=== PATIENT | female | born 1940 | race Caucasian/White ===

== ENCOUNTER 2020-07-30 21:15 | Emergency (ER) | payer MEDICARE, MEDICAID ==
[~2020-07-30] VITALS: Ht 160 cm; Wt 59.0 kg
[2020-07-30 21:15] VITALS: BP 120/68
--- NOTE | 2020-07-30 21:15 | NUR ---
ED Nurse Note: Pt brought in by ambulance from living facility, pt had a fall at 3pm onto her L hip hitting her head as well, denies LOC. Pt is A&Ox4, VSS. Pt speaks farci, interpretor used. ERMD at bedside, pt placed on quality assurance monitor
[2020-07-30] MEDS ORDERED: ATORVASTATIN CA20 MG ORAL (21:25)
[2020-07-30] MEDS ORDERED: ACETAMINOPHEN325 M1 ORAL (21:25)
[2020-07-30] MEDS ORDERED: AMLODIPINE BESY10 MG ORAL (21:25)
[2020-07-30] MEDS ORDERED: ALENDRONAT70 MG/75 M PO (21:25)
[2020-07-30] MEDS ORDERED: FAMOTIDINE20 MG ORAL (21:37)
[2020-07-30] MEDS ORDERED: DAILY VITE1 EACH ORAL (21:37)
[2020-07-30] MEDS ORDERED: PAXIL20 MG ORAL (21:42)
[2020-07-30] MEDS ORDERED: FOLIC ACID1 MG ORAL (21:42)
[2020-07-30] MEDS ORDERED: ZOFRAN4 M3 ORAL (21:42)
[2020-07-30] MEDS ORDERED: TRADJENTA5 MG PO (21:42)
[2020-07-30] MEDS ORDERED: LISINOPRIL20 MG ORAL (21:42)
[2020-07-30] MEDS ORDERED: OMEPRAZOLE40 M1 ORAL (21:42)
[2020-07-30] MEDS ORDERED: METFORMIN HCL1000 M1 ORAL (21:42)
[2020-07-30] MEDS ORDERED: LACTULOSE20 GM/301 ORAL (21:42)
[2020-07-30] MEDS ORDERED: TRAMADOL HCL50 MG ORAL (21:42)
--- NOTE | 2020-07-30 21:44 | NUR ---
ED Nurse Note: PT to CT
--- NOTE | 2020-07-30 21:51 | Emergency Room Report ---
History of Present Illness General Chief Complaint: Lower Back Pain or Injury Source: Patient, Medical Record (Bacilio Gomez MD) Present Illness HPI Disclaimer: Please note that this report is being documented using varinodeON technology. This can lead to erroneous entry secondary to incorrect interpretation by the dictating instrument. HPI: 79-year-old female presents for evaluation after a fall. History and physical done with the use of an financial coach. Patient states approximate 3 PM today while at her senior center she slipped on the floor had a fall with head injury but no loss of consciousness. She fell onto her left side. She is complaining of pain over the left hip particularly and lower ribs. Reports mild headache but no nausea, vomiting. Denied prefall lightheadedness, syncope , palpitations, shortness of breath or other changes. Does not take blood thinners. PMH: Hypertension, hyperlipidemia, depression PSH: Reviewed Allergies: Reviewed Social Hx: Reviewed (Bacilio Gomez MD) Allergies: Coded Allergies: No Known Allergies (Unverified , 07/30/20) COVID-19 Screening Contact w/high risk pt: No Experienced COVID-19 symptoms?: No COVID-19 Testing performed ART LIBRARIAN: Yes - 07/29/20 COVID-19 Screening: Negative COVID-19 COVID-19 Testing Source: Residential Facility (Bacilio Gomez MD) Nursing Documentation-PMH Hx Hypertension: Yes Hx Diabetes: Yes History Of Psychiatric Problem: Yes - dementia (Bacilio Gomez MD) Review of Systems All Other Systems: negative except mentioned in HPI (Bacilio Gomez MD) Physical Exam Vital Signs Date Time Temp Pulse Resp B/P (MAP) Pulse Ox O2 Delivery O2 Flow Rate FiO2 07/30/20 21:10 98.1 73 20 120/68 (85) 100 Room Air General: Awake and alert, no acute distress HEENT: Normocephalic, atraumatic. There are no scalp or face hematomas, lacerations or abrasions. No tenderness or soft tissue swelling over the facial bones. EOMI. PERRLA. No septal hematoma. No oral lacerations. Dentition is intact. No malocclusion Neck: Supple, trachea midline. Arrives without cervical collar Chest Wall: Tenderness palpation over the posterior aspect of the left lower ribs. CV: RRR. S1 and S2 normal. No murmur appreciated Resp: Normal work of breathing. No cough, wheezing or crackles appreciated Abd: Soft, nontender, nondistended Skin: Intact. No abrasions, laceration or rash over the exposed skin MSK: Normal tone and bulk. No obvious deformity. Moving all extremities. Ambulating without difficulty. Neuro: Awake and alert. Mentating appropriately. Sensation is intact to light touch over the dermatomes of the upper and lower extremities Spine: There is no tenderness, step-off or deformity in the cervical, thoracic or lumbosacral spine. There is moderate tenderness over the left superior iliac crest (Bacilio Gomez MD) Medical Decision Making Diagnostic Impression: Primary Impression: Meningioma Additional Impressions: Head injury, closed, without LOC Rib contusion ER Course Is a 79-year-old female who fell earlier today from standing with head injury but no loss of consciousness. Concern for intracranial injury, rib fracture, compression fracture, lumbar spine fracture, hip fracture, pelvis fracture, dislocation. No evidence of bleed on head CT but a meningioma was identified. This can be followed up on outpatient basis. Degenerative changes noted in the spine but no acute compression fracture noted or other abnormalities. Hips and pelvis in anatomic position without evidence of fracture dislocation. Difficult to interpret chest x-ray for rib fractures. A CT of the torso ordered. Patient will be signed out to oncoming physician pending CT and ultimate disposition. Patient stable condition. (Bacilio Gomez MD) ER Course Care of this patient was taken over by me from the previous physician. Patient remained hemodynamically stable and neurovascularly intact during my care in the emergency department. CT of the chest showed no active disease. The patient had multiple old appearing healing bilateral rib fractures and old healing L1 and L2 transverse process fractures with out any angulation. Patient was given ibuprofen and Toradol in the emergency department and within minutes so that she felt much better and was ambulating throughout the ER and tolerating p.o. and use the restroom without any difficulty. These findings were explained to the patient's son and the patient was transported back to her nursing care facility in good condition. (Triston Phelan M.D.) Other X-Ray Diagnostic Results Other X-Ray Diagnostic Results #1: X-Ray ordered: Hips, pelvis # of Views/Limited Vs Complete: 2 View Indication: Pain Interpretation: no dislocation, no soft tissue swelling, no fractures Impression: No acute disease Electronically Signed by: Electronically signed by Dr. Bacilio Gomez Other X-Ray Diagnostic Results #2: X-Ray ordered: Lumbar spine # of Views/Limited Vs Complete: 2 View Indication: Pain EP Interpretation: Yes Interpretation: no dislocation, no soft tissue swelling, no fractures, other - Degenerative changes present Impression: Other - Degenerative disc disease but no acute fracture Electronically Signed by: Electronically signed by Dr. Bacilio Gomez (Bacilio Gomez MD) CT/MRI/US Diagnostic Results CT/MRI/US Diagnostic Results : Impression IMPRESSION: 1. No acute intracranial process. 2. Involutional changes with small vessel disease. 3. Left anterior parafalcine 11 mm calcified meningioma. Dictated By: Momo Rios M.D. Electronically Signed By: Momo Rios M.D. Signed Date/Time 07/30/20 2209 CC: Bacilio Gomez MD Impression: 1. No active lung disease. 2. Healing multiple bilateral rib fractures, right L1-L2 transverse process fracture. 3. Small hiatal hernia. 4. Calcified hepatic granulomas. Dictated By: Momo Rios M.D. Electronically Signed By: Momo Rios M.D. Signed Date/Time 07/30/20 [id number] CC: Bacilio Gomez MD (Bacilio Gomez MD) Last Vital Signs Date Time Temp Pulse Resp B/P (MAP) Pulse Ox O2 Delivery O2 Flow Rate FiO2 07/30/20 21:10 98.1 73 20 120/68 (85) 100 Room Air (Bacilio Gomez MD) Disposition: HOME, SELF-CARE Condition: Stable Scripts Acetaminophen* (ACETAMINOPHEN 325MG TABLET*) 325 Mg Tablet 325 MG ORAL Q6H PRN for For Pain, #20 TAB Prov: Triston Phelan M.D. 07/31/20 Bacilio Gomez MD Jul 30, 2020 21:51 Triston Phelan M.D. Jul 31, 2020 00:08
--- NOTE | 2020-07-30 22:09 | NUR ---
ED Nurse Note: Pt back from CT
--- NOTE | 2020-07-30 22:09 | Diagnostic Imaging Report ---
CT head without contrast Technique more: CTDI is 53.4 mGy and DLP is 885.2 mGy-cm. Technique more: One or more of the following dose reduction techniques were used: automated exposure control, adjustment of the mA and/or kV according to patient size, use of iterative reconstruction technique. Comparison: None FINDINGS: No intracranial hemorrhage, abnormal intra- or extra-axial collections or parenchymal lesions are seen. There are involutional changes with prominence of the sulci, basal cisterns and ventricles. Scattered white matter hypoattenuations are present, likely from small vessel disease. The wang-white differentiation is preserved. Left anterior frontal 11 mm calcified meningioma. No evidence of mass effect, midline shift, or edema. The osseous structures are unremarkable. The visualized portions of the paranasal sinuses are clear. IMPRESSION: 1. No acute intracranial process. 2. Involutional changes with small vessel disease. 3. Left anterior parafalcine 11 mm calcified meningioma.
--- NOTE | 2020-07-30 22:56 | NUR ---
ED Nurse Note: PT to CT again
--- NOTE | 2020-07-30 23:06 | NUR ---
ED Nurse Note: Pt back from CT
--- NOTE | 2020-07-30 23:08 | Diagnostic Imaging Report ---
Rib series History: Pain, injury Technique: Bilateral rib series. Findings: Callouses of multiple bilateral healing rib fractures are noted. Negative for pneumothorax. Bilateral lungs are clear. Negative for pleural effusion Mediastinum, heart are normal. Impression: 1. Callouses of multiple bilateral healing rib fractures.
--- NOTE | 2020-07-30 23:29 | Diagnostic Imaging Report ---
CT chest without contrast History: Injury Technique: Axial noncontrast CT of the chest with coronal, sagittal reformatted images. Technique more: CTDI is 3.9 mGy and DLP is 139.7 mGy-cm. Technique more: One or more of the following dose reduction techniques were used: automated exposure control, adjustment of the mA and/or kV according to patient size, use of iterative reconstruction technique. Comparison: Rib series 07/30/2020 Findings: Soft tissues: Thoracic inlet, bilateral axilla are unremarkable. Negative for any significant mediastinal hilar or subcarinal lymphadenopathy. Negative for pleural effusion or pleural plaque. Mild/moderate hiatal hernia is seen. Upper abdomen: Scattered calcified hepatic granuloma. Mild calcification of the normal caliber aorta. Vascular: Heart and pericardium are unremarkable. Minimal calcification at the aortic root and aortic arch. Normal caliber of the aorta and pulmonary artery. Negative for any significant coronary calcification. Lungs: No endotracheal endobronchial lesion. Negative for pneumothorax. Mild atelectasis of the left lingula and right middle lobe. Bones: Multiple bilateral rib fractures with callus formation suggesting old healing fractures. Healing midsternal fracture. T12-L1 degenerative disc disease with vertebral body endplate small nodes. Healing right L1, L2 transverse process fractures Impression: 1. No active lung disease. 2. Healing multiple bilateral rib fractures, right L1-L2 transverse process fracture. 3. Small hiatal hernia. 4. Calcified hepatic granulomas.
[2020-07-30] MEDS ORDERED: Ketorolac 60mg Inj IM ONE (23:45)
[2020-07-30] MEDS ORDERED: Acetaminophen 500mg (ES) tab ORAL ONE (23:45)
[2020-07-31] MEDS ORDERED: ACETAMINOPHEN325 M1 ORAL (00:03)
[2020-07-31 01:00] VITALS: BP 132/65
--- NOTE | 2020-07-31 01:00 | NUR ---
ED Nurse Note: Pt resting in bed with eyes closed, no signs of distress, will continue to monitor as waiting for transport
[2020-07-31 03:35] VITALS: BP 120/68
--- NOTE | 2020-07-31 03:35 | NUR ---
ER DISCHARGE NOTE: Patient is cleared to be discharged per ERMD, pt is aox4, on room air, with stable vital signs. pt was given dc and prescription instructions, pt was able to verbalize understanding, pt id band removed. pt is able to ambulate with steady gait. pt took all belongings. Addendum: 07/31/20 at 0337 by KDEARING pt taken home by [facility]
--- NOTE | 2020-07-31 16:24 | Diagnostic Imaging Report ---
Indication: Pain, status post fall Technique: One view of the pelvis with frog lateral views of the hips Comparison: none Findings: No acute fractures. No dislocations. The joint spaces are preserved Impression: No acute bony trauma Note, however, that in elderly osteoporotic patients, nondisplaced hip and/or pelvic fractures can easily be occult. Consider cross-sectional imaging if there is high clinical suspicion
--- NOTE | 2020-07-31 16:25 | Diagnostic Imaging Report ---
Indication: Pain, status post fall Technique: 3 views of the lumbar spine Comparison: None Findings: There is anterior offset of L4 on L5. Otherwise normal bony alignment. There is degenerative disc narrowing at T12-L1 and at L5-S1. The remaining disc spaces are preserved. No definite acute fractures. The bones are osteoporotic. The pedicles are intact. Sacroiliac joint spaces are preserved. Impression: Degenerative changes, as described Osteoporosis No definite acute bony trauma
== END 2020-07-31 03:35 | disposition home or self-care (01) ==
LOC: EDBD 21:15 → EMR 21:46
DX: D32.0 Benign neoplasm of cerebral meninges (principal); S20.219A Contusion of unspecified front wall of thorax, initial encounter; S09.90XA Unspecified injury of head, initial encounter; I10 Essential (primary) hypertension; E11.9 Type 2 diabetes mellitus without complications; F03.90 Unspecified dementia, unspecified severity, without behavioral disturbance, psychotic disturbance, mood disturbance, and anxiety; W01.0XXA Fall on same level from slipping, tripping and stumbling without subsequent striking against object, initial encounter; Y93.01 Activity, walking, marching and hiking; Y92.29 Other specified public building as the place of occurrence of the external cause
CPT/HCPCS: 70450; 71250; 72020; 73521; 96372; 99284

== ENCOUNTER 2020-08-13 13:11 | Inpatient (IN) | payer MEDICARE, MEDICAID ==
[~2020-08-13] VITALS: Ht 162.6 cm; Wt 57.2 kg
[~2020-08-13 13:11] MED LIST: ACETAMINOPHEN325 M1 ORAL; ALENDRONAT70 MG/75 M PO; AMLODIPINE BESY10 MG ORAL; ATORVASTATIN CA20 MG ORAL; DAILY VITE1 EACH ORAL; FAMOTIDINE20 MG ORAL; FOLIC ACID1 MG ORAL; LACTULOSE20 GM/301 ORAL; LISINOPRIL20 MG ORAL; METFORMIN HCL1000 M1 ORAL; OMEPRAZOLE40 M1 ORAL; PAXIL20 MG ORAL; TRADJENTA5 MG PO; TRAMADOL HCL50 MG ORAL; ZOFRAN4 M3 ORAL
[2020-08-13 13:15] VITALS: BP 136/59
--- NOTE | 2020-08-13 13:15 | NUR ---
ED Nurse Note: Pt brought in by [facility] from [facility] assisted living due to abdominal pain, nausea, vomiting for 2 days. Last vomiting episode this morning. Per report pt also unable to void x2 days. Pt is awake alert oriented x4, respirations even and unlabored, tachycardic HR 102-103, other vitals stable as documented.
[2020-08-13 13:57] LABS: APPEARANCE,URINE SLIGHTLY CLOUDY; BILIRUBIN, URINE 1+ (NEGATIVE); GLUCOSE, URINE (UA) 2+ (NEGATIVE); KETONES,URINE 1+ (NEGATIVE); LEUKOCYTE ESTERASE ,URINE 1+ (NEGATIVE); NITRITE,URINE NEGATIVE (NEGATIVE); PH,URINE 5 (4.5-8.0); PROTEIN,URINE 3+ (NEGATIVE); UROBILINOGEN,URINE NORMAL MG/DL (0.0-1.0)
[2020-08-13 13:58] LABS: HEMATOCRIT 41.6 % (37.0-47.0); HEMOGLOBIN 12.5 G/DL (12.0-16.0); MEAN CORPUSCULAR VOLUME 88 FL (80-99); PLATELET COUNT 307 K/UL (150-450); RED BLOOD COUNT 4.74 M/UL (4.20-5.40); RED CELL DISTRIBUTION WIDTH 12.6 % (11.6-14.8)
[2020-08-13 14:00] VITALS: BP 133/61
[2020-08-13 14:03] LABS: WHITE BLOOD COUNT 35.8 K/UL (4.8-10.8)
--- NOTE | 2020-08-13 14:05 | Emergency Room Report ---
History of Present Illness General Chief Complaint: Abdominal Pain Source: Patient, Medical Record, EMS ([facility]) Present Illness HPI This patient is brought in by EMS from a [place] [facility] [place] facility. This patient has a history of dementia, diabetes. She presents with nausea, vomiting and lower abdominal pain. Patient is a poor historian. History is primarily obtained by EMS. There is no report of fever chills, cough or congestion, chest pain or shortness of breath. 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 [facility] Patient History Past Medical History: see triage record, DM, HTN Social History: Denies: smoking, alcohol use, drug use Reviewed Nursing Documentation: PMH: Agreed; PSxH: Agreed ([facility] Nursing Documentation-PMH Past Medical History: No History, Except For Hx Hypertension: Yes Hx Diabetes: Yes - 2 ([facility]) Review of Systems All Other Systems: negative except mentioned in HPI ([facility]) Physical Exam Vital Signs Date Time Temp Pulse Resp B/P (MAP) Pulse Ox O2 Delivery O2 Flow Rate FiO2 08/13/20 13:12 98.1 93 20 134/63 (86) 95 Room Air Sp02 EP Interpretation: reviewed, normal General Appearance: no apparent distress, alert, GCS 15, non-toxic Head: normocephalic, atraumatic Eyes: bilateral eye normal inspection, bilateral eye PERRL ENT: hearing grossly normal, normal pharynx, no angioedema, normal voice Neck: full range of motion, supple/symm/no masses Respiratory: chest non-tender, lungs clear, normal breath sounds, no respiratory distress, no retraction, no accessory muscle use, speaking full sentences Cardiovascular #1: regular rate, rhythm, no edema Gastrointestinal: non tender, soft, non-distended, no guarding, no rebound, tenderness - TTP lower abdomen Rectal: deferred Musculoskeletal: back normal, normal range of motion, non-tender Neurologic: alert, motor strength/tone normal, oriented x3, sensory intact, responsive, speech normal Psychiatric: judgement/insight normal, memory normal, mood/affect normal, no suicidal/homicidal ideation Skin: no rash, normal color ([facility] DO) Medical Decision Making Diagnostic Impression: Primary Impression: Abdominal pain Additional Impressions: Nausea & vomiting Leukocytosis Acute renal failure Hyperkalemia ER Course This patient presents from a [place] [facility] [place] facility and has abdominal pain, nausea and vomiting. Given the patient's age, she is high risk for intra- abdominal pathology. She is pending CT of the abdomen and pelvis, labs to include CBC, CMP, urinalysis. This patient is turned over to Dr. James for final disposition. Laboratory work-up showed renal failure. I did call the patient's primary care physician and he stated that he did not know of any history of renal failure. The patient's potassium is also over 6. She was given aggressive IV fluids, broad-spectrum antibiotics, insulin, glucose, albuterol and calcium gluconate to temporarily treat her hyperkalemia. The patient did not demonstrate any arrhythmia on telemetry or in the emergency department. Likely this patient will need dialysis. The patient's white blood cell count is significantly elevated which could be infection versus an undiagnosed malignancy. Regardless, the patient was given broad-spectrum antibiotics as a precaution. See Dr. James's note. This patient is critically ill. This patient required complex medical decision- making, aggressive intervention, extensive laboratory workup and monitoring. Critical care time: 40 minutes. This patient was evaluated in the context of the global COVID-19 pandemic, which necessitated consideration that the patient might be at risk for infection with the [id number] virus that causes COVID-19. Institutional protocols and al gorithms that pertain to the evaluation of patients at risk for COVID-19 and the state of rapid change based on information released by multiple regulatory bodies including the CDC and federal and state organizations. These policies and algorithms were followed during the patient's care in the ED. Laboratory Tests Test 08/13/20 13:35 08/13/20 13:40 08/13/20 14:55 08/13/20 15:30 White Blood Count 35.8 K/UL (4.8-10.8) *H Red Blood Count 4.74 M/UL (4.20-5.40) Hemoglobin 12.5 G/DL (12.0-16.0) Hematocrit 41.6 % (37.0-47.0) Mean Corpuscular Volume 88 FL (80-99) Mean Corpuscular Hemoglobin 26.4 PG (27.0-31.0) L Mean Corpuscular Hemoglobin Concent 30.1 G/DL (32.0-36.0) L Red Cell Distribution Width 12.6 % (11.6-14.8) Platelet Count 307 K/UL (150-450) Mean Platelet Volume 6.7 FL (6.5-10.1) Neutrophils (%) (Auto) % (45.0-75.0) Lymphocytes (%) (Auto) % (20.0-45.0) Monocytes (%) (Auto) % (1.0-10.0) Eosinophils (%) (Auto) % (0.0-3.0) Basophils (%) (Auto) % (0.0-2.0) Differential Total Cells Counted 100 Neutrophils % (Manual) 36 % (45-75) L Lymphocytes % (Manual) 62 % (20-45) H Monocytes % (Manual) 2 % (1-10) Eosinophils % (Manual) 0 % (0-3) Basophils % (Manual) 0 % (0-2) Band Neutrophils 0 % (0-8) Platelet Estimate Adequate Platelet Morphology Normal Hypochromasia 1+ Prothrombin Time 11.4 SEC (9.30-11.50) Prothrombin Time INR 1.0 (0.9-1.1) Activated Partial Thromboplast Time 26 SEC (23-33) Sodium Level 141 MMOL/L (136-145) Potassium Level 6.4 MMOL/L (3.5-5.1) *H Chloride Level 97 MMOL/L (98-107) L Carbon Dioxide Level 10 MMOL/L (21-32) L Anion Gap 34 mmol/L (5-15) H Blood Urea Nitrogen 76 mg/dL (7-18) H Creatinine 6.1 MG/DL (0.55-1.30) H Estimated Glomerular Filtration Rate 6.6 mL/min (>60) Glucose Level 238 MG/DL (74-106) H Calcium Level 9.5 MG/DL (8.5-10.1) Calcium (Send out) Pending Total Bilirubin 0.4 MG/DL (0.2-1.0) Aspartate Amino Transferase (AST) 15 U/L (15-37) Alanine Aminotransferase (ALT) 29 U/L (12-78) Alkaline Phosphatase 69 U/L (46-116) Total Creatine Kinase 47 U/L (26-308) Creatine Kinase MB 2.9 NG/ML (0.0-3.6) Creatine Kinase MB Relative Index 6.1 Troponin I 0.009 ng/mL (0.000-0.056) Total Protein 8.5 G/DL (6.4-8.2) H Albumin 4.0 G/DL (3.4-5.0) Globulin 4.5 g/dL Albumin/Globulin Ratio 0.9 (1.0-2.7) L Lipase 174 U/L (73-393) Parathyroid Hormone (Intact) Pending Urine Color Yellow Urine Appearance Slightly cloudy Urine pH 5 (4.5-8.0) Urine Specific [place] 1.020 (1.005-1.035) Urine Protein 3+ (NEGATIVE) H Urine Glucose (UA) 2+ (NEGATIVE) H Urine Ketones 1+ (NEGATIVE) H Urine Blood 1+ (NEGATIVE) H Urine Nitrite Negative (NEGATIVE) Urine Bilirubin 1+ (NEGATIVE) H Urine Ictotest Negative (NEGATIVE) Urine Urobilinogen Normal MG/DL (0.0-1.0) Urine Leukocyte Esterase 1+ (NEGATIVE) H Urine RBC 0-2 /HPF (0 - 2) Urine WBC 2-4 /HPF (0 - 2) Urine Squamous Epithelial Cells Few /LPF (NONE/OCC) Urine Amorphous Sediment Few /LPF (NONE) H Urine Bacteria Few /HPF (NONE) Lactic Acid Level 8.40 mmol/L (0.4-2.0) H Venous Blood pH 6.808 Venous Blood Partial Pressure CO2 30.0 Venous Blood Partial Pressure O2 38.3 Venous Blood HCO3 4.6 Venous Blood Base Excess -28.8 Venous Blood Carboxyhemoglobin 0.6 % (0.5-1.5) Methemoglobin 0.2 Test 08/13/20 15:34 08/13/20 15:45 08/13/20 23:30 08/14/20 04:50 POC Whole Blood Glucose 380 MG/DL (74-106) H Lactic Acid Level 9.00 mmol/L (0.66-2.22) H 4.80 mmol/L (0.4-2.0) H Pending White Blood Count 36.5 K/UL (4.8-10.8) *H Red Blood Count 3.89 M/UL (4.20-5.40) L Hemoglobin 10.5 G/DL (12.0-16.0) L Hematocrit 34.6 % (37.0-47.0) L Mean Corpuscular Volume 89 FL (80-99) Mean Corpuscular Hemoglobin 27.0 PG (27.0-31.0) Mean Corpuscular Hemoglobin Concent 30.3 G/DL (32.0-36.0) L Red Cell Distribution Width 12.4 % (11.6-14.8) Platelet Count 257 K/UL (150-450) Mean Platelet Volume 6.8 FL (6.5-10.1) Neutrophils (%) (Auto) % (45.0-75.0) Lymphocytes (%) (Auto) % (20.0-45.0) Monocytes (%) (Auto) % (1.0-10.0) Eosinophils (%) (Auto) % (0.0-3.0) Basophils (%) (Auto) % (0.0-2.0) Neutrophils % (Manual) Pending Lymphocytes % (Manual) Pending Platelet Estimate Pending Platelet Morphology Pending Sodium Level 139 MMOL/L (136-145) Potassium Level 6.4 MMOL/L (3.5-5.1) *H Chloride Level 102 MMOL/L (98-107) Carbon Dioxide Level 8 MMOL/L (21-32) *L Anion Gap 30 mmol/L (5-15) H Blood Urea Nitrogen 80 mg/dL (7-18) H Creatinine 6.5 MG/DL (0.55-1.30) H Estimated Glomerular Filtration Rate 6.2 mL/min (>60) Glucose Level 493 MG/DL (74-106) #H Calcium Level 7.2 MG/DL (8.5-10.1) #L Vitamin D 25-Hydroxy Pending 25-Hydroxy Vitamin D2 Pending 25-Hydroxy Vitamin D3 Pending Test 08/14/20 05:25 POC Whole Blood Glucose 423 MG/DL (74-106) H Microbiology Date/Time Source Procedure Growth Status 08/13/20 14:25 Nasopharynx SARS-CoV-2 RdRp Gene Assay - Final Complete ([facility]) ER Course Please see above note. Dr. Nishi Santiago believes that she has a history of chronic lymphocytic leukemia which might explain the leukocytosis. Call for elevated lactic acid in the face of renal failure. Fluid bolus has been administered 30 mils per kilogram and also antibiotics. 1540 Repeat lactic acid more elevated. 1 more liter NS ordered. Antibiotics were broadened. 1700 Less tachycardic and BP occasionally slightly lower than 90, but finally improved. Admit SDU. (Johnathon James MD) EKG Diagnostic Results Rate: tachycardiac Rhythm: other - S.tachycardia ST Segments: no acute changes Other Impression 1st degree AV block ([facility]) Rhythm Strip Diag. Results EP Interpretation: yes Rate: 100's Rhythm: no PVC's, no ectopy, other - S.tachycardia ([facility]) EP Interpretation: yes Rhythm: no PVC's, no ectopy, other - ST 108 (Johnathon James MD) CT/MRI/US Diagnostic Results CT/MRI/US Diagnostic Results : Imaging Test Ordered: CT abd/pelvis Impression RETROCECAL APPENDIX NORMAL IN CALIBER BUT THERE IS MILD INFLAMMATORY CHANGES AROUND THE TIP OF THE APPENDIX. QUESTION EARLY TIP APPENDICITIS. ENLARGED UTERUS WITH PROBABLE LARGE FIBROID. HEPATIC GRANULOMAS. MILD FATTY ATROPHY OF THE PANCREAS. SLIGHT NODULAR THICKENING OF THE LEFT ADRENAL GLAND PERHAPS HYPERPLASIA. OLD RIB FRACTURES. ([facility]) Last Vital Signs Date Time Temp Pulse Resp B/P (MAP) Pulse Ox O2 Delivery O2 Flow Rate FiO2 08/13/20 13:15 98.1 102 20 136/59 100 Room Air ([facility]) Last Vital Signs Date Time Temp Pulse Resp B/P (MAP) Pulse Ox O2 Delivery O2 Flow Rate FiO2 08/14/20 00:00 Room Air 08/14/20 00:00 97.5 90 20 112/56 (74) 98 08/13/20 18:24 21 (Johnathon James MD) Disposition: ADMITTED INPATIENT Condition: Critical [facility] Aug 13, 2020 14:05 Johnathon James MD Aug 13, 2020 15:29
[2020-08-13 14:09] LABS: COLOR,URINE YELLOW
[2020-08-13 14:15] LABS: ALBUMIN/GLOBULIN RATIO 0.9 (1.0-2.7); BILIRUBIN,TOTAL 0.4 MG/DL (0.2-1.0); CALCIUM 9.5 MG/DL (8.5-10.1); CREATININE 6.1 MG/DL (0.55-1.30)
[2020-08-13] MEDS ORDERED: Cefepime HCl 2 GM in NS 110 ML IV ONE (14:15)
[2020-08-13 14:16] LABS: POTASSIUM 6.4 MMOL/L (3.5-5.1)
--- NOTE | 2020-08-13 14:24 | NUR ---
ED Nurse Note: dr. peña made aware of the pt.'s wbc of 35.8 and potassium evel of 6.4
[2020-08-13] MEDS ORDERED: Insulin Human Regular 100units/ml 3ml IV ONE (14:30)
[2020-08-13] MEDS ORDERED: Albuterol ud Inhalation HHN ONE (14:30)
[2020-08-13] MEDS ORDERED: Calcium Gluconate 1gm/50ml 50 ML IVPB ONE (14:30)
--- NOTE | 2020-08-13 14:35 | NUR ---
ED Nurse Note: pt transported to CT via gurney accompanied by data communications technician
--- NOTE | 2020-08-13 14:47 | NUR ---
ED Nurse Note: pt back from CT in stable condition, connected back to the monitor.
[2020-08-13 15:23] VITALS: BP 129/49
--- NOTE | 2020-08-13 15:24 | Diagnostic Imaging Report ---
EXAM: CT CT Abdomen Pelvis WO Contrast INDICATION: Nausea vomiting and abdominal pain. COMPARISON: None TECHNIQUE: Axial images were obtained through the abdomen pelvis without intravenous contrast. Sagittal and coronal reformats are generated. All CT scans at this facility are performed using dose modulation techniques as appropriate to a performed exam including the following: automated exposure control with adjustment of the mA and/or kV according to patient size. RADIATION DOSE: CTDIvol: 4.1 mGy DLP: 171.2 mGy-cm Dose information generated by the CT scanner is available in PACS. FINDINGS: Mild dependent atelectasis in both lung bases. There are multiple old rib fractures with healing callous noted There are several hepatic granulomas. The spleen is homogeneous. Gallbladder is without sludge or stone and there is no wall thickening. Mild diffuse fatty atrophy of the pancreas noted. There is slight nodular thickening of the left adrenal gland. Right adrenal is grossly unremarkable. The kidneys are normal in size, shape and axis. Small bowel loops are nondistended. The colon is also nondistended with average amount of stool. The appendix is normal in caliber but there is some inflammation around the tip of the retrocecal appendix. Question early tip appendicitis. There is no free fluid or free air. No pathologic adenopathy demonstrated. Bladder is empty. There is an enlarged uterus with a large central heterogeneous mass likely a large fibroid. Some peripheral calcification noted. IMPRESSION: RETROCECAL APPENDIX NORMAL IN CALIBER BUT THERE IS MILD INFLAMMATORY CHANGES AROUND THE TIP OF THE APPENDIX. QUESTION EARLY TIP APPENDICITIS. ENLARGED UTERUS WITH PROBABLE LARGE FIBROID. HEPATIC GRANULOMAS. MILD FATTY ATROPHY OF THE PANCREAS. SLIGHT NODULAR THICKENING OF THE LEFT ADRENAL GLAND PERHAPS HYPERPLASIA. OLD RIB FRACTURES.
--- NOTE | 2020-08-13 15:30 | NUR ---
ED Nurse Note: RT at bedside giving breathing treatment. Venous blood gas given to RT.
--- NOTE | 2020-08-13 16:24 | General Progress Note ---
Assessment/Plan Status: stable Assessment/Plan: 1, ARF POSSIBLY PRE RENAL VS ATN - CONT IVF AND RENAL CONSULT DONE. 2. POSSIBLE SEPSIS - WILL START CEFEPIME AND FLAGYL AND ID CONSULT DONE. 3. CLL - MAY NEED TO F/U WITH HER ONCOLOGIST AT OUTPATIENT. 4. QUESTIONABLE ACUTE APPENDECITIS - CONT IV ABX AND MONITOR FOR NOW. WILL START ON CLEAR LIQUID DIET AND ADVANCE TOLERATED. 5. DM II - WILL HOLD ALL ORAL MEDS AND START SSI IN HOSPITAL. 6. HTN - NORVASC 10 MG ONE PO DAILY HOLD FOR SBP < 110. 7. GERD - PROTONIX 40 MG ONE PO DAILY AND PEPCID 20 MG ONE PO QHS. 8. HLD - CONT ATORVASTATIN 20 MG ONE PO QHS. 9. FULL CONSULT TO FOLLOW. Subjective Date patient seen: Aug 13, 2020 Time patient seen: 03:50 Constitutional: Reports: weakness HEENT: Reports: no symptoms Cardiovascular: Reports: no symptoms Respiratory: Reports: no symptoms Gastrointestinal/Abdominal: Reports: no symptoms, diarrhea, nausea Genitourinary: Reports: no symptoms Neurologic/Psychiatric: Reports: no symptoms Allergies: Coded Allergies: No Known Allergies (Unverified , 07/30/20) Objective Last 24 Hour Vital Signs Date Time Temp Pulse Resp B/P (MAP) Pulse Ox O2 Delivery O2 Flow Rate FiO2 08/13/20 15:44 102 20 100 Room Air 21 98 20 99 08/13/20 15:23 98.5 98 20 129/49 100 Room Air 08/13/20 14:00 98.1 94 20 133/61 100 Room Air 08/13/20 13:15 98.1 102 20 136/59 100 Room Air 08/13/20 13:15 102 20 Room Air 08/13/20 13:12 98.1 93 20 134/63 (86) 95 Room Air Laboratory Tests 08/13/20 13:35: White Blood Count 35.8*H, Red Blood Count 4.74, Hemoglobin 12.5, Hematocrit 41.6 , Mean Corpuscular Volume 88, Mean Corpuscular Hemoglobin 26.4L, Mean Corpuscular Hemoglobin Concent 30.1L, Red Cell Distribution Width 12.6, Platelet Count 307, Mean Platelet Volume 6.7, Neutrophils (%) (Auto) , Lymphocytes (%) (Auto) , Monocytes (%) (Auto) , Eosinophils (%) (Auto) , Basophils (%) (Auto) , Differential Total Cells Counted 100, Neutrophils % ( Manual) 36L, Lymphocytes % (Manual) 62H, Monocytes % (Manual) 2, Eosinophils % ( Manual) 0, Basophils % (Manual) 0, Band Neutrophils 0, Platelet Estimate Adequate, Platelet Morphology Normal, Hypochromasia 1+, Prothrombin Time 11.4, Prothromb Time International Ratio 1.0, Activated Partial Thromboplast Time 26, Sodium Level 141, Potassium Level 6.4*H, Chloride Level 97L, Carbon Dioxide Level 10L, Anion Gap 34H, Blood Urea Nitrogen 76H, Creatinine 6.1H, Estimat Glomerular Filtration Rate 6.6, Glucose Level 238H, Calcium Level 9.5, Total Bilirubin 0.4, Aspartate Amino Transf (AST/SGOT) 15, Alanine Aminotransferase ( ALT/SGPT) 29, Alkaline Phosphatase 69, Total Protein 8.5H, Albumin 4.0, Globulin 4.5, Albumin/Globulin Ratio 0.9L, Lipase 174 08/13/20 13:40: Urine Color Yellow, Urine Appearance Slightly cloudy, Urine pH 5, Urine Specific [place] 1.020, Urine Protein 3+H, Urine Glucose (UA) 2+H, Urine Ketones 1+H, Urine Blood 1+H, Urine Nitrite Negative, Urine Bilirubin 1+H, Urine Ictotest Negative, Urine Urobilinogen Normal, Urine Leukocyte Esterase 1+H , Urine RBC 0-2, Urine WBC 2-4, Urine Squamous Epithelial Cells Few, Urine Amorphous Sediment FewH, Urine Bacteria Few 08/13/20 14:55: Lactic Acid Level 8.40H 08/13/20 15:30: Venous Blood pH 6.808, Venous Blood Partial Pressure CO2 30.0, Venous Blood Partial Pressure O2 38.3, Venous Blood HCO3 4.6, Venous Blood Base Excess -28.8 , Venous Blood Carboxyhemoglobin 0.6, Methemoglobin 0.2 08/13/20 15:34: POC Whole Blood Glucose 380H 08/13/20 15:45: Lactic Acid Level [Pending] Height (Feet): 5 Height (Inches): 4.00 Weight (Pounds): 120 Pura Guillen MD Aug 13, 2020 16:24
[2020-08-13 16:30] VITALS: BP 118/59
--- NOTE | 2020-08-13 16:50 | NUR ---
ED Nurse Note: MD aware lactic acid 9, trending up. SBP trending down from 130s to 90s.
--- NOTE | 2020-08-13 16:54 | Infectious Diseases Prog Note ---
Assessment/Plan Problems: (1) Acute appendicitis Assessment & Plan: evident on CT abdomen, with abdominal pain , nausea and vomiting, will start cefepime with metronidazole empirically, and monitor clinically , may need surgical eval (2) UTI (urinary tract infection) Assessment & Plan: will send culture and start cefepime empirically (3) Leukocytosis Assessment & Plan: possible sepsis due to the above , start cefepime and metronidazole , add zyvox empirically pending blood culture (4) Acute renal failure Assessment & Plan: due to the above with dehydration , continue aggressive hydration with close monitoring of renal functions , avoid nephrotoxics (5) Abdominal pain Assessment & Plan: due to the above, continue pain management as needed (6) Nausea & vomiting Assessment & Plan: suspect due to the above, rule out COVID 19 infection, will send nasal swab for PCR testing to confirm, keep patient in enhanced droplets isolation , supportive care as needed Subjective Allergies: Coded Allergies: No Known Allergies (Unverified , 07/30/20) Objective Last 24 Hour Vital Signs Date Time Temp Pulse Resp B/P (MAP) Pulse Ox O2 Delivery O2 Flow Rate FiO2 08/13/20 16:30 98.5 101 20 118/59 100 Room Air 21 08/13/20 15:44 102 20 100 Room Air 21 98 20 99 08/13/20 15:23 98.5 98 20 129/49 100 Room Air 08/13/20 14:00 98.1 94 20 133/61 100 Room Air 08/13/20 13:15 98.1 102 20 136/59 100 Room Air 08/13/20 13:15 102 20 Room Air 08/13/20 13:12 98.1 93 20 134/63 (86) 95 Room Air Height (Feet): 5 Height (Inches): 4.00 Weight (Pounds): 120 Microbiology Date/Time Source Procedure Growth Status 08/13/20 14:25 Nasopharynx SARS-CoV-2 RdRp Gene Assay - Final Complete Laboratory Tests Test 08/13/20 13:35 08/13/20 13:40 08/13/20 14:55 08/13/20 15:30 White Blood Count 35.8 K/UL (4.8-10.8) *H Red Blood Count 4.74 M/UL (4.20-5.40) Hemoglobin 12.5 G/DL (12.0-16.0) Hematocrit 41.6 % (37.0-47.0) Mean Corpuscular Volume 88 FL (80-99) Mean Corpuscular Hemoglobin 26.4 PG (27.0-31.0) L Mean Corpuscular Hemoglobin Concent 30.1 G/DL (32.0-36.0) L Red Cell Distribution Width 12.6 % (11.6-14.8) Platelet Count 307 K/UL (150-450) Mean Platelet Volume 6.7 FL (6.5-10.1) Neutrophils (%) (Auto) % (45.0-75.0) Lymphocytes (%) (Auto) % (20.0-45.0) Monocytes (%) (Auto) % (1.0-10.0) Eosinophils (%) (Auto) % (0.0-3.0) Basophils (%) (Auto) % (0.0-2.0) Differential Total Cells Counted 100 Neutrophils % (Manual) 36 % (45-75) L Lymphocytes % (Manual) 62 % (20-45) H Monocytes % (Manual) 2 % (1-10) Eosinophils % (Manual) 0 % (0-3) Basophils % (Manual) 0 % (0-2) Band Neutrophils 0 % (0-8) Platelet Estimate Adequate Platelet Morphology Normal Hypochromasia 1+ Prothrombin Time 11.4 SEC (9.30-11.50) Prothromb Time International Ratio 1.0 (0.9-1.1) Activated Partial Thromboplast Time 26 SEC (23-33) Sodium Level 141 MMOL/L (136-145) Potassium Level 6.4 MMOL/L (3.5-5.1) *H Chloride Level 97 MMOL/L (98-107) L Carbon Dioxide Level 10 MMOL/L (21-32) L Anion Gap 34 mmol/L (5-15) H Blood Urea Nitrogen 76 mg/dL (7-18) H Creatinine 6.1 MG/DL (0.55-1.30) H Estimat Glomerular Filtration Rate 6.6 mL/min (>60) Glucose Level 238 MG/DL (74-106) H Calcium Level 9.5 MG/DL (8.5-10.1) Total Bilirubin 0.4 MG/DL (0.2-1.0) Aspartate Amino Transf (AST/SGOT) 15 U/L (15-37) Alanine Aminotransferase (ALT/SGPT) 29 U/L (12-78) Alkaline Phosphatase 69 U/L (46-116) Total Protein 8.5 G/DL (6.4-8.2) H Albumin 4.0 G/DL (3.4-5.0) Globulin 4.5 g/dL Albumin/Globulin Ratio 0.9 (1.0-2.7) L Lipase 174 U/L (73-393) Urine Color Yellow Urine Appearance Slightly cloudy Urine pH 5 (4.5-8.0) Urine Specific [place] 1.020 (1.005-1.035) Urine Protein 3+ (NEGATIVE) H Urine Glucose (UA) 2+ (NEGATIVE) H Urine Ketones 1+ (NEGATIVE) H Urine Blood 1+ (NEGATIVE) H Urine Nitrite Negative (NEGATIVE) Urine Bilirubin 1+ (NEGATIVE) H Urine Ictotest Negative (NEGATIVE) Urine Urobilinogen Normal MG/DL (0.0-1.0) Urine Leukocyte Esterase 1+ (NEGATIVE) H Urine RBC 0-2 /HPF (0 - 2) Urine WBC 2-4 /HPF (0 - 2) Urine Squamous Epithelial Cells Few /LPF (NONE/OCC) Urine Amorphous Sediment Few /LPF (NONE) H Urine Bacteria Few /HPF (NONE) Lactic Acid Level 8.40 mmol/L (0.4-2.0) H Venous Blood pH 6.808 Venous Blood Partial Pressure CO2 30.0 Venous Blood Partial Pressure O2 38.3 Venous Blood HCO3 4.6 Venous Blood Base Excess -28.8 Venous Blood Carboxyhemoglobin 0.6 % (0.5-1.5) Methemoglobin 0.2 Test 08/13/20 15:34 08/13/20 15:45 POC Whole Blood Glucose 380 MG/DL (74-106) H Lactic Acid Level 9.00 mmol/L (0.66-2.22) H Johanna Torres M.D. Aug 13, 2020 16:54
--- NOTE | 2020-08-13 16:55 | Consultation ---
Consult Note Assessment/Plan renal note dictated # [id number] Darrian Cortes MD Aug 13, 2020 16:55
[2020-08-13 17:23] VITALS: BP 126/108
--- NOTE | 2020-08-13 17:30 | Consultation ---
DATE OF CONSULTATION: 08/13/2020 NEPHROLOGY CONSULTATION CONSULTING PHYSICIAN: Darrian Cortes MD REFERRING PHYSICIAN: Pura Guillen MD REASON FOR CONSULTATION: Acute renal failure. HISTORY OF PRESENT ILLNESS: This is a 79-year-old very pleasant Micronesian female who was brought in from the [facility] and care facility for some nausea, vomiting, and abdominal pain. I was asked to see the patient for acute renal failure. Her BUN was 76 and creatinine of 6.1. Potassium was also elevated at 6.4. The patient has reportedly history of dementia, however, she can provide some history. She states she has not been able to urinate for the past two days. In the emergency room, also Hitchcock catheter was put in and there was no urine output according to the RN. In addition to abnormal kidney function, she had also an elevated WBC at 35,800. PAST MEDICAL HISTORY: History of diabetes and hypertension. MEDICATIONS: Reviewed in the EMR. SOCIAL HISTORY: No history of smoking or alcohol abuse. ALLERGIES: No known drug allergies. REVIEW OF SYSTEMS: As above. PHYSICAL EXAMINATION: GENERAL: The patient is an elderly female, in no acute distress. VITAL SIGNS: Blood pressure 134/63, pulse 93, respiratory rate was 20, and temperature 98.1. HEENT: [place] conjunctivae. Anicteric sclerae. NECK: Supple. LUNGS: Clear to auscultation. HEART: S1 and S2 without murmurs or rubs. ABDOMEN: Soft, nontender. EXTREMITIES: No cyanosis or edema. LABORATORY FINDINGS: CBC shows a WBC of 35.8, hematocrit is 41.6, hemoglobin is 12.5, and platelet is 307,000. Chemistry panel shows serum sodium 141, potassium 6.4, chloride 97, BUN 76, creatinine 6.1, blood sugar is 238. Lactic acid is 9. Albumin is 4. UA shows 3+ protein and 2 to 4 wbc's per high-power field. ASSESSMENT: This is a 79-year-old female who was admitted with nausea, vomiting, abdominal pain. She has acute renal failure that appears to be anuric at this point. The differential diagnosis is prerenal azotemia versus acute tubular necrosis. There is no obstruction based on the CT scan, which showed the kidneys were normal in size, shape, and axis. Unlikely the patient has acute interstitial nephritis. The patient has also of some proteinuria so she may have some underlying chronic kidney disease as a result of hypertension and diabetes. PLAN: I would keep the patient hydrated by IV fluids. The patient will need infection workup for a high WBC and empiric antibiotics. Chemistry panel will be followed closely and further recommendations will be given. If the patient remains oliguric/anuric, she will need to have dialysis. Case was discussed with Dr. Guillen. Thank you very much, Dr. Guillen, for this consultation. Darrian Cortes M.D. DR: Fredis JOB#: [id number] CC: ANGELA
[2020-08-13 17:38] LABS: CKMB 2.9 NG/ML (0.0-3.6)
--- NOTE | 2020-08-13 18:15 | Consultation ---
DATE OF CONSULTATION: 08/13/2020 INFECTIOUS DISEASE CONSULTATION CONSULTING PHYSICIAN: Johanna Torres MD. REFERRING PHYSICIAN: Pura Guillen MD. REASON FOR CONSULTATION: Sepsis, UTI, possible appendicitis. Recommendation for antimicrobial treatment. HISTORY OF PRESENT ILLNESS: The patient is a 79-year-old Romanian female with past medical history of diabetes and hypertension, presented to the emergency room at [facility] with nausea, vomiting, and lower abdominal pain for the last couple of days. The patient had no fever or chills. No cough or congestion. No chest pain or shortness of breath. No recent travel or sick contact. In the ER, she was saturating 95% on room air with temperature of 98.1 and pulse of 93. The patient had extensive workup including labs, which showed significant leukocytosis of 35,000 concerning for sepsis. Her chemistry showed evidence of renal failure with hyperkalemia and elevated lactic acid. Urinalysis showed evidence of infection. So, she was given one dose of cefepime and had rapid COVID-19 test, which came back negative. Infectious Disease consultation was requested for antibiotics treatment and further management. As of note, the patient is Farsi speaker only, could not provide good history at this time. Most details were obtained from medical record and nursing staff. REVIEW OF SYSTEMS: Unable to obtain, the patient is a poor historian and could not provide good history. PAST MEDICAL HISTORY: Significant for dementia, diabetes, and hypertension. PAST SURGICAL HISTORY: Not on record. FAMILY HISTORY: Noncontributory. SOCIAL HISTORY: The patient lives in a senior care. She is retired. No recent drugs, tobacco, or alcohol abuse. ALLERGIES: She has no known drug allergy. MEDICATIONS: She received cefepime 2 g IV x1. For the rest of her medications, please refer to MAR. LABORATORY DATA: Labs showed white count of 35.8, hemoglobin of 12.5, hematocrit of 41.6, platelet count of 307. BUN of 76, creatinine of 6.1. AST of 15, ALT of 29. Urinalysis showed +1 leukocyte esterase and few bacteria, wbc of 2 to 4. Microbiology - COVID-19 rapid test came back negative. IMAGING: CT scan of the abdomen and pelvis showed retrocecal appendix normal in caliber, but there is mild inflammatory changes, around the tip of the appendix question, early appendicitis and large uterus with probable large fibroid, hepatic granulomas and mild fatty atrophy of the pancreas with left adrenal gland hyperplasia, and old rib fractures. PHYSICAL EXAMINATION: VITAL SIGNS: Temperature 98.5, pulse 101, respirations 20, blood pressure 118/59. Saturation 100% on room air. GENERAL: An elderly female, lying in bed. Awake, alert, unresponsive Farsi speaker, mainly not in distress. HEENT: Normocephalic and atraumatic. Pupils are reactive to light equally. Dry oral mucosa. No exudate or thrush. NECK: Supple. No lymphadenopathy. CARDIOVASCULAR: Tachycardic, S1-S2 normal. No murmur or gallop. LUNGS: Clear bilaterally. Normal breathing effort. No wheezing or rhonchi. ABDOMEN: Soft. Not distended. Tender in the lower quadrants. No rebound. No ascites. No hepatomegaly. EXTREMITIES: No edema or cyanosis. No clubbing. SKIN: No rash. No hives. No ulceration. ASSESSMENT AND RECOMMENDATION: 1. Possible acute appendicitis evident on CT scan of the abdomen with abdominal pain, nausea, and vomiting. We will start the patient on cefepime and metronidazole empiric coverage and monitor clinically. May need surgical evaluation for possible appendectomy. 2. Urinary tract infection. We will send urine culture. The patient is being on cefepime already. 3. Leukocytosis, possible sepsis due to the above. Start cefepime, metronidazole, and add Zyvox empiric coverage pending blood culture. 4. Acute renal failure due to the above with dehydration. Continue aggressive hydration with close monitoring of renal function. Avoid nephrotoxics. 5. Abdominal pain with nausea and vomiting, suspect due to the above. Need to rule out COVID-19 infection. We will send nasal swab for PCR testing to confirm since the rapid test might be false negative. Keep the patient in enhanced droplet isolation, supportive care as needed. Thank you for the consult. ID will continue to follow. Please feel free to call with any question. Johanna Torrse M.D. DR: EB JOB#: [id number] CC:
--- NOTE | 2020-08-13 18:22 | NUR ---
ED Nurse Note: [facility] ID # [id number]
--- NOTE | 2020-08-13 18:23 | NUR ---
ED Nurse Note: pt laying in bed comfortable with eyes closed, no complaints, no distress noted. Will continue to monitor
[2020-08-13 18:24] VITALS: BP 109/58
--- NOTE | 2020-08-13 19:21 | NUR ---
HAND-OFF: Report given to JAMIL Stevens. Endorsed plan of care.
--- NOTE | 2020-08-13 19:22 | NUR ---
ED Nurse Note: Report received from JOSELITO NEGRON
--- NOTE | 2020-08-13 20:00 | NUR ---
NURSE NOTES: Received report from JAMIL Stevens. ER Nurse. Pt is alert x 4 but speaks a little cameroonian, follow simple commands and able to talk back. pt has no signs of respiratory distress. Pt in room air o2 sat- 100%. With IV Right AC with gauge 20. Intact and still patent. Pt has no signs of pain. No signs ogf abdominal distention noted at this time. Continue to plan of care. Bed side commode near ther bed. Call light within reach. orient to facility. Patient has yellow socks on.
--- NOTE | 2020-08-13 20:37 | NUR ---
ED Nurse Note: Spoke to pt's next of kin ZENAIDA at [phone] and gave update
--- NOTE | 2020-08-13 20:45 | NUR ---
ED Nurse Note: Report given to PRINCESS NEGRON
--- NOTE | 2020-08-13 20:55 | NUR ---
TRANSFER TO FLOOR: Patient transferred to SDU at rm 243 via gurney with crdiac monitor, accompanied by RN. Belongings checked and given to RN. Patient transferred safely to bed and endorsed to RN.
[2020-08-13] MEDS ORDERED: Cefepime HCl 2 GM in D5W 55 ML IVPB SCH (21:00)
--- NOTE | 2020-08-13 21:29 | History and Physical Report ---
DATE OF ADMISSION: 08/13/2020 CHIEF COMPLAINT: Nausea, vomiting, and diarrhea with slight abdominal pain. HISTORY OF PRESENT ILLNESS: This is a 79-year-old French female with past medical history of hypertension, diabetes, CLL, hyperlipidemia, GERD, and chronic low back pain who was brought in from assisted living for complaint of nausea, vomiting, and lower abdominal pain for the past 2 days prior to admission. Patient had diarrhea yesterday, but that was resolved per patient. No fever or chills. No cough or shortness of breath. Patient also had a history of elevated WBC secondary to CLL. In the emergency room, patient was started on IV fluid bolus due to acute renal failure with a creatinine of 6. Patient was also started on IV antibiotics due to possible sepsis with a white count of 35,000. Her COVID-19 tests in the emergency room were negative. PAST MEDICAL HISTORY: Includes history of hypertension, hyperlipidemia, GERD, diabetes type 2, CLL, chronic low back pain, and lumbar and cervical disk disease. FAMILY HISTORY: Noncontributory. SOCIAL HISTORY: Patient lives in an assisted living. No history of alcohol or drug use. No history of smoking. ALLERGIES: No known drug allergy. MEDICATIONS: Please look at the medication list from the record from the assisted living, which includes amlodipine, atorvastatin, alendronate, famotidine, folic acid, Jardiance, lactulose, lisinopril, metformin, omeprazole, Tradjenta, and Paxil. REVIEW OF SYSTEMS: Negative except for HPI. PHYSICAL EXAMINATION: VITAL SIGNS: Temperature of 98.5, pulse 101, respirations 20, blood pressure 118/59, O2 saturation is 100% on room air. GENERAL APPEARANCE: Alert, oriented x3. No acute distress. Responds to commands. HEENT: Normocephalic, normochromic. Extraocular muscles intact. Throat is clear. NECK: Supple. No lymphadenopathy CARDIOVASCULAR: Regular rate and rhythm. No murmur. No gallop. Slightly tachycardic at 102. LUNGS: Clear to auscultation bilaterally. No wheezing. No rales or rhonchi. ABDOMEN: Soft, nondistended. Slight tenderness on the lower quadrant. No rebound. No guarding. No ascites. No hepatosplenomegaly. EXTREMITIES: No edema, cyanosis, or clubbing. SKIN: No rash. LABORATORY AND DIAGNOSTIC DATA: Include sodium 141, potassium 6.4, chloride 97, carbon dioxide 10, BUN 76, creatinine 6.1, glucose 238. Lactic acid is 824. Calcium 9.5. AST 16, ALT 29, alkaline phosphatase is 69. Troponin is 0.009. Albumin is 4. Total protein 8.5. Lipase is 174. WBC 35.8, hemoglobin is 12.5, hematocrit 41.6, platelet count 387. Neutrophils 36, lymphocytes 62. Urine shows + 3 urine protein, glucose shows +2, urine glucose +1, +1 urine ketone, +1 urine blood, urobilinogen is +1, leukocyte esterase is +1, squamous epithelial cells are few, amorphous sediment is few, urine bacteria few. Imaging showed abdominal CT showing retrocecal appendix, normal in caliber, but there are small mild inflammatory changes on the tip of the appendix, enlarged uterus, hepatic granuloma, mild fatty atrophy of the pancreas, slight nodular thickening of the left adrenal gland, perhaps hyperplasia, and old rib scars. IMPRESSION: 1. Acute renal failure, possibly prerenal versus acute tubular necrosis. We will start patient on IV fluid and have renal consult done and avoid any nephrotoxic medications and hold all nephrotoxic medications. 2. Possible sepsis. We will start patient on IV antibiotic, cefepime and Flagyl and we will have ID see the patient. 3. History of CLL. We will have the patient follow up with her oncologist as an outpatient. 4. Questionable acute appendicitis seen by CT. We will start IV antibiotic and if the pain does not improve and her nausea and vomiting does not improve, we will consult General Surgery. 5. Diabetes mellitus type 2. We will hold all oral medications and start sliding scale insulin in the hospital. 6. Hypertension. We will start Norvasc 10 mg daily. We will hold for systolic blood pressure less than 110. 7. GERD. We will start Protonix 40 mg daily and Pepcid 20 mg at bedtime. 8. Hyperlipidemia. Continue atorvastatin 20 mg 1 at bedtime. 9. Hyperkalemia. We will repeat the potassium level in the morning. 10. Urinary tract infection. Again, we will continue the same antibiotic. 11. Leukocytosis, most likely secondary to the CLL and possibly sepsis or UTI. The patient will be admitted for minimum of 2-night stay for diagnosis of acute renal failure and urinary tract infection, possible appendicitis, and possible sepsis. Pura Guillen M.D. DR: LEOPOLDO JOB#: [id number] CC: ANGELA
--- NOTE | 2020-08-13 21:30 | NUR ---
NURSE NOTES: Spoke to Dr. Guillen regarding the pt new admit orders. Ordered full code status. Made hoang about the abdl pelvis ct scan and made aware resulted early tip appendicitis he ordered clear liquid diet. Made aware lactic acid 8.4. Continue to plan of care.
[2020-08-13] MEDS: Atorvastatin 20mg tab ORAL SCH (22:12)
[2020-08-13] MEDS: Lokelma 10gm Pkt ORAL SCH (22:17)
[2020-08-14] VITALS (9 sets, daily range): BP systolic 85–122; BP diastolic 45–73
--- NOTE | 2020-08-14 02:00 | NUR ---
NURSE NOTES: Pt is seen lying in bed in supine position. No signs of respiratory distress. No signs of pain. No episodes of N/V. No signs of bladder distention. Pt is sleeping comfotsble on bed. pt self repositioned herself. Continue to monitor pt.
[2020-08-14] MEDS: Lokelma 10gm Pkt ORAL SCH (05:18)
[2020-08-14 05:48] LABS: HEMATOCRIT 34.6 % (37.0-47.0); HEMOGLOBIN 10.5 G/DL (12.0-16.0); MEAN CORPUSCULAR VOLUME 89 FL (80-99); PLATELET COUNT 257 K/UL (150-450); RED BLOOD COUNT 3.89 M/UL (4.20-5.40); RED CELL DISTRIBUTION WIDTH 12.4 % (11.6-14.8)
[2020-08-14 06:13] LABS: CALCIUM 7.2 MG/DL (8.5-10.1); CREATININE 6.5 MG/DL (0.55-1.30)
[2020-08-14 06:16] LABS: WHITE BLOOD COUNT 36.5 K/UL (4.8-10.8)
[2020-08-14 06:27] LABS: POTASSIUM 6.4 MMOL/L (3.5-5.1)
--- NOTE | 2020-08-14 06:33 | NUR ---
NURSE NOTES: Dr. Cortes called waiting for response, will relayed lab results.
[2020-08-14] MEDS: NovoLOG Insulin Flexpen SUBQ SCH ×4 (06:52→21:00)
--- NOTE | 2020-08-14 07:08 | NUR ---
NURSE HAND-OFF REPORT: Important Events on Shift: scant amount of urine output, K 6.2 Patient Status: stable Diet: Clear liquid diet. Pending Orders: Dialysis access. Pending Results/Labs: K 6.2, aware, new order received. Pending MD notification:n/a Latest Vital Signs: Temperature 97.0 , Pulse 69 , B/P 101 /73 , Respiratory Rate 20 , O2 SAT 100 , Room Air, O2 Flow Rate . Vital Sign Comment EKG Rhythm: Sinus Rhythm Rhythm change?: N MD Notified?: N - MD Response: Latest Green Fall Score: 55 Fall Risk: High Risk Safety Measures: Call light Within Reach, Bed Alarm Zone 2, Side Rails Side Rails x2, Bed position Low and Locked. Fall Precautions: Yellow Socks Patient Fall Education Report given to JAMIL Coe.
--- NOTE | 2020-08-14 07:10 | NUR ---
NURSE NOTES: Nurse report given by Frandy RN and Princess RN. Patient's awake in bed, eyes open spontaneously, breathing on RA, breathing regular and unlabored, no s/s of distress or SOB, denies pain, AAO x 3. IV is running fluid, no s/s of tenderness or infiltration. Bed low and locked, call light within reach, side rails x 3, bed alarm is armed, fall education provided with fall arm band applied. Was endorsed that patient is going to have Mateo catheter insertion and hemodialysis; consents signed. Will follow up for procedure eta. Will continue to monitor.
[2020-08-14] MEDS ORDERED: Heparin Sod 1000 units/ml 10ml IV SCH (08:45)
--- NOTE | 2020-08-14 09:23 | General Progress Note ---
Assessment/Plan Status: stable Assessment/Plan: 1, ARF POSSIBLY PRE RENAL VS ATN - CONT IVF AND FOLLOW RENAL RECOMMENDATION FOR POSSIBLE HD. 2. POSSIBLE SEPSIS - CONT CEFEPIME AND FLAGYL AND ID FOLLOWING. 3. CLL - MAY NEED TO F/U WITH HER ONCOLOGIST AT OUTPATIENT. 4. QUESTIONABLE ACUTE APPENDECITIS - CONT IV ABX AND MONITOR FOR NOW. WILL START ON CLEAR LIQUID DIET AND ADVANCE TOLERATED. 5. DM II - WILL HOLD ALL ORAL MEDS AND START SSI IN HOSPITAL. 6. HTN - NORVASC 10 MG ONE PO DAILY HOLD FOR SBP < 110. 7. GERD - PROTONIX 40 MG ONE PO DAILY AND PEPCID 20 MG ONE PO QHS. 8. HLD - CONT ATORVASTATIN 20 MG ONE PO QHS. 9. HYPERKALEMIA - CHANGE IVF TO 1/2 NS AT 75 CC/HR. POSSIBLE HD PER RENAL. 10. UTI - CONT IV ABX ABOVE. 11. LEUKOCYTOSIS - 2ND TO UTI AND POSSIBLE SEPSIS AND CLL. Subjective Date patient seen: Aug 14, 2020 Time patient seen: 08:55 Constitutional: Reports: weakness HEENT: Reports: no symptoms Cardiovascular: Reports: no symptoms Respiratory: Reports: no symptoms Gastrointestinal/Abdominal: Reports: abdominal pain Genitourinary: Reports: no symptoms Neurologic/Psychiatric: Reports: no symptoms Allergies: Coded Allergies: No Known Allergies (Unverified , 07/30/20) Subjective She denies any abd pain, nausea or vomiting. afebrile. No sob or chest pain. Objective Last 24 Hour Vital Signs Date Time Temp Pulse Resp B/P (MAP) Pulse Ox O2 Delivery O2 Flow Rate FiO2 08/14/20 08:00 98.2 89 21 111/47 (68) 97 08/14/20 04:00 97.0 97 20 101/73 (82) 100 08/14/20 04:00 Room Air 08/14/20 04:00 69 08/14/20 00:00 Room Air 08/14/20 00:00 97.5 90 20 112/56 (74) 98 08/14/20 00:00 90 08/13/20 21:23 95 08/13/20 21:11 98.0 88 18 132/78 98 Room Air 08/13/20 21:00 Room Air 08/13/20 18:24 98.5 101 20 109/58 100 Room Air 21 08/13/20 17:23 98.6 102 20 126/108 100 Room Air 21 08/13/20 16:30 98.5 101 20 118/59 100 Room Air 21 08/13/20 15:44 102 20 100 Room Air 21 98 20 99 08/13/20 15:23 98.5 98 20 129/49 100 Room Air 08/13/20 14:00 98.1 94 20 133/61 100 Room Air 08/13/20 13:15 98.1 102 20 136/59 100 Room Air 08/13/20 13:15 102 20 Room Air 08/13/20 13:12 98.1 93 20 134/63 (86) 95 Room Air Intake and Output 08/13/20 08/14/20 19:00 07:00 Intake Total 4400 ml 5245 ml Output Total 200 ml Balance 4200 ml 5245 ml Intake Oral 480 ml IV Total 4400 ml 4765 ml Output Urine Total 200 ml Laboratory Tests 08/13/20 13:35: White Blood Count 35.8*H, Red Blood Count 4.74, Hemoglobin 12.5, Hematocrit 41.6, Mean Corpuscular Volume 88, Mean Corpuscular Hemoglobin 26.4L, Mean Corpuscular Hemoglobin Concent 30.1L, Red Cell Distribution Width 12.6, Platelet Count 307, Mean Platelet Volume 6.7, Neutrophils (%) (Auto) , Lymphocytes (%) (Auto) , Monocytes (%) (Auto) , Eosinophils (%) (Auto) , Basophils (%) (Auto) , Differential Total Cells Counted 100, Neutrophils % (Manual) 36L, Lymphocytes % (Manual) 62H, Monocytes % (Manual) 2, Eosinophils % (Manual) 0, Basophils % (Manual) 0, Band Neutrophils 0, Platelet Estimate Adequate, Platelet Morphology Normal, Hypochromasia 1+, Prothrombin Time 11.4, Prothromb Time International Ratio 1.0, Activated Partial Thromboplast Time 26, Sodium Level 141, Potassium Level 6.4*H, Chloride Level 97L, Carbon Dioxide Level 10L, Anion Gap 34H, Blood Urea Nitrogen 76H, Creatinine 6.1H, Estimat Glomerular Filtration Rate 6.6, Glucose Level 238H, Calcium Level 9.5, Calcium (Send out) 9.5, Total Bilirubin 0.4, Aspartate Amino Transf (AST/SGOT) 15, Alanine Aminotransferase (ALT/SGPT) 29, Alkaline Phosphatase 69, Total Creatine Kinase 47, Creatine Kinase MB 2.9, Creatine Kinase MB Relative Index 6.1, Troponin I 0.009, Total Protein 8.5H, Albumin 4.0, Globulin 4.5, Albumin/Globulin Ratio 0.9L, Lipase 174, PTH (Intact) Whole Molecule Comment, Parathyroid Hormone (Intact) 77H 08/13/20 13:40: Urine Color Yellow, Urine Appearance Slightly cloudy, Urine pH 5, Urine Specific [place] 1.020, Urine Protein 3+H, Urine Glucose (UA) 2+H, Urine Ketones 1+H, Urine Blood 1+H, Urine Nitrite Negative, Urine Bilirubin 1+H, Urine Ictotest Negative, Urine Urobilinogen Normal, Urine Leukocyte Esterase 1+H, Urine RBC 0- 2, Urine WBC 2-4, Urine Squamous Epithelial Cells Few, Urine Amorphous Sediment FewH, Urine Bacteria Few 08/13/20 14:55: Lactic Acid Level 8.40H 08/13/20 15:30: Venous Blood pH 6.808, Venous Blood Partial Pressure CO2 30.0, Venous Blood Partial Pressure O2 38.3, Venous Blood HCO3 4.6, Venous Blood Base Excess -28.8, Venous Blood Carboxyhemoglobin 0.6, Methemoglobin 0.2 08/13/20 15:34: POC Whole Blood Glucose 380H 08/13/20 15:45: Lactic Acid Level 9.00H 08/13/20 23:30: Lactic Acid Level 4.80H 08/14/20 04:50: Lactic Acid Level 2.20H, White Blood Count 36.5*H, Red Blood Count 3.89L, Hemoglobin 10.5L, Hematocrit 34.6L, Mean Corpuscular Volume 89, Mean Corpuscular Hemoglobin 27.0, Mean Corpuscular Hemoglobin Concent 30.3L, Red Cell Distribution Width 12.4, Platelet Count 257, Mean Platelet Volume 6.8, Neutrophils (%) (Auto) , Lymphocytes (%) (Auto) , Monocytes (%) (Auto) , Eosinophils (%) (Auto) , Basophils (%) (Auto) , Neutrophils % (Manual) [Pending], Lymphocytes % (Manual) [Pending], Platelet Estimate [Pending], Platelet Morphology [Pending], Sodium Level 139, Potassium Level 6.4*H, Chloride Level 102, Carbon Dioxide Level 8*L, Anion Gap 30H, Blood Urea Nitrogen 80H, Creatinine 6.5H, Estimat Glomerular Filtration Rate 6.2, Glucose Level 493#H, Calcium Level 7.2#L, Vitamin D 25-Hydroxy [Pending], 25-Hydroxy Vitamin D2 [Pending], 25-Hydroxy Vitamin D3 [Pending] 08/14/20 05:25: POC Whole Blood Glucose 423H Height (Feet): 5 Height (Inches): 4.00 Weight (Pounds): 120 General Appearance: no apparent distress, alert EENT: normal ENT inspection Neck: non-tender, supple Cardiovascular: normal rate, regular rhythm Respiratory/Chest: lungs clear, normal breath sounds Abdomen: normal bowel sounds, soft, other - mild generalized abd pain with palpation Extremities: non-tender Edema: no edema noted Arm (L), no edema noted Arm (R), no edema noted Leg (L), no edema noted Leg (R) Neurologic: alert, responsive Skin: warm/dry uPra Guillen MD Aug 14, 2020 09:23
[2020-08-14] MEDS: Lactulose 20gm/30ml UDC ORAL SCH ×2 (09:30→17:59)
--- NOTE | 2020-08-14 09:45 | NUR ---
NURSE NOTES: Spoke to Dr. Manley and gave verbal order for sibley insertion for retention and changed IVF to 1/2 NS at 75ml/hr. Orders acknowledged andcarried out.
[2020-08-14] MEDS: Heparin 5000 units/ml inj SUBQ SCH ×2 (10:12→21:50)
[2020-08-14] MEDS ORDERED: [UNRECOGNIZED DRUG - OTHER] PO (11:57)
[2020-08-14] MEDS ORDERED: VITAMIN B-12500 MCG ORAL (12:03)
[2020-08-14] MEDS ORDERED: MILK OF MA400 MG/51 ORAL (12:17)
[2020-08-14] MEDS ORDERED: PROMETHAZINE-D118 ML ORAL (12:25)
[2020-08-14] MEDS ORDERED: Heparin1,000 units/500ml Premix(Conc:2 units/ml) IV PRN (12:35)
[2020-08-14] MEDS ORDERED: Lidocaine 1% Plain 30 ml INJ PRN (12:36)
[2020-08-14] MEDS ORDERED: CICLODAN 0.77%544 GM TP (12:46)
[2020-08-14] MEDS ORDERED: JARDIANCE PO (12:51)
--- NOTE | 2020-08-14 13:33 | Nephrology Progress Note ---
Assessment/Plan Problem List: (1) Acute renal failure (2) Nausea & vomiting (3) Abdominal pain (4) Hyperkalemia (5) Metabolic acidosis (6) Leukocytosis (7) Sepsis (8) HTN (hypertension) (9) Diabetes Plan HD today abxs check cultures follow labs SSI I discussed the care, HD, prognosis with nephew on the phone for 25 min. All q uestions were answered. Subjective Subjective feels ok Objective Objective Last 24 Hour Vital Signs Date Time Temp Pulse Resp B/P (MAP) Pulse Ox O2 Delivery O2 Flow Rate FiO2 08/14/20 09:30 89 111/47 08/14/20 08:00 88 08/14/20 08:00 Room Air 08/14/20 08:00 98.2 89 21 111/47 (68) 97 08/14/20 04:00 97.0 97 20 101/73 (82) 100 08/14/20 04:00 Room Air 08/14/20 04:00 69 08/14/20 00:00 Room Air 08/14/20 00:00 97.5 90 20 112/56 (74) 98 08/14/20 00:00 90 08/13/20 21:23 95 08/13/20 21:11 98.0 88 18 132/78 98 Room Air 08/13/20 21:00 Room Air 08/13/20 18:24 98.5 101 20 109/58 100 Room Air 21 08/13/20 17:23 98.6 102 20 126/108 100 Room Air 21 08/13/20 16:30 98.5 101 20 118/59 100 Room Air 21 08/13/20 15:44 102 20 100 Room Air 21 98 20 99 08/13/20 15:23 98.5 98 20 129/49 100 Room Air 08/13/20 14:00 98.1 94 20 133/61 100 Room Air Intake and Output 08/13/20 08/14/20 19:00 07:00 Intake Total 4400 ml 5245 ml Output Total 200 ml Balance 4200 ml 5245 ml Intake Oral 480 ml IV Total 4400 ml 4765 ml Output Urine Total 200 ml Laboratory Tests 08/13/20 13:35: White Blood Count 35.8*H, Red Blood Count 4.74, Hemoglobin 12.5, Hematocrit 41.6, Mean Corpuscular Volume 88, Mean Corpuscular Hemoglobin 26.4L, Mean Corpuscular Hemoglobin Concent 30.1L, Red Cell Distribution Width 12.6, Platelet Count 307, Mean Platelet Volume 6.7, Neutrophils (%) (Auto) , Lymphocytes (%) (Auto) , Monocytes (%) (Auto) , Eosinophils (%) (Auto) , Basophils (%) (Auto) , Differential Total Cells Counted 100, Neutrophils % (Manual) 36L, Lymphocytes % (Manual) 62H, Monocytes % (Manual) 2, Eosinophils % (Manual) 0, Basophils % (Manual) 0, Band Neutrophils 0, Platelet Estimate Adequate, Platelet Morphology Normal, Hypochromasia 1+, Prothrombin Time 11.4, Prothromb Time International Ratio 1.0, Activated Partial Thromboplast Time 26, Sodium Level 141, Potassium Level 6.4*H, Chloride Level 97L, Carbon Dioxide Level 10L, Anion Gap 34H, Blood Urea Nitrogen 76H, Creatinine 6.1H, Estimat Glomerular Filtration Rate 6.6, Glucose Level 238H, Calcium Level 9.5, Calcium (Send out) 9.5, Total Bilirubin 0.4, Aspartate Amino Transf (AST/SGOT) 15, Alanine Aminotransferase (ALT/SGPT) 29, Alkaline Phosphatase 69, Total Creatine Kinase 47, Creatine Kinase MB 2.9, Creatine Kinase MB Relative Index 6.1, Troponin I 0.009, Total Protein 8.5H, Albumin 4.0, Globulin 4.5, Albumin/Globulin Ratio 0.9L, Lipase 174, PTH (Intact) Whole Molecule Comment, Parathyroid Hormone (Intact) 77H 08/13/20 13:40: Urine Color Yellow, Urine Appearance Slightly cloudy, Urine pH 5, Urine Specific [place] 1.020, Urine Protein 3+H, Urine Glucose (UA) 2+H, Urine Ketones 1+H, Urine Blood 1+H, Urine Nitrite Negative, Urine Bilirubin 1+H, Urine Ictotest Negative, Urine Urobilinogen Normal, Urine Leukocyte Esterase 1+H, Urine RBC 0- 2, Urine WBC 2-4, Urine Squamous Epithelial Cells Few, Urine Amorphous Sediment FewH, Urine Bacteria Few 08/13/20 14:55: Lactic Acid Level 8.40H 08/13/20 15:30: Venous Blood pH 6.808, Venous Blood Partial Pressure CO2 30.0, Venous Blood Partial Pressure O2 38.3, Venous Blood HCO3 4.6, Venous Blood Base Excess -28.8, Venous Blood Carboxyhemoglobin 0.6, Methemoglobin 0.2 08/13/20 15:34: POC Whole Blood Glucose 380H 08/13/20 15:45: Lactic Acid Level 9.00H 08/13/20 23:30: Lactic Acid Level 4.80H 08/14/20 04:50: Lactic Acid Level 2.20H, White Blood Count 36.5*H, Red Blood Count 3.89L, Hemoglobin 10.5L, Hematocrit 34.6L, Mean Corpuscular Volume 89, Mean Corpuscular Hemoglobin 27.0, Mean Corpuscular Hemoglobin Concent 30.3L, Red Cell Distribution Width 12.4, Platelet Count 257, Mean Platelet Volume 6.8, Neutrophils (%) (Auto) , Lymphocytes (%) (Auto) , Monocytes (%) (Auto) , Eosinophils (%) (Auto) , Basophils (%) (Auto) , Differential Total Cells Counted 100, Neutrophils % (Manual) 56, Lymphocytes % (Manual) 40, Monocytes % (Manual) 4, Eosinophils % (Manual) 0, Basophils % (Manual) 0, Band Neutrophils 0, Platelet Estimate Adequate, Platelet Morphology Normal, Hypochromasia 1+, Anisocytosis 1+, Sodium Level 139, Potassium Level 6.4*H, Chloride Level 102, Carbon Dioxide Level 8*L, Anion Gap 30H, Blood Urea Nitrogen 80H, Creatinine 6.5H, Estimat Glomerular Filtration Rate 6.2, Glucose Level 493#H, Calcium Level 7.2#L, Vitamin D 25-Hydroxy [Pending], 25-Hydroxy Vitamin D2 [Pending], 25- Hydroxy Vitamin D3 [Pending] 08/14/20 05:25: POC Whole Blood Glucose 423H 08/14/20 11:56: POC Whole Blood Glucose 345H Height (Feet): 5 Height (Inches): 4.00 Weight (Pounds): 120 Cardiovascular: normal rate Respiratory/Chest: lungs clear Neurologic: other - no edema Darrian Cortes MD Aug 14, 2020 13:33
--- NOTE | 2020-08-14 14:55 | Infectious Diseases Prog Note ---
Assessment/Plan Problems: (1) Acute appendicitis Assessment & Plan: evident on CT abdomen, with abdominal pain , nausea and vomiting, continue cefepime with metronidazole empirically, and monitor clinically , may need surgical eval (2) UTI (urinary tract infection) Assessment & Plan: await culture and continue cefepime empirically (3) Leukocytosis Assessment & Plan: possible sepsis due to the above , continue cefepime , metronidazole and zyvox empirically pending blood culture (4) Acute renal failure Assessment & Plan: due to the above with dehydration , continue aggressive hydration with close monitoring of renal functions , avoid nephrotoxics , has HD catheter placed by renal for HD (5) Abdominal pain Assessment & Plan: due to the above, continue pain management as needed (6) Nausea & vomiting Assessment & Plan: suspect due to the above, rule out COVID 19 infection, will send nasal swab for PCR testing to confirm, keep patient in enhanced droplets isolation , supportive care as needed Subjective Constitutional: Reports: no symptoms HEENT: Reports: no symptoms Respiratory: Reports: no symptoms Breasts: Reports: no symptoms Cardiovascular: Reports: no symptoms Gastrointestinal/Abdominal: Reports: no symptoms Genitourinary: Reports: no symptoms Neurologic: Reports: weakness Psychiatric: Reports: no symptoms Skin: Reports: no symptoms Endocrine: Reports: no symptoms Hematologic: Reports: no symptoms Musculoskeletal: Reports: no symptoms Allergies: Coded Allergies: No Known Allergies (Unverified , 07/30/20) Objective Last 24 Hour Vital Signs Date Time Temp Pulse Resp B/P (MAP) Pulse Ox O2 Delivery O2 Flow Rate FiO2 08/14/20 12:00 97.9 84 20 101/55 (70) 97 08/14/20 12:00 83 08/14/20 12:00 Room Air 08/14/20 09:30 89 111/47 08/14/20 08:00 88 08/14/20 08:00 Room Air 08/14/20 08:00 98.2 89 21 111/47 (68) 97 08/14/20 04:00 97.0 97 20 101/73 (82) 100 08/14/20 04:00 Room Air 08/14/20 04:00 69 08/14/20 00:00 Room Air 08/14/20 00:00 97.5 90 20 112/56 (74) 98 08/14/20 00:00 90 08/13/20 21:23 95 08/13/20 21:11 98.0 88 18 132/78 98 Room Air 08/13/20 21:00 Room Air 08/13/20 18:24 98.5 101 20 109/58 100 Room Air 21 08/13/20 17:23 98.6 102 20 126/108 100 Room Air 21 08/13/20 16:30 98.5 101 20 118/59 100 Room Air 21 08/13/20 15:44 102 20 100 Room Air 21 98 20 99 08/13/20 15:23 98.5 98 20 129/49 100 Room Air Height (Feet): 5 Height (Inches): 4.00 Weight (Pounds): 120 General Appearance: WD/WN, no acute distress HEENT: normocephalic, atraumatic, anicteric, mucous membranes moist, PERRL Respiratory/Chest: chest wall non-tender, lungs clear, normal breath sounds, no respiratory distress, no accessory muscle use Cardiovascular: normal peripheral pulses, normal rate, regular rhythm, no gallop/murmur, no JVD Abdomen: normal bowel sounds, soft, non tender, no organomegaly, non distended, no mass, no scars Genitourinary: normal external genitalia Extremities: no cyanosis, no clubbing, no edema Skin: no rash, no lesions, no ulcers Neurologic/Psychiatric: manager star II-XII grossly normal, no motor/sensory deficits, alert, oriented x 3 Lymphatic: no neck adenopathy, no groin adenopathy Musculoskeletal: normal muscle bulk, no effusion Microbiology Date/Time Source Procedure Growth Status 08/13/20 19:20 Rectum Received 08/13/20 14:25 Nasopharynx SARS-CoV-2 RdRp Gene Assay - Final Complete 08/13/20 13:40 Indwelling Cath Urine Culture - Preliminary NO GROWTH Resulted Laboratory Tests Test 08/13/20 14:55 08/13/20 15:30 08/13/20 15:34 08/13/20 15:45 Lactic Acid Level 8.40 mmol/L (0.4-2.0) H 9.00 mmol/L (0.66-2.22) H Venous Blood pH 6.808 Venous Blood Partial Pressure CO2 30.0 Venous Blood Partial Pressure O2 38.3 Venous Blood HCO3 4.6 Venous Blood Base Excess -28.8 Venous Blood Carboxyhemoglobin 0.6 % (0.5-1.5) Methemoglobin 0.2 POC Whole Blood Glucose 380 MG/DL (74-106) H Test 08/13/20 23:30 08/14/20 04:50 08/14/20 05:25 08/14/20 11:56 Lactic Acid Level 4.80 mmol/L (0.4-2.0) H 2.20 mmol/L (0.4-2.0) H White Blood Count 36.5 K/UL (4.8-10.8) *H Red Blood Count 3.89 M/UL (4.20-5.40) L Hemoglobin 10.5 G/DL (12.0-16.0) L Hematocrit 34.6 % (37.0-47.0) L Mean Corpuscular Volume 89 FL (80-99) Mean Corpuscular Hemoglobin 27.0 PG (27.0-31.0) Mean Corpuscular Hemoglobin Concent 30.3 G/DL (32.0-36.0) L Red Cell Distribution Width 12.4 % (11.6-14.8) Platelet Count 257 K/UL (150-450) Mean Platelet Volume 6.8 FL (6.5-10.1) Neutrophils (%) (Auto) % (45.0-75.0) Lymphocytes (%) (Auto) % (20.0-45.0) Monocytes (%) (Auto) % (1.0-10.0) Eosinophils (%) (Auto) % (0.0-3.0) Basophils (%) (Auto) % (0.0-2.0) Differential Total Cells Counted 100 Neutrophils % (Manual) 56 % (45-75) Lymphocytes % (Manual) 40 % (20-45) Monocytes % (Manual) 4 % (1-10) Eosinophils % (Manual) 0 % (0-3) Basophils % (Manual) 0 % (0-2) Band Neutrophils 0 % (0-8) Platelet Estimate Adequate Platelet Morphology Normal Hypochromasia 1+ Anisocytosis 1+ Sodium Level 139 MMOL/L (136-145) Potassium Level 6.4 MMOL/L (3.5-5.1) *H Chloride Level 102 MMOL/L (98-107) Carbon Dioxide Level 8 MMOL/L (21-32) *L Anion Gap 30 mmol/L (5-15) H Blood Urea Nitrogen 80 mg/dL (7-18) H Creatinine 6.5 MG/DL (0.55-1.30) H Estimat Glomerular Filtration Rate 6.2 mL/min (>60) Glucose Level 493 MG/DL (74-106) #H Calcium Level 7.2 MG/DL (8.5-10.1) #L Vitamin D 25-Hydroxy Pending 25-Hydroxy Vitamin D2 Pending 25-Hydroxy Vitamin D3 Pending POC Whole Blood Glucose 423 MG/DL (74-106) H 345 MG/DL (74-106) H Current Medications Medications (Trade) Dose Ordered Sig/Russ Route PRN Reason Start Time Stop Time Status Last Admin Dose Admin Acetaminophen (Tylenol) 650 mg Q6H PRN ORAL For Headache 08/13/20 21:30 09/12/20 21:29 Albumin Human 100 ml @ 200 mls/hr PRN PRN IV sbp<90 during hd 08/14/20 08:45 08/14/20 23:59 Amlodipine Besylate (Norvasc) 10 mg DAILY ORAL 08/14/20 09:00 09/13/20 08:59 08/14/20 09:30 Atorvastatin Calcium (Lipitor) 20 mg QHS ORAL 08/13/20 22:00 11/11/20 21:59 08/13/20 22:12 Cefepime HCl 500 mg/Sodium Chloride 55 ml @ 110 mls/hr Q24H IV 08/14/20 15:00 08/21/20 14:59 Dextrose (Dextrose 50%) 25 ml Q30M PRN IV Hypoglycemia 08/13/20 22:15 11/11/20 22:14 Dextrose (Dextrose 50%) 50 ml Q30M PRN IV Hypoglycemia 08/13/20 22:15 11/11/20 22:14 Famotidine (Pepcid) 20 mg QHS ORAL 08/13/20 21:00 11/11/20 20:59 08/13/20 22:12 Folic Acid (Folate) 1 mg DAILY ORAL 08/14/20 09:00 09/13/20 08:59 08/14/20 09:30 Heparin Sodium (Porcine) (Heparin 5000 units/ml) 5,000 units EVERY 12 HOURS SUBQ 08/14/20 09:00 09/28/20 08:59 08/14/20 10:12 Heparin Sodium (Porcine) (Heparin Sod 1000 units/ml 10ml) 500 unit ONCE IV 08/14/20 08:45 08/14/20 23:59 Heparin Sodium/ Sodium Chloride (Heparin 1000 units/500ml Premix) 1,000 unit ONCE PRN IV PROCEDURE 08/14/20 12:35 08/15/20 23:59 Insulin Aspart (NovoLOG) BEFORE MEALS AND HS SUBQ 08/14/20 06:30 11/12/20 06:29 08/14/20 12:50 Lactulose (Cephulac) 30 gm BID ORAL 08/14/20 09:00 09/13/20 08:59 08/14/20 09:30 Lidocaine HCl (Xylocaine 1% 30ml) 30 ml ONCE PRN INJ PROCEDURE 08/14/20 12:36 08/15/20 23:59 Linezolid 300 ml @ 300 mls/hr Q12HR IVPB 08/13/20 17:14 08/20/20 17:13 08/14/20 10:11 Metronidazole 100 ml @ 100 mls/hr Q8HR IVPB 08/13/20 17:14 08/20/20 17:13 08/13/20 22:13 Ondansetron HCl (Zofran ODT) 4 mg Q4H PRN ORAL Nausea or vomiting 08/13/20 19:15 09/12/20 19:14 Pantoprazole (Protonix) 40 mg DAILY ORAL 08/14/20 09:00 09/13/20 08:59 08/14/20 09:29 Sodium Chloride 1,000 ml @ 75 mls/hr [id number] IV 08/14/20 10:00 09/13/20 09:59 08/14/20 10:11 Johanna Torres M.D. Aug 14, 2020 14:55
[2020-08-14] MEDS ORDERED: Cefepime HCl 500 MG in NS 55 ML IV SCH (15:00)
--- NOTE | 2020-08-14 15:45 | NUR ---
CASE MANAGEMENT:REVIEW BIBA FROM [facility] SI: SEPSIS. ACUTE RENAL FAILURE 98.0 93 20 134/63 95% ON RA WBC+35.8 K+6.4 BUN+76 CR+6.1 IS: 1L NS BOLUS IV CEFEPIME IV CA GLUCONATE IV INSULIN BLOOD CX CT ABD/PELVIS : TO STEP DOWN UNIT
--- NOTE | 2020-08-14 16:08 | NUR ---
NURSE NOTES: Changed and repositioned patient. Patient's BP was low, the lowest was 77/43 and highest is 87/55. Patient's asymptomatic, AAO x 3, no complains of pain or dizziness. Called Dr. Shahnaz Cortes and Dr. Guillen. Dr. Guillen ordered 250cc 1/2 NS; however Dr. Shahnaz Cortes called after and verbal ordered to cancelled 1/2 NS and proceed with NS at 200cc/hr and also Midodrine 10mg TID PO. Rechecked BP again after 15 minutes. BP is 94/50. Bilateral feet elevated, patient showed no s/s of distress or SOB. Will continue to monitor.
--- NOTE | 2020-08-14 16:10 | Pre-Procedure Note/Attestation ---
Pre-Procedure Note/Attestation Complete Prior to Procedure Planned Procedure: not applicable Procedure Narrative: temporary dialysis catheter placement Indications for Procedure Pre-Operative Diagnosis: renal insufficiency Attestation informed consent obtained from family member by the primary team. this was confirmed prior to the procedure. Patrice Camacho M.D. Aug 14, 2020 16:10
--- NOTE | 2020-08-14 16:17 | Diagnostic Imaging Report ---
Indication: Renal insufficiency. Patient requires hemodialysis. Findings: The neck was prepped with alcohol. All elements of maximal sterile barrier technique were followed including usage of a cap, mask, sterile gown, sterile gloves, hand hygiene and a large sterile sheet. 1% lidocaine was used to anesthetize the skin. Sonographic evaluation was performed demonstrating a patent and compressible jugular vein. Access was obtained under real-time ultrasound guidance using an 18 gauge needle and a digital image was saved in archive. An 0.035 wire was then advanced into the vein. Needle exchanged for a dilator. A temporary hemodialysis catheter was then advanced over the wire. Wire was removed. Catheter was secured to the skin using 2-0 Prolene suture. Both ports aspirate and flush easily. Follow-up chest radiograph demonstrates catheter tip at the region of the cavoatrial junction. There are patchy bibasilar infiltrates. No pneumothorax. IMPRESSION: Successful bedside placement of right jugular hemodialysis catheter. Catheter cleared for use.
--- NOTE | 2020-08-14 16:26 | NUR ---
NURSE NOTES: MD Guillen called back and stated that he spoke with Dr. Shahnaz Cortes. MDs ordered 1time dose only of NS at 200cc/hr. After that, order NS at 75cc/hr for continuous rate. Order acknowledge and carried out.
--- NOTE | 2020-08-14 16:30 | Cardiology Report ---
APPROVED REPORT EKG Measurement Heart [id number] <Conclusion> Sinus rhythm with sinus arrhythmia with 1st degree AV block Otherwise normal ECG
[2020-08-14] MEDS: Cefepime HCl 1 GM in NS 55 ML IVPB SCH (17:58)
[2020-08-14] MEDS: Midodrine 10mg tab ORAL SCH (17:59)
--- NOTE | 2020-08-14 19:07 | NUR ---
NURSE HAND-OFF REPORT: Important Events on Shift: Hypotensive 77/45, asymptomatic Patient Status: Fair Diet: Clear liquid Pending Orders: dialyis is performing Pending Results/Labs: AM lab Pending MD notification: n/a Latest Vital Signs: Temperature 97.7 , Pulse 101 , B/P 115 /64 , Respiratory Rate 21 , O2 SAT 97 , Room Air, O2 Flow Rate . Vital Sign Comment: If BP drops again during dialyssi, Dr. Shahnaz Cortes endorsed to transfer patient to ICU. EKG Rhythm: Sinus Rhythm Rhythm change?: N MD Notified?: N - MD Response: Latest Green Fall Score: 55 Fall Risk: High Risk Safety Measures: Call light Within Reach, Bed Alarm Zone 2, Side Rails Side Rails x3, Bed position Low and Locked. Fall Precautions: Yellow Socks Yellow Gown Door Sign Patient Fall Education Report given to JAMIL Wise
--- NOTE | 2020-08-14 19:56 | NUR ---
NURSE NOTES: Report received from JAMIL Coe. Observed pt lying in the bed. HD on going at this time at the bedside. SR on sleep tech. BP of 104/55 noted. On room air with no distress at this time. Mateo cath noted on right jugular. IV on R AC 20G, intact. Bed in the lowest position. Side rails up x3. Will continue to monitor.
[2020-08-14] MEDS: Atorvastatin 20mg tab ORAL SCH (21:50)
[2020-08-15] VITALS: BP 119/58
--- NOTE | 2020-08-15 02:30 | NUR ---
NURSE NOTES: Bed bath given. Reposition done. Pt calm and sleeping in the bed. No acute distress noted at this time. On room air with no sob noted. Will continue to monitor.
[2020-08-15 04:00] VITALS: BP 106/56
[2020-08-15 04:33] LABS: HEMATOCRIT 29.1 % (37.0-47.0); HEMOGLOBIN 9.7 G/DL (12.0-16.0); MEAN CORPUSCULAR VOLUME 82 FL (80-99); PLATELET COUNT 167 K/UL (150-450); RED BLOOD COUNT 3.54 M/UL (4.20-5.40); RED CELL DISTRIBUTION WIDTH 11.6 % (11.6-14.8)
[2020-08-15 04:53] LABS: WHITE BLOOD COUNT 22.3 K/UL (4.8-10.8)
[2020-08-15 04:57] LABS: CALCIUM 6.9 MG/DL (8.5-10.1); CREATININE 3.3 MG/DL (0.55-1.30)
[2020-08-15] MEDS: NovoLOG Insulin Flexpen SUBQ SCH ×4 (06:01→20:44)
--- NOTE | 2020-08-15 07:20 | NUR ---
NURSE NOTES: Received report from Kalpana/RN, Observed patient awake, lying semi-leggett's, resting comfortably. On room air, no acute distress/SOB noted. Iv site patent and intact, NS running at 75cc/hr. Hitchcock cath draining well to gravity. Bed in low position and locked, Call light within reach. Encouraged to use call light when needed. Bed alarm is on, side rails up x3. Will continue plan of care.
--- NOTE | 2020-08-15 07:30 | NUR ---
NURSE HAND-OFF REPORT: Important Events on Shift: Pt tolerating HD, VS WNL Patient Status: VS WNL Diet: clear liquid Pending Orders: n Pending Results/Labs:n Pending MD notification:n Latest Vital Signs: Temperature 97.0 , Pulse 93 , B/P 106 /56 , Respiratory Rate 24 , O2 SAT 94 , Room Air, O2 Flow Rate . Vital Sign Comment: [] EKG Rhythm: Sinus Rhythm Rhythm change?: N MD Notified?: N - MD Response: Latest Green Fall Score: 55 Fall Risk: High Risk Safety Measures: Call light Within Reach, Bed Alarm Zone 2, Side Rails Side Rails x3, Bed position Low and Locked. Fall Precautions: Yellow Socks Yellow Gown Door Sign Patient Fall Education Report given to JAMIL Gibson.
[2020-08-15 08:00] VITALS: BP 122/57
[2020-08-15] MEDS: Lactulose 20gm/30ml UDC ORAL SCH ×4 (08:39→17:25)
[2020-08-15] MEDS: Midodrine 10mg tab ORAL SCH ×3 (08:39→17:25)
[2020-08-15] MEDS: Heparin 5000 units/ml inj SUBQ SCH ×2 (08:41→20:45)
--- NOTE | 2020-08-15 09:26 | General Progress Note ---
Subjective Date patient seen: Aug 15, 2020 Time patient seen: 09:15 Constitutional: Reports: weakness HEENT: Reports: no symptoms Cardiovascular: Reports: no symptoms Respiratory: Reports: no symptoms Gastrointestinal/Abdominal: Reports: abdominal pain, nausea Genitourinary: Reports: no symptoms Neurologic/Psychiatric: Reports: no symptoms Allergies: Coded Allergies: No Known Allergies (Unverified , 07/30/20) Subjective She c/o nausea today. no fever or chills. she had HD yesterday. No sob or chest pain. Objective Last 24 Hour Vital Signs Date Time Temp Pulse Resp B/P (MAP) Pulse Ox O2 Delivery O2 Flow Rate FiO2 08/15/20 08:39 91 122/57 08/15/20 08:00 96.1 91 22 122/57 (78) 96 08/15/20 04:00 80 08/15/20 04:00 97.0 93 24 106/56 (73) 94 08/15/20 04:00 Room Air 08/15/20 00:00 98.2 80 24 119/58 (78) 96 08/15/20 00:00 Room Air 08/15/20 00:00 77 08/14/20 22:00 122/57 (78) 08/14/20 20:00 82 08/14/20 20:00 97.7 101 21 104/50 (68) 97 08/14/20 20:00 Room Air 08/14/20 16:45 115/64 (81) 08/14/20 16:10 94/50 (65) 08/14/20 16:00 Room Air 08/14/20 16:00 80 08/14/20 16:00 97.7 101 21 85/45 (58) 97 08/14/20 12:00 97.9 84 20 101/55 (70) 97 08/14/20 12:00 83 08/14/20 12:00 Room Air 08/14/20 09:30 89 111/47 Intake and Output 08/14/20 08/15/20 19:00 07:00 Intake Total 1775 ml 713.75 ml Output Total 100 ml Balance 1775 ml 613.75 ml Intake Oral 700 ml 100 ml IV Total 1075 ml 613.75 ml Output Urine Total 100 ml Laboratory Tests 08/14/20 11:56: POC Whole Blood Glucose 345H 08/14/20 16:46: POC Whole Blood Glucose 245H 08/14/20 21:41: POC Whole Blood Glucose [Pending] 08/15/20 03:15: White Blood Count 22.3*H, Red Blood Count 3.54L, Hemoglobin 9.7L, Hematocrit 29.1L, Mean Corpuscular Volume 82, Mean Corpuscular Hemoglobin 27.4, Mean Corpuscular Hemoglobin Concent 33.3, Red Cell Distribution Width 11.6, Platelet Count 167, Mean Platelet Volume 6.4L, Neutrophils (%) (Auto) , Lymphocytes (%) (Auto) , Monocytes (%) (Auto) , Eosinophils (%) (Auto) , Basophils (%) (Auto) , Neutrophils % (Manual) [Pending], Lymphocytes % (Manual) [Pending], Platelet Estimate [Pending], Platelet Morphology [Pending], Sodium Level 136, Potassium Level 3.0#L, Chloride Level 96L, Carbon Dioxide Level 23, Anion Gap 17H, Blood Urea Nitrogen 27H, Creatinine 3.3H, Estimat Glomerular Filtration Rate 13.5, Glucose Level 158#H, Calcium Level 6.9L, Hepatitis B Surface Antigen [Pending] 08/15/20 05:24: POC Whole Blood Glucose 177H Height (Feet): 5 Height (Inches): 4.00 Weight (Pounds): 120 General Appearance: no apparent distress, alert Neck: non-tender, supple Cardiovascular: normal rate, regular rhythm Respiratory/Chest: lungs clear, normal breath sounds Abdomen: non tender, soft Extremities: non-tender Edema: no edema noted Arm (L), no edema noted Arm (R) Skin: warm/dry Assessment/Plan Status: stable Assessment/Plan: 1, ARF POSSIBLY PRE RENAL VS ATN - CONT IVF AND SHE HAD HD YESTERDAY. 2. POSSIBLE SEPSIS - CONT CEFEPIME AND FLAGYL AND ID FOLLOWING. 3. CLL - MAY NEED TO F/U WITH HER ONCOLOGIST AT OUTPATIENT. 4. QUESTIONABLE ACUTE APPENDECITIS - CONT IV ABX AND MONITOR FOR NOW. WILL START ON CLEAR LIQUID DIET AND ADVANCE TOLERATED. 5. DM II - WILL HOLD ALL ORAL MEDS AND START SSI IN HOSPITAL. 6. HTN - NORVASC 10 MG ONE PO DAILY HOLD FOR SBP < 110. 7. GERD - PROTONIX 40 MG ONE PO DAILY AND PEPCID 20 MG ONE PO QHS. 8. HLD - CONT ATORVASTATIN 20 MG ONE PO QHS. 9. HYPERKALEMIA - CHANGE IVF TO 1/2 NS AT 75 CC/HR. HD DONE YESTERDAY. 10. UTI - CONT IV ABX ABOVE. 11. LEUKOCYTOSIS - 2ND TO UTI AND POSSIBLE SEPSIS AND CLL - IMPROVING 12. ABD PAIN - WILL HAVE SURGERY SEE HER FOR APPENDICITIS EVAL. Pura Guillen MD Aug 15, 2020 09:26
--- NOTE | 2020-08-15 09:30 | NUR ---
NURSE NOTES: Patient refused PO medications.
--- NOTE | 2020-08-15 10:19 | NUR ---
RD ASSESSMENT & RECOMMENDATIONS SEE CARE ACTIVITY FOR COMPLETE ASSESSMENT DAILY ESTIMATED NEEDS: Needs based on ARF, HD 54.5kg 25-35 kcals/kg 9553-1283 total kcals 1.5-2 g protein/kg 82-109 g total protein Fluid per MD, On HD mL/kg total fluid mLs NUTRITION DIAGNOSIS: Altered nutrition related lab values r/t ARF, DM2, sepsis, as evidenced by Creat on adm 6.1, BUN 76, elev BG (158-493), elev WBC on adm (35.8-> 22.3), HD initiated. CURRENT DIET: CLD PO DIET RECOMMENDATIONS: Advance as able to CCHO LOW/ RENAL DIET (texture per NEON TECHNICIAN) ADDITIONAL RECOMMENDATIONS: 1) Maintain calibrated bed scale wts 2) Monitor BG, need for additional hypoglycemic agents 3) Monitor tolerance to diet -> Add Ensure Clear to CLD -> NEPRO to advanced diet
--- NOTE | 2020-08-15 10:51 | Consultation ---
History of Present Illness General Date patient seen: Aug 15, 2020 Reason for Hospitalization: Abdominal Pain Present Illness HPI This is a 79-year-old female [employer] medical [employer] who is a shelter resident at [facility] for evaluation of guille pain nausea vomiting and noted to have significant leukocytosis renal insufficiency HD catheter placed currently on hemodialysis CT scan on admission 08/13/2020 demonstrated potential acute appendicitis. I was called on 08/15/2020 to evaluate. When seen at the bedside patient is awake alert and responsive. States that her abdominal pain is improved and her nausea and emesis have resolved. Her leukocytosis been trending down she is on antibiotics per infectious disease. Pain described as cramping pain generalized abdomen but mainly in the upper epigastric portion. Pain cramping 10 out of 10 intermittent Allergies: Coded Allergies: No Known Allergies (Unverified , 07/30/20) COVID-19 Screening Contact w/high risk pt: No Experienced COVID-19 symptoms?: No Coronavirus symptoms experienc: Nausea/Vomiting Medication History Scheduled Alendronate Sodium (Alendronate Sodium), 70 MG PO ONCE A WEEK, (Reported) Amlodipine Besylate* (Amlodipine Besylate*), 10 MG ORAL DAILY, (Reported) Atorvastatin Calcium* (Atorvastatin Calcium*), 20 MG ORAL BEDTIME, (Reported) Ciclopirox/Skin Cleanser No.28 (Ciclodan 0.77% Cream Kit), GM TP BID, (Reported) Cyanocobalamin (Vitamin B-12)* (Vitamin B-12*), 1,000 MCG ORAL DAILY, (Reported) Famotidine* (Pepcid 20mg tablet*), 40 MG ORAL DAILY, (Reported) Folic Acid* (Folic Acid*), 1 MG ORAL DAILY, (Reported) Lactulose (Lactulose*), 30 ML ORAL BID, (Reported) Linagliptin (Tradjenta), 5 MG PO DAILY, (Reported) Lisinopril (Lisinopril*), 40 MG ORAL DAILY, (Reported) Magnesium Hydroxide* (Milk Of Magnesia*), 30 ML ORAL DAILY, (Reported) Metformin Hcl* (Metformin Hcl*), 1,000 MG ORAL BID, (Reported) Multivitamin (Daily Lui), 1 TAB ORAL DAILY, (Reported) Omeprazole (Omeprazole), 40 MG ORAL DAILY, (Reported) Paroxetine Hcl* (Paxil*), 20 MG ORAL DAILY, (Reported) Psyllium Husk/Ca Carbonate (Metamucil Plus Calcium Capsule), 1 EACH PO DAILY, (Reported) [Jardiance], 10 MG PO DAILY, (Reported) Scheduled PRN Acetaminophen* (Acetaminophen 325MG Tablet*), 325 MG ORAL Q6H PRN for For Pain D-Methorphan Hb/Prometh Hcl* (Promethazine-Dm Syrup*), 5 ML ORAL Q8HR PRN for For Cough, (Reported) Ondansetron* (Zofran*), 4 MG ORAL Q6H PRN for Nausea & Vomiting, (Reported) Tramadol Hcl* (Ultram*), 50 MG ORAL BID PRN for For Pain, (Reported) Discontinued Medications Acetaminophen* (Acetaminophen 325MG Tablet*), 325 MG ORAL Q4H PRN for For Pain, (Reported) Discontinued Reason: Pt stopped taking med Cyanocobalamin (Vitamin B-12)* (Vitamin B-12*), 500 MCG ORAL DAILY, (Reported) Discontinued Reason: Pt stopped taking med Patient History Limited by: medical condition History Provided By: Medical Record, PMD Healthcare decision maker Resuscitation status Advanced Directive on File Past Medical/Surgical History Past Medical/Surgical History: (1) Meningioma (2) Head injury, closed, without LOC (3) Rib contusion (4) Acute appendicitis (5) UTI (urinary tract infection) (6) Hyperkalemia (7) Acute renal failure (8) Abdominal pain (9) Nausea & vomiting (10) Hyperkalemia (11) Leukocytosis (12) Metabolic acidosis (13) Diabetes (14) Sepsis (15) HTN (hypertension) (16) Leukocytosis Review of Systems Review of Symptoms General ROS: no weight loss or fever Psychological ROS: no depression or mood changes, no memory loss Ophthalmic ROS: no visual changes or eye irritation ENT ROS: no nasal congestion, hearing loss, dizziness Allergy and Immunology ROS: no allergic symptoms or urticaria Hematological and Lymphatic ROS: no swollen glands, unusual bleeding or bruising Endocrine ROS: no polyuria, polydipsia, weight changes, temperature intolerance Respiratory ROS: no cough, shortness of breath, or wheezing Cardiovascular ROS: no chest pain or dyspnea on exertion Gastrointestinal ROS: ++ abdominal pain, no bright red blood in stool. Musculoskeletal ROS: no myalgias or arthralgias Neurological ROS: no TIA or stroke symptoms Dermatological ROS: no new or changing skin lesions, rashes or pruritis Physical Exam Physical Exam General appearance: alert, cooperative, no distress, appears stated age Head: Normocephalic, without obvious abnormality, atraumatic Eyes: conjunctivae/corneas clear. PERRL, EOM's intact. Fundi benign Throat: Lips, mucosa, and tongue normal. Teeth and gums normal Neck: supple, symmetrical, trachea midline, no adenopathy, thyroid: not enlarged, symmetric, no tenderness/mass/nodules, no carotid bruit and no JVD Lungs: clear to auscultation bilaterally Heart: regular rate and rhythm, S1, S2 normal, no murmur, click, rub or gallop Abdomen: soft, abdominal discomfort, no peritonitis,+tender but more reactive in all quadrants. Right side less uncomfortable then left. Bowel sounds normal. No masses, no organomegaly Extremities: extremities normal, atraumatic, no cyanosis or edema Pulses: 2+ and symmetric Skin: Skin color, texture, turgor normal. No rashes or lesions Neurologic: Grossly normal Last 24 Hour Vital Signs Date Time Temp Pulse Resp B/P (MAP) Pulse Ox O2 Delivery O2 Flow Rate FiO2 08/15/20 09:00 91 122/57 08/15/20 08:00 72 08/15/20 08:00 Room Air 08/15/20 08:00 96.1 91 22 122/57 (78) 96 08/15/20 04:00 80 08/15/20 04:00 97.0 93 24 106/56 (73) 94 08/15/20 04:00 Room Air 08/15/20 00:00 98.2 80 24 119/58 (78) 96 08/15/20 00:00 Room Air 08/15/20 00:00 77 08/14/20 22:00 122/57 (78) 08/14/20 20:00 82 08/14/20 20:00 97.7 101 21 104/50 (68) 97 08/14/20 20:00 Room Air 08/14/20 16:45 115/64 (81) 08/14/20 16:10 94/50 (65) 08/14/20 16:00 Room Air 08/14/20 16:00 80 08/14/20 16:00 97.7 101 21 85/45 (58) 97 08/14/20 12:00 97.9 84 20 101/55 (70) 97 08/14/20 12:00 83 08/14/20 12:00 Room Air Intake and Output 08/14/20 08/15/20 19:00 07:00 Intake Total 1775 ml 713.75 ml Output Total 100 ml Balance 1775 ml 613.75 ml Intake Oral 700 ml 100 ml IV Total 1075 ml 613.75 ml Output Urine Total 100 ml Laboratory Tests Test 08/14/20 11:56 08/14/20 16:46 08/14/20 21:41 08/15/20 03:15 POC Whole Blood Glucose 345 MG/DL (74-106) H 245 MG/DL (74-106) H Pending White Blood Count 22.3 K/UL (4.8-10.8) *H Red Blood Count 3.54 M/UL (4.20-5.40) L Hemoglobin 9.7 G/DL (12.0-16.0) L Hematocrit 29.1 % (37.0-47.0) L Mean Corpuscular Volume 82 FL (80-99) Mean Corpuscular Hemoglobin 27.4 PG (27.0-31.0) Mean Corpuscular Hemoglobin Concent 33.3 G/DL (32.0-36.0) Red Cell Distribution Width 11.6 % (11.6-14.8) Platelet Count 167 K/UL (150-450) Mean Platelet Volume 6.4 FL (6.5-10.1) L Neutrophils (%) (Auto) % (45.0-75.0) Lymphocytes (%) (Auto) % (20.0-45.0) Monocytes (%) (Auto) % (1.0-10.0) Eosinophils (%) (Auto) % (0.0-3.0) Basophils (%) (Auto) % (0.0-2.0) Neutrophils % (Manual) Pending Lymphocytes % (Manual) Pending Platelet Estimate Pending Platelet Morphology Pending Sodium Level 136 MMOL/L (136-145) Potassium Level 3.0 MMOL/L (3.5-5.1) #L Chloride Level 96 MMOL/L (98-107) L Carbon Dioxide Level 23 MMOL/L (21-32) Anion Gap 17 mmol/L (5-15) H Blood Urea Nitrogen 27 mg/dL (7-18) H Creatinine 3.3 MG/DL (0.55-1.30) H Estimat Glomerular Filtration Rate 13.5 mL/min (>60) Glucose Level 158 MG/DL (74-106) #H Calcium Level 6.9 MG/DL (8.5-10.1) L Hepatitis B Surface Antigen Pending Test 08/15/20 05:24 POC Whole Blood Glucose 177 MG/DL (74-106) H Height (Feet): 5 Height (Inches): 4.00 Weight (Pounds): 120 Medications Current Medications Medications (Trade) Dose Ordered Sig/Russ Route PRN Reason Start Time Stop Time Status Last Admin Dose Admin Acetaminophen (Tylenol) 650 mg Q6H PRN ORAL For Headache 08/13/20 21:30 09/12/20 21:29 Amlodipine Besylate (Norvasc) 10 mg DAILY ORAL 08/14/20 09:00 09/13/20 08:59 08/14/20 09:30 Atorvastatin Calcium (Lipitor) 20 mg QHS ORAL 08/13/20 22:00 11/11/20 21:59 08/14/20 21:50 Cefepime HCl 1 gm/ Sodium Chloride 55 ml @ 110 mls/hr Q24H IVPB 08/14/20 18:00 08/21/20 17:59 08/14/20 17:58 Dextrose (Dextrose 50%) 25 ml Q30M PRN IV Hypoglycemia 08/13/20 22:15 11/11/20 22:14 Dextrose (Dextrose 50%) 50 ml Q30M PRN IV Hypoglycemia 08/13/20 22:15 11/11/20 22:14 Famotidine (Pepcid) 20 mg QHS ORAL 08/13/20 21:00 11/11/20 20:59 08/14/20 21:50 Folic Acid (Folate) 1 mg DAILY ORAL 08/14/20 09:00 09/13/20 08:59 08/14/20 09:30 Heparin Sodium (Porcine) (Heparin 5000 units/ml) 5,000 units EVERY 12 HOURS SUBQ 08/14/20 09:00 09/28/20 08:59 08/15/20 08:41 Heparin Sodium/ Sodium Chloride (Heparin 1000 units/500ml Premix) 1,000 unit ONCE PRN IV PROCEDURE 08/14/20 12:35 08/15/20 23:59 Insulin Aspart (NovoLOG) BEFORE MEALS AND HS SUBQ 08/14/20 06:30 11/12/20 06:29 08/15/20 06:01 Lactulose (Cephulac) 30 gm BID ORAL 08/14/20 09:00 09/13/20 08:59 08/14/20 17:59 Lidocaine HCl (Xylocaine 1% 30ml) 30 ml ONCE PRN INJ PROCEDURE 08/14/20 12:36 08/15/20 23:59 Metronidazole 100 ml @ 100 mls/hr Q8HR IVPB 08/13/20 17:14 08/20/20 17:13 08/15/20 05:58 Midodrine (Pro-Amatine) 10 mg THREE TIMES A DAY ORAL 08/14/20 18:00 11/12/20 17:59 08/15/20 08:39 Ondansetron HCl (Zofran ODT) 4 mg Q4H PRN ORAL Nausea or vomiting 08/13/20 19:15 09/12/20 19:14 Pantoprazole (Protonix) 40 mg DAILY ORAL 08/14/20 09:00 09/13/20 08:59 08/14/20 09:29 Sodium Chloride 1,000 ml @ 75 mls/hr [id number] IV 08/14/20 18:00 09/13/20 17:59 08/15/20 08:38 Assessment/Plan Problem List: (1) Acute appendicitis ICD Codes: K35.80 - Unspecified acute appendicitis SNOMED: 72039117 (2) UTI (urinary tract infection) ICD Codes: N39.0 - Urinary tract infection, site not specified SNOMED: 61680401 (3) Acute renal failure ICD Codes: N17.9 - Acute kidney failure, unspecified SNOMED: 91087801 (4) Abdominal pain Assessment & Plan: 79-year-old female with abdominal pain nausea emesis leukocytosis renal insufficiency. CT was reviewed and described as potential consideration for appendicitis though a normal appendix is noted there is just some stranding in the right lower quadrant. Patient with generalized abdominal pain states mainly in the epigastric upper region in the abdomen on examination she does not have significant tenderness in the right lower quadrant as compared to the remainder the abdomen.. Though appendicitis is a possibility clinically does not seem as if patient has appendicitis. Given her age committees and current medical status and the potential of early acute appendicitis will attempt treatment with antibiotic therapy and nonoperative in the event that it may be appendicitis. Will follow with her abdominal examinations Continue IV antibiotics per infectious disease Okay for clear liquid diet she has been on and tolerating Trend labs Hemodialysis per nephrology Thank you for allow me to participate in patient's care will follow with recommendations Mild dependent atelectasis in both lung bases. There are multiple old rib fractures with healing callous noted There are several hepatic granulomas. The spleen is homogeneous. Gallbladder is without sludge or stone and there is no wall thickening. Mild diffuse fatty atrophy of the pancreas noted. There is slight nodular thickening of the left adrenal gland. Right adrenal is grossly unremarkable. The kidneys are normal in size, shape and axis. Small bowel loops are nondistended. The colon is also nondistended with average amount of stool. The appendix is normal in caliber but there is some inflammation around the tip of the retrocecal appendix. Question early tip appendicitis. There is no free fluid or free air. No pathologic adenopathy demonstrated. Bladder is empty. There is an enlarged uterus with a large central heterogeneous mass likely a large fibroid. Some peripheral calcification noted. IMPRESSION: RETROCECAL APPENDIX NORMAL IN CALIBER BUT THERE IS MILD INFLAMMATORY CHANGES AROUND THE TIP OF THE APPENDIX. QUESTION EARLY TIP APPENDICITIS. ENLARGED UTERUS WITH PROBABLE LARGE FIBROID. HEPATIC GRANULOMAS. MILD FATTY ATROPHY OF THE PANCREAS. SLIGHT NODULAR THICKENING OF THE LEFT ADRENAL GLAND PERHAPS HYPERPLASIA. OLD RIB FRACTURES. ICD Codes: R10.9 - Unspecified abdominal pain SNOMED: 88475031 (5) Nausea & vomiting ICD Codes: R11.2 - Nausea with vomiting, unspecified SNOMED: 74237015 (6) Hyperkalemia ICD Codes: E87.5 - Hyperkalemia SNOMED: 23040173 (7) Leukocytosis ICD Codes: D72.829 - Elevated white blood cell count, unspecified SNOMED: 370830769, 489787315 (8) Metabolic acidosis ICD Codes: E87.2 - Acidosis SNOMED: 66563031 (9) Diabetes ICD Codes: E11.9 - Type 2 diabetes mellitus without complications SNOMED: 36476899 (10) Sepsis ICD Codes: A41.9 - Sepsis, unspecified organism SNOMED: 94766245 (11) HTN (hypertension) ICD Codes: I10 - Essential (primary) hypertension SNOMED: 90491939 (12) Leukocytosis ICD Codes: D72.829 - Elevated white blood cell count, unspecified SNOMED: 805992688, 922971542 (13) Hyperkalemia ICD Codes: E87.5 - Hyperkalemia SNOMED: 03925884, 169279716 (14) Meningioma ICD Codes: D32.9 - Benign neoplasm of meninges, unspecified SNOMED: 193723129 (15) Rib contusion ICD Codes: S20.219A - Contusion of unspecified front wall of thorax, initial encounter SNOMED: 275477757 (16) Head injury, closed, without LOC ICD Codes: S09.90XA - Unspecified injury of head, initial encounter SNOMED: 298441943443, 805828326 [place] Aug 15, 2020 10:51
[2020-08-15 12:00] VITALS: BP 106/63
--- NOTE | 2020-08-15 12:08 | NUR ---
NURSE NOTES: Patient had an episode of mey 45, MD aware, no new order at this time.
[2020-08-15] MEDS ORDERED: Varibar Honey 250ml MC PRN (12:45)
[2020-08-15] MEDS ORDERED: Varibar Nectar 240ml MC PRN (12:45)
[2020-08-15] MEDS ORDERED: Varibar Thin Liquid powder 148gm MC PRN (12:45)
[2020-08-15] MEDS ORDERED: Varibar Pudding 230ml MC PRN (12:45)
--- NOTE | 2020-08-15 13:42 | Nephrology Progress Note ---
Assessment/Plan Problem List: (1) Acute renal failure (2) Nausea & vomiting (3) Abdominal pain (4) Hyperkalemia Assessment: resolved (5) Metabolic acidosis (6) Leukocytosis Assessment: better (7) Sepsis (8) HTN (hypertension) (9) Diabetes (10) Hypokalemia Plan Replete K will assess for dialysis tomorrow abxs follow labs SSI Discussed with RN and HD RN Subjective Subjective poor po intake Objective Objective Last 24 Hour Vital Signs Date Time Temp Pulse Resp B/P (MAP) Pulse Ox O2 Delivery O2 Flow Rate FiO2 08/15/20 12:00 97.9 93 21 106/63 (77) 98 08/15/20 12:00 Room Air 08/15/20 09:00 91 122/57 08/15/20 08:00 72 08/15/20 08:00 Room Air 08/15/20 08:00 96.1 91 22 122/57 (78) 96 08/15/20 04:00 80 08/15/20 04:00 97.0 93 24 106/56 (73) 94 08/15/20 04:00 Room Air 08/15/20 00:00 98.2 80 24 119/58 (78) 96 08/15/20 00:00 Room Air 08/15/20 00:00 77 08/14/20 22:00 122/57 (78) 08/14/20 20:00 82 08/14/20 20:00 97.7 101 21 104/50 (68) 97 08/14/20 20:00 Room Air 08/14/20 16:45 115/64 (81) 08/14/20 16:10 94/50 (65) 08/14/20 16:00 Room Air 08/14/20 16:00 80 08/14/20 16:00 97.7 101 21 85/45 (58) 97 Intake and Output 08/14/20 08/15/20 19:00 07:00 Intake Total 1775 ml 713.75 ml Output Total 100 ml Balance 1775 ml 613.75 ml Intake Oral 700 ml 100 ml IV Total 1075 ml 613.75 ml Output Urine Total 100 ml Laboratory Tests 08/14/20 16:46: POC Whole Blood Glucose 245H 08/14/20 21:41: POC Whole Blood Glucose [Pending] 08/15/20 03:15: White Blood Count 22.3*H, Red Blood Count 3.54L, Hemoglobin 9.7L, Hematocrit 29.1L, Mean Corpuscular Volume 82, Mean Corpuscular Hemoglobin 27.4, Mean Corpuscular Hemoglobin Concent 33.3, Red Cell Distribution Width 11.6, Platelet Count 167, Mean Platelet Volume 6.4L, Neutrophils (%) (Auto) , Lymphocytes (%) (Auto) , Monocytes (%) (Auto) , Eosinophils (%) (Auto) , Basophils (%) (Auto) , Differential Total Cells Counted 100, Neutrophils % (Manual) 53, Lymphocytes % (Manual) 43, Monocytes % (Manual) 2, Eosinophils % (Manual) 1, Basophils % (Manual) 1, Band Neutrophils 0, Platelet Estimate Adequate, Platelet Morphology Normal, Hypochromasia 2+, Anisocytosis 1+, Sodium Level 136, Potassium Level 3.0#L, Chloride Level 96L, Carbon Dioxide Level 23, Anion Gap 17H, Blood Urea Nitrogen 27H, Creatinine 3.3H, Estimat Glomerular Filtration Rate 13.5, Glucose Level 158#H, Calcium Level 6.9L, Hepatitis B Surface Antigen [Pending] 08/15/20 05:24: POC Whole Blood Glucose 177H 08/15/20 12:19: POC Whole Blood Glucose [Pending] Height (Feet): 5 Height (Inches): 4.00 Weight (Pounds): 120 Cardiovascular: normal rate Respiratory/Chest: lungs clear Extremities: no edema Darrian Cortes MD Aug 15, 2020 13:42
[2020-08-15] MEDS ORDERED: Tubing IV Secondary IV ONE (13:54)
[2020-08-15] MEDS ORDERED: NS 275ml ONE (13:54)
[2020-08-15] MEDS ORDERED: 1/2 NS 1000ml IV ONE (13:54)
[2020-08-15 16:00] VITALS: BP 127/60
[2020-08-15] MEDS: Cefepime HCl 1 GM in NS 55 ML IVPB SCH (17:25)
--- NOTE | 2020-08-15 17:27 | NUR ---
NURSE NOTES: Patient only want to take IV meds, refused PO medications.
--- NOTE | 2020-08-15 17:32 | Infectious Diseases Prog Note ---
Assessment/Plan Problems: (1) Acute appendicitis Assessment & Plan: evident on CT abdomen, with abdominal pain , nausea and vomiting, continue cefepime with metronidazole empirically, and monitor clinically , surgical eval is in progress (2) UTI (urinary tract infection) Assessment & Plan: with negative culture, already on cefepime empirically (3) Leukocytosis Assessment & Plan: suspect reactive and due to CLL too , with no evidence of sepsis , on cefepime , and metronidazole. will stop zyvox empirically since blood culture is negative x 2 (4) Acute renal failure Assessment & Plan: due to the above with dehydration , continue aggressive hydration with close monitoring of renal functions , avoid nephrotoxics , has HD catheter placed by renal for HD (5) Abdominal pain Assessment & Plan: due to the above, continue pain management as needed (6) Nausea & vomiting Assessment & Plan: suspect due to the above, rule out COVID 19 infection, will send nasal swab for PCR testing to confirm, keep patient in enhanced droplets isolation , supportive care as needed (7) CLL (chronic lymphocytic leukemia) Assessment & Plan: recommend oncology eval Subjective Constitutional: Reports: fatigue HEENT: Reports: no symptoms Respiratory: Reports: no symptoms Breasts: Reports: no symptoms Cardiovascular: Reports: no symptoms Gastrointestinal/Abdominal: Reports: nausea, other - pain Genitourinary: Reports: dysuria Neurologic: Reports: no symptoms Psychiatric: Reports: no symptoms Skin: Reports: no symptoms Endocrine: Reports: no symptoms Hematologic: Reports: no symptoms Musculoskeletal: Reports: no symptoms Allergies: Coded Allergies: No Known Allergies (Unverified , 07/30/20) Objective Last 24 Hour Vital Signs Date Time Temp Pulse Resp B/P (MAP) Pulse Ox O2 Delivery O2 Flow Rate FiO2 08/15/20 16:00 84 08/15/20 16:00 97.7 91 22 127/60 (82) 97 08/15/20 16:00 Room Air 08/15/20 12:00 97.9 93 21 106/63 (77) 98 08/15/20 12:00 Room Air 08/15/20 12:00 81 08/15/20 09:29 45 08/15/20 09:00 91 122/57 08/15/20 08:00 72 08/15/20 08:00 Room Air 08/15/20 08:00 96.1 91 22 122/57 (78) 96 08/15/20 04:00 80 08/15/20 04:00 97.0 93 24 106/56 (73) 94 08/15/20 04:00 Room Air 08/15/20 00:00 98.2 80 24 119/58 (78) 96 08/15/20 00:00 Room Air 08/15/20 00:00 77 08/14/20 22:00 122/57 (78) 08/14/20 20:00 82 08/14/20 20:00 97.7 101 21 104/50 (68) 97 08/14/20 20:00 Room Air Height (Feet): 5 Height (Inches): 4.00 Weight (Pounds): 120 General Appearance: WD/WN, no acute distress HEENT: normocephalic, atraumatic, anicteric, mucous membranes moist, PERRL Respiratory/Chest: chest wall non-tender, lungs clear, normal breath sounds, no respiratory distress, no accessory muscle use Cardiovascular: normal peripheral pulses, normal rate, regular rhythm, no gallop/murmur, no JVD Abdomen: normal bowel sounds, no organomegaly, no mass, no scars, hypoactive bowel sounds, distended, tender Genitourinary: normal external genitalia Extremities: no cyanosis, no clubbing Skin: no rash, no lesions, no ulcers Neurologic/Psychiatric: county director welfare II-XII grossly normal, no motor/sensory deficits, abnormal gait, responsive Lymphatic: no neck adenopathy, no groin adenopathy Musculoskeletal: normal muscle bulk, no effusion Microbiology Date/Time Source Procedure Growth Status 08/14/20 10:00 Nasopharynx Coronavirus COVID-19 PCR (ANY) - Final Complete 08/13/20 19:20 Rectum Received 08/13/20 14:25 Nasopharynx SARS-CoV-2 RdRp Gene Assay - Final Complete 08/13/20 14:25 Blood Blood Culture - Preliminary NO GROWTH AFTER 24 HOURS Resulted 08/13/20 14:05 Blood Blood Culture - Preliminary NO GROWTH AFTER 24 HOURS Resulted 08/13/20 13:40 Indwelling Cath Urine Culture - Preliminary NO GROWTH AFTER 24 HOURS Resulted Laboratory Tests Test 08/14/20 21:41 08/15/20 03:15 08/15/20 05:24 08/15/20 12:19 POC Whole Blood Glucose Pending 177 MG/DL (74-106) H Pending White Blood Count 22.3 K/UL (4.8-10.8) *H Red Blood Count 3.54 M/UL (4.20-5.40) L Hemoglobin 9.7 G/DL (12.0-16.0) L Hematocrit 29.1 % (37.0-47.0) L Mean Corpuscular Volume 82 FL (80-99) Mean Corpuscular Hemoglobin 27.4 PG (27.0-31.0) Mean Corpuscular Hemoglobin Concent 33.3 G/DL (32.0-36.0) Red Cell Distribution Width 11.6 % (11.6-14.8) Platelet Count 167 K/UL (150-450) Mean Platelet Volume 6.4 FL (6.5-10.1) L Neutrophils (%) (Auto) % (45.0-75.0) Lymphocytes (%) (Auto) % (20.0-45.0) Monocytes (%) (Auto) % (1.0-10.0) Eosinophils (%) (Auto) % (0.0-3.0) Basophils (%) (Auto) % (0.0-2.0) Differential Total Cells Counted 100 Neutrophils % (Manual) 53 % (45-75) Lymphocytes % (Manual) 43 % (20-45) Monocytes % (Manual) 2 % (1-10) Eosinophils % (Manual) 1 % (0-3) Basophils % (Manual) 1 % (0-2) Band Neutrophils 0 % (0-8) Platelet Estimate Adequate Platelet Morphology Normal Hypochromasia 2+ Anisocytosis 1+ Sodium Level 136 MMOL/L (136-145) Potassium Level 3.0 MMOL/L (3.5-5.1) #L Chloride Level 96 MMOL/L (98-107) L Carbon Dioxide Level 23 MMOL/L (21-32) Anion Gap 17 mmol/L (5-15) H Blood Urea Nitrogen 27 mg/dL (7-18) H Creatinine 3.3 MG/DL (0.55-1.30) H Estimat Glomerular Filtration Rate 13.5 mL/min (>60) Glucose Level 158 MG/DL (74-106) #H Calcium Level 6.9 MG/DL (8.5-10.1) L Hepatitis B Surface Antigen Negative (NEGATIVE) Current Medications Medications (Trade) Dose Ordered Sig/Russ Route PRN Reason Start Time Stop Time Status Last Admin Dose Admin Acetaminophen (Tylenol) 650 mg Q6H PRN ORAL For Headache 08/13/20 21:30 09/12/20 21:29 Amlodipine Besylate (Norvasc) 10 mg DAILY ORAL 08/14/20 09:00 09/13/20 08:59 08/14/20 09:30 Atorvastatin Calcium (Lipitor) 20 mg QHS ORAL 08/13/20 22:00 11/11/20 21:59 08/14/20 21:50 Barium Sulfate (Varibar Honey) 250 ml NOW PRN MC RAD 08/15/20 12:45 08/18/20 12:44 Barium Sulfate (Varibar [place]) 240 ml NOW PRN MC RAD 08/15/20 12:45 08/18/20 12:44 Barium Sulfate (Varibar Pudding) 230 ml NOW PRN MC RAD 08/15/20 12:45 08/18/20 12:44 Barium Sulfate (Varibar Thin Liquid powder) 148 gm NOW PRN MC RAD 08/15/20 12:45 08/18/20 12:44 Cefepime HCl 1 gm/ Sodium Chloride 55 ml @ 110 mls/hr Q24H IVPB 08/14/20 18:00 08/21/20 17:59 08/14/20 17:58 Dextrose (Dextrose 50%) 25 ml Q30M PRN IV Hypoglycemia 08/13/20 22:15 11/11/20 22:14 Dextrose (Dextrose 50%) 50 ml Q30M PRN IV Hypoglycemia 08/13/20 22:15 11/11/20 22:14 Famotidine (Pepcid) 20 mg QHS ORAL 08/13/20 21:00 11/11/20 20:59 08/14/20 21:50 Folic Acid (Folate) 1 mg DAILY ORAL 08/14/20 09:00 09/13/20 08:59 08/14/20 09:30 Heparin Sodium (Porcine) (Heparin 5000 units/ml) 5,000 units EVERY 12 HOURS SUBQ 08/14/20 09:00 09/28/20 08:59 08/15/20 08:41 Heparin Sodium/ Sodium Chloride (Heparin 1000 units/500ml Premix) 1,000 unit ONCE PRN IV PROCEDURE 08/14/20 12:35 08/15/20 23:59 Insulin Aspart (NovoLOG) BEFORE MEALS AND HS SUBQ 08/14/20 06:30 11/12/20 06:29 08/15/20 12:39 Lactulose (Cephulac) 30 gm BID ORAL 08/14/20 09:00 09/13/20 08:59 08/14/20 17:59 Lidocaine HCl (Xylocaine 1% 30ml) 30 ml ONCE PRN INJ PROCEDURE 08/14/20 12:36 08/15/20 23:59 Metronidazole 100 ml @ 100 mls/hr Q8HR IVPB 08/13/20 17:14 08/20/20 17:13 08/15/20 13:47 Midodrine (Pro-Amatine) 10 mg THREE TIMES A DAY ORAL 08/14/20 18:00 11/12/20 17:59 08/15/20 12:38 Ondansetron HCl (Zofran) 4 mg Q4H PRN IVP Nausea & Vomiting 08/15/20 12:15 09/14/20 12:14 08/15/20 12:37 Pantoprazole (Protonix) 40 mg DAILY ORAL 08/14/20 09:00 09/13/20 08:59 08/14/20 09:29 Sodium Chloride 1,000 ml @ 75 mls/hr [id number] IV 08/14/20 18:00 09/13/20 17:59 08/15/20 08:38 Johanna Torres M.D. Aug 15, 2020 17:32
--- NOTE | 2020-08-15 19:10 | NUR ---
NURSE NOTES: Pt report received from Paige RN. pt remains stable. pt is alert and oriented times 3, no acute neuro abnormalities noted. pt is on conventions reservationist showing NSR, no acute abnormalities cardiac donaldson. pt is sating 99% O2 on room air, no acute signs of resp distress noted. pt bed is low, locked, armed, call light within reach, bed rails up times 3. will follow plan of care.
--- NOTE | 2020-08-15 19:30 | NUR ---
NURSE HAND-OFF REPORT: Important Events on Shift: NA Patient Status: Stable Diet: Clear liquid Pending Orders: Morning Labs Pending Results/Labs:labs Pending MD notification:NA Latest Vital Signs: Temperature 97.7 , Pulse 91 , B/P 127 /60 , Respiratory Rate 22 , O2 SAT 97 , Room Air, O2 Flow Rate . Vital Sign Comment: Stable EKG Rhythm: Sinus Rhythm Rhythm change?: N MD Notified?: Bud Guillen MD Response: Latest Green Fall Score: 55 Fall Risk: High Risk Safety Measures: Call light Within Reach, Bed Alarm Zone 2, Side Rails Side Rails x3, Bed position Low and Locked. Fall Precautions: Yellow Socks Yellow Gown Door Sign Patient Fall Education Report given to Neto/RN.
[2020-08-15 20:00] VITALS: BP 124/65
[2020-08-15] MEDS: Atorvastatin 20mg tab ORAL SCH (20:43)
--- NOTE | 2020-08-15 23:53 | NUR ---
NURSE NOTES: pt turned, repositioned and cleaned. opti- foams in place at pts pressure points.
[2020-08-16] VITALS (7 sets, daily range): BP systolic 109–150; BP diastolic 53–74
--- NOTE | 2020-08-16 03:00 | NUR ---
NURSE NOTES: pts IV lines assessed. bed linen changed.
[2020-08-16] MEDS: NovoLOG Insulin Flexpen SUBQ SCH ×4 (05:44→21:07)
--- NOTE | 2020-08-16 06:00 | NUR ---
NURSE NOTES: pt turned and repositioned. TKO bag replaced. sibley emptied with 2000ML out. bright yellow urine noted.
--- NOTE | 2020-08-16 07:21 | NUR ---
NURSE HAND-OFF REPORT: Important Events on Shift:[NA] Patient Status: [STABLE] Diet: [PER Doctors ORDER] Pending Orders: [NA] Pending Results/Labs:[NA] Pending MD notification:[NA] Latest Vital Signs: Temperature 97.3 , Pulse 73 , B/P 148 /74 , Respiratory Rate 22 , O2 SAT 97 , Room Air, O2 Flow Rate . Vital Sign Comment: [Stable] EKG Rhythm: Sinus Rhythm Rhythm change?: N MD Notified?: Bud Guillen MD Response: Latest Green Fall Score: 55 Fall Risk: High Risk Safety Measures: Call light Within Reach, Bed Alarm Zone 2, Side Rails Side Rails x3, Bed position Low and Locked. Fall Precautions: Yellow Socks Yellow Gown Door Sign Patient Fall Education Report given to [Samuel Crystal RN].
--- NOTE | 2020-08-16 07:25 | NUR ---
NURSE NOTES: Patient received from JAMIL Duque under the care of Dr. Guillen for sepsis, acute renal failure, abdominal pain, and inability to void. Patient noted to be awake and verbally responsive. Patient on room air, and tolerating well with no signs of distress noted. Noted SR on monitor technician. Noted with sibley catheter draining well with clear yellow urine. Will continue with current plan of care.
[2020-08-16] MEDS: Heparin 5000 units/ml inj SUBQ SCH ×2 (08:44→21:06)
[2020-08-16] MEDS: Lactulose 20gm/30ml UDC ORAL SCH ×2 (08:47→18:00)
[2020-08-16] MEDS: Midodrine 10mg tab ORAL SCH ×3 (08:48→18:00)
--- NOTE | 2020-08-16 09:20 | NUR ---
NURSE NOTES: Seen and examined by Dr. Guillen with new orders to HOLD norvasc and Pro-amatine until he sees her again tomorrow. Protonix order changed from PO to IVP daily. All orders noted and carried out.
--- NOTE | 2020-08-16 09:28 | General Progress Note ---
Subjective Date patient seen: Aug 16, 2020 Time patient seen: 09:10 Constitutional: Reports: weakness HEENT: Reports: no symptoms Cardiovascular: Reports: no symptoms Respiratory: Reports: no symptoms Gastrointestinal/Abdominal: Reports: nausea Genitourinary: Reports: no symptoms Neurologic/Psychiatric: Reports: no symptoms Allergies: Coded Allergies: No Known Allergies (Unverified , 07/30/20) Subjective She c/o nausea today. No vomiting. no fever or chills. No sob or chest pain. She is making urine now. labs pending. apparently, she was not taking per oral protonix per nursing. Objective Last 24 Hour Vital Signs Date Time Temp Pulse Resp B/P (MAP) Pulse Ox O2 Delivery O2 Flow Rate FiO2 08/16/20 08:48 81 150/71 08/16/20 08:14 98.2 81 21 150/71 (97) 96 08/16/20 08:00 Room Air 08/16/20 08:00 98.2 81 21 150/71 (97) 96 08/16/20 04:00 97.3 70 22 148/74 (98) 97 08/16/20 04:00 73 08/16/20 04:00 Room Air 08/16/20 00:00 Room Air 08/16/20 00:00 97.6 75 22 117/59 (78) 98 08/16/20 00:00 77 08/15/20 20:00 Room Air 08/15/20 20:00 90 08/15/20 20:00 97.7 82 22 124/65 (84) 96 08/15/20 16:00 84 08/15/20 16:00 97.7 91 22 127/60 (82) 97 08/15/20 16:00 Room Air 08/15/20 12:00 97.9 93 21 106/63 (77) 98 08/15/20 12:00 Room Air 08/15/20 12:00 81 08/15/20 09:29 45 Intake and Output 08/15/20 08/16/20 19:00 07:00 Intake Total 1180 ml 925 ml Output Total 1500 ml 2000 ml Balance -320 ml -1075 ml Intake Oral 180 ml IV Total 1000 ml 925 ml Output Urine Total 1500 ml 2000 ml # Bowel Movements 2 Laboratory Tests 08/15/20 12:19: POC Whole Blood Glucose [Pending] 08/15/20 17:20: POC Whole Blood Glucose [Pending] 08/15/20 20:26: POC Whole Blood Glucose [Pending] 08/16/20 05:42: POC Whole Blood Glucose [Pending] Height (Feet): 5 Height (Inches): 4.00 Weight (Pounds): 120 General Appearance: no apparent distress, alert EENT: normal ENT inspection Neck: non-tender, supple Cardiovascular: normal rate, regular rhythm Respiratory/Chest: lungs clear, no respiratory distress Abdomen: normal bowel sounds, non tender, soft Extremities: non-tender Edema: no edema noted Arm (R), no edema noted Leg (L), no edema noted Leg (R) Neurologic: alert, responsive Skin: warm/dry Assessment/Plan Status: stable Assessment/Plan: 1, ARF POSSIBLY PRE RENAL VS ATN - CONT IVF AND SHE HAD HD YESTERDAY. 2. POSSIBLE SEPSIS - CONT CEFEPIME AND FLAGYL AND ID FOLLOWING. 3. CLL - MAY NEED TO F/U WITH HER ONCOLOGIST AT OUTPATIENT. 4. QUESTIONABLE ACUTE APPENDECITIS - CONT IV ABX AND MONITOR FOR NOW. WILL START ON CLEAR LIQUID DIET AND ADVANCE TOLERATED. 5. DM II - WILL HOLD ALL ORAL MEDS AND START SSI IN HOSPITAL. 6. HTN - NORVASC 10 MG ONE PO DAILY HOLD FOR SBP < 110. 7. GERD - CHANGE PROTONIX 40 MG IV DAILY AND PEPCID 20 MG ONE PO QHS. 8. HLD - CONT ATORVASTATIN 20 MG ONE PO QHS. 9. HYPERKALEMIA - IMPROVED WITH HD. CONT IVF. 10. UTI - IMPROVED WITH ABX. 11. LEUKOCYTOSIS - 2ND TO UTI AND POSSIBLE SEPSIS AND CLL - IMPROVING. 12. ABD PAIN - MOST LIKELY DUE TO GASTRITIS. WILL CHANGE PROTONIX TO 40 MG IV DAILY. APPENDICITIS RULED OUT PER SURGERY. Pura Guillen MD Aug 16, 2020 09:28
[2020-08-16 10:27] LABS: HEMATOCRIT 34.7 % (37.0-47.0); HEMOGLOBIN 11.3 G/DL (12.0-16.0); MEAN CORPUSCULAR VOLUME 82 FL (80-99); PLATELET COUNT 165 K/UL (150-450); RED BLOOD COUNT 4.22 M/UL (4.20-5.40); RED CELL DISTRIBUTION WIDTH 12.1 % (11.6-14.8); WHITE BLOOD COUNT 18.3 K/UL (4.8-10.8)
[2020-08-16 11:00] LABS: CALCIUM 7.8 MG/DL (8.5-10.1); CREATININE 3.3 MG/DL (0.55-1.30)
[2020-08-16 11:07] LABS: POTASSIUM 2.7 MMOL/L (3.5-5.1)
--- NOTE | 2020-08-16 11:20 | NUR ---
NURSE NOTES: Lab reported to Dr. Guillen with orders noted and carried out.
--- NOTE | 2020-08-16 11:44 | Surgery Progress Note ---
Surgery Progress Note Subjective Additional Comments wbc trending down spitting up clear liquid states abd pain improved zofran given Objective Last 24 Hour Vital Signs Date Time Temp Pulse Resp B/P (MAP) Pulse Ox O2 Delivery O2 Flow Rate FiO2 08/16/20 08:48 81 150/71 08/16/20 08:14 98.2 81 21 150/71 (97) 96 08/16/20 08:00 91 08/16/20 08:00 Room Air 08/16/20 08:00 98.2 81 21 150/71 (97) 96 08/16/20 04:00 97.3 70 22 148/74 (98) 97 08/16/20 04:00 73 08/16/20 04:00 Room Air 08/16/20 00:00 Room Air 08/16/20 00:00 97.6 75 22 117/59 (78) 98 08/16/20 00:00 77 08/15/20 20:00 Room Air 08/15/20 20:00 90 08/15/20 20:00 97.7 82 22 124/65 (84) 96 08/15/20 16:00 84 08/15/20 16:00 97.7 91 22 127/60 (82) 97 08/15/20 16:00 Room Air 08/15/20 12:00 97.9 93 21 106/63 (77) 98 08/15/20 12:00 Room Air 08/15/20 12:00 81 I&O Intake and Output 08/15/20 08/16/20 19:00 07:00 Intake Total 1180 ml 925 ml Output Total 1500 ml 2000 ml Balance -320 ml -1075 ml Intake Oral 180 ml IV Total 1000 ml 925 ml Output Urine Total 1500 ml 2000 ml # Bowel Movements 2 Cardiovascular: RSR Respiratory: clear Abdomen: soft, distended, non-tender, present bowel sounds Extremities: no edema, no tenderness, no cyanosis Laboratory Tests Test 08/15/20 12:19 08/15/20 17:20 08/15/20 20:26 08/16/20 05:42 POC Whole Blood Glucose Pending Pending Pending Pending Test 08/16/20 10:00 White Blood Count 18.3 K/UL (4.8-10.8) H Red Blood Count 4.22 M/UL (4.20-5.40) Hemoglobin 11.3 G/DL (12.0-16.0) L Hematocrit 34.7 % (37.0-47.0) L Mean Corpuscular Volume 82 FL (80-99) Mean Corpuscular Hemoglobin 26.9 PG (27.0-31.0) L Mean Corpuscular Hemoglobin Concent 32.7 G/DL (32.0-36.0) Red Cell Distribution Width 12.1 % (11.6-14.8) Platelet Count 165 K/UL (150-450) Mean Platelet Volume 6.2 FL (6.5-10.1) L Neutrophils (%) (Auto) % (45.0-75.0) Lymphocytes (%) (Auto) % (20.0-45.0) Monocytes (%) (Auto) % (1.0-10.0) Eosinophils (%) (Auto) % (0.0-3.0) Basophils (%) (Auto) % (0.0-2.0) Differential Total Cells Counted 100 Neutrophils % (Manual) 54 % (45-75) Lymphocytes % (Manual) 41 % (20-45) Monocytes % (Manual) 4 % (1-10) Eosinophils % (Manual) 1 % (0-3) Basophils % (Manual) 0 % (0-2) Band Neutrophils 0 % (0-8) Platelet Estimate Adequate Platelet Morphology Normal Red Blood Cell Morphology Normal Sodium Level 141 MMOL/L (136-145) Potassium Level 2.7 MMOL/L (3.5-5.1) *L Chloride Level 99 MMOL/L (98-107) Carbon Dioxide Level 23 MMOL/L (21-32) Anion Gap 20 mmol/L (5-15) H Blood Urea Nitrogen 29 mg/dL (7-18) H Creatinine 3.3 MG/DL (0.55-1.30) H Estimat Glomerular Filtration Rate 13.5 mL/min (>60) Glucose Level 210 MG/DL (74-106) H Calcium Level 7.8 MG/DL (8.5-10.1) L Plan Problems: (1) Acute appendicitis (2) UTI (urinary tract infection) (3) Acute renal failure (4) Abdominal pain Assessment & Plan: 79-year-old female with abdominal pain nausea emesis leukocytosis renal insufficiency. CT was reviewed and described as potential consideration for appendicitis though a normal appendix is noted there is just some stranding in the right lower quadrant. Patient with generalized abdominal pain states mainly in the epigastric upper region in the abdomen on examination she does not have significant tenderness in the right lower quadrant as compared to the remainder the abdomen.. Though appendicitis is a possibility clinically does not seem as if patient has appendicitis. Given her age committees and current medical status and the potential of early acute appendicitis will attempt treatment with antibiotic therapy and nonoperative in the event that it may be appendicitis. Will follow with her abdominal examinations Continue IV antibiotics per infectious disease Okay for clear liquid diet she has been on and tolerating Trend labs Hemodialysis per nephrology Thank you for allow me to participate in patient's care will follow with recomm endations Mild dependent atelectasis in both lung bases. There are multiple old rib fractures with healing callous noted There are several hepatic granulomas. The spleen is homogeneous. Gallbladder is without sludge or stone and there is no wall thickening. Mild diffuse fatty atrophy of the pancreas noted. There is slight nodular thickening of the left adrenal gland. Right adrenal is grossly unremarkable. The kidneys are normal in size, shape and axis. Small bowel loops are nondistended. The colon is also nondistended with average amount of stool. The appendix is normal in caliber but there is some inflammation around the tip of the retrocecal appendix. Question early tip appendicitis. There is no free fluid or free air. No pathologic adenopathy demonstrated. Bladder is empty. There is an enlarged uterus with a large central heterogeneous mass likely a large fibroid. Some peripheral calcification noted. IMPRESSION: RETROCECAL APPENDIX NORMAL IN CALIBER BUT THERE IS MILD INFLAMMATORY CHANGES AROUND THE TIP OF THE APPENDIX. QUESTION EARLY TIP APPENDICITIS. ENLARGED UTERUS WITH PROBABLE LARGE FIBROID. HEPATIC GRANULOMAS. MILD FATTY ATROPHY OF THE PANCREAS. SLIGHT NODULAR THICKENING OF THE LEFT ADRENAL GLAND PERHAPS HYPERPLASIA. OLD RIB FRACTURES. (5) Nausea & vomiting (6) Hyperkalemia (7) Leukocytosis (8) Metabolic acidosis (9) Diabetes (10) Sepsis (11) HTN (hypertension) (12) Leukocytosis (13) Hyperkalemia (14) Meningioma (15) Rib contusion (16) Head injury, closed, without LOC [place] Aug 16, 2020 11:44
--- NOTE | 2020-08-16 13:00 | NUR ---
NURSE NOTES: Received packed blood for patient transfusion. Consent received from patients daughter. Blood crosstype and matching done by laboratory, checked by 2 nurses (Sandee Charge nurse and JAMIL Baker before infusing with patient as per protocol. Addendum: 08/16/20 at 2025 by Samuel Coe RN RN Documented on wrong patient
--- NOTE | 2020-08-16 13:05 | NUR ---
NURSE NOTES: Started patient on blood transfusion. Addendum: 08/16/20 at 2025 by Samuel Coe RN RN Documented on wrong patient
--- NOTE | 2020-08-16 13:20 | NUR ---
NURSE NOTES: 1st 15mins of blood transfusion for patient going well. no signs and symptoms of adverse reaction noted. will continue to monitor. Addendum: 08/16/20 at 2025 by Samuel Coe RN RN documented on wrong patient
--- NOTE | 2020-08-16 14:01 | Nephrology Progress Note ---
Assessment/Plan Problem List: (1) Acute renal failure (2) Nausea & vomiting (3) Abdominal pain (4) Metabolic acidosis (5) Leukocytosis Assessment: better (6) Sepsis (7) HTN (hypertension) (8) Diabetes (9) Hypokalemia Plan Replete K Hold HD for now abxs follow labs SSI Discussed with RN Subjective Subjective poor po intake Objective Objective Last 24 Hour Vital Signs Date Time Temp Pulse Resp B/P (MAP) Pulse Ox O2 Delivery O2 Flow Rate FiO2 08/16/20 12:00 Room Air 08/16/20 11:45 98.6 86 18 109/53 (71) 100 08/16/20 11:40 77 08/16/20 08:48 81 150/71 08/16/20 08:14 98.2 81 21 150/71 (97) 96 08/16/20 08:00 91 08/16/20 08:00 Room Air 08/16/20 08:00 98.2 81 21 150/71 (97) 96 08/16/20 04:00 97.3 70 22 148/74 (98) 97 08/16/20 04:00 73 08/16/20 04:00 Room Air 08/16/20 00:00 Room Air 08/16/20 00:00 97.6 75 22 117/59 (78) 98 08/16/20 00:00 77 08/15/20 20:00 Room Air 08/15/20 20:00 90 08/15/20 20:00 97.7 82 22 124/65 (84) 96 08/15/20 16:00 84 08/15/20 16:00 97.7 91 22 127/60 (82) 97 08/15/20 16:00 Room Air Intake and Output 08/15/20 08/16/20 19:00 07:00 Intake Total 1180 ml 925 ml Output Total 1500 ml 2000 ml Balance -320 ml -1075 ml Intake Oral 180 ml IV Total 1000 ml 925 ml Output Urine Total 1500 ml 2000 ml # Bowel Movements 2 Laboratory Tests 08/15/20 17:20: POC Whole Blood Glucose [Pending] 08/15/20 20:26: POC Whole Blood Glucose [Pending] 08/16/20 05:42: POC Whole Blood Glucose [Pending] 08/16/20 10:00: White Blood Count 18.3H, Red Blood Count 4.22, Hemoglobin 11.3L, Hematocrit 34.7L, Mean Corpuscular Volume 82, Mean Corpuscular Hemoglobin 26.9L, Mean Corpuscular Hemoglobin Concent 32.7, Red Cell Distribution Width 12.1, Platelet Count 165, Mean Platelet Volume 6.2L, Neutrophils (%) (Auto) , Lymphocytes (%) (Auto) , Monocytes (%) (Auto) , Eosinophils (%) (Auto) , Basophils (%) (Auto) , Differential Total Cells Counted 100, Neutrophils % (Manual) 54, Lymphocytes % (Manual) 41, Monocytes % (Manual) 4, Eosinophils % (Manual) 1, Basophils % (Manual) 0, Band Neutrophils 0, Platelet Estimate Adequate, Platelet Morphology Normal, Red Blood Cell Morphology Normal, Sodium Level 141, Potassium Level 2.7*L, Chloride Level 99, Carbon Dioxide Level 23, Anion Gap 20H, Blood Urea Nitrogen 29H, Creatinine 3.3H, Estimat Glomerular Filtration Rate 13.5, Glucose Level 210H, Calcium Level 7.8L 08/16/20 12:00: Hepatitis B Surface Antigen [Pending], Hepatitis B Surface Antibody, Quant [Pending], Hepatitis C Antibody [Pending] Height (Feet): 5 Height (Inches): 4.00 Weight (Pounds): 120 Cardiovascular: normal rate Respiratory/Chest: lungs clear Extremities: no edema Darrian Cortes MD Aug 16, 2020 14:01
--- NOTE | 2020-08-16 14:52 | NUR ---
CASE MANAGEMENT:REVIEW 08/16/20 SI: ACUTE RENAL FAILURE. SEPSIS 98.6 86 18 109/53 100% ON RA WBC+18.3 K-2.7 BUN+29 CR+33 IS: IV KCL Q1HRS X4 BAGS K-DUR PO X1 IV CEFEPIME Q24 IV FLAGYL Q8HRS IVF@75/HR : STEP DOWN UNIT DCP: FROM [facility] CARE PLAN: HEP PANEL IN PROGRESS
--- NOTE | 2020-08-16 15:17 | Infectious Diseases Prog Note ---
Assessment/Plan Problems: (1) Acute appendicitis Assessment & Plan: evident on CT abdomen, with abdominal pain , nausea and vomiting, continue cefepime with metronidazole empirically, and monitor clinically , surgical eval is in progress (2) UTI (urinary tract infection) Assessment & Plan: with negative culture, already on cefepime empirically (3) Leukocytosis Assessment & Plan: suspect reactive and due to CLL too , with no evidence of sepsis , on cefepime , and metronidazole. will stop zyvox empirically since blood culture is negative x 2 (4) Acute renal failure Assessment & Plan: due to the above with dehydration , continue aggressive hydration with close monitoring of renal functions , avoid nephrotoxics , has HD catheter placed by renal for HD (5) Abdominal pain Assessment & Plan: due to the above, continue pain management as needed (6) Nausea & vomiting Assessment & Plan: suspect due to the above, rule out COVID 19 infection, will send nasal swab for PCR testing to confirm, keep patient in enhanced droplets isolation , supportive care as needed (7) CLL (chronic lymphocytic leukemia) Assessment & Plan: recommend oncology eval Subjective Constitutional: Reports: no symptoms HEENT: Reports: no symptoms Respiratory: Reports: no symptoms Breasts: Reports: no symptoms Cardiovascular: Reports: no symptoms Gastrointestinal/Abdominal: Reports: nausea, bloating, other Genitourinary: Reports: no symptoms Neurologic: Reports: no symptoms Psychiatric: Reports: no symptoms Skin: Reports: no symptoms Endocrine: Reports: no symptoms Hematologic: Reports: no symptoms Musculoskeletal: Reports: no symptoms Allergies: Coded Allergies: No Known Allergies (Unverified , 07/30/20) Objective Last 24 Hour Vital Signs Date Time Temp Pulse Resp B/P (MAP) Pulse Ox O2 Delivery O2 Flow Rate FiO2 08/16/20 12:00 Room Air 08/16/20 11:45 98.6 86 18 109/53 (71) 100 08/16/20 11:40 77 08/16/20 08:48 81 150/71 08/16/20 08:14 98.2 81 21 150/71 (97) 96 08/16/20 08:00 91 08/16/20 08:00 Room Air 08/16/20 08:00 98.2 81 21 150/71 (97) 96 08/16/20 04:00 97.3 70 22 148/74 (98) 97 08/16/20 04:00 73 08/16/20 04:00 Room Air 08/16/20 00:00 Room Air 08/16/20 00:00 97.6 75 22 117/59 (78) 98 08/16/20 00:00 77 08/15/20 20:00 Room Air 08/15/20 20:00 90 08/15/20 20:00 97.7 82 22 124/65 (84) 96 08/15/20 16:00 84 08/15/20 16:00 97.7 91 22 127/60 (82) 97 08/15/20 16:00 Room Air Height (Feet): 5 Height (Inches): 4.00 Weight (Pounds): 120 General Appearance: WD/WN, no acute distress HEENT: normocephalic, atraumatic, anicteric, mucous membranes moist, PERRL Respiratory/Chest: chest wall non-tender, lungs clear, normal breath sounds, no respiratory distress, no accessory muscle use Cardiovascular: normal peripheral pulses, normal rate, regular rhythm, no gallop/murmur, no JVD Abdomen: normal bowel sounds, no organomegaly, no mass, no scars, hypoactive bowel sounds, distended, tender Genitourinary: normal external genitalia Extremities: no cyanosis, no clubbing Skin: no rash, no lesions, no ulcers Neurologic/Psychiatric: hot roll laminator II-XII grossly normal, no motor/sensory deficits, alert, oriented x 3 Lymphatic: no neck adenopathy, no groin adenopathy Musculoskeletal: normal muscle bulk, no effusion Microbiology Date/Time Source Procedure Growth Status 08/14/20 10:00 Nasopharynx Coronavirus COVID-19 PCR (ANY) - Final Complete 08/13/20 19:20 Rectum - Final NO CARBAPENEM-RESISTANT ENTEROBACTERI... Complete 08/13/20 19:20 Rectum VRE Culture - Final NO VANCOMYCIN RESISTANT ENTEROCOCCUS ... Complete Laboratory Tests Test 08/15/20 17:20 08/15/20 20:26 08/16/20 05:42 08/16/20 10:00 POC Whole Blood Glucose Pending Pending Pending White Blood Count 18.3 K/UL (4.8-10.8) H Red Blood Count 4.22 M/UL (4.20-5.40) Hemoglobin 11.3 G/DL (12.0-16.0) L Hematocrit 34.7 % (37.0-47.0) L Mean Corpuscular Volume 82 FL (80-99) Mean Corpuscular Hemoglobin 26.9 PG (27.0-31.0) L Mean Corpuscular Hemoglobin Concent 32.7 G/DL (32.0-36.0) Red Cell Distribution Width 12.1 % (11.6-14.8) Platelet Count 165 K/UL (150-450) Mean Platelet Volume 6.2 FL (6.5-10.1) L Neutrophils (%) (Auto) % (45.0-75.0) Lymphocytes (%) (Auto) % (20.0-45.0) Monocytes (%) (Auto) % (1.0-10.0) Eosinophils (%) (Auto) % (0.0-3.0) Basophils (%) (Auto) % (0.0-2.0) Differential Total Cells Counted 100 Neutrophils % (Manual) 54 % (45-75) Lymphocytes % (Manual) 41 % (20-45) Monocytes % (Manual) 4 % (1-10) Eosinophils % (Manual) 1 % (0-3) Basophils % (Manual) 0 % (0-2) Band Neutrophils 0 % (0-8) Platelet Estimate Adequate Platelet Morphology Normal Red Blood Cell Morphology Normal Sodium Level 141 MMOL/L (136-145) Potassium Level 2.7 MMOL/L (3.5-5.1) *L Chloride Level 99 MMOL/L (98-107) Carbon Dioxide Level 23 MMOL/L (21-32) Anion Gap 20 mmol/L (5-15) H Blood Urea Nitrogen 29 mg/dL (7-18) H Creatinine 3.3 MG/DL (0.55-1.30) H Estimat Glomerular Filtration Rate 13.5 mL/min (>60) Glucose Level 210 MG/DL (74-106) H Calcium Level 7.8 MG/DL (8.5-10.1) L Test 08/16/20 12:00 Hepatitis B Surface Antigen Pending Hepatitis B Surface Antibody, Quant Pending Hepatitis C Antibody Pending Current Medications Medications (Trade) Dose Ordered Sig/Russ Route PRN Reason Start Time Stop Time Status Last Admin Dose Admin Acetaminophen (Tylenol) 650 mg Q6H PRN ORAL For Headache 08/13/20 21:30 09/12/20 21:29 Amlodipine Besylate (Norvasc) 10 mg DAILY ORAL 08/14/20 09:00 09/13/20 08:59 08/14/20 09:30 Atorvastatin Calcium (Lipitor) 20 mg QHS ORAL 08/13/20 22:00 11/11/20 21:59 08/15/20 20:43 Barium Sulfate (Varibar Honey) 250 ml NOW PRN RAD 08/15/20 12:45 08/18/20 12:44 Barium Sulfate (Varibar Hawley) 240 ml NOW PRN RAD 08/15/20 12:45 08/18/20 12:44 Barium Sulfate (Varibar Pudding) 230 ml NOW PRN RAD 08/15/20 12:45 08/18/20 12:44 Barium Sulfate (Varibar Thin Liquid powder) 148 gm NOW PRN RAD 08/15/20 12:45 08/18/20 12:44 Cefepime HCl 1 gm/ Dextrose 55 ml @ 110 mls/hr Q24H IVPB 08/16/20 17:30 08/23/20 17:29 Dextrose (Dextrose 50%) 25 ml Q30M PRN IV Hypoglycemia 08/13/20 22:15 11/11/20 22:14 Dextrose (Dextrose 50%) 50 ml Q30M PRN IV Hypoglycemia 08/13/20 22:15 11/11/20 22:14 Famotidine (Pepcid) 20 mg QHS ORAL 08/13/20 21:00 11/11/20 20:59 08/15/20 20:43 Folic Acid (Folate) 1 mg DAILY ORAL 08/14/20 09:00 09/13/20 08:59 08/14/20 09:30 Heparin Sodium (Porcine) (Heparin 5000 units/ml) 5,000 units EVERY 12 HOURS SUBQ 08/14/20 09:00 09/28/20 08:59 08/16/20 08:44 Insulin Aspart (NovoLOG) BEFORE MEALS AND HS SUBQ 08/14/20 06:30 11/12/20 06:29 08/16/20 12:08 Lactulose (Cephulac) 30 gm BID ORAL 08/14/20 09:00 09/13/20 08:59 08/14/20 17:59 Metronidazole 100 ml @ 100 mls/hr Q8HR IVPB 08/15/20 22:00 08/22/20 21:59 08/16/20 14:37 Midodrine (Pro-Amatine) 10 mg THREE TIMES A DAY ORAL 08/14/20 18:00 11/12/20 17:59 08/15/20 12:38 Ondansetron HCl (Zofran) 4 mg Q4H PRN IVP Nausea & Vomiting 08/15/20 12:15 09/14/20 12:14 08/16/20 09:37 Pantoprazole (Protonix) 40 mg DAILY IVP 08/17/20 09:00 09/16/20 08:59 Potassium Chloride 100 ml @ 100 mls/hr Q1H IVPB 08/16/20 11:30 08/16/20 15:29 08/16/20 13:51 Sodium Chloride 1,000 ml @ 75 mls/hr [id number] IV 08/14/20 18:00 09/13/20 17:59 08/16/20 10:31 Johanna oTrres M.D. Aug 16, 2020 15:17
--- NOTE | 2020-08-16 16:45 | NUR ---
NURSE NOTES: Blood transfusion 1 pack complete, no adverse reactions noted. Vitals WNL. Will continue with current plan of care. Addendum: 08/16/20 at 2024 by Samuel Coe RN RN Documented on wrong patient
--- NOTE | 2020-08-16 16:45 | NUR ---
Recommend puree diet with thin liquids at this time. Pt requires intermittent supervision. Pt must sit upright during p.o. intake and 60 minutes after. Pt would benefit from reflux precautions.Crush crushable medications in puree or liquids, as tolerated. Bedside Swallow Evaluation completed. Pt seen sitting in bed for tx. Pt agreeable to trials with Farsi translation from [employer] #[id number] and Farsi-speaking employee. Pt reports xerostomia with meals and reports frequent feelings of nausea. Pt trialed thin liquids via cup sip and tsp and straw without s/sx of aspiration. Pt trialed a tsp of puree without s/sx of aspiration. Adequate laryngeal activity noted upon palpation. Pt trialed regular trial with adequate mastication given pt's missing teeth (pt has only a few teeth on bottom jaw (2-4). Pt unable to trigger a swallow, stating that it was too dry and she has no appetite. Stated puree went down well. Pt demonstrated total oral clearance. Continue ST for diet monitoring.
--- NOTE | 2020-08-16 17:00 | NUR ---
NURSE NOTES: Seen by ST [facility] and recommended strict NPO for patient and video swallow on sunday 08/19 Addendum: 08/16/20 at 2024 by Samuel Coe RN RN Documented on wrong patient
[2020-08-16] MEDS: Cefepime HCl 1 GM in D5W 55 ML IVPB SCH (17:38)
--- NOTE | 2020-08-16 19:15 | NUR ---
NURSE HAND-OFF REPORT: Important Events on Shift: Potassium given IV and PO. Protonix order changed to IVP. Diet advanced to puree. Patient Status: Stable Diet: Pureed nectar thick liquids Pending Orders: Pending Results/Labs: Pending MD notification: Latest Vital Signs: Temperature 100.0 , Pulse 72 , B/P 127 /67 , Respiratory Rate 21 , O2 SAT 99 , Room Air, O2 Flow Rate . Vital Sign Comment: Elevated temperature. EKG Rhythm: SR with PJC Rhythm change?: N Notified?: Bud Guillen MD Response: Latest Green Fall Score: 55 Fall Risk: High Risk Safety Measures: Call light Within Reach, Bed Alarm Zone 2, Side Rails Side Rails x3, Bed position Low and Locked. Fall Precautions: Yellow Socks Yellow Gown Door Sign Patient Fall Education Report given to JAMIL Templeton.
[2020-08-16] MEDS: Atorvastatin 20mg tab ORAL SCH (21:08)
--- NOTE | 2020-08-16 22:30 | NUR ---
NURSE NOTES: Received pt and report from JAMIL Baker. Observed pt resting in bed with both eyes open and watching television. Pt is A/Ox3. Able to make needs known. monitoring coordinator is in placed; pt is NSR. IV site intact, asymptomatic, and patent; running NS @75cc/hr. Pt has a Hitchcock present for retention; clear straw urine flowing by gravity. Pt has a Mateo cath on RT jugular vein for HD; dry, intact, and no bleeding noted. Bed is in the lowest position and locked. Call light and bedside table is within reach. No signs/symptoms of acute distress noted at this time. Will continue plan of care. Addendum: 08/16/20 at 4110 by Ngoc Hilton Mai, RN Received pt 08/16/20 @ 1930.
[2020-08-17] VITALS: BP 137/72
[2020-08-17 04:00] VITALS: BP 148/79
[2020-08-17] MEDS: NovoLOG Insulin Flexpen SUBQ SCH ×4 (06:10→21:00)
--- NOTE | 2020-08-17 07:15 | NUR ---
NURSE NOTES: Received patient from JAMIL Templeton. Patient resting in bed asleep, with no sign of discomfort at this time. physician chief of pathology is in place, noted SR on monitor. IV site intact, benign, and patent. IV NS @75cc/hr running. Pt has a Hitchcock present for retention, clear straw color urine noted. Patient has a Mateo cath on RT jugular vein for HD; dry, intact, and no bleeding noted. Bed is in the lowest position and locked. Call light and bedside table is within reach. Will continue with current plan of care.
[2020-08-17 07:30] LABS: BASOPHILS % (AUTO) 0.6 % (0.0-2.0); EOSINOPHILS % (AUTO) 0.4 % (0.0-3.0); HEMATOCRIT 35.2 % (37.0-47.0); HEMOGLOBIN 11.7 G/DL (12.0-16.0); LYMPHOCYTES % (AUTO) 45.3 % (20.0-45.0); MEAN CORPUSCULAR VOLUME 82 FL (80-99); MONOCYTES % (AUTO) 4.9 % (1.0-10.0); NEUTROPHILS % (AUTO) 48.8 % (45.0-75.0); PLATELET COUNT 136 K/UL (150-450); RED BLOOD COUNT 4.28 M/UL (4.20-5.40); RED CELL DISTRIBUTION WIDTH 11.9 % (11.6-14.8); WHITE BLOOD COUNT 14.3 K/UL (4.8-10.8)
--- NOTE | 2020-08-17 07:48 | NUR ---
NURSE HAND-OFF REPORT: Important Events on Shift: No significant changes during nightshift. Patient Status: Stable Diet: Full Liquid Pending Orders: N Pending Results/Labs: AM labs Pending MD notification: N Latest Vital Signs: Temperature 98.0 , Pulse 89 , B/P 148 /79 , Respiratory Rate 19 , O2 SAT 98 , Room Air, O2 Flow Rate . EKG Rhythm: Sinus Rhythm Rhythm change?: N Latest Green Fall Score: 55 Fall Risk: High Risk Safety Measures: Call light Within Reach, Bed Alarm Zone 2, Side Rails Side Rails x3, Bed position Low and Locked. Fall Precautions: Yellow Socks Yellow Gown Door Sign Patient Fall Education Report given to JAMIL Baker.
[2020-08-17 07:59] LABS: ALBUMIN 3.2 G/DL (3.4-5.0); BILIRUBIN,TOTAL 0.8 MG/DL (0.2-1.0); CALCIUM 6.9 MG/DL (8.5-10.1); CREATININE 2.2 MG/DL (0.55-1.30)
[2020-08-17 08:00] VITALS: BP 145/80
[2020-08-17 08:01] LABS: POTASSIUM 2.5 MMOL/L (3.5-5.1)
--- NOTE | 2020-08-17 08:30 | NUR ---
NURSE NOTES: Critical lab reported to Dr. Guillen with new orders noted and carried out. Shahnaz Faye also made aware with new orders noted and carried out.
[2020-08-17] MEDS: Pantoprazole Inj IVP SCH (09:16)
[2020-08-17] MEDS: Heparin 5000 units/ml inj SUBQ SCH ×2 (09:18→21:00)
[2020-08-17] MEDS: Lactulose 20gm/30ml UDC ORAL SCH ×2 (09:19→18:20)
--- NOTE | 2020-08-17 09:19 | NUR ---
RADIOLOGY DEPT., ABDOMEN X-RAY PERFORMED.-P.DYE
--- NOTE | 2020-08-17 09:52 | Diagnostic Imaging Report ---
EXAM: XR Abdomen, 1 View CLINICAL HISTORY: F/U abdomen pain TECHNIQUE: Frontal supine view of the abdomen/pelvis. COMPARISON: CT abdomen and pelvis 08/13/20 FINDINGS: Gastrointestinal tract: Gassy distended small bowel in the left abdomen may be an ileus versus low-grade small bowel obstruction. Gas is seen to the rectum. Bones/joints: Mild degenerative changes lower lumbar spine. IMPRESSION: Gassy distended small bowel in the left abdomen may be an ileus versus low-grade small bowel obstruction.
--- NOTE | 2020-08-17 11:31 | General Progress Note ---
Subjective Date patient seen: Aug 17, 2020 Time patient seen: 10:45 Constitutional: Reports: weakness HEENT: Reports: no symptoms Cardiovascular: Reports: no symptoms Respiratory: Reports: no symptoms Gastrointestinal/Abdominal: Reports: abdominal pain Genitourinary: Reports: no symptoms Neurologic/Psychiatric: Reports: no symptoms Allergies: Coded Allergies: No Known Allergies (Unverified , 07/30/20) Subjective She c/o nausea today but it is better than yesterday and today she has appetite to eat. No vomiting. no fever or chills. No sob or chest pain. Her WBC and Creatinine trending down and improving. Objective Last 24 Hour Vital Signs Date Time Temp Pulse Resp B/P (MAP) Pulse Ox O2 Delivery O2 Flow Rate FiO2 08/17/20 08:00 97.7 74 19 145/80 (101) 98 08/17/20 08:00 Room Air 08/17/20 04:00 Room Air 08/17/20 04:00 98.0 98 19 148/79 (102) 98 08/17/20 04:00 89 08/17/20 00:00 80 08/17/20 00:00 Room Air 08/17/20 00:00 98.2 79 19 137/72 (93) 96 08/16/20 20:00 98.2 80 20 142/73 (96) 96 08/16/20 20:00 Room Air 08/16/20 20:00 101 08/16/20 16:00 Room Air 08/16/20 16:00 100.0 95 21 127/67 (87) 99 08/16/20 16:00 72 08/16/20 12:00 Room Air 08/16/20 11:45 98.6 86 18 109/53 (71) 100 08/16/20 11:40 77 Intake and Output0 08/16/20 08/17/20 19:00 07:00 Intake Total 990 ml 1130 ml Output Total 2200 ml Balance 990 ml -1070 ml Intake Oral 240 ml 230 ml IV Total 750 ml 900 ml Output Urine Total 2200 ml Laboratory Tests 08/16/20 12:00: Hepatitis B Surface Antigen [Pending], Hepatitis B Surface Antibody, Quant [Pending], Hepatitis C Antibody [Pending] 08/16/20 17:30: POC Whole Blood Glucose [Pending] 08/16/20 20:38: POC Whole Blood Glucose 282H 08/17/20 05:28: POC Whole Blood Glucose 195H 08/17/20 06:25: White Blood Count 14.3H, Red Blood Count 4.28, Hemoglobin 11.7L, Hematocrit 35.2L, Mean Corpuscular Volume 82, Mean Corpuscular Hemoglobin 27.3, Mean Corpuscular Hemoglobin Concent 33.2, Red Cell Distribution Width 11.9, Platelet Count 136L, Mean Platelet Volume 7.0, Neutrophils (%) (Auto) 48.8, Lymphocytes (%) (Auto) 45.3H, Monocytes (%) (Auto) 4.9, Eosinophils (%) (Auto) 0.4, Basophils (%) (Auto) 0.6, Erythrocyte Sedimentation Rate 70H, Sodium Level 143, Potassium Level 2.5*L, Chloride Level 102, Carbon Dioxide Level 29, Anion Gap 13, Blood Urea Nitrogen 20H, Creatinine 2.2H, Estimat Glomerular Filtration Rate 21.5, Glucose Level 197H, Calcium Level 6.9L, Magnesium Level 1.3L, Total Bilirubin 0.8, Aspartate Amino Transf (AST/SGOT) 23, Alanine Aminotransferase (ALT/SGPT) 18, Alkaline Phosphatase 68, C-Reactive Protein, Quantitative 3.1H, Total Protein 6.4, Albumin 3.2L, Globulin 3.2, Albumin/Globulin Ratio 1.0 Height (Feet): 5 Height (Inches): 4.00 Weight (Pounds): 120 General Appearance: no apparent distress, alert EENT: normal ENT inspection Neck: non-tender, supple Cardiovascular: normal rate, regular rhythm Respiratory/Chest: lungs clear, normal breath sounds, no respiratory distress Abdomen: non tender, soft, no organomegaly Extremities: normal range of motion, non-tender Edema: no edema noted Arm (L), no edema noted Arm (R), no edema noted Leg (L), no edema noted Leg (R) Neurologic: alert, responsive Skin: warm/dry Assessment/Plan Status: stable Assessment/Plan: 1, ARF POSSIBLY PRE RENAL VS ATN - RENAL FUNCTION IMPROVED. CR TRENDING DOWN TO 2.2 FROM 6.1. CONT IVF. 2. POSSIBLE SEPSIS - CONT CEFEPIME AND FLAGYL AND ID FOLLOWING. 3. CLL - MAY NEED TO F/U WITH HER ONCOLOGIST AT OUTPATIENT. 4. QUESTIONABLE ACUTE APPENDECITIS - CONT IV ABX AND MONITOR FOR NOW. WILL START ON CLEAR LIQUID DIET AND ADVANCE TOLERATED. 5. DM II - WILL HOLD ALL ORAL MEDS AND START SSI IN HOSPITAL. 6. HTN - CHANGE NORVASC 5 MG ONE PO DAILY HOLD FOR SBP < 110. 7. GERD - CONT PROTONIX 40 MG IV DAILY AND PEPCID 20 MG ONE PO QHS. 8. HLD - CONT ATORVASTATIN 20 MG ONE PO QHS. 9. HYPOKALEMIA AND HYPOMAGNESIMIA - KCL AND MAGNESIUM REPLACED. 10. UTI - IMPROVED WITH ABX. 11. LEUKOCYTOSIS - 2ND TO UTI AND POSSIBLE SEPSIS AND CLL - IMPROVING. 12. ABD PAIN - IMPROVING. MOST LIKELY DUE TO GASTRITIS. CONT PROTONIX TO 40 MG IV DAILY. Pura Guillen MD Aug 17, 2020 11:30
[2020-08-17 12:00] VITALS: BP 148/76
--- NOTE | 2020-08-17 12:00 | NUR ---
NURSE NOTES: Patient seen and examined by Dr. Guillen with new orders noted and carried out.
--- NOTE | 2020-08-17 13:54 | Nephrology Progress Note ---
Assessment/Plan Problem List: (1) Acute renal failure Assessment: makes lots of urine (2) Nausea & vomiting (3) Abdominal pain (4) Metabolic acidosis (5) Leukocytosis Assessment: better (6) Sepsis (7) HTN (hypertension) (8) Diabetes (9) Hypokalemia Plan Replete K Hold HD for now abxs follow labs SSI Discussed with RN rbadley Cameron Subjective Subjective feels ok Objective Objective Last 24 Hour Vital Signs Date Time Temp Pulse Resp B/P (MAP) Pulse Ox O2 Delivery O2 Flow Rate FiO2 08/17/20 08:00 75 08/17/20 08:00 97.7 74 19 145/80 (101) 98 08/17/20 08:00 Room Air 08/17/20 04:00 Room Air 08/17/20 04:00 98.0 98 19 148/79 (102) 98 08/17/20 04:00 89 08/17/20 00:00 80 08/17/20 00:00 Room Air 08/17/20 00:00 98.2 79 19 137/72 (93) 96 08/16/20 20:00 98.2 80 20 142/73 (96) 96 08/16/20 20:00 Room Air 08/16/20 20:00 101 08/16/20 16:00 Room Air 08/16/20 16:00 100.0 95 21 127/67 (87) 99 08/16/20 16:00 72 Intake and Output 08/16/20 08/17/20 19:00 07:00 Intake Total 990 ml 1130 ml Output Total 2200 ml Balance 990 ml -1070 ml Intake Oral 240 ml 230 ml IV Total 750 ml 900 ml Output Urine Total 2200 ml Laboratory Tests 08/16/20 17:30: POC Whole Blood Glucose [Pending] 08/16/20 20:38: POC Whole Blood Glucose 282H 08/17/20 05:28: POC Whole Blood Glucose 195H 08/17/20 06:25: White Blood Count 14.3H, Red Blood Count 4.28, Hemoglobin 11.7L, Hematocrit 35.2L, Mean Corpuscular Volume 82, Mean Corpuscular Hemoglobin 27.3, Mean Corpuscular Hemoglobin Concent 33.2, Red Cell Distribution Width 11.9, Platelet Count 136L, Mean Platelet Volume 7.0, Neutrophils (%) (Auto) 48.8, Lymphocytes (%) (Auto) 45.3H, Monocytes (%) (Auto) 4.9, Eosinophils (%) (Auto) 0.4, Ba sophils (%) (Auto) 0.6, Erythrocyte Sedimentation Rate 70H, Sodium Level 143, Potassium Level 2.5*L, Chloride Level 102, Carbon Dioxide Level 29, Anion Gap 13, Blood Urea Nitrogen 20H, Creatinine 2.2H, Estimat Glomerular Filtration Rate 21.5, Glucose Level 197H, Calcium Level 6.9L, Magnesium Level 1.3L, Total Bilirubin 0.8, Aspartate Amino Transf (AST/SGOT) 23, Alanine Aminotransferase (ALT/SGPT) 18, Alkaline Phosphatase 68, C-Reactive Protein, Quantitative 3.1H, Total Protein 6.4, Albumin 3.2L, Globulin 3.2, Albumin/Globulin Ratio 1.0 08/17/20 13:33: POC Whole Blood Glucose 313H Height (Feet): 5 Height (Inches): 4.00 Weight (Pounds): 120 Cardiovascular: normal rate Respiratory/Chest: lungs clear Extremities: other - no edema Darrian Cortes MD Aug 17, 2020 13:54
--- NOTE | 2020-08-17 14:30 | NUR ---
NURSE NOTES: Patient seen and examined by Shahnaz Griffiths with new orders noted and carried out.
--- NOTE | 2020-08-17 15:05 | Surgery Progress Note ---
Surgery Progress Note Subjective Additional Comments [id number] resting comfortable wbc improved exam stable kub noted Objective Last 24 Hour Vital Signs Date Time Temp Pulse Resp B/P (MAP) Pulse Ox O2 Delivery O2 Flow Rate FiO2 08/17/20 12:00 Room Air 08/17/20 12:00 98.0 74 20 148/76 (100) 100 08/17/20 12:00 73 08/17/20 08:00 75 08/17/20 08:00 97.7 74 19 145/80 (101) 98 08/17/20 08:00 Room Air 08/17/20 04:00 Room Air 08/17/20 04:00 98.0 98 19 148/79 (102) 98 08/17/20 04:00 89 08/17/20 00:00 80 08/17/20 00:00 Room Air 08/17/20 00:00 98.2 79 19 137/72 (93) 96 08/16/20 20:00 98.2 80 20 142/73 (96) 96 08/16/20 20:00 Room Air 08/16/20 20:00 101 08/16/20 16:00 Room Air 08/16/20 16:00 100.0 95 21 127/67 (87) 99 08/16/20 16:00 72 I&O Intake and Output 08/16/20 08/17/20 19:00 07:00 Intake Total 990 ml 1130 ml Output Total 2200 ml Balance 990 ml -1070 ml Intake Oral 240 ml 230 ml IV Total 750 ml 900 ml Output Urine Total 2200 ml Cardiovascular: RSR Respiratory: clear Abdomen: soft, tenderness, present bowel sounds, non-distended Extremities: no edema, no tenderness, no cyanosis Laboratory Tests Test 08/16/20 17:30 08/16/20 20:38 08/17/20 05:28 08/17/20 06:25 POC Whole Blood Glucose Pending 282 MG/DL (74-106) H 195 MG/DL (74-106) H White Blood Count 14.3 K/UL (4.8-10.8) H Red Blood Count 4.28 M/UL (4.20-5.40) Hemoglobin 11.7 G/DL (12.0-16.0) L Hematocrit 35.2 % (37.0-47.0) L Mean Corpuscular Volume 82 FL (80-99) Mean Corpuscular Hemoglobin 27.3 PG (27.0-31.0) Mean Corpuscular Hemoglobin Concent 33.2 G/DL (32.0-36.0) Red Cell Distribution Width 11.9 % (11.6-14.8) Platelet Count 136 K/UL (150-450) L Mean Platelet Volume 7.0 FL (6.5-10.1) Neutrophils (%) (Auto) 48.8 % (45.0-75.0) Lymphocytes (%) (Auto) 45.3 % (20.0-45.0) H Monocytes (%) (Auto) 4.9 % (1.0-10.0) Eosinophils (%) (Auto) 0.4 % (0.0-3.0) Basophils (%) (Auto) 0.6 % (0.0-2.0) Erythrocyte Sedimentation Rate 70 MM/HR (0-30) H Sodium Level 143 MMOL/L (136-145) Potassium Level 2.5 MMOL/L (3.5-5.1) *L Chloride Level 102 MMOL/L (98-107) Carbon Dioxide Level 29 MMOL/L (21-32) Anion Gap 13 mmol/L (5-15) Blood Urea Nitrogen 20 mg/dL (7-18) H Creatinine 2.2 MG/DL (0.55-1.30) H Estimat Glomerular Filtration Rate 21.5 mL/min (>60) Glucose Level 197 MG/DL (74-106) H Calcium Level 6.9 MG/DL (8.5-10.1) L Magnesium Level 1.3 MG/DL (1.8-2.4) L Total Bilirubin 0.8 MG/DL (0.2-1.0) Aspartate Amino Transf (AST/SGOT) 23 U/L (15-37) Alanine Aminotransferase (ALT/SGPT) 18 U/L (12-78) Alkaline Phosphatase 68 U/L (46-116) C-Reactive Protein, Quantitative 3.1 mg/dL (0.00-0.90) H Total Protein 6.4 G/DL (6.4-8.2) Albumin 3.2 G/DL (3.4-5.0) L Globulin 3.2 g/dL Albumin/Globulin Ratio 1.0 (1.0-2.7) Test 08/17/20 13:33 POC Whole Blood Glucose 313 MG/DL (74-106) H Plan Problems: (1) Acute appendicitis (2) UTI (urinary tract infection) (3) Acute renal failure (4) Abdominal pain Assessment & Plan: 79-year-old female with abdominal pain nausea emesis leukocytosis renal insufficiency. CT was reviewed and described as potential consideration for appendicitis though a normal appendix is noted there is just some stranding in the right lower quadrant. Patient with generalized abdominal pain states mainly in the epigastric upper region in the abdomen on examination she does not have significant tenderness in the right lower quadrant as compared to the remainder the abdomen.. Though appendicitis is a possibility clinically does not seem as if patient has appendicitis. Given her age committees and current medical status and the potential of early acute appendicitis will attempt treatment with antibiotic therapy and nonoperative in the event that it may be appendicitis. Will follow with her abdominal examinations Continue IV antibiotics per infectious disease Okay for clear liquid diet she has been on and tolerating Trend labs Hemodialysis per nephrology Thank you for allow me to participate in patient's care will follow with recommendations Mild dependent atelectasis in both lung bases. There are multiple old rib fractures with healing callous noted There are several hepatic granulomas. The spleen is homogeneous. Gallbladder is without sludge or stone and there is no wall thickening. Mild diffuse fatty atrophy of the pancreas noted. There is slight nodular thickening of the left adrenal gland. Right adrenal is grossly unremarkable. The kidneys are normal in size, shape and axis. Small bowel loops are nondistended. The colon is also nondistended with average amount of stool. The appendix is normal in caliber but there is some inflammation around the tip of the retrocecal appendix. Question early tip appendicitis. There is no free fluid or free air. No pathologic adenopathy demonstrated. Bladder is empty. There is an enlarged uterus with a large central heterogeneous mass likely a large fibroid. Some peripheral calcification noted. IMPRESSION: RETROCECAL APPENDIX NORMAL IN CALIBER BUT THERE IS MILD INFLAMMATORY CHANGES AROUND THE TIP OF THE APPENDIX. QUESTION EARLY TIP APPENDICITIS. ENLARGED UTERUS WITH PROBABLE LARGE FIBROID. HEPATIC GRANULOMAS. MILD FATTY ATROPHY OF THE PANCREAS. SLIGHT NODULAR THICKENING OF THE LEFT ADRENAL GLAND PERHAPS HYPERPLASIA. OLD RIB FRACTURES. (5) Nausea & vomiting (6) Hyperkalemia (7) Leukocytosis (8) Metabolic acidosis (9) Diabetes (10) Sepsis (11) HTN (hypertension) (12) Leukocytosis (13) Hyperkalemia (14) Meningioma (15) Rib contusion (16) Head injury, closed, without LOC [place] Aug 17, 2020 15:05
[2020-08-17 16:00] VITALS: BP 138/74
--- NOTE | 2020-08-17 16:03 | Infectious Diseases Prog Note ---
Assessment/Plan Problems: (1) Acute appendicitis Assessment & Plan: evident on CT abdomen, with abdominal pain , nausea and vomiting, continue cefepime with metronidazole empirically, and monitor clinically , surgical eval is in progress (2) UTI (urinary tract infection) Assessment & Plan: with negative culture, already on cefepime empirically (3) Leukocytosis Assessment & Plan: suspect reactive and due to CLL too , with no evidence of sepsis , on cefepime , and metronidazole. will stop zyvox empirically since blood culture is negative x 2 (4) Acute renal failure Assessment & Plan: due to the above with dehydration , continue aggressive hydration with close monitoring of renal functions , avoid nephrotoxics , has HD catheter placed by renal for HD (5) Abdominal pain Assessment & Plan: due to the above, continue pain management as needed (6) Nausea & vomiting Assessment & Plan: suspect due to the above, rule out COVID 19 infection, will send nasal swab for PCR testing to confirm, keep patient in enhanced droplets isolation , supportive care as needed (7) CLL (chronic lymphocytic leukemia) Assessment & Plan: recommend oncology eval Subjective Constitutional: Reports: no symptoms HEENT: Reports: no symptoms Respiratory: Reports: no symptoms Breasts: Reports: no symptoms Cardiovascular: Reports: no symptoms Gastrointestinal/Abdominal: Reports: nausea, constipation, bloating Genitourinary: Reports: no symptoms Neurologic: Reports: no symptoms Psychiatric: Reports: no symptoms Skin: Reports: no symptoms Endocrine: Reports: no symptoms Hematologic: Reports: no symptoms Musculoskeletal: Reports: no symptoms Allergies: Coded Allergies: No Known Allergies (Unverified , 07/30/20) Objective Last 24 Hour Vital Signs Date Time Temp Pulse Resp B/P (MAP) Pulse Ox O2 Delivery O2 Flow Rate FiO2 08/17/20 12:00 Room Air 08/17/20 12:00 98.0 74 20 148/76 (100) 100 08/17/20 12:00 73 08/17/20 08:00 75 08/17/20 08:00 97.7 74 19 145/80 (101) 98 08/17/20 08:00 Room Air 08/17/20 04:00 Room Air 08/17/20 04:00 98.0 98 19 148/79 (102) 98 08/17/20 04:00 89 08/17/20 00:00 80 08/17/20 00:00 Room Air 08/17/20 00:00 98.2 79 19 137/72 (93) 96 08/16/20 20:00 98.2 80 20 142/73 (96) 96 08/16/20 20:00 Room Air 08/16/20 20:00 101 Height (Feet): 5 Height (Inches): 4.00 Weight (Pounds): 120 General Appearance: WD/WN, no acute distress HEENT: normocephalic, atraumatic, anicteric, mucous membranes moist, PERRL Respiratory/Chest: chest wall non-tender, lungs clear, normal breath sounds, no respiratory distress, no accessory muscle use Cardiovascular: normal peripheral pulses, normal rate, regular rhythm, no gallop/murmur, no JVD Abdomen: normal bowel sounds, no organomegaly, no mass, no scars, hypoactive bowel sounds, distended, tender Genitourinary: normal external genitalia Extremities: no cyanosis, no clubbing Skin: no rash, no lesions, no ulcers Neurologic/Psychiatric: 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 normal, no motor/sensory deficits, oriented x 3, responsive Lymphatic: no neck adenopathy, no groin adenopathy Musculoskeletal: normal muscle bulk, no effusion Laboratory Tests Test 08/16/20 17:30 08/16/20 20:38 08/17/20 05:28 08/17/20 06:25 POC Whole Blood Glucose Pending 282 MG/DL (74-106) H 195 MG/DL (74-106) H White Blood Count 14.3 K/UL (4.8-10.8) H Red Blood Count 4.28 M/UL (4.20-5.40) Hemoglobin 11.7 G/DL (12.0-16.0) L Hematocrit 35.2 % (37.0-47.0) L Mean Corpuscular Volume 82 FL (80-99) Mean Corpuscular Hemoglobin 27.3 PG (27.0-31.0) Mean Corpuscular Hemoglobin Concent 33.2 G/DL (32.0-36.0) Red Cell Distribution Width 11.9 % (11.6-14.8) Platelet Count 136 K/UL (150-450) L Mean Platelet Volume 7.0 FL (6.5-10.1) Neutrophils (%) (Auto) 48.8 % (45.0-75.0) Lymphocytes (%) (Auto) 45.3 % (20.0-45.0) H Monocytes (%) (Auto) 4.9 % (1.0-10.0) Eosinophils (%) (Auto) 0.4 % (0.0-3.0) Basophils (%) (Auto) 0.6 % (0.0-2.0) Erythrocyte Sedimentation Rate 70 MM/HR (0-30) H Sodium Level 143 MMOL/L (136-145) Potassium Level 2.5 MMOL/L (3.5-5.1) *L Chloride Level 102 MMOL/L (98-107) Carbon Dioxide Level 29 MMOL/L (21-32) Anion Gap 13 mmol/L (5-15) Blood Urea Nitrogen 20 mg/dL (7-18) H Creatinine 2.2 MG/DL (0.55-1.30) H Estimat Glomerular Filtration Rate 21.5 mL/min (>60) Glucose Level 197 MG/DL (74-106) H Calcium Level 6.9 MG/DL (8.5-10.1) L Magnesium Level 1.3 MG/DL (1.8-2.4) L Total Bilirubin 0.8 MG/DL (0.2-1.0) Aspartate Amino Transf (AST/SGOT) 23 U/L (15-37) Alanine Aminotransferase (ALT/SGPT) 18 U/L (12-78) Alkaline Phosphatase 68 U/L (46-116) C-Reactive Protein, Quantitative 3.1 mg/dL (0.00-0.90) H Total Protein 6.4 G/DL (6.4-8.2) Albumin 3.2 G/DL (3.4-5.0) L Globulin 3.2 g/dL Albumin/Globulin Ratio 1.0 (1.0-2.7) Test 08/17/20 13:33 POC Whole Blood Glucose 313 MG/DL (74-106) H Current Medications Medications (Trade) Dose Ordered Sig/Russ Route PRN Reason Start Time Stop Time Status Last Admin Dose Admin Acetaminophen (Tylenol) 650 mg Q6H PRN ORAL For Headache 08/13/20 21:30 09/12/20 21:29 08/16/20 21:24 Amlodipine Besylate (Norvasc) 5 mg DAILY ORAL 08/18/20 09:00 09/13/20 08:59 Atorvastatin Calcium (Lipitor) 20 mg QHS ORAL 08/13/20 22:00 11/11/20 21:59 08/16/20 21:08 Barium Sulfate (Varibar Honey) 250 ml NOW PRN RAD 08/15/20 12:45 08/18/20 12:44 Barium Sulfate (Varibar Hickox) 240 ml NOW PRN RAD 08/15/20 12:45 08/18/20 12:44 Barium Sulfate (Varibar Pudding) 230 ml NOW PRN RAD 08/15/20 12:45 08/18/20 12:44 Barium Sulfate (Varibar Thin Liquid powder) 148 gm NOW PRN RAD 08/15/20 12:45 08/18/20 12:44 Cefepime HCl 1 gm/ Dextrose 55 ml @ 110 mls/hr Q24H IVPB 08/16/20 17:30 08/23/20 17:29 08/16/20 17:38 Dextrose (Dextrose 50%) 25 ml Q30M PRN IV Hypoglycemia 08/13/20 22:15 11/11/20 22:14 Dextrose (Dextrose 50%) 50 ml Q30M PRN IV Hypoglycemia 08/13/20 22:15 11/11/20 22:14 Famotidine (Pepcid) 20 mg QHS ORAL 08/13/20 21:00 11/11/20 20:59 08/16/20 21:07 Folic Acid (Folate) 1 mg DAILY ORAL 08/14/20 09:00 09/13/20 08:59 08/17/20 09:19 Heparin Sodium (Porcine) (Heparin 5000 units/ml) 5,000 units EVERY 12 HOURS SUBQ 08/14/20 09:00 09/28/20 08:59 08/17/20 09:18 Insulin Aspart (NovoLOG) BEFORE MEALS AND HS SUBQ 08/14/20 06:30 11/12/20 06:29 08/17/20 13:37 Lactulose (Cephulac) 30 gm BID ORAL 08/14/20 09:00 09/13/20 08:59 08/17/20 09:19 Metronidazole 100 ml @ 100 mls/hr Q8HR IVPB 08/15/20 22:00 08/22/20 21:59 08/17/20 13:57 Ondansetron HCl (Zofran) 4 mg Q4H PRN IVP Nausea & Vomiting 08/15/20 12:15 09/14/20 12:14 08/16/20 09:37 Pantoprazole (Protonix) 40 mg DAILY IVP 08/17/20 09:00 09/16/20 08:59 08/17/20 09:16 Sodium Chloride 1,000 ml @ 75 mls/hr [id number] IV 08/14/20 18:00 09/13/20 17:59 08/17/20 12:40 Johanna Torres M.D. Aug 17, 2020 16:03
[2020-08-17] MEDS: Cefepime HCl 1 GM in D5W 55 ML IVPB SCH (18:20)
--- NOTE | 2020-08-17 18:20 | NUR ---
NURSE HAND-OFF REPORT: Important Events on Shift: KCl and MgSO4 given for abnormal labs. Transfer to TELE unit. Patient Status: Stable Diet: Full liquid advance as denia. Pending Orders: Pending Results/Labs: Pending MD notification: Latest Vital Signs: Temperature 97.9 , Pulse 77 , B/P 138 /74 , Respiratory Rate 19 , O2 SAT 100 , Room Air, O2 Flow Rate . Vital Sign Comment: WNL EKG Rhythm: Sinus Rhythm Rhythm change?: N Notified?: N -Dr. Wilmer VANG Response: Latest Green Fall Score: 55 Fall Risk: High Risk Safety Measures: Call light Within Reach, Bed Alarm Zone 2, Side Rails Side Rails x3, Bed position Low and Locked. Fall Precautions: Yellow Socks Yellow Gown Door Sign Patient Fall Education Report given to JAMIL Wilkins of Telemetry unit.
--- NOTE | 2020-08-17 18:37 | NUR ---
NURSE NOTES: Received report from JAMIL Baker. Pt A/O x3. No s/s of acute distress. On room air. IVF infusing on right wrist. F/C draining by gravity. Currently sinus rhythm. Oriented to room. Bed in low position, side rails up x3 and call light within reach. Will continue to monitor.
--- NOTE | 2020-08-17 19:22 | NUR ---
NURSE HAND-OFF REPORT: Important Events on Shift:[] Patient Status: [] Diet: [] Pending Orders: [] Pending Results/Labs:[] Pending MD notification:[] Latest Vital Signs: Temperature 97.9 , Pulse 77 , B/P 138 /74 , Respiratory Rate 19 , O2 SAT 100 , Room Air, O2 Flow Rate . Vital Sign Comment: [] EKG Rhythm: Sinus Rhythm Rhythm change?: N MD Notified?: N -Dr. Wilmer VANG Response: Latest Green Fall Score: 55 Fall Risk: High Risk Safety Measures: Call light Within Reach, Bed Alarm Zone 2, Side Rails Side Rails x3, Bed position Low and Locked. Fall Precautions: Yellow Socks Yellow Gown Door Sign Patient Fall Education Report given to [JAMIL Baeza].
--- NOTE | 2020-08-17 19:45 | NUR ---
NURSE NOTES: Received patient from JAMIL Wilkins. Patient sitting up in bed, with no sign/sx of discomfort at this time. threat monitoring analyst is in place, noted SR on monitor. IV site intact, patent on R hand, dc'd other IV on left as it was occluded and painful. IV NS @75ml/hr running. Pt has a Hitchcock present for urinary retention, clear yellow color urine noted. Patient has a Mateo cath on RT jugular vein for HD; dry, intact, and no bleeding noted. Bed is in the lowest position and locked. Call light and bedside table is within reach. Bed alarm on. Will continue with current plan of care.
[2020-08-17 20:00] VITALS: BP 153/82
--- NOTE | 2020-08-17 21:00 | NUR ---
NURSE NOTES: Slight temp - tylenol given, will monitor, cooling measures in place
[2020-08-17] MEDS: Atorvastatin 20mg tab ORAL SCH (22:05)
[2020-08-18] VITALS: BP 119/66
--- NOTE | 2020-08-18 00:45 | NUR ---
NURSE NOTES: Again talishap noted, will give tylenol when able to Addendum: 08/18/20 at 0045 by Izabel Dean RN too soon to previous administration
[2020-08-18 04:00] VITALS: BP 140/67
[2020-08-18] MEDS: NovoLOG Insulin Flexpen SUBQ SCH ×4 (06:00→20:23)
--- NOTE | 2020-08-18 06:47 | NUR ---
NURSE HAND-OFF REPORT: Important Events on Shift: Febrile overnight, highest was 101.5, current temp 99.0 received 1st dose of flagyl, metroindazole. Pt had 1 loose stool brown mucus like Patient Status: [stable at this time] Diet: [full liquid diet, tolerating ok but not pleased with food, wants 'soup'] Farsi speaking Pending Orders: [cbc, bmp] Pending Results/Labs:[cbc, bmp] monitor lytes, serjio K (was 2.5 got 80 mEq, Mg also replaced) Pending MD notification:[] Latest Vital Signs: fever overnight EKG Rhythm: Sinus rhythm to sinus Tachycardia- highest at 103 bpm Rhythm change?: N Notified?: N - MD Response:
--- NOTE | 2020-08-18 07:10 | NUR ---
HAND-OFF: Report given to JAMIL Peralta
--- NOTE | 2020-08-18 07:20 | NUR ---
NURSE NOTES: Received report from Izabel Dean RN. Patient sitting up in bed, awake and alert, eating breakfast, side rails up x 2, bed in lowest position, call light within reach, in no apparent distress, IV fluids running into right wrist 24 gauge.
[2020-08-18 08:00] VITALS: BP 137/77
[2020-08-18 08:08] LABS: BASOPHILS % (AUTO) 0.4 % (0.0-2.0); EOSINOPHILS % (AUTO) 0.1 % (0.0-3.0); HEMATOCRIT 35.6 % (37.0-47.0); HEMOGLOBIN 11.6 G/DL (12.0-16.0); LYMPHOCYTES % (AUTO) 44.6 % (20.0-45.0); MEAN CORPUSCULAR VOLUME 82 FL (80-99); MONOCYTES % (AUTO) 5.9 % (1.0-10.0); PLATELET COUNT 118 K/UL (150-450); RED BLOOD COUNT 4.33 M/UL (4.20-5.40); RED CELL DISTRIBUTION WIDTH 11.5 % (11.6-14.8); WHITE BLOOD COUNT 14.1 K/UL (4.8-10.8)
[2020-08-18 08:20] LABS: CALCIUM 7.7 MG/DL (8.5-10.1); CREATININE 1.2 MG/DL (0.55-1.30)
[2020-08-18 08:22] LABS: POTASSIUM 2.5 MMOL/L (3.5-5.1)
[2020-08-18] MEDS: Heparin 5000 units/ml inj SUBQ SCH ×2 (09:00→20:22)
--- NOTE | 2020-08-18 09:17 | NUR ---
NURSE NOTES: Reported potassium=25, magnesium=1.6. Received replacement orders and also received order to discontinue normal saline at 75 cc/hour.
[2020-08-18] MEDS: Pantoprazole Inj IVP SCH (09:22)
[2020-08-18] MEDS: Lactulose 20gm/30ml UDC ORAL SCH (09:22)
--- NOTE | 2020-08-18 11:01 | General Progress Note ---
Subjective Date patient seen: Aug 18, 2020 Time patient seen: 10:30 Constitutional: Reports: weakness HEENT: Reports: no symptoms Cardiovascular: Reports: no symptoms Respiratory: Reports: no symptoms Gastrointestinal/Abdominal: Reports: no symptoms Genitourinary: Reports: no symptoms Neurologic/Psychiatric: Reports: no symptoms Allergies: Coded Allergies: No Known Allergies (Unverified , 07/30/20) Subjective She states her Nausea and abd pain has resolved. No vomiting. She had temp 100.9 but her nurse states her room was very hot. Her labs improving. Her renal function back to normal. No sob or chest pain. Objective Last 24 Hour Vital Signs Date Time Temp Pulse Resp B/P (MAP) Pulse Ox O2 Delivery O2 Flow Rate FiO2 08/18/20 09:22 57 137/77 08/18/20 08:00 86 08/18/20 08:00 96.7 57 19 137/77 (97) 98 08/18/20 04:49 Room Air 08/18/20 04:00 99.5 102 22 140/67 (91) 94 08/18/20 04:00 76 08/18/20 00:00 101.5 74 20 119/66 (83) 96 08/18/20 00:00 77 08/17/20 22:35 101.0 08/17/20 20:00 103 08/17/20 20:00 Room Air 08/17/20 20:00 100.9 78 20 153/82 (105) 94 08/17/20 16:00 86 08/17/20 16:00 Room Air 08/17/20 16:00 97.9 77 19 138/74 (95) 100 08/17/20 12:00 Room Air 08/17/20 12:00 98.0 74 20 148/76 (100) 100 08/17/20 12:00 73 Intake and Output 08/17/20 08/18/20 19:00 07:00 Intake Total 120 ml Output Total 2000 ml Balance 120 ml -2000 ml Intake Oral 120 ml Output Urine Total 2000 ml Laboratory Tests 08/17/20 13:33: POC Whole Blood Glucose 313H 08/17/20 16:38: POC Whole Blood Glucose 296H 08/17/20 22:09: POC Whole Blood Glucose 221H 08/18/20 05:47: POC Whole Blood Glucose 194H 08/18/20 06:40: White Blood Count 14.1H, Red Blood Count 4.33, Hemoglobin 11.6L, Hematocrit 35.6L, Mean Corpuscular Volume 82, Mean Corpuscular Hemoglobin 26.9L, Mean Corpuscular Hemoglobin Concent 32.7, Red Cell Distribution Width 11.5L, Platelet Count 118L, Mean Platelet Volume 6.7, Neutrophils (%) (Auto) 49.0, Lymphocytes (%) (Auto) 44.6, Monocytes (%) (Auto) 5.9, Eosinophils (%) (Auto) 0.1, Basophils (%) (Auto) 0.4, Sodium Level 139, Potassium Level 2.5*L, Chloride Level 99, Carbon Dioxide Level 28, Anion Gap 12, Blood Urea Nitrogen 12, Creatinine 1.2, Estimat Glomerular Filtration Rate 43.3, Glucose Level 206H, Calcium Level 7.7L, Magnesium Level 1.6L Height (Feet): 5 Height (Inches): 4.00 Weight (Pounds): 120 General Appearance: no apparent distress, alert EENT: normal ENT inspection Neck: non-tender, supple Cardiovascular: normal rate, regular rhythm Respiratory/Chest: lungs clear, normal breath sounds Abdomen: normal bowel sounds, non tender, soft Extremities: non-tender Edema: no edema noted Arm (L), no edema noted Arm (R), no edema noted Leg (L), no edema noted Leg (R) Neurologic: alert, responsive Skin: warm/dry Assessment/Plan Status: stable Assessment/Plan: 1, ARF POSSIBLY PRE RENAL VS ATN - RENAL FUNCTION BACK TO NORMAL. CR TRENDING DOWN TO 1.2 FROM 6.1. D/C IVF. 2. POSSIBLE SEPSIS - CONT CEFEPIME AND FLAGYL AND ID FOLLOWING. MAY NEED TO RECULTURE DUE TO FEVER. 3. CLL - MAY NEED TO F/U WITH HER ONCOLOGIST AT OUTPATIENT. 4. QUESTIONABLE ACUTE APPENDICITIS - CONT IV ABX. IMPROVED. ADVANCED DIET TO MECHANICAL SOFT. 5. DM II - WILL HOLD ALL ORAL MEDS AND START SSI IN HOSPITAL. 6. HTN - CONT NORVASC 5 MG ONE PO DAILY HOLD FOR SBP < 110. 7. GERD - CONT PROTONIX 40 MG IV DAILY AND PEPCID 20 MG ONE PO QHS. 8. HLD - CONT ATORVASTATIN 20 MG ONE PO QHS. 9. HYPOKALEMIA AND HYPOMAGNESEMIA - KCL AND MAGNESIUM REPLACED. 10. UTI - IMPROVED WITH ABX. 11. LEUKOCYTOSIS - 2ND TO UTI AND POSSIBLE SEPSIS AND CLL - IMPROVING. 12. ABD PAIN - IMPROVED. MOST LIKELY DUE TO GASTRITIS. CONT PROTONIX TO 40 MG IV DAILY. 13. FEVER - MAY CONSIDER RECULTURE. WILL DISCUSS WITH ID. Pura Guillen MD Aug 18, 2020 11:01
[2020-08-18 12:00] VITALS: BP 130/67
[2020-08-18] MEDS ORDERED: Vancomycin 750 MG in NS 275 ML IVPB ONE (12:30)
[2020-08-18 12:45] LABS: APPEARANCE,URINE CLEAR; BILIRUBIN, URINE NEGATIVE (NEGATIVE); COLOR,URINE PALE YELLOW; GLUCOSE, URINE (UA) 4+ (NEGATIVE); KETONES,URINE 2+ (NEGATIVE); LEUKOCYTE ESTERASE ,URINE NEGATIVE (NEGATIVE); NITRITE,URINE NEGATIVE (NEGATIVE); PH,URINE 7 (4.5-8.0); PROTEIN,URINE 2+ (NEGATIVE); UROBILINOGEN,URINE NORMAL MG/DL (0.0-1.0)
--- NOTE | 2020-08-18 13:24 | Surgery Progress Note ---
Surgery Progress Note Subjective Symptoms: improved, pain absent, tolerating diet, passing flatus, BM Objective Last 24 Hour Vital Signs Date Time Temp Pulse Resp B/P (MAP) Pulse Ox O2 Delivery O2 Flow Rate FiO2 08/18/20 12:00 98.1 67 18 130/67 (88) 97 08/18/20 09:22 57 137/77 08/18/20 08:00 86 08/18/20 08:00 96.7 57 19 137/77 (97) 98 08/18/20 04:49 Room Air 08/18/20 04:00 99.5 102 22 140/67 (91) 94 08/18/20 04:00 76 08/18/20 00:00 101.5 74 20 119/66 (83) 96 08/18/20 00:00 77 08/17/20 22:35 101.0 08/17/20 20:00 103 08/17/20 20:00 Room Air 08/17/20 20:00 100.9 78 20 153/82 (105) 94 08/17/20 16:00 86 08/17/20 16:00 Room Air 08/17/20 16:00 97.9 77 19 138/74 (95) 100 I&O Intake and Output 08/17/20 08/18/20 19:00 07:00 Intake Total 120 ml Output Total 2000 ml Balance 120 ml -2000 ml Intake Oral 120 ml Output Urine Total 2000 ml Cardiovascular: RSR Respiratory: clear Abdomen: soft, non-tender, present bowel sounds Extremities: no edema, no tenderness, no cyanosis Laboratory Tests Test 08/17/20 13:33 08/17/20 16:38 08/17/20 22:09 08/18/20 05:47 POC Whole Blood Glucose 313 MG/DL (74-106) H 296 MG/DL (74-106) H 221 MG/DL (74-106) H 194 MG/DL (74-106) H Test 08/18/20 06:40 08/18/20 12:07 White Blood Count 14.1 K/UL (4.8-10.8) H Red Blood Count 4.33 M/UL (4.20-5.40) Hemoglobin 11.6 G/DL (12.0-16.0) L Hematocrit 35.6 % (37.0-47.0) L Mean Corpuscular Volume 82 FL (80-99) Mean Corpuscular Hemoglobin 26.9 PG (27.0-31.0) L Mean Corpuscular Hemoglobin Concent 32.7 G/DL (32.0-36.0) Red Cell Distribution Width 11.5 % (11.6-14.8) L Platelet Count 118 K/UL (150-450) L Mean Platelet Volume 6.7 FL (6.5-10.1) Neutrophils (%) (Auto) 49.0 % (45.0-75.0) Lymphocytes (%) (Auto) 44.6 % (20.0-45.0) Monocytes (%) (Auto) 5.9 % (1.0-10.0) Eosinophils (%) (Auto) 0.1 % (0.0-3.0) Basophils (%) (Auto) 0.4 % (0.0-2.0) Sodium Level 139 MMOL/L (136-145) Potassium Level 2.5 MMOL/L (3.5-5.1) *L Chloride Level 99 MMOL/L (98-107) Carbon Dioxide Level 28 MMOL/L (21-32) Anion Gap 12 mmol/L (5-15) Blood Urea Nitrogen 12 mg/dL (7-18) Creatinine 1.2 MG/DL (0.55-1.30) Estimat Glomerular Filtration Rate 43.3 mL/min (>60) Glucose Level 206 MG/DL (74-106) H Calcium Level 7.7 MG/DL (8.5-10.1) L Magnesium Level 1.6 MG/DL (1.8-2.4) L Urine Color Pale yellow Urine Appearance Clear Urine pH 7 (4.5-8.0) Urine Specific [place] 1.005 (1.005-1.035) Urine Protein 2+ (NEGATIVE) H Urine Glucose (UA) 4+ (NEGATIVE) H Urine Ketones 2+ (NEGATIVE) H Urine Blood 2+ (NEGATIVE) H Urine Nitrite Negative (NEGATIVE) Urine Bilirubin Negative (NEGATIVE) Urine Urobilinogen Normal MG/DL (0.0-1.0) Urine Leukocyte Esterase Negative (NEGATIVE) Urine RBC 2-4 /HPF (0 - 2) H Urine WBC 0-2 /HPF (0 - 2) Urine Squamous Epithelial Cells Few /LPF (NONE/OCC) Urine Bacteria Occasional /HPF (NONE) Plan Problems: (1) Acute appendicitis (2) UTI (urinary tract infection) (3) Acute renal failure (4) Abdominal pain Assessment & Plan: 79-year-old female with abdominal pain nausea emesis leukocytosis renal insufficiency. CT was reviewed and described as potential consideration for appendicitis though a normal appendix is noted there is just some stranding in the right lower qu adrant. Patient with generalized abdominal pain states mainly in the epigastric upper region in the abdomen on examination she does not have significant tenderness in the right lower quadrant as compared to the remainder the abdomen.. Though appendicitis is a possibility clinically does not seem as if patient has appendicitis. Given her age committees and current medical status and the potential of early acute appendicitis will attempt treatment with antibiotic therapy and nonoperative in the event that it may be appendicitis. Will follow with her abdominal examinations Continue IV antibiotics per infectious disease Okay for clear liquid diet she has been on and tolerating Trend labs Hemodialysis per nephrology Thank you for allow me to participate in patient's care will follow with recommendations Mild dependent atelectasis in both lung bases. There are multiple old rib fractu res with healing callous noted There are several hepatic granulomas. The spleen is homogeneous. Gallbladder is without sludge or stone and there is no wall thickening. Mild diffuse fatty atrophy of the pancreas noted. There is slight nodular thickening of the left adrenal gland. Right adrenal is grossly unremarkable. The kidneys are normal in size, shape and axis. Small bowel loops are nondistended. The colon is also nondistended with average amount of stool. The appendix is normal in caliber but there is some inflammation around the tip of the retrocecal appendix. Question early tip appendicitis. There is no free fluid or free air. No pathologic adenopathy demonstrated. Bladder is empty. There is an enlarged uterus with a large central heterogeneous mass likely a large fibroid. Some peripheral calcification noted. IMPRESSION: RETROCECAL APPENDIX NORMAL IN CALIBER BUT THERE IS MILD INFLAMMATORY CHANGES AROUND THE TIP OF THE APPENDIX. QUESTION EARLY TIP APPENDICITIS. ENLARGED UTERUS WITH PROBABLE LARGE FIBROID. HEPATIC GRANULOMAS. MILD FATTY ATROPHY OF THE PANCREAS. SLIGHT NODULAR THICKENING OF THE LEFT ADRENAL GLAND PERHAPS HYPERPLASIA. OLD RIB FRACTURES. (5) Nausea & vomiting (6) Hyperkalemia (7) Leukocytosis (8) Metabolic acidosis (9) Diabetes (10) Sepsis (11) HTN (hypertension) (12) Leukocytosis (13) Hyperkalemia (14) Meningioma (15) Rib contusion (16) Head injury, closed, without LOC [place] Aug 18, 2020 13:24
--- NOTE | 2020-08-18 14:58 | Nephrology Progress Note ---
Assessment/Plan Problem List: (1) Acute renal failure Assessment: makes lots of urine (2) Nausea & vomiting (3) Abdominal pain (4) Metabolic acidosis (5) Leukocytosis Assessment: better (6) Sepsis (7) HTN (hypertension) (8) Diabetes (9) Hypokalemia Plan Replete K (total of 120 meq KCL today) Dc HD catheter abxs follow labs SSI Discussed with RN Dc Lactulose Discussed with Dr Guillen Subjective Subjective pt had a lot of stools with Lactulose Objective Objective Last 24 Hour Vital Signs Date Time Temp Pulse Resp B/P (MAP) Pulse Ox O2 Delivery O2 Flow Rate FiO2 08/18/20 12:00 98.1 67 18 130/67 (88) 97 08/18/20 12:00 94 08/18/20 09:22 57 137/77 08/18/20 08:00 86 08/18/20 08:00 96.7 57 19 137/77 (97) 98 08/18/20 04:49 Room Air 08/18/20 04:00 99.5 102 22 140/67 (91) 94 08/18/20 04:00 76 08/18/20 00:00 101.5 74 20 119/66 (83) 96 08/18/20 00:00 77 08/17/20 22:35 101.0 08/17/20 20:00 103 08/17/20 20:00 Room Air 08/17/20 20:00 100.9 78 20 153/82 (105) 94 08/17/20 16:00 86 08/17/20 16:00 Room Air 08/17/20 16:00 97.9 77 19 138/74 (95) 100 Intake and Output 08/17/20 08/18/20 19:00 07:00 Intake Total 120 ml Output Total 2000 ml Balance 120 ml -2000 ml Intake Oral 120 ml Output Urine Total 2000 ml Laboratory Tests 08/17/20 16:38: POC Whole Blood Glucose 296H 08/17/20 22:09: POC Whole Blood Glucose 221H 08/18/20 05:47: POC Whole Blood Glucose 194H 08/18/20 06:40: White Blood Count 14.1H, Red Blood Count 4.33, Hemoglobin 11.6L, Hematocrit 35.6L, Mean Corpuscular Volume 82, Mean Corpuscular Hemoglobin 26.9L, Mean Corpuscular Hemoglobin Concent 32.7, Red Cell Distribution Width 11.5L, Platelet Count 118L, Mean Platelet Volume 6.7, Neutrophils (%) (Auto) 49.0, Lymphocytes (%) (Auto) 44.6, Monocytes (%) (Auto) 5.9, Eosinophils (%) (Auto) 0.1, Basophils (%) (Auto) 0.4, Sodium Level 139, Potassium Level 2.5*L, Chloride Level 99, Carbon Dioxide Level 28, Anion Gap 12, Blood Urea Nitrogen 12, Creatinine 1.2, Estimat Glomerular Filtration Rate 43.3, Glucose Level 206H, Calcium Level 7.7L, Magnesium Level 1.6L 08/18/20 12:07: Urine Color Pale yellow, Urine Appearance Clear, Urine pH 7, Urine Specific [place] 1.005, Urine Protein 2+H, Urine Glucose (UA) 4+H, Urine Ketones 2+H, Urine Blood 2+H, Urine Nitrite Negative, Urine Bilirubin Negative, Urine Urobilinogen Normal, Urine Leukocyte Esterase Negative, Urine RBC 2-4H, Urine WBC 0-2, Urine Squamous Epithelial Cells Few, Urine Bacteria Occasional Height (Feet): 5 Height (Inches): 4.00 Weight (Pounds): 120 Cardiovascular: normal rate Respiratory/Chest: lungs clear Abdomen: soft Extremities: no edema Darrian Cortes MD Aug 18, 2020 14:58
--- NOTE | 2020-08-18 15:08 | Infectious Diseases Prog Note ---
Assessment/Plan Problems: (1) Fever Assessment & Plan: rule out sepsis we will send blood cultures 2 and repeat urine analysis with culture and obtain chest x-ray to rule out any new infiltrations, will add vancomycin empiric coverage and continue cefepime with metronidazole (2) Acute appendicitis Assessment & Plan: evident on CT abdomen, with abdominal pain , nausea and vomiting, continue cefepime with metronidazole empirically, and monitor clinically , surgical eval is in progress (3) UTI (urinary tract infection) Assessment & Plan: with negative culture, already on cefepime empirically (4) Leukocytosis Assessment & Plan: suspect reactive and due to CLL too , with no evidence of se psis , on cefepime , and metronidazole. will stop zyvox empirically since blood culture is negative x 2 (5) Acute renal failure Assessment & Plan: due to the above with dehydration , continue aggressive hydr ation with close monitoring of renal functions , avoid nephrotoxics , has HD catheter placed by renal for HD (6) Abdominal pain Assessment & Plan: due to the above, continue pain management as needed (7) Nausea & vomiting Assessment & Plan: suspect due to the above, rule out COVID 19 infection, will send nasal swab for PCR testing to confirm, keep patient in enhanced droplets isolation , supportive care as needed (8) CLL (chronic lymphocytic leukemia) Assessment & Plan: recommend oncology eval Subjective Constitutional: Reports: fever HEENT: Reports: no symptoms Respiratory: Reports: no symptoms Breasts: Reports: no symptoms Cardiovascular: Reports: no symptoms Gastrointestinal/Abdominal: Reports: no symptoms Genitourinary: Reports: no symptoms Neurologic: Reports: no symptoms Psychiatric: Reports: no symptoms Skin: Reports: no symptoms Endocrine: Reports: no symptoms Hematologic: Reports: no symptoms Musculoskeletal: Reports: no symptoms Allergies: Coded Allergies: No Known Allergies (Unverified , 07/30/20) she is feeling better today but spiked fever of 101 earlier has mild lower abdominal discomfort but no nausea or vomiting and no diarrhea off hemodialysis so far since he is making good urine Objective Last 24 Hour Vital Signs Date Time Temp Pulse Resp B/P (MAP) Pulse Ox O2 Delivery O2 Flow Rate FiO2 08/18/20 12:00 98.1 67 18 130/67 (88) 97 08/18/20 12:00 94 08/18/20 09:22 57 137/77 08/18/20 08:00 86 08/18/20 08:00 96.7 57 19 137/77 (97) 98 08/18/20 04:49 Room Air 08/18/20 04:00 99.5 102 22 140/67 (91) 94 08/18/20 04:00 76 08/18/20 00:00 101.5 74 20 119/66 (83) 96 08/18/20 00:00 77 08/17/20 22:35 101.0 08/17/20 20:00 103 08/17/20 20:00 Room Air 08/17/20 20:00 100.9 78 20 153/82 (105) 94 08/17/20 16:00 86 08/17/20 16:00 Room Air 08/17/20 16:00 97.9 77 19 138/74 (95) 100 Height (Feet): 5 Height (Inches): 4.00 Weight (Pounds): 120 General Appearance: WD/WN, no acute distress HEENT: normocephalic, atraumatic, anicteric, mucous membranes moist, PERRL Respiratory/Chest: chest wall non-tender, lungs clear, normal breath sounds, no respiratory distress, no accessory muscle use Cardiovascular: normal peripheral pulses, normal rate, regular rhythm, no gallop/murmur, no JVD Abdomen: normal bowel sounds, soft, non tender, no organomegaly, non distended, no mass, no scars Genitourinary: normal external genitalia Extremities: no cyanosis, no clubbing Skin: no rash, no lesions, no ulcers Neurologic/Psychiatric: 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 II-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 grossly normal, no motor/sensory deficits, alert, responsive, normal mood/affect Lymphatic: no neck adenopathy, no groin adenopathy Musculoskeletal: normal muscle bulk, no effusion Laboratory Tests Test 08/17/20 16:38 08/17/20 22:09 08/18/20 05:47 08/18/20 06:40 POC Whole Blood Glucose 296 MG/DL (74-106) H 221 MG/DL (74-106) H 194 MG/DL (74-106) H White Blood Count 14.1 K/UL (4.8-10.8) H Red Blood Count 4.33 M/UL (4.20-5.40) Hemoglobin 11.6 G/DL (12.0-16.0) L Hematocrit 35.6 % (37.0-47.0) L Mean Corpuscular Volume 82 FL (80-99) Mean Corpuscular Hemoglobin 26.9 PG (27.0-31.0) L Mean Corpuscular Hemoglobin Concent 32.7 G/DL (32.0-36.0) Red Cell Distribution Width 11.5 % (11.6-14.8) L Platelet Count 118 K/UL (150-450) L Mean Platelet Volume 6.7 FL (6.5-10.1) Neutrophils (%) (Auto) 49.0 % (45.0-75.0) Lymphocytes (%) (Auto) 44.6 % (20.0-45.0) Monocytes (%) (Auto) 5.9 % (1.0-10.0) Eosinophils (%) (Auto) 0.1 % (0.0-3.0) Basophils (%) (Auto) 0.4 % (0.0-2.0) Sodium Level 139 MMOL/L (136-145) Potassium Level 2.5 MMOL/L (3.5-5.1) *L Chloride Level 99 MMOL/L (98-107) Carbon Dioxide Level 28 MMOL/L (21-32) Anion Gap 12 mmol/L (5-15) Blood Urea Nitrogen 12 mg/dL (7-18) Creatinine 1.2 MG/DL (0.55-1.30) Estimat Glomerular Filtration Rate 43.3 mL/min (>60) Glucose Level 206 MG/DL (74-106) H Calcium Level 7.7 MG/DL (8.5-10.1) L Magnesium Level 1.6 MG/DL (1.8-2.4) L Test 08/18/20 12:07 Urine Color Pale yellow Urine Appearance Clear Urine pH 7 (4.5-8.0) Urine Specific [place] 1.005 (1.005-1.035) Urine Protein 2+ (NEGATIVE) H Urine Glucose (UA) 4+ (NEGATIVE) H Urine Ketones 2+ (NEGATIVE) H Urine Blood 2+ (NEGATIVE) H Urine Nitrite Negative (NEGATIVE) Urine Bilirubin Negative (NEGATIVE) Urine Urobilinogen Normal MG/DL (0.0-1.0) Urine Leukocyte Esterase Negative (NEGATIVE) Urine RBC 2-4 /HPF (0 - 2) H Urine WBC 0-2 /HPF (0 - 2) Urine Squamous Epithelial Cells Few /LPF (NONE/OCC) Urine Bacteria Occasional /HPF (NONE) Current Medications Medications (Trade) Dose Ordered Sig/Russ Route PRN Reason Start Time Stop Time Status Last Admin Dose Admin Acetaminophen (Tylenol) 650 mg Q6H PRN ORAL For Headache 08/13/20 21:30 09/12/20 21:29 08/17/20 22:05 Amlodipine Besylate (Norvasc) 5 mg DAILY ORAL 08/18/20 09:00 09/13/20 08:59 08/18/20 09:22 Atorvastatin Calcium (Lipitor) 20 mg QHS ORAL 08/13/20 22:00 11/11/20 21:59 08/17/20 22:05 Cefepime HCl 1 gm/ Dextrose 55 ml @ 110 mls/hr Q24H IVPB 08/16/20 17:30 08/23/20 17:29 08/17/20 18:20 Dextrose (Dextrose 50%) 25 ml Q30M PRN IV Hypoglycemia 08/13/20 22:15 11/11/20 22:14 Dextrose (Dextrose 50%) 50 ml Q30M PRN IV Hypoglycemia 08/13/20 22:15 11/11/20 22:14 Famotidine (Pepcid) 20 mg QHS ORAL 08/13/20 21:00 11/11/20 20:59 08/17/20 22:05 Folic Acid (Folate) 1 mg DAILY ORAL 08/14/20 09:00 09/13/20 08:59 08/18/20 09:22 Heparin Sodium (Porcine) (Heparin 5000 units/ml) 5,000 units EVERY 12 HOURS SUBQ 08/14/20 09:00 09/28/20 08:59 08/17/20 09:18 Insulin Aspart (NovoLOG) BEFORE MEALS AND HS SUBQ 08/14/20 06:30 11/12/20 06:29 08/18/20 12:17 Metronidazole 100 ml @ 100 mls/hr Q8HR IVPB 08/15/20 22:00 08/22/20 21:59 08/18/20 13:06 Ondansetron HCl (Zofran) 4 mg Q4H PRN IVP Nausea & Vomiting 08/15/20 12:15 09/14/20 12:14 08/18/20 13:38 Pantoprazole (Protonix) 40 mg DAILY IVP 08/17/20 09:00 09/16/20 08:59 08/18/20 09:22 Potassium Chloride (K-Dur) 40 meq ONCE ORAL 08/18/20 15:00 08/18/20 16:00 Potassium Chloride (K-Dur) 40 meq ONCE ORAL 08/18/20 19:00 08/18/20 21:00 Vancomycin HCl (Vanco pharmacy to dose) 1 ea DAILY PRN MISC Per rx protocol 08/18/20 11:30 09/17/20 11:29 Vancomycin HCl 500 mg/Sodium Chloride 110 ml @ 110 mls/hr Q24H IVPB 08/19/20 12:00 08/24/20 11:59 Johanna Torres M.D. Aug 18, 2020 15:08
[2020-08-18 16:00] VITALS: BP 140/75
--- NOTE | 2020-08-18 16:15 | NUR ---
NURSE NOTES: Right IJ catheter removed, covered with sterile dressing and tape.
[2020-08-18] MEDS: Cefepime HCl 1 GM in D5W 55 ML IVPB SCH (16:38)
--- NOTE | 2020-08-18 17:01 | Diagnostic Imaging Report ---
EXAM: XR Chest, 1 View CLINICAL HISTORY: COUGH TECHNIQUE: Frontal view of the chest. COMPARISON: Chest radiograph on 07/30/2020 FINDINGS: Hardware: None. Lungs/pleura: New lower lung opacities. Heart/mediastinum: Stable mild enlargement of the cardiac silhouette. Atherosclerotic calcifications of the aorta. Soft tissues: Unremarkable. Bones: Multiple right-sided rib fracture deformities. Upper abdomen: Normal. IMPRESSION: New lower lung opacities, concerning for bilateral pleural effusions with atelectasis versus pneumonia.
--- NOTE | 2020-08-18 19:09 | NUR ---
NURSE HAND-OFF REPORT: Important Events on Shift:Fever is down to 98.1 axillary at 1800, discontinued NS, potassium replacement, both IV and oral, patient tolerating diet, advanced to mechani portillo soft chopped, and then to CCHO medium in a.m. Blood culture and urine culture sent to laboratory, Vanco added. Right IJ removed/discontinued. Patient Status: Stable Diet: CCHO medium Pending Orders: N/A Pending Results/Labs:Blood culture and urine culture Pending MD notification:N/A Latest Vital Signs: Temperature 99.5 , Pulse 89 , B/P 140 /75 , Respiratory Rate 18 , O2 SAT 97 , Room Air, O2 Flow Rate . Vital Sign Comment: Stable EKG Rhythm: Sinus Rhythm Rhythm change?: N Notified?: N -Dr. Wilmer VANG Response: Latest Green Fall Score: 55 Fall Risk: High Risk Safety Measures: Call light Within Reach, Bed Alarm Zone 2, Side Rails Side Rails x3, Bed position Low and Locked. Fall Precautions: Yellow Socks Yellow Gown Door Sign Patient Fall Education Report given to Izabel Dean RN.
--- NOTE | 2020-08-18 19:25 | NUR ---
NURSE NOTES: Received report from Fabian Galvan RN. Patient sitting up in bed, awake and alert and oriented, Farsi speaking. Relaxed and pleasant demeanor. Bed is locked in lowest position, side rails up x 2, bed alarm on, call light within reach, in no apparent distress, IV right wrist 24 gauge, patent asymptomatic
[2020-08-18 20:00] VITALS: BP 128/72
[2020-08-18] MEDS: Atorvastatin 20mg tab ORAL SCH ×2 (20:22→20:29)
[2020-08-19] VITALS: BP 140/79
[2020-08-19 04:00] VITALS: BP 150/83
[2020-08-19] MEDS: NovoLOG Insulin Flexpen SUBQ SCH ×4 (06:53→21:32)
[2020-08-19 07:56] VITALS: BP 131/68
[2020-08-19 07:56] LABS: BASOPHILS % (AUTO) 0.6 % (0.0-2.0); EOSINOPHILS % (AUTO) 0.7 % (0.0-3.0); HEMOGLOBIN 11.5 G/DL (12.0-16.0); MEAN CORPUSCULAR VOLUME 83 FL (80-99); MONOCYTES % (AUTO) 6.4 % (1.0-10.0); NEUTROPHILS % (AUTO) 46.3 % (45.0-75.0); PLATELET COUNT 137 K/UL (150-450); RED BLOOD COUNT 4.22 M/UL (4.20-5.40); RED CELL DISTRIBUTION WIDTH 12.1 % (11.6-14.8); WHITE BLOOD COUNT 15.3 K/UL (4.8-10.8)
--- NOTE | 2020-08-19 07:58 | NUR ---
NURSE HAND-OFF REPORT: Important Events on Shift: slightly febrile overnight, temp normalized, occurrence of slight redness and discoloration on sacrum and perineal moisture associated skin breakdown Patient Status: Stable Diet: CCHO medium Pending Orders: N/A Pending Results/Labs:Blood culture and urine culture Pending MD notification:N/A Latest Vital Signs: Temperature 99.5 , Pulse 89 , B/P 140 /75 , Respiratory Rate 18 , O2 SAT 97 , Room Air, O2 Flow Rate . Vital Sign Comment: Stable EKG Rhythm: Sinus Rhythm to ST up to 103 bpm Rhythm change?: N Notified?: N Response: Latest Green Fall Score: 55 Fall Risk: High Risk Safety Measures: Call light Within Reach, Bed Alarm Zone 2, Side Rails Side Rails x3, Bed position Low and Locked. Fall Precautions: Yellow Socks Yellow Gown Door Sign Patient Fall Education Report given to David
[2020-08-19] MEDS: Pantoprazole Inj IVP SCH (08:26)
--- NOTE | 2020-08-19 08:32 | Surgery Progress Note ---
Surgery Progress Note Subjective Additional Comments febrile 101.5 no n/v comfortable states tolerating diet no abd pain groin incontinence associated dermatitis Objective Last 24 Hour Vital Signs Date Time Temp Pulse Resp B/P (MAP) Pulse Ox O2 Delivery O2 Flow Rate FiO2 08/19/20 08:27 76 131/68 08/19/20 07:56 100.2 76 19 131/68 (89) 97 08/19/20 04:00 96.3 80 18 150/83 (105) 98 08/19/20 03:42 105 08/19/20 00:00 100 08/19/20 00:00 97.5 98 18 140/79 (99) 98 08/18/20 22:00 Room Air 08/18/20 21:00 Room Air 08/18/20 20:52 99.1 08/18/20 20:00 82 08/18/20 20:00 99.1 84 18 128/72 (90) 98 08/18/20 16:00 99.5 94 18 140/75 (96) 97 08/18/20 16:00 89 08/18/20 12:00 98.1 67 18 130/67 (88) 97 08/18/20 12:00 94 08/18/20 09:22 57 137/77 I&O Intake and Output 08/18/20 08/19/20 19:00 07:00 Intake Total 1145.0 ml Output Total 2500 ml 800 ml Balance -1355.0 ml -800 ml IV Total 1145.0 ml Output Urine Total 2500 ml 800 ml # Bowel Movements 1 2 Dressing: dry Cardiovascular: RSR Respiratory: clear Abdomen: soft, non-tender, present bowel sounds Extremities: no edema, no tenderness, no cyanosis Laboratory Tests Test 08/18/20 12:05 08/18/20 12:07 08/18/20 16:26 08/18/20 20:15 POC Whole Blood Glucose Pending 250 MG/DL (74-106) H 344 MG/DL (74-106) H Urine Color Pale yellow Urine Appearance Clear Urine pH 7 (4.5-8.0) Urine Specific [place] 1.005 (1.005-1.035) Urine Protein 2+ (NEGATIVE) H Urine Glucose (UA) 4+ (NEGATIVE) H Urine Ketones 2+ (NEGATIVE) H Urine Blood 2+ (NEGATIVE) H Urine Nitrite Negative (NEGATIVE) Urine Bilirubin Negative (NEGATIVE) Urine Urobilinogen Normal MG/DL (0.0-1.0) Urine Leukocyte Esterase Negative (NEGATIVE) Urine RBC 2-4 /HPF (0 - 2) H Urine WBC 0-2 /HPF (0 - 2) Urine Squamous Epithelial Cells Few /LPF (NONE/OCC) Urine Bacteria Occasional /HPF (NONE) Test 08/19/20 06:10 08/19/20 06:50 POC Whole Blood Glucose 176 MG/DL (74-106) H White Blood Count 15.3 K/UL (4.8-10.8) H Red Blood Count 4.22 M/UL (4.20-5.40) Hemoglobin 11.5 G/DL (12.0-16.0) L Hematocrit 35.0 % (37.0-47.0) L Mean Corpuscular Volume 83 FL (80-99) Mean Corpuscular Hemoglobin 27.2 PG (27.0-31.0) Mean Corpuscular Hemoglobin Concent 32.9 G/DL (32.0-36.0) Red Cell Distribution Width 12.1 % (11.6-14.8) Platelet Count 137 K/UL (150-450) L Mean Platelet Volume 6.7 FL (6.5-10.1) Neutrophils (%) (Auto) 46.3 % (45.0-75.0) Lymphocytes (%) (Auto) 46.0 % (20.0-45.0) H Monocytes (%) (Auto) 6.4 % (1.0-10.0) Eosinophils (%) (Auto) 0.7 % (0.0-3.0) Basophils (%) (Auto) 0.6 % (0.0-2.0) Sodium Level Pending Potassium Level Pending Chloride Level Pending Carbon Dioxide Level Pending Blood Urea Nitrogen Pending Creatinine Pending Estimat Glomerular Filtration Rate Pending Glucose Level Pending Calcium Level Pending Magnesium Level Pending Plan Problems: (1) Acute appendicitis (2) UTI (urinary tract infection) (3) Acute renal failure (4) Abdominal pain Assessment & Plan: 79-year-old female with abdominal pain nausea emesis leukocytosis renal insufficiency. CT was reviewed and described as potential consideration for appendicitis though a normal appendix is noted there is just some stranding in the right lower quadrant. Patient with generalized abdominal pain states mainly in the epigastric upper region in the abdomen on examination she does not have significant tenderness in the right lower quadrant as compared to the remainder the abdomen.. Though appendicitis is a possibility clinically does not seem as if patient has appendicitis. Given her age committees and current medical status and the potential of early acute appendicitis will attempt treatment with antibiotic therapy and nonoperative in the event that it may be appendicitis. Will follow with her abdominal examinations Continue IV antibiotics per infectious disease Okay for clear liquid diet she has been on and tolerating Trend labs Hemodialysis per nephrology Thank you for allow me to participate in patient's care will follow with recommendations Mild dependent atelectasis in both lung bases. There are multiple old rib fractures with healing callous noted There are several hepatic granulomas. The spleen is homogeneous. Gallbladder is without sludge or stone and there is no wall thickening. Mild diffuse fatty atrophy of the pancreas noted. There is slight nodular thickening of the left adrenal gland. Right adrenal is grossly unremarkable. The kidneys are normal in size, shape and axis. Small bowel loops are nondistended. The colon is also nondistended with average amount of stool. The appendix is normal in caliber but there is some inflammation around the tip of the retrocecal appendix. Question early tip appendicitis. There is no free fluid or free air. No pathologic adenopathy demonstrated. Bladder is empty. There is an enlarged uterus with a large central heterogeneous mass likely a large fibroid. Some peripheral calcification noted. IMPRESSION: RETROCECAL APPENDIX NORMAL IN CALIBER BUT THERE IS MILD INFLAMMATORY CHANGES AROUND THE TIP OF THE APPENDIX. QUESTION EARLY TIP APPENDICITIS. ENLARGED UTERUS WITH PROBABLE LARGE FIBROID. HEPATIC GRANULOMAS. MILD FATTY ATROPHY OF THE PANCREAS. SLIGHT NODULAR THICKENING OF THE LEFT ADRENAL GLAND PERHAPS HYPERPLASIA. OLD RIB FRACTURES. (5) Nausea & vomiting (6) Hyperkalemia (7) Leukocytosis Assessment & Plan: groin incontinence associated dermatitis local care initiated wash daily ensure change with incontinence patient instructed to tell staff when bm (8) Metabolic acidosis (9) Diabetes (10) Sepsis (11) HTN (hypertension) (12) Leukocytosis (13) Hyperkalemia (14) Meningioma (15) Rib contusion (16) Head injury, closed, without LOC [place] Aug 19, 2020 08:32
[2020-08-19] MEDS: Heparin 5000 units/ml inj SUBQ SCH (08:33)
[2020-08-19 08:40] LABS: CALCIUM 8.5 MG/DL (8.5-10.1); POTASSIUM 4.2 MMOL/L (3.5-5.1)
--- NOTE | 2020-08-19 08:57 | General Progress Note ---
Subjective Date patient seen: Aug 19, 2020 Time patient seen: 08:45 Constitutional: Reports: weakness HEENT: Reports: no symptoms Cardiovascular: Reports: no symptoms Respiratory: Reports: no symptoms Gastrointestinal/Abdominal: Reports: no symptoms Genitourinary: Reports: no symptoms Neurologic/Psychiatric: Reports: no symptoms Allergies: Coded Allergies: No Known Allergies (Unverified , 07/30/20) Subjective She had tmax of 101.5 last night. No sob or chest pain. No Nausea or vomiting. No abd Pain. Objective Last 24 Hour Vital Signs Date Time Temp Pulse Resp B/P (MAP) Pulse Ox O2 Delivery O2 Flow Rate FiO2 08/19/20 08:27 76 131/68 08/19/20 07:56 100.2 76 19 131/68 (89) 97 08/19/20 04:00 96.3 80 18 150/83 (105) 98 08/19/20 03:42 105 08/19/20 00:00 100 08/19/20 00:00 97.5 98 18 140/79 (99) 98 08/18/20 22:00 Room Air 08/18/20 21:00 Room Air 08/18/20 20:52 99.1 08/18/20 20:00 82 08/18/20 20:00 99.1 84 18 128/72 (90) 98 08/18/20 16:00 99.5 94 18 140/75 (96) 97 08/18/20 16:00 89 08/18/20 12:00 98.1 67 18 130/67 (88) 97 08/18/20 12:00 94 08/18/20 09:22 57 137/77 Intake and Output 08/18/20 08/19/20 19:00 07:00 Intake Total 1145.0 ml Output Total 2500 ml 800 ml Balance -1355.0 ml -800 ml IV Total 1145.0 ml Output Urine Total 2500 ml 800 ml # Bowel Movements 1 2 Laboratory Tests 08/18/20 12:05: POC Whole Blood Glucose [Pending] 08/18/20 12:07: Urine Color Pale yellow, Urine Appearance Clear, Urine pH 7, Urine Specific [place] 1.005, Urine Protein 2+H, Urine Glucose (UA) 4+H, Urine Ketones 2+H, Urine Blood 2+H, Urine Nitrite Negative, Urine Bilirubin Negative, Urine Urobilinogen Normal, Urine Leukocyte Esterase Negative, Urine RBC 2-4H, Urine WBC 0-2, Urine Squamous Epithelial Cells Few, Urine Bacteria Occasional 08/18/20 16:26: POC Whole Blood Glucose 250H 08/18/20 20:15: POC Whole Blood Glucose 344H 08/19/20 06:10: POC Whole Blood Glucose 176H 08/19/20 06:50: White Blood Count 15.3H, Red Blood Count 4.22, Hemoglobin 11.5L, Hematocrit 35.0L, Mean Corpuscular Volume 83, Mean Corpuscular Hemoglobin 27.2, Mean Corpuscular Hemoglobin Concent 32.9, Red Cell Distribution Width 12.1, Platelet Count 137L, Mean Platelet Volume 6.7, Neutrophils (%) (Auto) 46.3, Lymphocytes (%) (Auto) 46.0H, Monocytes (%) (Auto) 6.4, Eosinophils (%) (Auto) 0.7, Basophils (%) (Auto) 0.6, Sodium Level 141, Potassium Level 4.2#, Chloride Level 105, Carbon Dioxide Level 25, Anion Gap 11, Blood Urea Nitrogen 11, Creatinine 1.0, Estimat Glomerular Filtration Rate 53.5, Glucose Level 190H, Calcium Level 8.5, Magnesium Level 1.4L Height (Feet): 5 Height (Inches): 4.00 Weight (Pounds): 120 General Appearance: no apparent distress, alert EENT: normal ENT inspection Neck: non-tender, supple Cardiovascular: normal rate, regular rhythm Respiratory/Chest: lungs clear, normal breath sounds Abdomen: non tender, soft Extremities: non-tender Edema: no edema noted Arm (L), no edema noted Arm (R), no edema noted Leg (L), no edema noted Leg (R) Edema: mild edema Neurologic: alert, responsive Skin: warm/dry Assessment/Plan Status: stable Assessment/Plan: 1, ARF POSSIBLY PRE RENAL VS ATN - RENAL FUNCTION BACK TO NORMAL. CR TRENDING DOWN TO 1.2 FROM 6.1. 2. POSSIBLE SEPSIS - CONT CEFEPIME AND FLAGYL AND and Vanco. ID FOLLOWING. culture pending. 3. CLL - MAY NEED TO F/U WITH HER ONCOLOGIST AT OUTPATIENT. 4. QUESTIONABLE ACUTE APPENDICITIS - CONT IV ABX. IMPROVED. ADVANCED DIET TO MECHANICAL SOFT. 5. DM II - WILL HOLD ALL ORAL MEDS AND START SSI IN HOSPITAL. 6. HTN - CONT NORVASC 5 MG ONE PO DAILY HOLD FOR SBP < 110. 7. GERD - CONT PROTONIX 40 MG IV DAILY AND PEPCID 20 MG ONE PO QHS. 8. HLD - CONT ATORVASTATIN 20 MG ONE PO QHS. 9. HYPOKALEMIA AND HYPOMAGNESEMIA - KCL AND MAGNESIUM REPLACED. 10. UTI - IMPROVED WITH ABX. 11. LEUKOCYTOSIS - 2ND TO UTI AND POSSIBLE SEPSIS AND CLL - IMPROVING. 12. ABD PAIN - RESOLVED. MOST LIKELY DUE TO GASTRITIS. CONT PROTONIX 40 MG IV D AILY. 13. FEVER - CULTURES DONE. 14, POSSIBLE PNEUMONIA - CONT IV ABX. Pura Guillen MD Aug 19, 2020 08:57
--- NOTE | 2020-08-19 09:30 | NUR ---
NURSE NOTES: Dr Guillen visited pt and is aware about fever and WBC 15.3 and other lab results and V/S, no new order to RN. Will continue to monitor.
[2020-08-19] MEDS ORDERED: Tubing IV Secondary IV ONE (11:01)
[2020-08-19 12:00] VITALS: BP 121/76
--- NOTE | 2020-08-19 12:22 | NUR ---
RD ASSESSMENT & RECOMMENDATIONS SEE CARE ACTIVITY FOR COMPLETE ASSESSMENT DAILY ESTIMATED NEEDS: Needs based on DM, wound/ 54.5kg 25-30 kcals/kg 0115-5323 total kcals 1.25-1.5 g protein/kg 68-82 g total protein 25-30 mL/kg 3108-6736 total fluid mLs NUTRITION DIAGNOSIS: Altered nutrition related lab values r/t ARF, DM2, sepsis, as evidenced by Creat on adm 6.1-> now wnl, BUN 76-> now wnl, elev BG (199-344), elev WBC on adm (35.8-> 15.3), HD now dc'ed. CURRENT DIET:CCHO MED PO DIET RECOMMENDATIONS: CCHO LOW/ texture per CHIEF OF VITAL STATISTICS ADDITIONAL RECOMMENDATIONS: 1) Maintain calibrated bed scale wts 2) Consider long acting insulin for improved BG control 3) Record % intake of meals in EMR: no updated since 4) CHIEF OF VITAL STATISTICS eval for re-eval of appropriate texture: pureed recommended on 08/16, pt currently on regular texture diet 5) Add Glucerna TID w/ meals 6) Skin integrity: add MVI x 1, Vit C 250mg QD
[2020-08-19] MEDS ORDERED: Magnesium Oxide 400mg tab ORAL SCH (12:45)
--- NOTE | 2020-08-19 12:45 | NUR ---
NURSE NOTES: Dr Guillen is aware about MG 1.4 and PLT 137, ordered to D/C heparin and he stated nothing for DVT and ordered mg po QD, noted and carried out. will continue to monitor.
--- NOTE | 2020-08-19 12:54 | Nephrology Progress Note ---
Assessment/Plan Problem List: (1) Acute renal failure Assessment: makes lots of urine (2) Nausea & vomiting (3) Abdominal pain (4) Metabolic acidosis (5) Leukocytosis Assessment: better (6) Sepsis (7) HTN (hypertension) (8) Diabetes (9) Hypokalemia Plan Replete Mag abxs follow labs SSI Subjective Subjective feels ok eating Objective Objective Last 24 Hour Vital Signs Date Time Temp Pulse Resp B/P (MAP) Pulse Ox O2 Delivery O2 Flow Rate FiO2 08/19/20 12:00 98.1 74 20 121/76 (91) 97 08/19/20 11:41 74 08/19/20 09:00 Room Air 08/19/20 08:57 98.1 08/19/20 08:40 77 08/19/20 08:27 76 131/68 08/19/20 07:56 100.2 76 19 131/68 (89) 97 08/19/20 04:00 96.3 80 18 150/83 (105) 98 08/19/20 03:42 105 08/19/20 00:00 100 08/19/20 00:00 97.5 98 18 140/79 (99) 98 08/18/20 22:00 Room Air 08/18/20 21:00 Room Air 08/18/20 20:52 99.1 08/18/20 20:00 82 08/18/20 20:00 99.1 84 18 128/72 (90) 98 08/18/20 16:00 99.5 94 18 140/75 (96) 97 08/18/20 16:00 89 Intake and Output 08/18/20 08/19/20 19:00 07:00 Intake Total 1145.0 ml Output Total 2500 ml 800 ml Balance -1355.0 ml -800 ml IV Total 1145.0 ml Output Urine Total 2500 ml 800 ml # Bowel Movements 1 2 Laboratory Tests 08/18/20 16:26: POC Whole Blood Glucose 250H 08/18/20 20:15: POC Whole Blood Glucose 344H 08/19/20 06:10: POC Whole Blood Glucose 176H 08/19/20 06:50: White Blood Count 15.3H, Red Blood Count 4.22, Hemoglobin 11.5L, Hematocrit 35.0L, Mean Corpuscular Volume 83, Mean Corpuscular Hemoglobin 27.2, Mean Corpuscular Hemoglobin Concent 32.9, Red Cell Distribution Width 12.1, Platelet Count 137L, Mean Platelet Volume 6.7, Neutrophils (%) (Auto) 46.3, Lymphocytes (%) (Auto) 46.0H, Monocytes (%) (Auto) 6.4, Eosinophils (%) (Auto) 0.7, Basophils (%) (Auto) 0.6, Sodium Level 141, Potassium Level 4.2#, Chloride Level 105, Carbon Dioxide Level 25, Anion Gap 11, Blood Urea Nitrogen 11, Creatinine 1.0, Estimat Glomerular Filtration Rate 53.5, Glucose Level 190H, Calcium Level 8.5, Magnesium Level 1.4L 08/19/20 11:24: POC Whole Blood Glucose 199H Height (Feet): 5 Height (Inches): 4.00 Weight (Pounds): 120 Cardiovascular: normal rate Respiratory/Chest: lungs clear Extremities: no edema Darrian Cortes MD Aug 19, 2020 12:54
[2020-08-19] MEDS: Vancomycin 500 MG in NS 110 ML IVPB SCH (12:55)
--- NOTE | 2020-08-19 13:34 | NUR ---
CASE MANAGEMENT:REVIEW 08/19/20 SI: SEPSIS. ACUTE RENAL FAILURE 100.2 74 20 121/76 97% ON RA WBC+15.3 GLUCOSE+199 MAG-1.4 IS: IV MAG SULFATE Q1HRS X4 BAGS IV VANCOMYCIN Q24 IV CEFEPIME Q24 IV FLAGYL Q8HRS : TELEMETRY STATUS DCP: FROM [facility] CARE PLAN: DIALYZED ONCE ON 08/14/20 DIALYSIS CATHETER HAS BEEN DC'D
[2020-08-19 16:00] VITALS: BP 138/68
--- NOTE | 2020-08-19 16:37 | Infectious Diseases Prog Note ---
Assessment/Plan Problems: (1) Fever Assessment & Plan: SUSPECT NEW LUNGS INFILTRATES RELATED , and possible pneumonia , rule out sepsis, pending blood cultures 2 and repeated urine culture, continue vancomycin empiric coverage with cefepime, stop metronidazole (2) Acute appendicitis Assessment & Plan: evident on CT abdomen, with abdominal pain , nausea and vomiting, already on cefepime with metronidazole empirically, monitor clinically , surgical eval is in progress (3) UTI (urinary tract infection) Assessment & Plan: with negative culture, already on cefepime empirically for pneumonia coverage and possible appendicitis (4) Leukocytosis Assessment & Plan: suspect reactive and due to CLL too , with no evidence of sepsis , on cefepime , and metronidazole. will stop zyvox empirically since blood culture is negative x 2 (5) Acute renal failure Assessment & Plan: due to the above with dehydration , continue aggressive hydration with close monitoring of renal functions , avoid nephrotoxics , has HD catheter placed by renal for HD (6) Abdominal pain Assessment & Plan: due to the above, continue pain management as needed (7) Nausea & vomiting Assessment & Plan: suspect due to the above, rule out COVID 19 infection, will send nasal swab for PCR testing to confirm, keep patient in enhanced droplets isolation , supportive care as needed (8) CLL (chronic lymphocytic leukemia) Assessment & Plan: recommend oncology eval Subjective Constitutional: Reports: fatigue HEENT: Reports: no symptoms Respiratory: Reports: dry cough Breasts: Reports: no symptoms Cardiovascular: Reports: no symptoms Gastrointestinal/Abdominal: Reports: bloating Genitourinary: Reports: no symptoms Neurologic: Reports: no symptoms Psychiatric: Reports: no symptoms Skin: Reports: no symptoms Endocrine: Reports: no symptoms Hematologic: Reports: no symptoms Musculoskeletal: Reports: no symptoms Allergies: Coded Allergies: No Known Allergies (Unverified , 07/30/20) she is feeling better today and didn't have high fever , no cough or SOB , NO abdominal discomfort , no nausea or vomiting and no diarrhea , off hemodialysis so far since She is making good urine Objective Last 24 Hour Vital Signs Date Time Temp Pulse Resp B/P (MAP) Pulse Ox O2 Delivery O2 Flow Rate FiO2 08/19/20 12:00 98.1 74 20 121/76 (91) 97 08/19/20 11:41 74 08/19/20 09:00 Room Air 08/19/20 08:57 98.1 08/19/20 08:40 77 08/19/20 08:27 76 131/68 08/19/20 07:56 100.2 76 19 131/68 (89) 97 08/19/20 04:00 96.3 80 18 150/83 (105) 98 08/19/20 03:42 105 08/19/20 00:00 100 08/19/20 00:00 97.5 98 18 140/79 (99) 98 08/18/20 22:00 Room Air 08/18/20 21:00 Room Air 08/18/20 20:52 99.1 08/18/20 20:00 82 08/18/20 20:00 99.1 84 18 128/72 (90) 98 Height (Feet): 5 Height (Inches): 4.00 Weight (Pounds): 120 General Appearance: WD/WN, no acute distress HEENT: normocephalic, atraumatic, anicteric, mucous membranes moist, PERRL Respiratory/Chest: chest wall non-tender, no respiratory distress, no accessory muscle use, decreased breath sounds, crackles/rales Cardiovascular: normal peripheral pulses, normal rate, regular rhythm, no gallop/murmur, no JVD Abdomen: normal bowel sounds, soft, non tender, no organomegaly, non distended, no mass, no scars Genitourinary: normal external genitalia Extremities: no cyanosis, no clubbing Skin: no rash, no lesions, no ulcers 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, no motor/sensory deficits, alert, responsive, normal mood/affect Lymphatic: no neck adenopathy, no groin adenopathy Musculoskeletal: normal muscle bulk, no effusion Laboratory Tests Test 08/18/20 20:15 08/19/20 06:10 08/19/20 06:50 08/19/20 11:24 POC Whole Blood Glucose 344 MG/DL (74-106) H 176 MG/DL (74-106) H 199 MG/DL (74-106) H White Blood Count 15.3 K/UL (4.8-10.8) H Red Blood Count 4.22 M/UL (4.20-5.40) Hemoglobin 11.5 G/DL (12.0-16.0) L Hematocrit 35.0 % (37.0-47.0) L Mean Corpuscular Volume 83 FL (80-99) Mean Corpuscular Hemoglobin 27.2 PG (27.0-31.0) Mean Corpuscular Hemoglobin Concent 32.9 G/DL (32.0-36.0) Red Cell Distribution Width 12.1 % (11.6-14.8) Platelet Count 137 K/UL (150-450) L Mean Platelet Volume 6.7 FL (6.5-10.1) Neutrophils (%) (Auto) 46.3 % (45.0-75.0) Lymphocytes (%) (Auto) 46.0 % (20.0-45.0) H Monocytes (%) (Auto) 6.4 % (1.0-10.0) Eosinophils (%) (Auto) 0.7 % (0.0-3.0) Basophils (%) (Auto) 0.6 % (0.0-2.0) Sodium Level 141 MMOL/L (136-145) Potassium Level 4.2 MMOL/L (3.5-5.1) # Chloride Level 105 MMOL/L (98-107) Carbon Dioxide Level 25 MMOL/L (21-32) Anion Gap 11 mmol/L (5-15) Blood Urea Nitrogen 11 mg/dL (7-18) Creatinine 1.0 MG/DL (0.55-1.30) Estimat Glomerular Filtration Rate 53.5 mL/min (>60) Glucose Level 190 MG/DL (74-106) H Calcium Level 8.5 MG/DL (8.5-10.1) Magnesium Level 1.4 MG/DL (1.8-2.4) L Test 08/19/20 16:23 POC Whole Blood Glucose Pending Current Medications Medications (Trade) Dose Ordered Sig/Russ Route PRN Reason Start Time Stop Time Status Last Admin Dose Admin Acetaminophen (Tylenol) 650 mg Q6H PRN ORAL For Headache and fever 08/13/20 21:30 09/12/20 21:29 08/19/20 08:27 Amlodipine Besylate (Norvasc) 5 mg DAILY ORAL 08/18/20 09:00 09/13/20 08:59 08/19/20 08:27 Atorvastatin Calcium (Lipitor) 20 mg QHS ORAL 08/13/20 22:00 11/11/20 21:59 08/17/20 22:05 Cefepime HCl 1 gm/ Dextrose 55 ml @ 110 mls/hr Q24H IVPB 08/16/20 17:30 08/23/20 17:29 08/18/20 16:38 Dextrose (Dextrose 50%) 25 ml Q30M PRN IV Hypoglycemia 08/13/20 22:15 11/11/20 22:14 Dextrose (Dextrose 50%) 50 ml Q30M PRN IV Hypoglycemia 08/13/20 22:15 11/11/20 22:14 Famotidine (Pepcid) 20 mg QHS ORAL 08/13/20 21:00 11/11/20 20:59 08/17/20 22:05 Folic Acid (Folate) 1 mg DAILY ORAL 08/14/20 09:00 09/13/20 08:59 08/19/20 08:26 Insulin Aspart (NovoLOG) BEFORE MEALS AND HS SUBQ 08/14/20 06:30 11/12/20 06:29 08/19/20 12:08 Magnesium Sulfate 100 ml @ 100 mls/hr Q1H IVPB 08/19/20 14:00 08/19/20 17:59 08/19/20 16:05 Metronidazole 100 ml @ 100 mls/hr Q8HR IVPB 08/15/20 22:00 08/22/20 21:59 08/19/20 13:50 Ondansetron HCl (Zofran) 4 mg Q4H PRN IVP Nausea & Vomiting 08/15/20 12:15 09/14/20 12:14 08/18/20 13:38 Pantoprazole (Protonix) 40 mg DAILY IVP 08/17/20 09:00 09/16/20 08:59 08/19/20 08:26 Vancomycin HCl (Vanco pharmacy to dose) 1 ea DAILY PRN MISC Per rx protocol 08/18/20 11:30 09/17/20 11:29 Vancomycin HCl 500 mg/Sodium Chloride 110 ml @ 110 mls/hr Q24H IVPB 08/19/20 12:00 08/24/20 11:59 08/19/20 12:55 Johanna Torres M.D. Aug 19, 2020 16:37
--- NOTE | 2020-08-19 16:39 | NUR ---
NURSE NOTES: wound treatment done,washed with water and soap and applied triad around perineal and buttock and sacral and pt tolerated well. will continue to monitor.
[2020-08-19] MEDS: Cefepime HCl 1 GM in D5W 55 ML IVPB SCH (17:00)
--- NOTE | 2020-08-19 19:33 | NUR ---
NURSE HAND-OFF REPORT: Important Events on Shift: Patient Status: Diet: Pending Orders: Pending Results/Labs: Pending MD notification: Latest Vital Signs: Temperature 99.3 , Pulse 73 , B/P 138 /68 , Respiratory Rate 20 , O2 SAT 97 , Room Air, O2 Flow Rate . Vital Sign Comment: EKG Rhythm: Sinus Rhythm Rhythm change?: N MD Notified?: N -Dr. Wilmer VANG Response: Latest Green Fall Score: 55 Fall Risk: High Risk Safety Measures: Call light Within Reach, Bed Alarm Zone 2, Side Rails Side Rails x3, Bed position Low and Locked. Fall Precautions: Yellow Socks Yellow Gown Door Sign Patient Fall Education Report given to . Pt is awake and stable, no stress noted. Endorsed plan of care. Endorsed to monitor fever.
--- NOTE | 2020-08-19 19:38 | NUR ---
NURSE NOTES: Received report from JAMIL Hernandez. Patient sitting up in bed, awake and alert and oriented, Farsi and Colombian speaking. Patient is able to make needs known. Relaxed and pleasant demeanor. Bed is locked in lowest position, side rails up x 2, bed alarm on, call light within reach, in no apparent distress, IV right wrist 24 gauge, patent and flushed. No erythema and bleeding noted. Patient educated to us call light for assistance. Will continue to monitor.
[2020-08-19 20:00] VITALS: BP 117/67
[2020-08-19] MEDS: Atorvastatin 20mg tab ORAL SCH (21:30)
--- NOTE | 2020-08-19 22:58 | NUR ---
NURSE NOTES: Patient is requesting to have all for side rails up while she sleeps. Will continue to check in on the patient and assess when the patient would like to put 2 of the side rails down.
[2020-08-20] VITALS: BP 106/57
--- NOTE | 2020-08-20 | NUR ---
NURSE NOTES: Patient is still insisting on keeping all 4 side rails up. Will continue to check in on the patient and assess when the patient would like to put 2 of the side rails down.
--- NOTE | 2020-08-20 02:00 | NUR ---
NURSE NOTES: Patient is continuing insisting on keeping all 4 side rails up. Will continue to check in on the patient and assess when the patient would like to put 2 of the side rails down.
[2020-08-20 04:00] VITALS: BP 160/82
--- NOTE | 2020-08-20 04:00 | NUR ---
NURSE NOTES: Patient is still insisting on keeping all 4 side rails up. Offered to leave 3 up, but patient would like all 4 up. Will continue to check in on the patient and assess when the patient would like to put 2 of the side rails down.
--- NOTE | 2020-08-20 06:00 | NUR ---
NURSE NOTES: Patient is still insisting on keeping all 4 side rails up. Patient demonstrated that the side rails make it possible for her to use the side rales to reposition herself. Will continue to check in on the patient and assess when the patient would like to put 2 of the side rails down.
[2020-08-20] MEDS: NovoLOG Insulin Flexpen SUBQ SCH ×4 (06:06→21:09)
[2020-08-20 07:06] LABS: BASOPHILS % (AUTO) 0.6 % (0.0-2.0); EOSINOPHILS % (AUTO) 0.9 % (0.0-3.0); HEMOGLOBIN 11.3 G/DL (12.0-16.0); MEAN CORPUSCULAR VOLUME 84 FL (80-99); MONOCYTES % (AUTO) 5.6 % (1.0-10.0); NEUTROPHILS % (AUTO) 45.8 % (45.0-75.0); PLATELET COUNT 163 K/UL (150-450); RED BLOOD COUNT 4.18 M/UL (4.20-5.40); RED CELL DISTRIBUTION WIDTH 11.9 % (11.6-14.8)
--- NOTE | 2020-08-20 07:30 | NUR ---
NURSE NOTES: Received pt from JAMIL Huerta. pt is awake and alert, pt is in RA, no SOB or acute respiratory distress noted. pt has intact iv access R wrist 24G is SL. pt is on continues heart monitoring. Pt is eating breakfast by observation. pt has Hitchcock cath in place is working well. no complain of pain at this moment.all needs attended, bed is locked and is in the lowest position, call light within easy reach. will continue to monitor.
--- NOTE | 2020-08-20 07:33 | NUR ---
NURSE HAND-OFF REPORT: Important Events on Shift:[] Patient Status: Stable Diet: CCHO Pending Orders: [] Pending Results/Labs:[] Pending MD notification:[] Latest Vital Signs: Temperature 97.9 , Pulse 75 , B/P 160 /82 , Respiratory Rate 20 , O2 SAT 95 , Room Air, O2 Flow Rate . Vital Sign Comment: [] EKG Rhythm: Sinus Rhythm Rhythm change?: N MD Notified?: N -Dr. Wilmer VANG Response: Latest Green Fall Score: 55 Fall Risk: High Risk Safety Measures: Call light Within Reach, Bed Alarm Zone 2, Side Rails Side Rails x3, Bed position Low and Locked. Fall Precautions: Yellow Socks Yellow Gown Door Sign Patient Fall Education Report given to David NEGRON.
[2020-08-20 08:00] VITALS: BP 104/59
[2020-08-20 08:05] LABS: ALANINE AMINOTRANSFERASE 20 U/L (12-78); ALBUMIN 2.8 G/DL (3.4-5.0); ALBUMIN/GLOBULIN RATIO 0.8 (1.0-2.7); ALKALINE PHOSPHATASE 63 U/L (46-116); ANION GAP 11 mmol/L (5-15); ASPARTATE AMINO TRANSFERASE 30 U/L (15-37); BILIRUBIN,TOTAL 0.4 MG/DL (0.2-1.0); BLOOD UREA NITROGEN 12 mg/dL (7-18); CALCIUM 8.3 MG/DL (8.5-10.1); CARBON DIOXIDE 27 MMOL/L (21-32); CHLORIDE 102 MMOL/L (98-107); CREATININE 0.9 MG/DL (0.55-1.30); POTASSIUM 3.8 MMOL/L (3.5-5.1); SODIUM 140 MMOL/L (136-145)
--- NOTE | 2020-08-20 09:08 | NUR ---
NURSE NOTES: Dr Guillen visited pt and is aware about MG 1.7, no new order to RN. Will continue to monitor.
[2020-08-20] MEDS: Pantoprazole Inj IVP SCH (09:11)
--- NOTE | 2020-08-20 09:15 | General Progress Note ---
Subjective Date patient seen: Aug 20, 2020 Time patient seen: 09:00 Constitutional: Reports: weakness HEENT: Reports: no symptoms Cardiovascular: Reports: no symptoms Respiratory: Reports: no symptoms Gastrointestinal/Abdominal: Reports: no symptoms Genitourinary: Reports: no symptoms Neurologic/Psychiatric: Reports: no symptoms Allergies: Coded Allergies: No Known Allergies (Unverified , 07/30/20) Subjective she is doing better. able to eat well. No diarrhea. No fever or chills. no sob or chest pain. No nausea or vomiting. No abd Pain. Objective Last 24 Hour Vital Signs Date Time Temp Pulse Resp B/P (MAP) Pulse Ox O2 Delivery O2 Flow Rate FiO2 08/20/20 08:00 97.6 105 20 104/59 (74) 96 08/20/20 04:00 74 08/20/20 04:00 97.9 75 20 160/82 (108) 95 08/20/20 00:00 97.5 88 19 106/57 (73) 97 08/20/20 00:00 72 08/19/20 21:00 Room Air 08/19/20 20:00 99.3 100 19 117/67 (84) 96 08/19/20 20:00 85 08/19/20 16:00 99.3 73 20 138/68 (91) 97 08/19/20 15:14 79 08/19/20 12:00 98.1 74 20 121/76 (91) 97 08/19/20 11:41 74 Intake and Output 08/19/20 08/20/20 19:00 07:00 Intake Total 565 ml Output Total 200 ml 1500 ml Balance 365 ml -1500 ml IV Total 565 ml Output Urine Total 200 ml 1500 ml Laboratory Tests 08/19/20 11:24: POC Whole Blood Glucose 199H 08/19/20 16:23: POC Whole Blood Glucose [Pending] 08/19/20 20:31: POC Whole Blood Glucose 314H 08/20/20 05:45: White Blood Count 15.0H, Red Blood Count 4.18L, Hemoglobin 11.3L, Hematocrit 35.0L, Mean Corpuscular Volume 84, Mean Corpuscular Hemoglobin 27.0, Mean Corpuscular Hemoglobin Concent 32.2, Red Cell Distribution Width 11.9, Platelet Count 163, Mean Platelet Volume 7.0, Neutrophils (%) (Auto) 45.8, Lymphocytes (%) (Auto) 47.0H, Monocytes (%) (Auto) 5.6, Eosinophils (%) (Auto) 0.9, Basophils (%) (Auto) 0.6, Erythrocyte Sedimentation Rate 55H, Sodium Level 140, Potassium Level 3.8, Chloride Level 102, Carbon Dioxide Level 27, Anion Gap 11, Blood Urea Nitrogen 12, Creatinine 0.9, Estimat Glomerular Filtration Rate > 60, Glucose Level 174H, Calcium Level 8.3L, Magnesium Level 1.7L, Total Bilirubin 0.4, Aspartate Amino Transf (AST/SGOT) 30, Alanine Aminotransferase (ALT/SGPT) 20, Alkaline Phosphatase 63, C-Reactive Protein, Quantitative 4.0H, Total Protein 6.5, Albumin 2.8L, Globulin 3.7, Albumin/Globulin Ratio 0.8L 08/20/20 06:00: POC Whole Blood Glucose 185H Height (Feet): 5 Height (Inches): 4.00 Weight (Pounds): 120 General Appearance: no apparent distress, alert EENT: normal ENT inspection Neck: non-tender, supple Cardiovascular: normal rate, regular rhythm Abdomen: non tender, soft Extremities: normal range of motion, non-tender Edema: no edema noted Arm (L), no edema noted Arm (R), no edema noted Leg (L), no edema noted Leg (R) Neurologic: alert, responsive Skin: warm/dry Assessment/Plan Status: stable Assessment/Plan: 1, ARF POSSIBLY PRE RENAL VS ATN - RENAL FUNCTION BACK TO NORMAL. 2. POSSIBLE SEPSIS - CONT CEFEPIME AND FLAGYL AND and Vanco. ID FOLLOWING. culture pending. 3. CLL - MAY NEED TO F/U WITH HER ONCOLOGIST AT OUTPATIENT. 4. QUESTIONABLE ACUTE APPENDICITIS - CONT IV ABX. IMPROVED. ADVANCED DIET TO MECHANICAL SOFT. 5. DM II - WILL HOLD ALL ORAL MEDS AND START SSI IN HOSPITAL. 6. HTN - CONT NORVASC 5 MG ONE PO DAILY HOLD FOR SBP < 110. 7. GERD - CONT PROTONIX 40 MG IV DAILY AND PEPCID 20 MG ONE PO QHS. 8. HLD - CONT ATORVASTATIN 20 MG ONE PO QHS. 9. HYPOMAGNESEMIA - MAGNESIUM REPLACED. 10. UTI - IMPROVED WITH ABX. 11. LEUKOCYTOSIS - 2ND TO UTI AND POSSIBLE SEPSIS AND CLL - IMPROVING. 12. ABD PAIN - RESOLVED. MOST LIKELY DUE TO GASTRITIS. CONT PROTONIX 40 MG IV DAILY. 13. FEVER - IMPROVED. CULTURES DONE. 14, POSSIBLE PNEUMONIA - CONT IV ABX. Pura Guillen MD Aug 20, 2020 09:15
[2020-08-20 12:00] VITALS: BP 119/69
[2020-08-20] MEDS: Vancomycin 500 MG in NS 110 ML IVPB SCH (12:07)
--- NOTE | 2020-08-20 13:27 | Surgery Progress Note ---
Surgery Progress Note Subjective Additional Comments afebrile HD stable wbc 15k no pain no n/v tolerating diet Objective Last 24 Hour Vital Signs Date Time Temp Pulse Resp B/P (MAP) Pulse Ox O2 Delivery O2 Flow Rate FiO2 08/20/20 12:00 97.6 86 20 119/69 (86) 100 08/20/20 11:44 101 08/20/20 11:44 101 08/20/20 09:11 105 104/59 08/20/20 09:00 Room Air 08/20/20 08:00 97.6 105 20 104/59 (74) 96 08/20/20 07:45 90 08/20/20 04:00 74 08/20/20 04:00 97.9 75 20 160/82 (108) 95 08/20/20 00:00 97.5 88 19 106/57 (73) 97 08/20/20 00:00 72 08/19/20 21:00 Room Air 08/19/20 20:00 99.3 100 19 117/67 (84) 96 08/19/20 20:00 85 08/19/20 16:00 99.3 73 20 138/68 (91) 97 08/19/20 15:14 79 I&O Intake and Output 08/19/20 08/20/20 19:00 07:00 Intake Total 565 ml Output Total 200 ml 1500 ml Balance 365 ml -1500 ml IV Total 565 ml Output Urine Total 200 ml 1500 ml Cardiovascular: RSR Respiratory: clear Abdomen: soft, flat, non-tender, present bowel sounds Extremities: no edema, no tenderness, no cyanosis Laboratory Tests Test 08/19/20 16:23 08/19/20 20:31 08/20/20 05:45 08/20/20 06:00 POC Whole Blood Glucose Pending 314 MG/DL (74-106) H 185 MG/DL (74-106) H White Blood Count 15.0 K/UL (4.8-10.8) H Red Blood Count 4.18 M/UL (4.20-5.40) L Hemoglobin 11.3 G/DL (12.0-16.0) L Hematocrit 35.0 % (37.0-47.0) L Mean Corpuscular Volume 84 FL (80-99) Mean Corpuscular Hemoglobin 27.0 PG (27.0-31.0) Mean Corpuscular Hemoglobin Concent 32.2 G/DL (32.0-36.0) Red Cell Distribution Width 11.9 % (11.6-14.8) Platelet Count 163 K/UL (150-450) Mean Platelet Volume 7.0 FL (6.5-10.1) Neutrophils (%) (Auto) 45.8 % (45.0-75.0) Lymphocytes (%) (Auto) 47.0 % (20.0-45.0) H Monocytes (%) (Auto) 5.6 % (1.0-10.0) Eosinophils (%) (Auto) 0.9 % (0.0-3.0) Basophils (%) (Auto) 0.6 % (0.0-2.0) Erythrocyte Sedimentation Rate 55 MM/HR (0-30) H Sodium Level 140 MMOL/L (136-145) Potassium Level 3.8 MMOL/L (3.5-5.1) Chloride Level 102 MMOL/L (98-107) Carbon Dioxide Level 27 MMOL/L (21-32) Anion Gap 11 mmol/L (5-15) Blood Urea Nitrogen 12 mg/dL (7-18) Creatinine 0.9 MG/DL (0.55-1.30) Estimat Glomerular Filtration Rate > 60 mL/min (>60) Glucose Level 174 MG/DL (74-106) H Calcium Level 8.3 MG/DL (8.5-10.1) L Magnesium Level 1.7 MG/DL (1.8-2.4) L Total Bilirubin 0.4 MG/DL (0.2-1.0) Aspartate Amino Transf (AST/SGOT) 30 U/L (15-37) Alanine Aminotransferase (ALT/SGPT) 20 U/L (12-78) Alkaline Phosphatase 63 U/L (46-116) C-Reactive Protein, Quantitative 4.0 mg/dL (0.00-0.90) H Total Protein 6.5 G/DL (6.4-8.2) Albumin 2.8 G/DL (3.4-5.0) L Globulin 3.7 g/dL Albumin/Globulin Ratio 0.8 (1.0-2.7) L Test 08/20/20 11:53 POC Whole Blood Glucose 287 MG/DL (74-106) H Plan Problems: (1) Acute appendicitis (2) UTI (urinary tract infection) (3) Acute renal failure (4) Abdominal pain Assessment & Plan: 79-year-old female with abdominal pain nausea emesis leukocytosis renal insufficiency. CT was reviewed and described as potential consideration for appendicitis though a normal appendix is noted there is just some stranding in the right lower quadrant. Patient with generalized abdominal pain states mainly in the epigastric upper region in the abdomen on examination she does not have significant tenderness in the right lower quadrant as compared to the remainder the abdomen.. Though appendicitis is a possibility clinically does not seem as if patient has appendicitis. Given her age committees and current medical status and the potential of early acute appendicitis will attempt treatment with antibiotic therapy and nonoperative in the event that it may be appendicitis. Will follow with her abdominal examinations Continue IV antibiotics per infectious disease Okay for clear liquid diet she has been on and tolerating Trend labs Hemodialysis per nephrology Thank you for allow me to participate in patient's care will follow with recommendations Mild dependent atelectasis in both lung bases. There are multiple old rib fractures with healing callous noted There are several hepatic granulomas. The spleen is homogeneous. Gallbladder is without sludge or stone and there is no wall thickening. Mild diffuse fatty atrophy of the pancreas noted. There is slight nodular thickening of the left adrenal gland. Right adrenal is grossly unremarkable. The kidneys are normal in size, shape and axis. Small bowel loops are nondistended. The colon is also nondistended with average amount of stool. The appendix is normal in caliber but there is some inflammation around the tip of the retrocecal appendix. Question early tip appendicitis. There is no free fluid or free air. No pathologic adenopathy demonstrated. Bladder is empty. There is an enlarged uterus with a large central heterogeneous mass likely a large fibroid. Some peripheral calcification noted. IMPRESSION: RETROCECAL APPENDIX NORMAL IN CALIBER BUT THERE IS MILD INFLAMMATORY CHANGES NICOLAS UND THE TIP OF THE APPENDIX. QUESTION EARLY TIP APPENDICITIS. ENLARGED UTERUS WITH PROBABLE LARGE FIBROID. HEPATIC GRANULOMAS. MILD FATTY ATROPHY OF THE PANCREAS. SLIGHT NODULAR THICKENING OF THE LEFT ADRENAL GLAND PERHAPS HYPERPLASIA. OLD RIB FRACTURES. (5) Nausea & vomiting (6) Hyperkalemia (7) Leukocytosis Assessment & Plan: groin incontinence associated dermatitis local care initiated wash daily ensure change with incontinence patient instructed to tell staff when bm (8) Metabolic acidosis (9) Diabetes (10) Sepsis (11) HTN (hypertension) (12) Leukocytosis (13) Hyperkalemia (14) Meningioma (15) Rib contusion (16) Head injury, closed, without LOC [place] Aug 20, 2020 13:27
--- NOTE | 2020-08-20 13:31 | NUR ---
NURSE NOTES: Dr Guillen called back regarding change HR is strips, no new order to RN. Will continue to monitor.
--- NOTE | 2020-08-20 13:32 | NUR ---
P.T Note: P.T evaluation completed and tx initiated. Please refer to P.T evaluation for current functional status.
--- NOTE | 2020-08-20 15:08 | Nephrology Progress Note ---
Assessment/Plan Problem List: (1) Acute renal failure Assessment: resolved (2) Nausea & vomiting (3) Abdominal pain (4) Metabolic acidosis (5) Leukocytosis Assessment: better (6) Sepsis (7) HTN (hypertension) (8) Diabetes (9) Hypokalemia Assessment: ok Plan Replete Mag abxs follow labs Discussed with RN Subjective Subjective feels ok Objective Objective Last 24 Hour Vital Signs Date Time Temp Pulse Resp B/P (MAP) Pulse Ox O2 Delivery O2 Flow Rate FiO2 08/20/20 12:00 97.6 86 20 119/69 (86) 100 08/20/20 11:44 101 08/20/20 11:44 101 08/20/20 09:11 105 104/59 08/20/20 09:00 Room Air 08/20/20 08:00 97.6 105 20 104/59 (74) 96 08/20/20 07:45 90 08/20/20 04:00 74 08/20/20 04:00 97.9 75 20 160/82 (108) 95 08/20/20 00:00 97.5 88 19 106/57 (73) 97 08/20/20 00:00 72 08/19/20 21:00 Room Air 08/19/20 20:00 99.3 100 19 117/67 (84) 96 08/19/20 20:00 85 08/19/20 16:00 99.3 73 20 138/68 (91) 97 08/19/20 15:14 79 Intake and Output 08/19/20 08/20/20 19:00 07:00 Intake Total 565 ml Output Total 200 ml 1500 ml Balance 365 ml -1500 ml IV Total 565 ml Output Urine Total 200 ml 1500 ml Laboratory Tests 08/19/20 16:23: POC Whole Blood Glucose [Pending] 08/19/20 20:31: POC Whole Blood Glucose 314H 08/20/20 05:45: White Blood Count 15.0H, Red Blood Count 4.18L, Hemoglobin 11.3L, Hematocrit 35.0L, Mean Corpuscular Volume 84, Mean Corpuscular Hemoglobin 27.0, Mean Corpuscular Hemoglobin Concent 32.2, Red Cell Distribution Width 11.9, Platelet Count 163, Mean Platelet Volume 7.0, Neutrophils (%) (Auto) 45.8, Lymphocytes (%) (Auto) 47.0H, Monocytes (%) (Auto) 5.6, Eosinophils (%) (Auto) 0.9, Basophils (%) (Auto) 0.6, Erythrocyte Sedimentation Rate 55H, Sodium Level 140, Potassium Level 3.8, Chloride Level 102, Carbon Dioxide Level 27, Anion Gap 11, Blood Urea Nitrogen 12, Creatinine 0.9, Estimat Glomerular Filtration Rate > 60, Glucose Level 174H, Calcium Level 8.3L, Magnesium Level 1.7L, Total Bilirubin 0.4, Aspartate Amino Transf (AST/SGOT) 30, Alanine Aminotransferase (ALT/SGPT) 20, Alkaline Phosphatase 63, C-Reactive Protein, Quantitative 4.0H, Total Protein 6.5, Albumin 2.8L, Globulin 3.7, Albumin/Globulin Ratio 0.8L 08/20/20 06:00: POC Whole Blood Glucose 185H 08/20/20 11:53: POC Whole Blood Glucose 287H Height (Feet): 5 Height (Inches): 4.00 Weight (Pounds): 120 Cardiovascular: normal rate Respiratory/Chest: lungs clear Extremities: other - no edema Darrian Cortes MD Aug 20, 2020 15:08
[2020-08-20 16:00] VITALS: BP 103/58
--- NOTE | 2020-08-20 16:08 | NUR ---
SPEECH PATHOLOGY NOTE: RECOMMENDATIONS: 1. DOWNGRADE DIET TEXTURE TO SOFT, EASY CHEW DUE TO LACK OF FULL DENTITION 2. MODIFIED BARIUM SWALLOW STUDY TO RULE OUT RETROGRADE ASPIRATION 3. ST TO CONTINUE PATIENT WHILE INHOUSE
[2020-08-20] MEDS: Cefepime HCl 1 GM in D5W 55 ML IVPB SCH (16:58)
--- NOTE | 2020-08-20 17:15 | Infectious Diseases Prog Note ---
Assessment/Plan Problems: (1) Fever Assessment & Plan: SUSPECT NEW LUNGS INFILTRATES RELATED , and possible pneumonia , with no evidence of sepsis, and negative repeated blood cultures 2 and repeated urine culture, continue vancomycin empiric coverage with cefepime for 8 days total . (2) Acute appendicitis Assessment & Plan: evident on CT abdomen, with abdominal pain , nausea and vomiting, already on cefepime with metronidazole empirically, monitor clinically , surgical eval is in progress (3) UTI (urinary tract infection) Assessment & Plan: with negative culture, already on cefepime empirically for pneumonia coverage and possible appendicitis (4) Leukocytosis Assessment & Plan: suspect reactive and due to CLL too , with no evidence of sepsis , on cefepime , and metronidazole. will stop zyvox empirically since blood culture is negative x 2 (5) Acute renal failure Assessment & Plan: due to the above with dehydration , continue aggressive hydration with close monitoring of renal functions , avoid nephrotoxics , has HD catheter placed by renal for HD (6) Abdominal pain Assessment & Plan: due to the above, continue pain management as needed (7) Nausea & vomiting Assessment & Plan: suspect due to the above, rule out COVID 19 infection, will send nasal swab for PCR testing to confirm, keep patient in enhanced droplets isolation , supportive care as needed (8) CLL (chronic lymphocytic leukemia) Assessment & Plan: recommend oncology eval Subjective Constitutional: Reports: fatigue HEENT: Reports: no symptoms Respiratory: Reports: dry cough Breasts: Reports: no symptoms Cardiovascular: Reports: no symptoms Gastrointestinal/Abdominal: Reports: bloating Genitourinary: Reports: no symptoms Neurologic: Reports: weakness Psychiatric: Reports: no symptoms Skin: Reports: no symptoms Endocrine: Reports: no symptoms Hematologic: Reports: no symptoms Musculoskeletal: Reports: no symptoms Allergies: Coded Allergies: No Known Allergies (Unverified , 07/30/20) she is feeling better today and didn't have high fever , no SOB , NO abdominal discomfort , no nausea or vomiting and no diarrhea , off hemodialysis so far since She is making good urine Objective Last 24 Hour Vital Signs Date Time Temp Pulse Resp B/P (MAP) Pulse Ox O2 Delivery O2 Flow Rate FiO2 08/20/20 16:00 97.6 100 20 103/58 (73) 96 08/20/20 12:00 97.6 86 20 119/69 (86) 100 08/20/20 11:44 101 08/20/20 11:44 101 08/20/20 09:11 105 104/59 08/20/20 09:00 Room Air 08/20/20 08:00 97.6 105 20 104/59 (74) 96 08/20/20 07:45 90 08/20/20 04:00 74 08/20/20 04:00 97.9 75 20 160/82 (108) 95 08/20/20 00:00 97.5 88 19 106/57 (73) 97 08/20/20 00:00 72 08/19/20 21:00 Room Air 08/19/20 20:00 99.3 100 19 117/67 (84) 96 08/19/20 20:00 85 Height (Feet): 5 Height (Inches): 4.00 Weight (Pounds): 120 General Appearance: WD/WN, no acute distress HEENT: normocephalic, atraumatic, anicteric, mucous membranes moist, PERRL Respiratory/Chest: chest wall non-tender, lungs clear, no respiratory distress, no accessory muscle use, decreased breath sounds Cardiovascular: normal peripheral pulses, normal rate, regular rhythm, no gallop/murmur, no JVD Abdomen: normal bowel sounds, soft, non tender, no organomegaly, non distended, no mass, no scars Genitourinary: normal external genitalia Extremities: no cyanosis, no clubbing Skin: no rash, no lesions, no ulcers Neurologic/Psychiatric: 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, no motor/sensory deficits, alert, oriented x 3, responsive Lymphatic: no neck adenopathy, no groin adenopathy Musculoskeletal: normal muscle bulk, no effusion Microbiology Date/Time Source Procedure Growth Status 08/18/20 11:45 Blood Blood Culture - Preliminary NO GROWTH AFTER 24 HOURS Resulted 08/18/20 11:45 Blood Blood Culture - Preliminary NO GROWTH AFTER 24 HOURS Resulted Laboratory Tests Test 08/19/20 20:31 08/20/20 05:45 08/20/20 06:00 08/20/20 11:53 POC Whole Blood Glucose 314 MG/DL (74-106) H 185 MG/DL (74-106) H 287 MG/DL (74-106) H White Blood Count 15.0 K/UL (4.8-10.8) H Red Blood Count 4.18 M/UL (4.20-5.40) L Hemoglobin 11.3 G/DL (12.0-16.0) L Hematocrit 35.0 % (37.0-47.0) L Mean Corpuscular Volume 84 FL (80-99) Mean Corpuscular Hemoglobin 27.0 PG (27.0-31.0) Mean Corpuscular Hemoglobin Concent 32.2 G/DL (32.0-36.0) Red Cell Distribution Width 11.9 % (11.6-14.8) Platelet Count 163 K/UL (150-450) Mean Platelet Volume 7.0 FL (6.5-10.1) Neutrophils (%) (Auto) 45.8 % (45.0-75.0) Lymphocytes (%) (Auto) 47.0 % (20.0-45.0) H Monocytes (%) (Auto) 5.6 % (1.0-10.0) Eosinophils (%) (Auto) 0.9 % (0.0-3.0) Basophils (%) (Auto) 0.6 % (0.0-2.0) Erythrocyte Sedimentation Rate 55 MM/HR (0-30) H Sodium Level 140 MMOL/L (136-145) Potassium Level 3.8 MMOL/L (3.5-5.1) Chloride Level 102 MMOL/L (98-107) Carbon Dioxide Level 27 MMOL/L (21-32) Anion Gap 11 mmol/L (5-15) Blood Urea Nitrogen 12 mg/dL (7-18) Creatinine 0.9 MG/DL (0.55-1.30) Estimat Glomerular Filtration Rate > 60 mL/min (>60) Glucose Level 174 MG/DL (74-106) H Calcium Level 8.3 MG/DL (8.5-10.1) L Magnesium Level 1.7 MG/DL (1.8-2.4) L Total Bilirubin 0.4 MG/DL (0.2-1.0) Aspartate Amino Transf (AST/SGOT) 30 U/L (15-37) Alanine Aminotransferase (ALT/SGPT) 20 U/L (12-78) Alkaline Phosphatase 63 U/L (46-116) C-Reactive Protein, Quantitative 4.0 mg/dL (0.00-0.90) H Total Protein 6.5 G/DL (6.4-8.2) Albumin 2.8 G/DL (3.4-5.0) L Globulin 3.7 g/dL Albumin/Globulin Ratio 0.8 (1.0-2.7) L Test 08/20/20 16:38 POC Whole Blood Glucose 390 MG/DL (74-106) H Current Medications Medications (Trade) Dose Ordered Sig/Russ Route PRN Reason Start Time Stop Time Status Last Admin Dose Admin Acetaminophen (Tylenol) 650 mg Q6H PRN ORAL For Headache and fever 08/13/20 21:30 09/12/20 21:29 08/19/20 08:27 Amlodipine Besylate (Norvasc) 5 mg DAILY ORAL 08/18/20 09:00 09/13/20 08:59 08/20/20 09:11 Atorvastatin Calcium (Lipitor) 20 mg QHS ORAL 08/13/20 22:00 11/11/20 21:59 08/19/20 21:30 Cefepime HCl 1 gm/ Dextrose 55 ml @ 110 mls/hr Q24H IVPB 08/16/20 17:30 08/23/20 17:29 08/20/20 16:58 Dextrose (Dextrose 50%) 25 ml Q30M PRN IV Hypoglycemia 08/13/20 22:15 11/11/20 22:14 Dextrose (Dextrose 50%) 50 ml Q30M PRN IV Hypoglycemia 08/13/20 22:15 11/11/20 22:14 Famotidine (Pepcid) 20 mg QHS ORAL 08/13/20 21:00 11/11/20 20:59 08/19/20 21:30 Folic Acid (Folate) 1 mg DAILY ORAL 08/14/20 09:00 09/13/20 08:59 08/20/20 09:11 Insulin Aspart (NovoLOG) BEFORE MEALS AND HS SUBQ 08/14/20 06:30 11/12/20 06:29 08/20/20 16:58 Metronidazole 100 ml @ 100 mls/hr Q8HR IVPB 08/15/20 22:00 08/22/20 21:59 08/20/20 13:25 Ondansetron HCl (Zofran) 4 mg Q4H PRN IVP Nausea & Vomiting 08/15/20 12:15 09/14/20 12:14 08/18/20 13:38 Pantoprazole (Protonix) 40 mg DAILY IVP 08/17/20 09:00 09/16/20 08:59 08/20/20 09:11 Vancomycin HCl (Vanco pharmacy to dose) 1 ea DAILY PRN MISC Per rx protocol 08/18/20 11:30 09/17/20 11:29 Vancomycin HCl 500 mg/Sodium Chloride 110 ml @ 110 mls/hr Q24H IVPB 08/19/20 12:00 08/24/20 11:59 08/20/20 12:07 Johanna Torres M.D. Aug 20, 2020 17:15
--- NOTE | 2020-08-20 19:15 | NUR ---
NURSE HAND-OFF REPORT: Important Events on Shift: Patient Status: Diet: Pending Orders: Pending Results/Labs: Pending MD notification: Latest Vital Signs: Temperature 97.6 , Pulse 76 , B/P 103 /58 , Respiratory Rate 20 , O2 SAT 96 , Room Air, O2 Flow Rate . Vital Sign Comment: EKG Rhythm: Sinus Rhythm Rhythm change?: N MD Notified?: Y -Dr Wilmer VANG Response: Message left await call Latest Green Fall Score: 70 Fall Risk: High Risk Safety Measures: Call light Within Reach, Bed Alarm Zone 2, Side Rails Side Rails x3, Bed position Low and Locked. Fall Precautions: Yellow Socks Yellow Gown Door Sign Patient Fall Education Report given to . Pt is awake and stable, no stress noted. Endorsed plan of care, endorsed to monitor heart strips.
--- NOTE | 2020-08-20 19:20 | NUR ---
NURSE NOTES: Patient received from JAMIL Hernandez. Patient is awake, alert and oriented x 4. Patient only speaks Farsi but initiates conversation to nurses. Patient has a patent and draining 16 anguillan sibley. Patient neck area has redness but skin is intact. Left forearm 22 gauge is patent and has 500 ml NS running at 5 ml/hr. Bed is in the lowest position, call light within reach. Will continue to monitor.
[2020-08-20 20:00] VITALS: BP 120/56
[2020-08-20] MEDS: Atorvastatin 20mg tab ORAL SCH (21:08)
[2020-08-21] VITALS: BP 117/64
[2020-08-21 04:00] VITALS: BP 133/57
[2020-08-21] MEDS: NovoLOG Insulin Flexpen SUBQ SCH ×4 (06:16→20:37)
[2020-08-21 07:16] LABS: BASOPHILS % (AUTO) 0.6 % (0.0-2.0); EOSINOPHILS % (AUTO) 0.8 % (0.0-3.0); HEMATOCRIT 34.3 % (37.0-47.0); HEMOGLOBIN 11.2 G/DL (12.0-16.0); LYMPHOCYTES % (AUTO) 42.5 % (20.0-45.0); MEAN CORPUSCULAR VOLUME 83 FL (80-99); MONOCYTES % (AUTO) 6.5 % (1.0-10.0); NEUTROPHILS % (AUTO) 49.6 % (45.0-75.0); PLATELET COUNT 181 K/UL (150-450); RED BLOOD COUNT 4.12 M/UL (4.20-5.40); WHITE BLOOD COUNT 15.5 K/UL (4.8-10.8)
[2020-08-21 07:30] LABS: ANION GAP 8 mmol/L (5-15); BLOOD UREA NITROGEN 16 mg/dL (7-18); CALCIUM 8.2 MG/DL (8.5-10.1); CARBON DIOXIDE 27 MMOL/L (21-32); CHLORIDE 104 MMOL/L (98-107); CREATININE 0.9 MG/DL (0.55-1.30); POTASSIUM 3.6 MMOL/L (3.5-5.1); SODIUM 139 MMOL/L (136-145)
--- NOTE | 2020-08-21 07:45 | NUR ---
NURSE NOTES: RECEIVED PATIENT AND REPORT FROM MATT RN IN BED RESTING, DENIES ANY PAIN, NO S/S OF RESPIRATORY DISTRESS NOTED. IV IS INTACT AND PATENT, SL. BED IS IN LOWEST POSITION WITH BEDSIDE RAILS UP X3, BRAKES ENGAGED FOR SAFETY. CALL LIGHT IS WITHIN EASY REACH. WILL CONTINUE WITH THE PLAN OF CARE.
--- NOTE | 2020-08-21 07:52 | NUR ---
NURSE HAND-OFF REPORT: Important Events on Shift:[] Patient Status: [Stable] Diet: [] Pending Orders: [] Pending Results/Labs:[] Pending MD notification:[] Latest Vital Signs: Temperature 98.8 , Pulse 79 , B/P 133 /57 , Respiratory Rate 22 , O2 SAT 96 , Room Air, O2 Flow Rate . Vital Sign Comment: [] EKG Rhythm: Sinus Rhythm Rhythm change?: N MD Notified?: N -Dr Wilmer VANG Response: Message left await call Latest Green Fall Score: 85 Fall Risk: High Risk Safety Measures: Call light Within Reach, Bed Alarm Zone 2, Side Rails Side Rails x3, Bed position Low and Locked. Fall Precautions: Yellow Socks Yellow Gown Door Sign Patient Fall Education Report given to [JAMIL Jaimes].
[2020-08-21 08:00] VITALS: BP 123/62
[2020-08-21] MEDS: Pantoprazole Inj IVP SCH (08:32)
--- NOTE | 2020-08-21 09:17 | General Progress Note ---
Subjective Date patient seen: Aug 21, 2020 Time patient seen: 09:00 Constitutional: Reports: no symptoms HEENT: Reports: no symptoms Cardiovascular: Reports: no symptoms Respiratory: Reports: no symptoms Gastrointestinal/Abdominal: Reports: no symptoms Genitourinary: Reports: no symptoms Neurologic/Psychiatric: Reports: no symptoms Allergies: Coded Allergies: No Known Allergies (Unverified , 07/30/20) Subjective she is doing better. able to eat well. No diarrhea. No fever or chills. no sob or chest pain. No nausea or vomiting. No abd Pain. Objective Last 24 Hour Vital Signs Date Time Temp Pulse Resp B/P (MAP) Pulse Ox O2 Delivery O2 Flow Rate FiO2 08/21/20 08:33 83 123/62 08/21/20 04:00 91 08/21/20 04:00 98.8 79 22 133/57 (82) 96 08/21/20 00:00 83 08/21/20 00:00 98.1 100 24 117/64 (81) 95 08/20/20 21:00 Room Air 08/20/20 20:00 98.2 76 24 120/56 (77) 95 08/20/20 20:00 96 08/20/20 16:02 76 08/20/20 16:00 97.6 100 20 103/58 (73) 96 08/20/20 12:00 97.6 86 20 119/69 (86) 100 08/20/20 11:44 101 08/20/20 11:44 101 Intake and Output 08/20/20 08/21/20 19:00 07:00 Intake Total 819 ml 240 ml Output Total 1100 ml 1200 ml Balance -281 ml -960 ml Intake Oral 354 ml 240 ml IV Total 465 ml Output Urine Total 1100 ml 1200 ml # Voids 2 1 Laboratory Tests 08/20/20 11:53: POC Whole Blood Glucose 287H 08/20/20 16:38: POC Whole Blood Glucose 390H 08/20/20 20:59: POC Whole Blood Glucose 257H 08/21/20 06:13: POC Whole Blood Glucose [Pending] 08/21/20 06:27: White Blood Count 15.5H, Red Blood Count 4.12L, Hemoglobin 11.2L, Hematocrit 34.3L, Mean Corpuscular Volume 83, Mean Corpuscular Hemoglobin 27.0, Mean Corpus cular Hemoglobin Concent 32.5, Red Cell Distribution Width 12.0, Platelet Count 181, Mean Platelet Volume 6.5, Neutrophils (%) (Auto) 49.6, Lymphocytes (%) (Auto) 42.5, Monocytes (%) (Auto) 6.5, Eosinophils (%) (Auto) 0.8, Basophils (%) (Auto) 0.6, Sodium Level 139, Potassium Level 3.6, Chloride Level 104, Carbon Dioxide Level 27, Anion Gap 8, Blood Urea Nitrogen 16, Creatinine 0.9, Estimat Glomerular Filtration Rate > 60, Glucose Level 203H, Calcium Level 8.2L, Magnesium Level 1.4L Height (Feet): 5 Height (Inches): 4.00 Weight (Pounds): 120 General Appearance: no apparent distress, alert EENT: normal ENT inspection Neck: non-tender, supple Cardiovascular: normal rate, regular rhythm Respiratory/Chest: lungs clear, normal breath sounds Abdomen: non tender, soft Extremities: non-tender Edema: no edema noted Arm (L), no edema noted Arm (R), no edema noted Leg (L), no edema noted Leg (R) Neurologic: alert, responsive Skin: warm/dry Assessment/Plan Status: stable Assessment/Plan: 1, ARF POSSIBLY PRE RENAL VS ATN - RENAL FUNCTION BACK TO NORMAL. 2. POSSIBLE SEPSIS - CONT CEFEPIME AND VANCO FOR 7 MORE DAYS. ID FOLLOWING. 3. CLL - MAY NEED TO F/U WITH HER ONCOLOGIST AT OUTPATIENT. 4. QUESTIONABLE ACUTE APPENDICITIS - CONT IV ABX. IMPROVED. ADVANCED DIET TO MECHANICAL SOFT. 5. DM II - WILL HOLD ALL ORAL MEDS AND START SSI IN HOSPITAL. 6. HTN - CONT NORVASC 5 MG ONE PO DAILY HOLD FOR SBP < 110. 7. GERD - CONT PROTONIX 40 MG IV DAILY AND PEPCID 20 MG ONE PO QHS. 8. HLD - CONT ATORVASTATIN 20 MG ONE PO QHS. 9. HYPOMAGNESEMIA - MAGNESIUM REPLACED. 10. UTI - IMPROVED WITH ABX. 11. LEUKOCYTOSIS - 2ND TO UTI AND POSSIBLE SEPSIS AND CLL - IMPROVING. 12. ABD PAIN - RESOLVED. MOST LIKELY DUE TO GASTRITIS. CONT PEPCID. D/C PROTONIX DUE TO LOW MAG. 13. FEVER - IMPROVED. CULTURES DONE. 14, POSSIBLE PNEUMONIA - CONT IV ABX. Pura Guillen MD Aug 21, 2020 09:17
[2020-08-21 12:00] VITALS: BP 118/66
[2020-08-21] MEDS: Vancomycin 1gm/D5W 275ml IVPB SCH ×2 (13:21)
[2020-08-21] MEDS ORDERED: Tubing IV Secondary IV ONE (13:24)
[2020-08-21] MEDS ORDERED: NS 275ml ONE (13:24)
--- NOTE | 2020-08-21 14:48 | NUR ---
ASE MANAGEMENT:REVIEW 08/21/20 SI: SEPSIS. ACUTE RENAL FAILURE 98.6 85 18 123/62 97% ON RA WBC+15.5 MAG-1.4 IS: IV MAG SULFATE Q1HRS X4 BAGS IV VANCOMYCIN Q24 IV CEFEPIME Q24 : TELEMETRY STATUS DCP: FROM [facility] PLAN: DIALYZED ONCE ON 08/14/20 DIALYSIS CATHETER HAS BEEN DC'D
--- NOTE | 2020-08-21 15:15 | Nephrology Progress Note ---
Assessment/Plan Problem List: (1) Acute renal failure Assessment: resolved (2) Nausea & vomiting (3) Abdominal pain (4) Metabolic acidosis (5) Leukocytosis Assessment: better (6) Sepsis (7) HTN (hypertension) (8) Diabetes (9) Hypokalemia Assessment: ok (10) Hypomagnesemia Plan Replete Mag abxs follow labs Discussed with dr Guillen Subjective Subjective feels ok Objective Objective Last 24 Hour Vital Signs Date Time Temp Pulse Resp B/P (MAP) Pulse Ox O2 Delivery O2 Flow Rate FiO2 08/21/20 09:00 Room Air 08/21/20 08:33 83 123/62 08/21/20 08:00 85 08/21/20 08:00 98.6 85 18 123/62 (82) 97 08/21/20 04:00 91 08/21/20 04:00 98.8 79 22 133/57 (82) 96 08/21/20 00:00 83 08/21/20 00:00 98.1 100 24 117/64 (81) 95 08/20/20 21:00 Room Air 08/20/20 20:00 98.2 76 24 120/56 (77) 95 08/20/20 20:00 96 08/20/20 16:02 76 08/20/20 16:00 97.6 100 20 103/58 (73) 96 Intake and Output 08/20/20 08/21/20 19:00 07:00 Intake Total 819 ml 240 ml Output Total 1100 ml 1200 ml Balance -281 ml -960 ml Intake Oral 354 ml 240 ml IV Total 465 ml Output Urine Total 1100 ml 1200 ml # Voids 2 1 Laboratory Tests 08/20/20 16:38: POC Whole Blood Glucose 390H 08/20/20 20:59: POC Whole Blood Glucose 257H 08/21/20 06:13: POC Whole Blood Glucose [Pending] 08/21/20 06:27: White Blood Count 15.5H, Red Blood Count 4.12L, Hemoglobin 11.2L, Hematocrit 34.3L, Mean Corpuscular Volume 83, Mean Corpuscular Hemoglobin 27.0, Mean Corpuscular Hemoglobin Concent 32.5, Red Cell Distribution Width 12.0, Platelet Count 181, Mean Platelet Volume 6.5, Neutrophils (%) (Auto) 49.6, Lymphocytes (%) (Auto) 42.5, Monocytes (%) (Auto) 6.5, Eosinophils (%) (Auto) 0.8, Basophils (%) (Auto) 0.6, Sodium Level 139, Potassium Level 3.6, Chloride Level 104, Carbon Dioxide Level 27, Anion Gap 8, Blood Urea Nitrogen 16, Creatinine 0.9, Estimat Glomerular Filtration Rate > 60, Glucose Level 203H, Calcium Level 8.2L, Magnesium Level 1.4L 08/21/20 11:05: Vancomycin Level Trough 5.0 08/21/20 11:30: POC Whole Blood Glucose [Pending] Height (Feet): 5 Height (Inches): 4.00 Weight (Pounds): 120 Cardiovascular: normal rate Respiratory/Chest: lungs clear Extremities: no edema, other Darrian Cortes MD Aug 21, 2020 15:15
--- NOTE | 2020-08-21 15:35 | Surgery Progress Note ---
Surgery Progress Note Subjective Symptoms: improved, tolerating diet, passing flatus, BM Objective Last 24 Hour Vital Signs Date Time Temp Pulse Resp B/P (MAP) Pulse Ox O2 Delivery O2 Flow Rate FiO2 08/21/20 09:00 Room Air 08/21/20 08:33 83 123/62 08/21/20 08:00 85 08/21/20 08:00 98.6 85 18 123/62 (82) 97 08/21/20 04:00 91 08/21/20 04:00 98.8 79 22 133/57 (82) 96 08/21/20 00:00 83 08/21/20 00:00 98.1 100 24 117/64 (81) 95 08/20/20 21:00 Room Air 08/20/20 20:00 98.2 76 24 120/56 (77) 95 08/20/20 20:00 96 08/20/20 16:02 76 08/20/20 16:00 97.6 100 20 103/58 (73) 96 I&O Intake and Output 08/20/20 08/21/20 19:00 07:00 Intake Total 819 ml 240 ml Output Total 1100 ml 1200 ml Balance -281 ml -960 ml Intake Oral 354 ml 240 ml IV Total 465 ml Output Urine Total 1100 ml 1200 ml # Voids 2 1 Cardiovascular: RSR Respiratory: clear Abdomen: soft, non-tender, present bowel sounds Extremities: no tenderness, no cyanosis Laboratory Tests Test 08/20/20 16:38 08/20/20 20:59 08/21/20 06:13 08/21/20 06:27 POC Whole Blood Glucose 390 MG/DL (74-106) H 257 MG/DL (74-106) H Pending White Blood Count 15.5 K/UL (4.8-10.8) H Red Blood Count 4.12 M/UL (4.20-5.40) L Hemoglobin 11.2 G/DL (12.0-16.0) L Hematocrit 34.3 % (37.0-47.0) L Mean Corpuscular Volume 83 FL (80-99) Mean Corpuscular Hemoglobin 27.0 PG (27.0-31.0) Mean Corpuscular Hemoglobin Concent 32.5 G/DL (32.0-36.0) Red Cell Distribution Width 12.0 % (11.6-14.8) Platelet Count 181 K/UL (150-450) Mean Platelet Volume 6.5 FL (6.5-10.1) Neutrophils (%) (Auto) 49.6 % (45.0-75.0) Lymphocytes (%) (Auto) 42.5 % (20.0-45.0) Monocytes (%) (Auto) 6.5 % (1.0-10.0) Eosinophils (%) (Auto) 0.8 % (0.0-3.0) Basophils (%) (Auto) 0.6 % (0.0-2.0) Sodium Level 139 MMOL/L (136-145) Potassium Level 3.6 MMOL/L (3.5-5.1) Chloride Level 104 MMOL/L (98-107) Carbon Dioxide Level 27 MMOL/L (21-32) Anion Gap 8 mmol/L (5-15) Blood Urea Nitrogen 16 mg/dL (7-18) Creatinine 0.9 MG/DL (0.55-1.30) Estimat Glomerular Filtration Rate > 60 mL/min (>60) Glucose Level 203 MG/DL (74-106) H Calcium Level 8.2 MG/DL (8.5-10.1) L Magnesium Level 1.4 MG/DL (1.8-2.4) L Test 08/21/20 11:05 08/21/20 11:30 Vancomycin Level Trough 5.0 ug/mL (5.0-12.0) POC Whole Blood Glucose Pending Plan Problems: (1) Acute appendicitis (2) UTI (urinary tract infection) (3) Acute renal failure (4) Abdominal pain Assessment & Plan: 79-year-old female with abdominal pain nausea emesis leukocytosis renal insufficiency. CT was reviewed and described as potential consideration for appendicitis though a normal appendix is noted there is just some stranding in the right lower quadrant. Patient with generalized abdominal pain states mainly in the epigastric upper region in the abdomen on examination she does not have significant tenderness in the right lower quadrant as compared to the remainder the abdomen.. Though appendicitis is a possibility clinically does not seem as if patient has appendicitis. Given her age committees and current medical status and the potential of early acute appendicitis will attempt treatment with antibiotic therapy and nonoperative in the event that it may be appendicitis. Will follow with her abdominal examinations Continue IV antibiotics per infectious disease Okay for clear liquid diet she has been on and tolerating Trend labs Hemodialysis per nephrology Thank you for allow me to participate in patient's care will follow with recommendations pain resolved tolerated diet Mild dependent atelectasis in both lung bases. There are multiple old rib fractures with healing callous noted There are several hepatic granulomas. The spleen is homogeneous. Gallbladder is without sludge or stone and there is no wall thickening. Mild diffuse fatty atrophy of the pancreas noted. There is slight nodular thickening of the left adrenal gland. Right adrenal is grossly unremarkable. The kidneys are normal in size, shape and axis. Small bowel loops are nondistended. The colon is also nondistended with average amount of stool. The appendix is normal in caliber but there is some inflammation around the tip of the retrocecal appendix. Question early tip appendicitis. There is no free fluid or free air. No pathologic adenopathy demonstrated. Bladder is empty. There is an enlarged uterus with a large central heterogeneous mass likely a large fibroid. Some peripheral calcification noted. IMPRESSION: RETROCECAL APPENDIX NORMAL IN CALIBER BUT THERE IS MILD INFLAMMATORY CHANGES AROUND THE TIP OF THE APPENDIX. QUESTION EARLY TIP APPENDICITIS. ENLARGED UTERUS WITH PROBABLE LARGE FIBROID. HEPATIC GRANULOMAS. MILD FATTY ATROPHY OF THE PANCREAS. SLIGHT NODULAR THICKENING OF THE LEFT ADRENAL GLAND PERHAPS HYPERPLASIA. OLD RIB FRACTURES. (5) Nausea & vomiting (6) Hyperkalemia (7) Leukocytosis Assessment & Plan: groin incontinence associated dermatitis local care initiated wash daily ensure change with incontinence patient instructed to tell staff when bm patient was good at telling staff recently to change after bm. attempts to go to restroom but sometimes still incontinent (8) Metabolic acidosis (9) Diabetes (10) Sepsis (11) HTN (hypertension) (12) Leukocytosis (13) Hyperkalemia (14) Meningioma (15) Rib contusion (16) Head injury, closed, without LOC [place] Aug 21, 2020 15:35
[2020-08-21 16:00] VITALS: BP 139/72
--- NOTE | 2020-08-21 16:55 | NUR ---
NURSE NOTES: SPOKE TO DR. FREDERICK REGARDING PATIENT'S DISCHARGE TO [facility] TOMORROW MORNING. RECEIVED ORDER FOR MAGNESIUM LEVEL, ORDER WILL BE CARRIED OUT AND WILL NOTIFY MD OF RESULT ONCE AVAILABLE. SPOKE TO MAYRA IN CASE MANAGEMENT AND INFORMED HER OF MD'S PLAN FOR PATIENT AND SHE STATED UNDERSTANDING. WILL CONTINUE TO MONITOR PATIENT.
--- NOTE | 2020-08-21 17:30 | NUR ---
NURSE NOTES: DR FREDERICK AWARE OF MAGNESIUM LEVEL. 4 BAGS OF MAGNESIUM SULFATE ADMINISTERED. PLACED ORDER FOR MG LEVELS. AWAITING RESULT
[2020-08-21] MEDS: Cefepime HCl 1 GM in D5W 55 ML IVPB SCH (17:37)
--- NOTE | 2020-08-21 17:48 | Infectious Diseases Prog Note ---
Assessment/Plan Problems: (1) Fever Assessment & Plan: SUSPECT NEW LUNGS INFILTRATES RELATED , and possible pneumonia , with no evidence of sepsis, and negative repeated blood cultures 2 and repeated urine culture, continue vancomycin empiric coverage with cefepime for 8 days total . (2) Acute appendicitis Assessment & Plan: evident on CT abdomen, with abdominal pain , nausea and vomiting, already on cefepime with metronidazole empirically, monitor clinically , surgical eval is in progress (3) UTI (urinary tract infection) Assessment & Plan: with negative culture, already on cefepime empirically for pneumonia coverage and possible appendicitis (4) Leukocytosis Assessment & Plan: suspect reactive and due to CLL too , with no evidence of sepsis , on cefepime , and metronidazole. will stop zyvox empirically since blood culture is negative x 2 (5) Acute renal failure Assessment & Plan: due to the above with dehydration , continue aggressive hydration with close monitoring of renal functions , avoid nephrotoxics , has HD catheter placed by renal for HD (6) Abdominal pain Assessment & Plan: due to the above, continue pain management as needed (7) Nausea & vomiting Assessment & Plan: suspect due to the above, rule out COVID 19 infection, will send nasal swab for PCR testing to confirm, keep patient in enhanced droplets isolation , supportive care as needed (8) CLL (chronic lymphocytic leukemia) Assessment & Plan: recommend oncology eval Subjective Constitutional: Reports: no symptoms HEENT: Reports: no symptoms Respiratory: Reports: no symptoms Breasts: Reports: no symptoms Cardiovascular: Reports: no symptoms Gastrointestinal/Abdominal: Reports: no symptoms Genitourinary: Reports: no symptoms Neurologic: Reports: no symptoms Psychiatric: Reports: no symptoms Skin: Reports: no symptoms Endocrine: Reports: no symptoms Hematologic: Reports: no symptoms Musculoskeletal: Reports: no symptoms Allergies: Coded Allergies: No Known Allergies (Unverified , 07/30/20) she is feeling better today and didn't have high fever , no SOB , NO abdominal discomfort , no nausea or vomiting and no diarrhea , off hemodialysis so far since She is making good urine Objective Last 24 Hour Vital Signs Date Time Temp Pulse Resp B/P (MAP) Pulse Ox O2 Delivery O2 Flow Rate FiO2 08/21/20 16:00 97.5 76 18 139/72 (94) 97 08/21/20 16:00 76 08/21/20 12:00 97.9 84 20 118/66 (83) 96 08/21/20 12:00 84 08/21/20 09:00 Room Air 08/21/20 08:33 83 123/62 08/21/20 08:00 85 08/21/20 08:00 98.6 85 18 123/62 (82) 97 08/21/20 04:00 91 08/21/20 04:00 98.8 79 22 133/57 (82) 96 08/21/20 00:00 83 08/21/20 00:00 98.1 100 24 117/64 (81) 95 08/20/20 21:00 Room Air 08/20/20 20:00 98.2 76 24 120/56 (77) 95 08/20/20 20:00 96 Height (Feet): 5 Height (Inches): 4.00 Weight (Pounds): 120 General Appearance: WD/WN, no acute distress HEENT: normocephalic, atraumatic, anicteric, mucous membranes moist, PERRL Respiratory/Chest: chest wall non-tender, lungs clear, normal breath sounds, no respiratory distress, no accessory muscle use Cardiovascular: normal peripheral pulses, normal rate, regular rhythm, no gallop/murmur, no JVD Abdomen: normal bowel sounds, soft, non tender, no organomegaly, non distended, no mass, no scars Genitourinary: normal external genitalia Extremities: no cyanosis, no clubbing Skin: no rash, no lesions, no ulcers Neurologic/Psychiatric: grievance and appeals specialist II-XII grossly normal, no motor/sensory deficits, alert, oriented x 3, responsive Lymphatic: no neck adenopathy, no groin adenopathy Musculoskeletal: normal muscle bulk, no effusion Laboratory Tests Test 08/20/20 20:59 08/21/20 06:13 08/21/20 06:25 08/21/20 06:27 POC Whole Blood Glucose 257 MG/DL (74-106) H Pending Magnesium Level Pending 1.4 MG/DL (1.8-2.4) L White Blood Count 15.5 K/UL (4.8-10.8) H Red Blood Count 4.12 M/UL (4.20-5.40) L Hemoglobin 11.2 G/DL (12.0-16.0) L Hematocrit 34.3 % (37.0-47.0) L Mean Corpuscular Volume 83 FL (80-99) Mean Corpuscular Hemoglobin 27.0 PG (27.0-31.0) Mean Corpuscular Hemoglobin Concent 32.5 G/DL (32.0-36.0) Red Cell Distribution Width 12.0 % (11.6-14.8) Platelet Count 181 K/UL (150-450) Mean Platelet Volume 6.5 FL (6.5-10.1) Neutrophils (%) (Auto) 49.6 % (45.0-75.0) Lymphocytes (%) (Auto) 42.5 % (20.0-45.0) Monocytes (%) (Auto) 6.5 % (1.0-10.0) Eosinophils (%) (Auto) 0.8 % (0.0-3.0) Basophils (%) (Auto) 0.6 % (0.0-2.0) Sodium Level 139 MMOL/L (136-145) Potassium Level 3.6 MMOL/L (3.5-5.1) Chloride Level 104 MMOL/L (98-107) Carbon Dioxide Level 27 MMOL/L (21-32) Anion Gap 8 mmol/L (5-15) Blood Urea Nitrogen 16 mg/dL (7-18) Creatinine 0.9 MG/DL (0.55-1.30) Estimat Glomerular Filtration Rate > 60 mL/min (>60) Glucose Level 203 MG/DL (74-106) H Calcium Level 8.2 MG/DL (8.5-10.1) L Test 08/21/20 11:05 08/21/20 11:30 08/21/20 16:02 Vancomycin Level Trough 5.0 ug/mL (5.0-12.0) POC Whole Blood Glucose Pending 495 MG/DL (74-106) H Current Medications Medications (Trade) Dose Ordered Sig/Russ Route PRN Reason Start Time Stop Time Status Last Admin Dose Admin Acetaminophen (Tylenol) 650 mg Q6H PRN ORAL For Headache and fever 08/13/20 21:30 09/12/20 21:29 08/19/20 08:27 Amlodipine Besylate (Norvasc) 5 mg DAILY ORAL 08/18/20 09:00 09/13/20 08:59 08/21/20 08:33 Atorvastatin Calcium (Lipitor) 20 mg QHS ORAL 08/13/20 22:00 11/11/20 21:59 08/20/20 21:08 Cefepime HCl 1 gm/ Dextrose 55 ml @ 110 mls/hr Q24H IVPB 08/16/20 17:30 08/23/20 17:29 08/21/20 17:37 Dextrose (Dextrose 50%) 25 ml Q30M PRN IV Hypoglycemia 08/13/20 22:15 11/11/20 22:14 Dextrose (Dextrose 50%) 50 ml Q30M PRN IV Hypoglycemia 08/13/20 22:15 11/11/20 22:14 Famotidine (Pepcid) 20 mg QHS ORAL 08/13/20 21:00 11/11/20 20:59 08/20/20 21:08 Folic Acid (Folate) 1 mg DAILY ORAL 08/14/20 09:00 09/13/20 08:59 08/21/20 08:32 Insulin Aspart (NovoLOG) BEFORE MEALS AND HS SUBQ 08/14/20 06:30 11/12/20 06:29 08/21/20 17:30 Ondansetron HCl (Zofran) 4 mg Q4H PRN IVP Nausea & Vomiting 08/15/20 12:15 09/14/20 12:14 08/18/20 13:38 Vancomycin HCl (Vanco pharmacy to dose) 1 ea DAILY PRN MISC Per rx protocol 08/18/20 11:30 09/17/20 11:29 Vancomycin HCl 1 gm/Dextrose 275 ml @ 183.708 mls/hr Q24H IVPB 08/21/20 13:00 08/26/20 12:59 08/21/20 13:21 Johanna Torres M.D. Aug 21, 2020 17:48
--- NOTE | 2020-08-21 19:07 | NUR ---
NURSE HAND-OFF REPORT: Important Events on Shift:[LOW MAGNESIUM] Patient Status: [Y] Diet: [CCHO SOFT DIET] Pending Orders: [Y] Pending Results/Labs:[Y] Pending MD notification:[N] Latest Vital Signs: Temperature 97.5 , Pulse 76 , B/P 139 /72 , Respiratory Rate 18 , O2 SAT 97 , Room Air, O2 Flow Rate . Vital Sign Comment: [STABLE] EKG Rhythm: Sinus Rhythm Rhythm change?: N MD Notified?: N -Dr Wilmer VANG Response: Message left await call Latest Green Fall Score: 85 Fall Risk: High Risk Safety Measures: Call light Within Reach, Bed Alarm Zone 2, Side Rails Side Rails x3, Bed position Low and Locked. Fall Precautions: Yellow Socks Yellow Gown Door Sign Patient Fall Education Report given to [LEONEL].
--- NOTE | 2020-08-21 19:10 | NUR ---
NURSE NOTES: Patient received from JAMIL Jaimes. Patient is awake and tried to make a conversation in [facility]. No signs of acute distress at the moment. Patient's sibley is patent and draining well. Bed is in the lowest position, call light and table are within reach. Will continue to monitor.
[2020-08-21 20:00] VITALS: BP 118/59
[2020-08-21] MEDS: Atorvastatin 20mg tab ORAL SCH (20:34)
[2020-08-21] MEDS ORDERED: Levemir Flexpen SUBQ SCH (21:00)
--- NOTE | 2020-08-21 23:29 | NUR ---
NURSE NOTES: Left message to Dr. Guillen informing him that patient's Magnesium level is currently 2.4. Awaiting callback for any further orders.
[2020-08-22] VITALS: BP 118/61
[2020-08-22 04:00] VITALS: BP 141/70
[2020-08-22] MEDS: NovoLOG Insulin Flexpen SUBQ SCH ×3 (05:33→16:40)
[2020-08-22 07:33] LABS: BASOPHILS % (AUTO) 0.8 % (0.0-2.0); EOSINOPHILS % (AUTO) 0.8 % (0.0-3.0); HEMATOCRIT 36.7 % (37.0-47.0); HEMOGLOBIN 11.8 G/DL (12.0-16.0); LYMPHOCYTES % (AUTO) 50.7 % (20.0-45.0); MEAN CORPUSCULAR VOLUME 84 FL (80-99); MONOCYTES % (AUTO) 6.3 % (1.0-10.0); NEUTROPHILS % (AUTO) 41.4 % (45.0-75.0); PLATELET COUNT 232 K/UL (150-450); RED BLOOD COUNT 4.38 M/UL (4.20-5.40); RED CELL DISTRIBUTION WIDTH 12.2 % (11.6-14.8); WHITE BLOOD COUNT 14.3 K/UL (4.8-10.8)
[2020-08-22 07:50] LABS: CALCIUM 8.6 MG/DL (8.5-10.1); POTASSIUM 3.7 MMOL/L (3.5-5.1)
--- NOTE | 2020-08-22 07:57 | NUR ---
NURSE HAND-OFF REPORT: Important Events on Shift:[] Patient Status: [Stable] Diet: [CCHO medium] Pending Orders: [] Pending Results/Labs:[] Pending MD notification:[] Latest Vital Signs: Temperature 97.9 , Pulse 101 , B/P 141 /70 , Respiratory Rate 20 , O2 SAT 97 , Room Air, O2 Flow Rate . Vital Sign Comment: [] EKG Rhythm: Sinus Rhythm Rhythm change?: N MD Notified?: N -Dr Wilmer VANG Response: Message left await call Latest Green Fall Score: 60 Fall Risk: High Risk Safety Measures: Call light Within Reach, Bed Alarm Zone 2, Side Rails Side Rails x3, Bed position Low and Locked. Fall Precautions: Yellow Socks Yellow Gown Door Sign Patient Fall Education Report given to [JAMIL Moss].
[2020-08-22 08:00] VITALS: BP 143/80
--- NOTE | 2020-08-22 08:02 | NUR ---
NURSE NOTES: Received report from JAMIL Mishra and JAMIL Eubanks. Observed pt sleeping, no s/sx of acute distress, breathing even and unlabored in RA. IV site patent and asymptomatic. Bed on lowest position, call light within reach. Will continue plan of care.
--- NOTE | 2020-08-22 09:19 | General Progress Note ---
Subjective Date patient seen: Aug 22, 2020 Constitutional: Reports: no symptoms HEENT: Reports: no symptoms Cardiovascular: Reports: no symptoms Respiratory: Reports: no symptoms Gastrointestinal/Abdominal: Reports: no symptoms Genitourinary: Reports: no symptoms Neurologic/Psychiatric: Reports: no symptoms Endocrine: Reports: no symptoms Hematologic/Lymphatic: Reports: no symptoms Allergies: Coded Allergies: No Known Allergies (Unverified , 07/30/20) Subjective she is doing better. able to eat well. No diarrhea. No fever or chills. no sob or chest pain. No nausea or vomiting. No abd Pain. Objective Last 24 Hour Vital Signs Date Time Temp Pulse Resp B/P (MAP) Pulse Ox O2 Delivery O2 Flow Rate FiO2 08/22/20 08:00 97.8 102 21 143/80 (101) 96 08/22/20 04:00 84 08/22/20 04:00 97.9 101 20 141/70 (93) 97 08/22/20 00:00 87 08/22/20 00:00 97.7 101 20 118/61 (80) 95 08/21/20 21:00 Room Air 08/21/20 20:00 98.1 81 21 118/59 (78) 95 08/21/20 20:00 79 08/21/20 16:00 97.5 76 18 139/72 (94) 97 08/21/20 16:00 76 08/21/20 12:00 97.9 84 20 118/66 (83) 96 08/21/20 12:00 84 Intake and Output 08/21/20 08/22/20 19:00 07:00 Intake Total 360 ml Output Total 600 ml 1200 ml Balance -240 ml -1200 ml Intake Oral 360 ml Output Urine Total 600 ml 1200 ml Laboratory Tests 08/21/20 11:05: Vancomycin Level Trough 5.0 08/21/20 11:30: POC Whole Blood Glucose [Pending] 08/21/20 16:02: POC Whole Blood Glucose 495H 08/21/20 20:32: POC Whole Blood Glucose [Pending] 08/21/20 21:05: Magnesium Level 2.4 08/22/20 05:30: POC Whole Blood Glucose 188H 08/22/20 06:06: White Blood Count 14.3H, Red Blood Count 4.38, Hemoglobin 11.8L, Hematocrit 36.7L, Mean Corpuscular Volume 84, Mean Corpuscular Hemoglobin 27.0, Mean Corpuscular Hemoglobin Concent 32.3, Red Cell Distribution Width 12.2, Platelet Count 232, Mean Platelet Volume 5.9L, Neutrophils (%) (Auto) 41.4L, Lymphocytes (%) (Auto) 50.7H, Monocytes (%) (Auto) 6.3, Eosinophils (%) (Auto) 0.8, Basophils (%) (Auto) 0.8, Sodium Level 140, Potassium Level 3.7, Chloride Level 103, Carbon Dioxide Level 29, Anion Gap 8, Blood Urea Nitrogen 21H, Creatinine 1.0, Estimat Glomerular Filtration Rate 53.3, Glucose Level 196H, Calcium Level 8.6 Height (Feet): 5 Height (Inches): 4.00 Weight (Pounds): 120 General Appearance: alert EENT: normal ENT inspection Neck: non-tender, supple Cardiovascular: normal rate, regular rhythm Respiratory/Chest: lungs clear, normal breath sounds Abdomen: non tender, soft Extremities: non-tender Edema: no edema noted Arm (L), no edema noted Arm (R), no edema noted Leg (L), no edema noted Leg (R) Neurologic: alert, responsive Skin: warm/dry Assessment/Plan Status: stable Assessment/Plan: 1, ARF POSSIBLY PRE RENAL VS ATN - RENAL FUNCTION BACK TO NORMAL. 2. POSSIBLE SEPSIS - CONT CEFEPIME AND VANCO FOR 6 MORE DAYS AT [facility]. D/C TO [facility] TODAY. 3. CLL - MAY NEED TO F/U WITH HER ONCOLOGIST AT OUTPATIENT. 4. QUESTIONABLE ACUTE APPENDICITIS - CONT IV ABX. IMPROVED. ADVANCED DIET TO MECHANICAL SOFT. 5. DM II - WILL HOLD ALL ORAL MEDS AND START SSI IN HOSPITAL. 6. HTN - CONT NORVASC 5 MG ONE PO DAILY HOLD FOR SBP < 110. 7. GERD - PEPCID 20 MG ONE PO QHS. 8. HLD - CONT ATORVASTATIN 20 MG ONE PO QHS. 9. HYPOMAGNESEMIA - RESOLVED. MAGNESIUM REPLACED. 10. UTI - IMPROVED WITH ABX. 11. LEUKOCYTOSIS - 2ND TO UTI AND POSSIBLE SEPSIS AND CLL - IMPROVING. 12. ABD PAIN - RESOLVED. MOST LIKELY DUE TO GASTRITIS. CONT PEPCID. 13. FEVER - RESOLVED. CULTURES DONE. 14, POSSIBLE PNEUMONIA - CONT IV ABX X 6 MORE DAYS. Pura Guillen MD Aug 22, 2020 09:19
[2020-08-22] MEDS ORDERED: NORVASC5 MG ORAL (09:22)
[2020-08-22] MEDS ORDERED: LISINOPRIL10 MG ORAL (09:24)
[2020-08-22] MEDS ORDERED: VANCOMYCIN1.5 GM/300 IV (10:33)
[2020-08-22] MEDS ORDERED: MAXIPIME2 GM IM (10:34)
--- NOTE | 2020-08-22 11:55 | NUR ---
DISCHARGE PLANNING: NOTE DC ORDER NOTED. CM S/W [facility]IT[facility] AT [facility]. DMITRIY IS WILLING TO ACCEPT THIS PT BACK ONCE COVID RE-SWAB RESULTS ARE IN. CM S/W NURSING REGARDING COLLECTING SWAB STAT. NURSING TO COLLECT CLINICALS FAXED TO [phone] AWAITING COVID RESULTS
[2020-08-22 12:00] VITALS: BP 145/75
[2020-08-22] MEDS: Vancomycin 1gm/D5W 275ml IVPB SCH ×2 (12:11)
--- NOTE | 2020-08-22 12:14 | Nephrology Progress Note ---
Assessment/Plan Problem List: (1) Acute renal failure Assessment: resolved (2) Nausea & vomiting (3) Abdominal pain (4) Metabolic acidosis (5) Leukocytosis Assessment: better (6) Sepsis (7) HTN (hypertension) (8) Diabetes (9) Hypokalemia Assessment: ok (10) Hypomagnesemia Assessment: ok Plan follow labs DC planning Subjective Subjective feels ok Objective Objective Last 24 Hour Vital Signs Date Time Temp Pulse Resp B/P (MAP) Pulse Ox O2 Delivery O2 Flow Rate FiO2 08/22/20 09:20 102 143/80 08/22/20 08:00 97.8 102 21 143/80 (101) 96 08/22/20 04:00 84 08/22/20 04:00 97.9 101 20 141/70 (93) 97 08/22/20 00:00 87 08/22/20 00:00 97.7 101 20 118/61 (80) 95 08/21/20 21:00 Room Air 08/21/20 20:00 98.1 81 21 118/59 (78) 95 08/21/20 20:00 79 08/21/20 16:00 97.5 76 18 139/72 (94) 97 08/21/20 16:00 76 Intake and Output 08/21/20 08/22/20 19:00 07:00 Intake Total 360 ml Output Total 600 ml 1200 ml Balance -240 ml -1200 ml Intake Oral 360 ml Output Urine Total 600 ml 1200 ml Laboratory Tests 08/21/20 16:02: POC Whole Blood Glucose 495H 08/21/20 20:32: POC Whole Blood Glucose [Pending] 08/21/20 21:05: Magnesium Level 2.4 08/22/20 05:30: POC Whole Blood Glucose 188H 08/22/20 06:06: White Blood Count 14.3H, Red Blood Count 4.38, Hemoglobin 11.8L, Hematocrit 36. 7L, Mean Corpuscular Volume 84, Mean Corpuscular Hemoglobin 27.0, Mean Corpuscular Hemoglobin Concent 32.3, Red Cell Distribution Width 12.2, Platelet Count 232, Mean Platelet Volume 5.9L, Neutrophils (%) (Auto) 41.4L, Lymphocytes (%) (Auto) 50.7H, Monocytes (%) (Auto) 6.3, Eosinophils (%) (Auto) 0.8, Basophil s (%) (Auto) 0.8, Sodium Level 140, Potassium Level 3.7, Chloride Level 103, Carbon Dioxide Level 29, Anion Gap 8, Blood Urea Nitrogen 21H, Creatinine 1.0, Estimat Glomerular Filtration Rate 53.3, Glucose Level 196H, Calcium Level 8.6 08/22/20 12:05: POC Whole Blood Glucose [Pending] Height (Feet): 5 Height (Inches): 4.00 Weight (Pounds): 120 Cardiovascular: normal rate Respiratory/Chest: lungs clear Darrian Cortes MD Aug 22, 2020 12:14
--- NOTE | 2020-08-22 13:26 | Surgery Progress Note ---
Surgery Progress Note Subjective Symptoms: improved, pain absent, tolerating diet, passing flatus, BM Objective Last 24 Hour Vital Signs Date Time Temp Pulse Resp B/P (MAP) Pulse Ox O2 Delivery O2 Flow Rate FiO2 08/22/20 09:20 102 143/80 08/22/20 08:00 97.8 102 21 143/80 (101) 96 08/22/20 04:00 84 08/22/20 04:00 97.9 101 20 141/70 (93) 97 08/22/20 00:00 87 08/22/20 00:00 97.7 101 20 118/61 (80) 95 08/21/20 21:00 Room Air 08/21/20 20:00 98.1 81 21 118/59 (78) 95 08/21/20 20:00 79 08/21/20 16:00 97.5 76 18 139/72 (94) 97 08/21/20 16:00 76 I&O Intake and Output 0 08/21/20 08/22/20 19:00 07:00 Intake Total 360 ml Output Total 600 ml 1200 ml Balance -240 ml -1200 ml Intake Oral 360 ml Output Urine Total 600 ml 1200 ml Cardiovascular: RSR Respiratory: clear Abdomen: soft, flat, non-tender, present bowel sounds Extremities: no edema, no tenderness, no cyanosis Laboratory Tests Test 08/21/20 16:02 08/21/20 20:32 08/21/20 21:05 08/22/20 05:30 POC Whole Blood Glucose 495 MG/DL (74-106) H Pending 188 MG/DL (74-106) H Magnesium Level 2.4 MG/DL (1.8-2.4) Test 08/22/20 06:06 08/22/20 12:05 White Blood Count 14.3 K/UL (4.8-10.8) H Red Blood Count 4.38 M/UL (4.20-5.40) Hemoglobin 11.8 G/DL (12.0-16.0) L Hematocrit 36.7 % (37.0-47.0) L Mean Corpuscular Volume 84 FL (80-99) Mean Corpuscular Hemoglobin 27.0 PG (27.0-31.0) Mean Corpuscular Hemoglobin Concent 32.3 G/DL (32.0-36.0) Red Cell Distribution Width 12.2 % (11.6-14.8) Platelet Count 232 K/UL (150-450) Mean Platelet Volume 5.9 FL (6.5-10.1) L Neutrophils (%) (Auto) 41.4 % (45.0-75.0) L Lymphocytes (%) (Auto) 50.7 % (20.0-45.0) H Monocytes (%) (Auto) 6.3 % (1.0-10.0) Eosinophils (%) (Auto) 0.8 % (0.0-3.0) Basophils (%) (Auto) 0.8 % (0.0-2.0) Sodium Level 140 MMOL/L (136-145) Potassium Level 3.7 MMOL/L (3.5-5.1) Chloride Level 103 MMOL/L (98-107) Carbon Dioxide Level 29 MMOL/L (21-32) Anion Gap 8 mmol/L (5-15) Blood Urea Nitrogen 21 mg/dL (7-18) H Creatinine 1.0 MG/DL (0.55-1.30) Estimat Glomerular Filtration Rate 53.3 mL/min (>60) Glucose Level 196 MG/DL (74-106) H Calcium Level 8.6 MG/DL (8.5-10.1) POC Whole Blood Glucose Pending Plan Problems: (1) Acute appendicitis (2) UTI (urinary tract infection) (3) Acute renal failure (4) Abdominal pain Assessment & Plan: 79-year-old female with abdominal pain nausea emesis leukocytosis renal insufficiency. CT was reviewed and described as potential consideration for appendicitis though a normal appendix is noted there is just some stranding in the right lower quadrant. Patient with generalized abdominal pain states mainly in the epigastric upper region in the abdomen on examination she does not have significant tenderness in the right lower quadrant as compared to the remainder the abdomen.. Though appendicitis is a possibility clinically does not seem as if patient has appendicitis. Given her age committees and current medical status and the potential of early acute appendicitis will attempt treatment with antibiotic therapy and nonoperative in the event that it may be appendicitis. Will follow with her abdominal examinations Continue IV antibiotics per infectious disease Okay for clear liquid diet she has been on and tolerating Trend labs Hemodialysis per nephrology Thank you for allow me to participate in patient's care will follow with recommendations pain resolved tolerated diet d/c planning Mild dependent atelectasis in both lung bases. There are multiple old rib fractures with healing callous noted There are several hepatic granulomas. The spleen is homogeneous. Gallbladder is without sludge or stone and there is no wall thickening. Mild diffuse fatty atrophy of the pancreas noted. There is slight nodular thickening of the left adrenal gland. Right adrenal is grossly unremarkable. The kidneys are normal in size, shape and axis. Small bowel loops are nondistended. The colon is also nondistended with average amount of stool. The appendix is normal in caliber but there is some inflammation around the tip of the retrocecal appendix. Question early tip appendicitis. There is no free fluid or free air. No pathologic adenopathy demonstrated. Bladder is empty. There is an enlarged uterus with a large central heterogeneous mass likely a large fibroid. Some peripheral calcification noted. IMPRESSION: RETROCECAL APPENDIX NORMAL IN CALIBER BUT THERE IS MILD INFLAMMATORY CHANGES AROUND THE TIP OF THE APPENDIX. QUESTION EARLY TIP APPENDICITIS. ENLARGED UTERUS WITH PROBABLE LARGE FIBROID. HEPATIC GRANULOMAS. MILD FATTY ATROPHY OF THE PANCREAS. SLIGHT NODULAR THICKENING OF THE LEFT ADRENAL GLAND PERHAPS HYPERPLASIA. OLD RIB FRACTURES. (5) Nausea & vomiting (6) Hyperkalemia (7) Leukocytosis Assessment & Plan: groin incontinence associated dermatitis local care initiated wash daily ensure change with incontinence patient instructed to tell staff when bm patient was good at telling staff recently to change after bm. attempts to go t o restroom but sometimes still incontinent (8) Metabolic acidosis (9) Diabetes (10) Sepsis (11) HTN (hypertension) (12) Leukocytosis (13) Hyperkalemia (14) Meningioma (15) Rib contusion (16) Head injury, closed, without LOC [place] Aug 22, 2020 13:26
--- NOTE | 2020-08-22 13:52 | NUR ---
DISCHARGE DISPOSITION: PLEASE READ PATIENT TO BE DISCHARGED TO [facility] [address] T: [phone]>> CALL FOR REPORT [facility] ETA [id number] TRANSFER REPORT TO BE PROVIDED CM S/W JENNY MEJIA T: [phone] IS AGREEABLE TO DC PLAN SKILLED
[2020-08-22] MEDS ORDERED: Cefepime HCl 1 GM in D5W 55 ML IVPB SCH (14:00)
[2020-08-22 16:00] VITALS: BP 138/73
--- NOTE | 2020-08-22 16:00 | NUR ---
NURSE NOTES: Report given to JAMIL Farr of [facility]
--- NOTE | 2020-08-22 17:20 | NUR ---
NURSE NOTES: STARR Jarrell made aware that ambulance pickup is not here yet. Per STARR, ambulance will arrive in 30mins.
--- NOTE | 2020-08-22 18:36 | NUR ---
NURSE NOTES: Called [facility] to f/u with the pickup time. Per Roz, ambulance will be here in 15-20mins.
--- NOTE | 2020-08-22 19:00 | NUR ---
NURSE HAND-OFF REPORT: Important Events on Shift: Pt awaiting for ambulance pickup. WCP uploaded, report given to receiving nurse at [facility]. DC pt with IV, per MD. Patient Status: stable Diet: CCHO Pending Orders: Pending Results/Labs: Pending MD notification: Latest Vital Signs: Temperature 97.6 , Pulse 87 , B/P 138 /73 , Respiratory Rate 20 , O2 SAT 98 , Room Air, O2 Flow Rate . Vital Sign Comment: EKG Rhythm: Sinus Rhythm Rhythm change?: N Notified?: N -Dr Wilmer VANG Response: Message left await call Latest Green Fall Score: 60 Fall Risk: High Risk Safety Measures: Call light Within Reach, Bed Alarm Zone 2, Side Rails Side Rails x3, Bed position Low and Locked. Fall Precautions: Yellow Socks Yellow Gown Door Sign Patient Fall Education Report given to JAMIL Mott
--- NOTE | 2020-08-22 19:49 | NUR ---
NURSE NOTES: Patient is being discharged from medical care. Awake, alert and oriented x3. After care instructions and pocket were given to [facility]. Patient also verbalized understanding of After care instructions. Patient signed patient consent in the medical record for patient destination upon discharge. Patient voided before she transferred to ambulance [facility]. ID band were removed, and kept her IV line in place per doctor's order because patient needs to continue her antibiotic in [facility] for 6 days more and JAMIL Farr was aware. Patient has her all personal belongings and in stable condition, without complaints made at this time.
--- NOTE | 2020-08-23 04:30 | Discharge Summary ---
DATE OF ADMISSION: 08/13/2020 DATE OF DISCHARGE: 08/22/2020 CHIEF COMPLAINT: Nausea, vomiting, and abdominal pain. HOSPITAL COURSE: This is an 80-year-old [place] female with a past medical history of hypertension, diabetes, CLL, hyperlipidemia, GERD, and chronic low back pain, who was brought in from assisted living for complaint of nausea, vomiting, and lower abdominal pain for 2 days prior to admission. The patient was found to have acute renal failure. The patient had a creatinine of 6.1 on admission and she was aggressively hydrated with IV fluids and IV antibiotic for sepsis. [place] [id number] [place] admission that slowly improved with IV antibiotic. The patient's COVID-19 test was negative toward the hospital stay. She also had 1-time hemodialysis done during the hospital admission with Dr. Darrian Cortes. The patient responded to IV hydration and 1-time hemodialysis and her acute renal failure resolved. The patient was started on Flagyl and cefepime for questionable tip appendicitis seen by CT scan. The patient was seen by General Surgery who did not see any reason for any surgical intervention and IV antibiotic was continued. The patient responded to the therapy with IV antibiotics and her abdominal pain resolved. She also had urinary tract infection and the IV antibiotic was continued for that as well. While in the last few days of hospital admission, the patient developed fever and chest x-ray showed new formation of infiltrate and pneumonia. The patient was continued on cefepime and switched from Flagyl to vancomycin for a total of 10 days for the treatment of pneumonia. The patient will be going to [facility] for 6 more days of IV antibiotic and physical therapy, and she will be transferred back to the assisted living where she resides after the therapy and IV antibiotic. FINAL DIAGNOSES: 1. Acute renal failure secondary to acute tubular necrosis, resolved. 2. Sepsis, resolved. 3. CLL. 4. Acute appendicitis, resolved. 5. Diabetes mellitus type 2. 6. Hypertension. 7. Gastroesophageal reflux disease. 8. Hyperlipidemia. 9. Hypomagnesemia. 10. Hypokalemia, both resolved. 11. Urinary tract infection. 12. Leukocytosis. 13. Pneumonia. DISCHARGE MEDICATIONS: Amlodipine 5 mg 1 daily, lisinopril 10 mg daily, alendronate 70 mg weekly, acetaminophen 325 mg q.6h. p.r.n., atorvastatin 20 mg 1 at bedtime, cefepime 1 g IV daily x6 days, famotidine 40 mg 1 daily, folic acid 1 mg daily, Jardiance 10 mg daily, Tradjenta 5 mg daily, metformin 1000 mg b.i.d., multivitamin one tablet daily, and Paxil 20 mg daily, Metamucil 1 capsule daily, and vancomycin 1 g IV q.24h. daily for 6 days. DISPOSITION: The patient will be discharged to [facility] for IV antibiotic and physical therapy and will be returning to her assisted living following 1 week of therapy and IV antibiotic. Pura Guillen M.D. DR: Mars JOB#: [id number] CC:
[2020-08-23] MEDS ORDERED: Vancomycin 1 GM in NS 275 ML IVPB SCH (13:00)
== END 2020-08-22 19:56 | disposition short-term general hospital (02) | DRG 871 ==
LOC: EDBD 13:11 → EMR 13:46 → 2W 14:34 → EDBEDREQSVC 16:04 → EDBEDREQ 16:04 → 2E 08-17 17:54
PROC: 02HV33Z Insertion of Infusion Device into Superior Vena Cava, Percutaneous Approach (ICD-10-PCS; principal; 2020-08-14)
PROC: 5A1D70Z Performance of Urinary Filtration, Intermittent, Less than 6 Hours Per Day (ICD-10-PCS; principal; 2020-08-14)
DX: A41.9 Sepsis, unspecified organism (principal); N17.0 Acute kidney failure with tubular necrosis; J18.9 Pneumonia, unspecified organism; N39.0 Urinary tract infection, site not specified; K35.80 Unspecified acute appendicitis; C91.10 Chronic lymphocytic leukemia of B-cell type not having achieved remission; E11.9 Type 2 diabetes mellitus without complications; I10 Essential (primary) hypertension; E78.5 Hyperlipidemia, unspecified; B35.6 Tinea cruris; K21.9 Gastro-esophageal reflux disease without esophagitis; E83.42 Hypomagnesemia; Z79.84 Long term (current) use of oral hypoglycemic drugs; E87.6 Hypokalemia; R10.9 Unspecified abdominal pain
CPT/HCPCS: 36415; 36569; 71045; 74018; 74176; 76937; 80048; 80053; 80202; 81003; 82306; 82550; 82553; 82803; 82962; 83605; 83690; 83735; 83970; 84484; 85007; 85025; 85610; 85651; 85730; 86140; 86706; 86707; 86803; 87040; 87081; 87086; 93005; 94640; 96361; 96365; 96368; 96375; 99291; J1815; J2405; J7030; J8499; S5561; U0002

== ENCOUNTER 2021-01-03 14:52 | Inpatient (IN) | payer MEDICARE, OTHER ==
[~2021-01-03] VITALS: Ht 157.5 cm; Wt 63.5 kg
[~2021-01-03 14:52] MED LIST changes: +CICLODAN 0.77%544 GM TP; +JARDIANCE PO; +LISINOPRIL10 MG ORAL; +MAXIPIME2 GM IM; +MILK OF MA400 MG/51 ORAL; +NORVASC5 MG ORAL; +PROMETHAZINE-D118 ML ORAL; +VANCOMYCIN1.5 GM/300 IV; +VITAMIN B-12500 MCG ORAL; +[UNRECOGNIZED DRUG - OTHER] PO
[2021-01-03] MEDS ORDERED: Sodium Chloride 1,900 ML IVLG ONE (15:00)
--- NOTE | 2021-01-03 15:18 | Emergency Room Report ---
History of Present Illness General Chief Complaint: Abnormal Labs Source: Medical Record Present Illness HPI Disclaimer: Please note that this report is being documented using DRAGON technology. This can lead to erroneous entry secondary to incorrect interpretation by the dictating instrument. HPI: 88-year-old female [facility] secondary to reported leukocytosis and low hemoglobin. Patient does not describe any complaints in the ER. No report of nausea vomiting cough or fever. Patient has a history of diabetes, CLL, hyperlipidemia, GERD, and chronic low back pain. Patient also has a history of UTI per PMD. Allergies: Coded Allergies: No Known Allergies (Unverified , 07/30/20) COVID-19 Screening Contact w/high risk pt: No Experienced COVID-19 symptoms?: No COVID-19 Testing performed FIN[employer]ER: No Patient History Reviewed Nursing Documentation: PMH: Agreed; PSxH: Agreed Nursing Documentation-PMH Past Medical History: No History, Except For Hx Hypertension: Yes - high cholesterol Hx Diabetes: Yes Hx Dementia: Yes Hx Head Trauma: Yes - head injury Review of Systems All Other Systems: negative except mentioned in HPI Physical Exam Vital Signs Date Time Temp Pulse Resp B/P (MAP) Pulse Ox O2 Delivery O2 Flow Rate FiO2 01/03/21 14:48 92 14 90/56 (67) 93 Room Air Sp02 EP Interpretation: reviewed, normal General Appearance: well appearing, no apparent distress Head: normocephalic, atraumatic Eyes: bilateral eye PERRL, bilateral eye EOMI ENT: hearing grossly normal, moist mucus membranes Neck: full range of motion, supple Respiratory: lungs clear, normal breath sounds, no rhonchi, no respiratory distress, no retraction, no wheezing Cardiovascular #1: normal peripheral pulses, regular rate, rhythm, no murmur Gastrointestinal: non tender, soft, non-distended, no guarding Neurologic: alert, oriented x3, no focal defects Skin: normal color, warm/dry Procedures Critical Care Time Critical Care Time Critical care is managed patient due to presentation with severe leukocytosis and UTI requiring my intervention. Critical care time is 35 minutes and excludes procedures. Medical Decision Making Diagnostic Impression: Primary Impression: UTI (urinary tract infection) Additional Impression: Sepsis ER Course MDM: Differential included but not limited to sepsis, UTI, pneumonia, dehydration to name a few Clinical course-IV inserted, septic work-up initiated, white blood cell count was 28,000. Urinalysis consistent with UTI. Patient given broad-spectrum IV antibiotics. Case discussed with patient's primary care doctor who will admit the patient. Case also discussed with ID. Patient will be admitted to the medical floor. Labs - Laboratory Tests Test 01/03/21 15:22 01/03/21 16:27 White Blood Count 28.1 K/UL (4.8-10.8) *H Red Blood Count 3.69 M/UL (4.20-5.40) L Hemoglobin 9.6 G/DL (12.0-16.0) L Hematocrit 30.7 % (37.0-47.0) L Mean Corpuscular Volume 83 FL (80-99) Mean Corpuscular Hemoglobin 25.9 PG (27.0-31.0) L Mean Corpuscular Hemoglobin Concent 31.1 G/DL (32.0-36.0) L Red Cell Distribution Width 14.6 % (11.6-14.8) Platelet Count 396 K/UL (150-450) Mean Platelet Volume 6.6 FL (6.5-10.1) Neutrophils (%) (Auto) % (45.0-75.0) Lymphocytes (%) (Auto) % (20.0-45.0) Monocytes (%) (Auto) % (1.0-10.0) Eosinophils (%) (Auto) % (0.0-3.0) Basophils (%) (Auto) % (0.0-2.0) Neutrophils % (Manual) Pending Lymphocytes % (Manual) Pending Platelet Estimate Pending Platelet Morphology Pending Sodium Level 134 MMOL/L (136-145) L Potassium Level 4.5 MMOL/L (3.5-5.1) Chloride Level 97 MMOL/L (98-107) L Carbon Dioxide Level 25 MMOL/L (21-32) Anion Gap 13 mmol/L (5-15) Blood Urea Nitrogen 29 mg/dL (7-18) H Creatinine 1.0 MG/DL (0.55-1.30) Estimated Glomerular Filtration Rate 53.3 mL/min (>60) Glucose Level 251 MG/DL (74-106) H Lactic Acid Level 2.30 mmol/L (0.4-2.0) H Calcium Level 9.4 MG/DL (8.5-10.1) Total Bilirubin 0.4 MG/DL (0.2-1.0) Aspartate Amino Transferase (AST) 28 U/L (15-37) Alanine Aminotransferase (ALT) 16 U/L (12-78) Alkaline Phosphatase 70 U/L (46-116) Total Creatine Kinase 26 U/L (26-308) Troponin I 0.000 ng/mL (0.000-0.056) Pro-B-Type Natriuretic Peptide 3109 pg/mL (0-125) H Total Protein 7.4 G/DL (6.4-8.2) Albumin 2.6 G/DL (3.4-5.0) L Globulin 4.8 g/dL Albumin/Globulin Ratio 0.5 (1.0-2.7) L Lipase 176 U/L (73-393) Urine Color Yellow Urine Appearance Slightly cloudy Urine pH 5 (4.5-8.0) Urine Specific [place] 1.010 (1.005-1.035) Urine Protein 1+ (NEGATIVE) H Urine Glucose (UA) 4+ (NEGATIVE) H Urine Ketones 1+ (NEGATIVE) H Urine Blood Negative (NEGATIVE) Urine Nitrite Negative (NEGATIVE) Urine Bilirubin Negative (NEGATIVE) Urine Urobilinogen Normal MG/DL (0.0-1.0) Urine Leukocyte Esterase Negative (NEGATIVE) Urine RBC Pending Urine WBC Pending Urine Squamous Epithelial Cells Pending Urine Bacteria Pending On reevaluation: Sepsis assessment: after appropriate fluid bolus patient did not require vasopressors. Plan-admission to the medical floor EKG Diagnostic Results Rate: normal Rhythm: other - Atrial fibrillation Other Impression No obvious ST elevation Last Vital Signs Date Time Temp Pulse Resp B/P (MAP) Pulse Ox O2 Delivery O2 Flow Rate FiO2 01/03/21 14:48 92 14 90/56 (67) 93 Room Air Disposition: ADMITTED INPATIENT Condition: Serious Simon Hunter M.D. Jan 03, 2021 15:18
[2021-01-03 16:04] LABS: HEMATOCRIT 30.7 % (37.0-47.0); HEMOGLOBIN 9.6 G/DL (12.0-16.0); MEAN CORPUSCULAR VOLUME 83 FL (80-99); PLATELET COUNT 396 K/UL (150-450); RED BLOOD COUNT 3.69 M/UL (4.20-5.40); RED CELL DISTRIBUTION WIDTH 14.6 % (11.6-14.8)
[2021-01-03 16:05] LABS: ANION GAP 13 mmol/L (5-15); BLOOD UREA NITROGEN 29 mg/dL (7-18); CALCIUM 9.4 MG/DL (8.5-10.1); CARBON DIOXIDE 25 MMOL/L (21-32); CHLORIDE 97 MMOL/L (98-107); POTASSIUM 4.5 MMOL/L (3.5-5.1); SODIUM 134 MMOL/L (136-145)
[2021-01-03 16:07] LABS: WHITE BLOOD COUNT 28.1 K/UL (4.8-10.8)
[2021-01-03] MEDS ORDERED: Piperacillin/Tazobactam 3.375 GM in NS 110 ML IVPB ONE ×2 (16:15→16:45)
[2021-01-03 16:16] LABS: ALANINE AMINOTRANSFERASE 16 U/L (12-78); ALBUMIN 2.6 G/DL (3.4-5.0); ALBUMIN/GLOBULIN RATIO 0.5 (1.0-2.7); ALKALINE PHOSPHATASE 70 U/L (46-116); ASPARTATE AMINO TRANSFERASE 28 U/L (15-37); BILIRUBIN,TOTAL 0.4 MG/DL (0.2-1.0); CREATINE KINASE 26 U/L (26-308)
--- NOTE | 2021-01-03 16:17 | Diagnostic Imaging Report ---
Indication: Shortness of breath Technique: One view of the chest Comparison: 08/18/2020 Findings: Previously demonstrated temporary dialysis catheter is no longer evident. No definite acute infiltrates or effusions. The bilateral hemidiaphragms are not well-demonstrated, unlike previously. Bilateral healed rib fracture deformities are again noted.. Impression: No definite acute process
--- NOTE | 2021-01-03 16:54 | NUR ---
Nurse Note: Pt from [facility]. Came by EMS, with the complain of weekness, low B/P and abnormal lab work. Pt alert, oriented in person, denies any pain at this time. Pt present ailyn in her [employer] report she fall in the past.
[2021-01-03 16:58] VITALS: BP 89/50
[2021-01-03 17:04] LABS: BILIRUBIN, URINE NEGATIVE (NEGATIVE); KETONES,URINE 1+ (NEGATIVE); NITRITE,URINE NEGATIVE (NEGATIVE); UROBILINOGEN,URINE NORMAL MG/DL (0.0-1.0)
[2021-01-03 17:14] LABS: APPEARANCE,URINE SLIGHTLY CLOUDY; COLOR,URINE YELLOW
[2021-01-03 17:32] LABS: PH,URINE 5 (4.5-8.0); PROTEIN,URINE 1+ (NEGATIVE)
[2021-01-03 17:33] LABS: GLUCOSE, URINE (UA) 4+ (NEGATIVE); LEUKOCYTE ESTERASE ,URINE NEGATIVE (NEGATIVE)
--- NOTE | 2021-01-03 17:57 | NUR ---
Report: Call and give report to Brody NEGRON
--- NOTE | 2021-01-03 18:10 | NUR ---
NURSE NOTES: Patient arrived safely to via gurney. Handoff received from Joan NEGRON. Patient is awake and alert, can speak a small amount of cy[employer]ot. no signs of acute distress noted, no reports of pain or discomfort. Breathing is even and unlabored on room air. IV on left Ac is intact and saline locked. ADRIANA Diego left message for MD for admission orders. Bed is low and locked, side rails up x2, call light is within reach. Addendum: 01/03/21 at 1850 by Brandon Valle RN RN Small bruises noted on forehead, HANNAH arms, and HANNAH knees.
[2021-01-03] MEDS ORDERED: Milk of Magnesia 30ml Ud ORAL PRN (18:45)
[2021-01-03] MEDS ORDERED: Lactulose 20gm/30ml UDC ORAL PRN (18:45)
[2021-01-03] MEDS ORDERED: Metamucil Pkt ORAL PRN (18:56)
--- NOTE | 2021-01-03 19:07 | NUR ---
NURSE HAND-OFF: Important Events on Shift:[admission] Patient Status: [stable] Diet: kosher soft Pending Orders: Pending Results/Labs: Pending MD notification: Latest Vital Signs: Temperature 98.0 , Pulse 96 , B/P 102 /56 , Respiratory Rate 17 , O2 SAT 97 , Room Air, O2 Flow Rate . Vital Sign Comment: [stable] Latest Green Fall Score: 70 Fall Risk: High Risk Safety Measures: Call light , Bed Alarm , Side Rails , Bed position . Fall Precautions: Report given to Skinny NEGRON.
--- NOTE | 2021-01-03 19:45 | NUR ---
NURSE NOTES: Received report from Brandon NEGRON. Patient is asleep at the moment. On room air, breathing is even and unlabored. No complains of pain or distress noted. IV right FA intact and patent with no bleeding noted. Bed low and locked. Call light within reach.
[2021-01-03 20:00] VITALS: BP 132/74
--- NOTE | 2021-01-03 20:47 | Consultation ---
History of Present Illness General Date patient seen: Jan 03, 2021 Time patient seen: 16:40 Chief Complaint: Abnormal Labs with leukocytosis Referring physician: Pura Virk Reason for Consultation: Leukocytosis possible sepsis with right lower lobe Present Illness HPI This is an 88-year-old [place] female a jail resident with past medical history of diabetes mellitus, CLL, hyperlipidemia, GERD, chronic low back pain and UTI was sent from care home facility to [facility] for abnormal labs with significant leukocytosis and anemia with low hemoglobin level. Patient was lethargic and weak and had poor oral intake in her facility so she had lab work done showed the above findings so she was sent to the emergency room at [facility] for further evaluation and management. Patient was satting 93% on room air with blood pressure of 90/66 and pulse of 92. She had extensive work-up revealed significant leukocytosis with WBC of 38 .1 and hemoglobin of 9.6, BUN of 29 with creatinine of 1 and lactic acid of 2.3, normal AST and ALT, urine analysis was negative for infection, chest x-ray was suspicious for right lower lobe infiltrations concerning for pneumonia and sepsis since she was hypotensive so she was admitted to the medical floor for an IV antibiotics treatment and infectious disease consultation was requested for antibiotic guidance and further care. As of note patient is poor historian and could not provide good history at this time Allergies: Coded Allergies: No Known Allergies (Unverified , 07/30/20) Medication History Scheduled Alendronate Sodium (Alendronate Sodium), 70 MG PO ONCE A WEEK, (Reported) Amlodipine Besylate (Norvasc), 5 MG ORAL DAILY Amlodipine Besylate* (Amlodipine Besylate*), 10 MG ORAL DAILY, (Reported) Atorvastatin Calcium* (Atorvastatin Calcium*), 20 MG ORAL BEDTIME, (Reported) Cefepime Hcl (Maxipime), 1 GM IM Q24hr, (Reported) Ciclopirox/Skin Cleanser No.28 (Ciclodan 0.77% Cream Kit), GM TP BID, (Reported) Cyanocobalamin (Vitamin B-12)* (Vitamin B-12*), 1,000 MCG ORAL DAILY, (Reported) Famotidine* (Pepcid 20mg tablet*), 40 MG ORAL DAILY, (Reported) Folic Acid* (Folic Acid*), 1 MG ORAL DAILY, (Reported) Lactulose (Lactulose*), 30 ML ORAL BID, (Reported) Linagliptin (Tradjenta), 5 MG PO DAILY, (Reported) Lisinopril (Lisinopril*), 40 MG ORAL DAILY, (Reported) Lisinopril* (Lisinopril*), 10 MG ORAL DAILY Magnesium Hydroxide* (Milk Of Magnesia*), 30 ML ORAL DAILY, (Reported) Metformin Hcl* (Metformin Hcl*), 1,000 MG ORAL BID, (Reported) Multivitamin (Daily Lui), 1 TAB ORAL DAILY, (Reported) Omeprazole (Omeprazole), 40 MG ORAL DAILY, (Reported) Paroxetine Hcl* (Paxil*), 20 MG ORAL DAILY, (Reported) Psyllium Husk/Ca Carbonate (Metamucil Plus Calcium Capsule), 1 EACH PO DAILY, (Reported) Vancomycin/Water For Inj (Vancomycin 1.5 Gram/300 ml Bag), 1 GM IV Q24hr, (Rep orted) [Jardiance], 10 MG PO DAILY, (Reported) Scheduled PRN Acetaminophen* (Acetaminophen 325MG Tablet*), 325 MG ORAL Q6H PRN for For Pain D-Methorphan Hb/Prometh Hcl* (Promethazine-Dm Syrup*), 5 ML ORAL Q8HR PRN for For Cough, (Reported) Ondansetron* (Zofran*), 4 MG ORAL Q6H PRN for Nausea & Vomiting, (Reported) Tramadol Hcl* (Ultram*), 50 MG ORAL BID PRN for For Pain, (Reported) Patient History Limited by: language barrier, medical condition Healthcare decision maker N Resuscitation status Advanced Directive on File Past Medical/Surgical History Past Medical/Surgical History: (1) Diabetes (2) HTN (hypertension) (3) CLL (chronic lymphocytic leukemia) (4) Meningioma Family History Family History: (1) Unknown family medical history Social History Social History: (1) skilled nursing resident (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 (3) No history of alcohol use Review of Systems Constitutional: Reports: weakness Eye: Reports: no symptoms ENT: Reports: no symptoms Respiratory: Reports: cough, shortness of breath Cardiovascular: Reports: palpitations Gastrointestinal: Reports: no symptoms Genitourinary: Reports: no symptoms Musculoskeletal: Reports: muscle pain Skin: Reports: no symptoms Psychiatric: Reports: no symptoms Neurological: Reports: no symptoms Endocrine: Reports: no symptoms Hematologic/Lymphatic: Reports: no symptoms Physical Exam General Appearance: WD/WN, no apparent distress, alert, lethargic, other - Pale Lines, tubes and drains: peripheral HEENT: normocephalic, atraumatic, anicteric, mucous membranes moist Neck: non-tender, normal alignment, supple, normal inspection Respiratory/Chest: chest wall non-tender, no respiratory distress, no accessory muscle use, crackles/rales Cardiovascular/Chest: normal peripheral pulses, normal rate, regular rhythm, no gallop/murmur, no JVD Abdomen: normal bowel sounds, non tender, soft, no organomegaly, no mass Genitourinary/Rectal: normal genital exam Extremities: normal range of motion, non-tender, normal inspection, no calf tenderness, normal capillary refill Skin Exam: normal pigmentation, warm/dry 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, alert, oriented x 3, responsive Musculoskeletal: normal muscle bulk, no effusion Last 24 Hour Vital Signs Date Time Temp Pulse Resp B/P (MAP) Pulse Ox O2 Delivery O2 Flow Rate FiO2 01/03/21 18:35 Room Air 01/03/21 18:18 98.0 96 17 102/56 97 Room Air 01/03/21 16:58 98.0 96 14 89/50 99 Room Air 01/03/21 14:48 92 14 90/56 (67) 93 Room Air Laboratory Tests Test 01/03/21 15:22 01/03/21 16:27 White Blood Count 28.1 K/UL (4.8-10.8) *H Red Blood Count 3.69 M/UL (4.20-5.40) L Hemoglobin 9.6 G/DL (12.0-16.0) L Hematocrit 30.7 % (37.0-47.0) L Mean Corpuscular Volume 83 FL (80-99) Mean Corpuscular Hemoglobin 25.9 PG (27.0-31.0) L Mean Corpuscular Hemoglobin Concent 31.1 G/DL (32.0-36.0) L Red Cell Distribution Width 14.6 % (11.6-14.8) Platelet Count 396 K/UL (150-450) Mean Platelet Volume 6.6 FL (6.5-10.1) Neutrophils (%) (Auto) % (45.0-75.0) Lymphocytes (%) (Auto) % (20.0-45.0) Monocytes (%) (Auto) % (1.0-10.0) Eosinophils (%) (Auto) % (0.0-3.0) Basophils (%) (Auto) % (0.0-2.0) Differential Total Cells Counted 100 Neutrophils % (Manual) 73 % (45-75) Lymphocytes % (Manual) 20 % (20-45) Monocytes % (Manual) 6 % (1-10) Eosinophils % (Manual) 1 % (0-3) Basophils % (Manual) 0 % (0-2) Band Neutrophils 0 % (0-8) Platelet Estimate Adequate Platelet Morphology Normal Hypochromasia 1+ Anisocytosis 1+ Sodium Level 134 MMOL/L (136-145) L Potassium Level 4.5 MMOL/L (3.5-5.1) Chloride Level 97 MMOL/L (98-107) L Carbon Dioxide Level 25 MMOL/L (21-32) Anion Gap 13 mmol/L (5-15) Blood Urea Nitrogen 29 mg/dL (7-18) H Creatinine 1.0 MG/DL (0.55-1.30) Estimat Glomerular Filtration Rate 53.3 mL/min (>60) Glucose Level 251 MG/DL (74-106) H Lactic Acid Level 2.30 mmol/L (0.4-2.0) H Calcium Level 9.4 MG/DL (8.5-10.1) Total Bilirubin 0.4 MG/DL (0.2-1.0) Aspartate Amino Transf (AST/SGOT) 28 U/L (15-37) Alanine Aminotransferase (ALT/SGPT) 16 U/L (12-78) Alkaline Phosphatase 70 U/L (46-116) Total Creatine Kinase 26 U/L (26-308) Troponin I 0.000 ng/mL (0.000-0.056) Pro-B-Type Natriuretic Peptide 3109 pg/mL (0-125) H Total Protein 7.4 G/DL (6.4-8.2) Albumin 2.6 G/DL (3.4-5.0) L Globulin 4.8 g/dL Albumin/Globulin Ratio 0.5 (1.0-2.7) L Lipase 176 U/L (73-393) Urine Color Yellow Urine Appearance Slightly cloudy Urine pH 5 (4.5-8.0) Urine Specific [place] 1.010 (1.005-1.035) Urine Protein 1+ (NEGATIVE) H Urine Glucose (UA) 4+ (NEGATIVE) H Urine Ketones 1+ (NEGATIVE) H Urine Blood Negative (NEGATIVE) Urine Nitrite Negative (NEGATIVE) Urine Bilirubin Negative (NEGATIVE) Urine Urobilinogen Normal MG/DL (0.0-1.0) Urine Leukocyte Esterase Negative (NEGATIVE) Urine RBC /HPF (0 - 2) Urine WBC /HPF (0 - 2) Urine Squamous Epithelial Cells /LPF (NONE/OCC) Urine Bacteria /HPF (NONE) Microbiology Date/Time Source Procedure Growth Status 01/03/21 17:30 Rectum Received Height (Feet): 5 Height (Inches): 2.00 Weight (Pounds): 140 Medications Current Medications Medications (Trade) Dose Ordered Sig/Russ Route PRN Reason Start Time Stop Time Status Last Admin Dose Admin Acetaminophen (Tylenol) 650 mg Q6H PRN ORAL Mild Pain (Pain Scale 1-3) 01/03/21 18:45 02/02/21 18:44 Amlodipine Besylate (Norvasc) 5 mg DAILY ORAL 01/04/21 09:00 02/03/21 08:59 Atorvastatin Calcium (Lipitor) 20 mg BEDTIME ORAL 01/03/21 21:00 04/03/21 20:59 Cyanocobalamin (Vitamin B-12) 1,000 mcg DAILY ORAL 01/04/21 09:00 02/03/21 08:59 Dextrose (Dextrose 50%) 25 ml Q30M PRN IV Hypoglycemia 01/03/21 18:45 04/03/21 18:44 Dextrose (Dextrose 50%) 50 ml Q30M PRN IV Hypoglycemia 01/03/21 18:45 04/03/21 18:44 Folic Acid (Folate) 1 mg DAILY ORAL 01/04/21 09:00 02/03/21 08:59 Heparin Sodium (Porcine) (Heparin 5000 units/ml) 5,000 units EVERY 12 HOURS SUBQ 01/03/21 21:00 02/17/21 20:59 Insulin Aspart (NovoLOG) BEFORE MEALS AND HS SUBQ 01/03/21 21:00 04/03/21 20:59 Lactulose (Cephulac) 30 gm BIDPRN PRN ORAL Constipation 01/03/21 18:45 02/02/21 18:44 Lisinopril (ZestriL) 10 mg DAILY ORAL 01/04/21 09:00 02/03/21 08:59 Magnesium Hydroxide (Mom) 30 ml DAILYPRN PRN ORAL Constipation 01/03/21 18:45 02/02/21 18:44 Multivitamins (Multivitamins) 1 tab DAILY ORAL 01/04/21 09:00 02/03/21 08:59 Ondansetron HCl (Zofran) 4 mg Q6H PRN ORAL Nausea & Vomiting 01/03/21 18:45 02/02/21 18:44 Pantoprazole (Protonix) 40 mg DAILY ORAL 01/04/21 09:00 02/03/21 08:59 Paroxetine HCl (Paxil) 20 mg DAILY ORAL 01/04/21 09:00 02/03/21 08:59 Piperacillin Sod/ Tazobactam Sod 3.375 gm/Sodium Chloride 110 ml @ 27.5 mls/hr Q8HR IVPB 01/03/21 22:00 01/10/21 21:59 Psyllium Hydrophilic Mucilloid (Metamucil) 1 pkt TIDPRN PRN ORAL CONSTIPATION 01/03/21 18:56 02/02/21 18:55 Assessment/Plan Problem List: (1) Right lower lobe pneumonia Assessment & Plan: With consolidation on chest x-ray and leukocytosis continue Zosyn empiric coverage pending cultures, aspiration precaution. Patient was tested recently for CO VID 19 couple of days ago and the result of which was negative as per discussion with primary ICD Codes: J18.9 - Pneumonia, unspecified organism SNOMED: 087181095 Qualifiers: (2) Leukocytosis Assessment & Plan: Rule out sepsis agree on Zosyn pending blood culture result ICD Codes: D72.829 - Elevated white blood cell count, unspecified SNOMED: 302454783, 349582584 (3) Metabolic acidosis Assessment & Plan: Continue hydration and blood pressure support and repeat lactic acid ICD Codes: E87.2 - Acidosis SNOMED: 32990895 (4) Sepsis Assessment & Plan: With hypotension and leukocytosis continue Zosyn empiric coverage pending blood culture result, continue blood pressure support ICD Codes: A41.9 - Sepsis, unspecified organism SNOMED: 23066653 (5) Diabetes Assessment & Plan: Recommend start glycemic control to keep blood glucose between 100-140 ICD Codes: E11.9 - Type 2 diabetes mellitus without complications SNOMED: 29215336 Qualifiers: (6) CLL (chronic lymphocytic leukemia) Assessment & Plan: Monitor blood count transfuse blood as needed follow-up with oncology ICD Codes: C91.10 - Chronic lymphocytic leukemia of B-cell type not having achieved remission SNOMED: 14126325 Status: stable Johanna Torres M.D. Jan 03, 2021 20:47
[2021-01-03] MEDS: Atorvastatin 20mg tab ORAL SCH (21:43)
[2021-01-03] MEDS: Heparin 5000 units/ml inj SUBQ SCH (21:43)
[2021-01-03] MEDS: NovoLOG Insulin Flexpen SUBQ SCH (21:44)
[2021-01-03] MEDS: Piperacillin/Tazobactam 3.375 GM in NS 110 ML IVPB SCH (22:03)
[2021-01-04] VITALS: BP 136/74
--- NOTE | 2021-01-04 03:14 | History and Physical Report ---
DATE OF ADMISSION: 01/03/2021 CHIEF COMPLAINT: Weakness and leukocytosis. HISTORY OF PRESENT ILLNESS: This is an 80-year-old [place] female who lives in assisted living, brought in for complaint of generalized weakness, fall, and leukocytosis. The patient has history of diabetes type 2, CLL, hyperlipidemia, GERD, and chronic low back pain. She had UA as an outpatient and showed positive nitrite and leukocytes with WBC of 22,000, as an outpatient. The patient was brought in for treatment of urinary tract infection, generalized weakness, and recent fall. ALLERGIES: No known drug allergies. PAST MEDICAL HISTORY: Includes history of CLL, hypertension, hyperlipidemia, GERD, chronic low back pain, and diabetes mellitus type 2. FAMILY HISTORY: Noncontributory. SOCIAL HISTORY: The patient resides in the assisted living, [facility]. No history of smoking or drug use. No alcohol use. REVIEW OF SYSTEMS: Negative except for HPI. PHYSICAL EXAMINATION: VITAL SIGNS: Include blood pressure 90/56, respiration 14, pulse 92, pulse-ox 92% on room air. GENERAL APPEARANCE: Alert and responsive. HEENT: Normocephalic and normochromic. Extraocular muscles intact. Throat is clear. NECK: Supple. No lymphadenopathy. LUNGS: Clear to auscultation except for small rhonchi on the right side. CARDIOVASCULAR: Regular rate and rhythm. No murmur. No gallop. ABDOMEN: Soft, nontender, nondistended. Positive bowel sounds. EXTREMITIES: No cyanosis or clubbing. A +2 pedal edema. NEUROLOGIC: Responds to commands. Alert and oriented. LABORATORY AND DIAGNOSTIC DATA: Include WBC 28.1, hemoglobin 9.6, hematocrit 30.7, platelet count 396; neutrophils 73. Sodium 134, potassium 4.5, chloride 97, bicarb 25, BUN 29, creatinine 1, glucose 251. AST 28, ALT 16. BNP 3109. Albumin 2.6. Total protein 7.4. Lipase 176. Lactic acid is 2.3. UA showed 0-2 wbc, +4 glucose, +1 protein, and +1 urine ketone. Chest x-ray was negative for any acute process. IMPRESSION: 1. Urinary tract infection. We will start the patient on Zosyn and follow the urine culture. 2. Leukocytosis. Again, we will continue the patient on Zosyn for urinary tract infection and possible sepsis. 3. Possible sepsis with hypotension and leukocytosis. We will continue Zosyn and monitor blood cultures. 4. Diabetes type 2. We will put the patient on insulin sliding scale and hold oral blood sugar medication at this point. 5. History of CLL. We will monitor CBC. Previously, the patient refused further Hematology workup or followup. We will talk to the patient again for possibly being seen by oncologist again. The patient will be admitted for minimum of 2-night stay for diagnosis of urinary tract infection and possible sepsis. Pura Guillen M.D. DR: Miah JOB#: [id number] CC: ANGELA
[2021-01-04 04:00] VITALS: BP 112/58
[2021-01-04] MEDS: NovoLOG Insulin Flexpen SUBQ SCH ×4 (05:35→20:47)
[2021-01-04] MEDS: Piperacillin/Tazobactam 3.375 GM in NS 110 ML IVPB SCH ×3 (05:37→22:00)
--- NOTE | 2021-01-04 07:30 | NUR ---
NURSE HAND-OFF: Important Events on Shift: IV antibiotic therapy Patient Status: Stable Diet: Kosher (soft) Pending Orders: [] Pending Results/Labs:[] Pending MD notification:[] Latest Vital Signs: Temperature 99.4 , Pulse 79 , B/P 112 /58 , Respiratory Rate 18 , O2 SAT 97 , Room Air, O2 Flow Rate . Vital Sign Comment: VS stable Latest Green Fall Score: 70 Fall Risk: High Risk Safety Measures: Call light Within Reach, Bed Alarm , Side Rails Side Rails x2, Bed position Low and Locked. Fall Precautions: Patient Fall Education Report given to Amalia NEGRON.
[2021-01-04 08:00] VITALS: BP 121/62
--- NOTE | 2021-01-04 08:52 | NUR ---
NURSE NOTES: Patient awake and alert and oriented,sitting up in bed and eating breakfast.Saline lock right arm intact.Call light within reach,bed alarm on.
[2021-01-04 08:55] LABS: HEMATOCRIT 32.3 % (37.0-47.0); HEMOGLOBIN 9.7 G/DL (12.0-16.0); MEAN CORPUSCULAR VOLUME 84 FL (80-99); PLATELET COUNT 403 K/UL (150-450); RED BLOOD COUNT 3.86 M/UL (4.20-5.40); RED CELL DISTRIBUTION WIDTH 14.2 % (11.6-14.8)
[2021-01-04 09:05] LABS: WHITE BLOOD COUNT 24.7 K/UL (4.8-10.8)
[2021-01-04 09:44] LABS: ANION GAP 14 mmol/L (5-15); BLOOD UREA NITROGEN 18 mg/dL (7-18); CALCIUM 8.7 MG/DL (8.5-10.1); CARBON DIOXIDE 23 MMOL/L (21-32); CHLORIDE 101 MMOL/L (98-107); CREATININE 0.7 MG/DL (0.55-1.30); POTASSIUM 4.1 MMOL/L (3.5-5.1); SODIUM 138 MMOL/L (136-145)
[2021-01-04] MEDS: Heparin 5000 units/ml inj SUBQ SCH ×2 (10:07→20:48)
[2021-01-04] MEDS: PARoxetine HCL 20mg tab ORAL SCH (10:10)
[2021-01-04] MEDS: Vitamin B-12 500mcg tab ORAL SCH (10:21)
[2021-01-04] MEDS: Lisinopril 10mg tab ORAL SCH (10:26)
--- NOTE | 2021-01-04 11:50 | NUR ---
NURSE NOTES: DR Guillen was here to see patient updated on patient lab ,Pro-BNP today 8621,no new order at this time.
--- NOTE | 2021-01-04 11:53 | General Progress Note ---
Subjective Date patient seen: Jan 04, 2021 Time patient seen: 11:00 Constitutional: Reports: weakness HEENT: Reports: no symptoms Cardiovascular: Reports: no symptoms Respiratory: Reports: no symptoms Gastrointestinal/Abdominal: Reports: no symptoms Genitourinary: Reports: no symptoms Neurologic/Psychiatric: Reports: weakness Endocrine: Reports: no symptoms Allergies: Coded Allergies: No Known Allergies (Unverified , 07/30/20) Subjective This morning she is doing well. No sob or chest pain. no coughing. she ate breakfast. no fever or chills. no nausea or vomiting. Objective Last 24 Hour Vital Signs Date Time Temp Pulse Resp B/P (MAP) Pulse Ox O2 Delivery O2 Flow Rate FiO2 01/04/21 10:26 118/63 01/04/21 10:26 115 118/63 01/04/21 09:00 Room Air 01/04/21 08:00 99.1 112 20 121/62 (81) 97 01/04/21 04:00 99.4 79 18 112/58 (76) 97 01/04/21 00:00 98.5 94 18 136/74 (94) 96 01/03/21 21:00 Room Air 01/03/21 20:00 98.2 97 17 132/74 (93) 96 01/03/21 18:35 Room Air 01/03/21 18:18 98.0 96 17 102/56 97 Room Air 01/03/21 16:58 98.0 96 14 89/50 99 Room Air 01/03/21 14:48 92 14 90/56 (67) 93 Room Air Intake and Output 01/03/21 01/04/21 19:00 07:00 Intake Total 110.0 ml Balance 110.0 ml Intake IV Total 110.0 ml # Voids 3 # Bowel Movements 1 Laboratory Tests 01/03/21 15:22: White Blood Count 28.1*H, Red Blood Count 3.69L, Hemoglobin 9.6L, Hematocrit 30.7L, Mean Corpuscular Volume 83, Mean Corpuscular Hemoglobin 25.9L, Mean Corpuscular Hemoglobin Concent 31.1L, Red Cell Distribution Width 14.6, Platelet Count 396, Mean Platelet Volume 6.6, Neutrophils (%) (Auto) , Lymphocytes (%) (Auto) , Monocytes (%) (Auto) , Eosinophils (%) (Auto) , Basophils (%) (Auto) , Differential Total Cells Counted 100, Neutrophils % (Manual) 73, Lymphocytes % (Manual) 20, Monocytes % (Manual) 6, Eosinophils % (Manual) 1, Basophils % (Manual) 0, Band Neutrophils 0, Platelet Estimate Adequate, Platelet Morphology Normal, Hypochromasia 1+, Anisocytosis 1+, Sodium Level 134L, Potassium Level 4.5, Chloride Level 97L, Carbon Dioxide Level 25, Anion Gap 13, Blood Urea Nitrogen 29H, Creatinine 1.0, Estimat Glomerular Filtration Rate 53.3, Glucose Level 251H, Lactic Acid Level 2.30H, Calcium Level 9.4, Total Bilirubin 0.4, Aspartate Amino Transf (AST/SGOT) 28, Alanine Aminotransferase (ALT/SGPT) 16, Alkaline Phosphatase 70, Total Creatine Kinase 26, Troponin I 0.000, Pro-B-Type Natriuretic Peptide 3109H, Total Protein 7.4, Albumin 2.6L, Globulin 4.8, Albumin/Globulin Ratio 0.5L, Lipase 176 01/03/21 16:27: Urine Color Yellow, Urine Appearance Slightly cloudy, Urine pH 5, Urine Specific [place] 1.010, Urine Protein 1+H, Urine Glucose (UA) 4+H, Urine Ketones 1+H, Urine Blood Negative, Urine Nitrite Negative, Urine Bilirubin Negative, Urine Urobilinogen Normal, Urine Leukocyte Esterase Negative, Urine RBC , Urine WBC , Urine Squamous Epithelial Cells , Urine Bacteria 01/03/21 21:13: POC Whole Blood Glucose 143H 01/04/21 05:24: POC Whole Blood Glucose 132H 01/04/21 07:30: White Blood Count 24.7*H, Red Blood Count 3.86L, Hemoglobin 9.7L, Hematocrit 32.3L, Mean Corpuscular Volume 84, Mean Corpuscular Hemoglobin 25.1L, Mean Corpuscular Hemoglobin Concent 30.0L, Red Cell Distribution Width 14.2, Platelet Count 403, Mean Platelet Volume 6.8, Neutrophils (%) (Auto) , Lymphocytes (%) (Auto) , Monocytes (%) (Auto) , Eosinophils (%) (Auto) , Basophils (%) (Auto) , Differential Total Cells Counted 100, Neutrophils % (Manual) 59, Lymphocytes % (Manual) 37, Monocytes % (Manual) 4, Eosinophils % (Manual) 0, Basophils % (Manual) 0, Band Neutrophils 0, Platelet Estimate Adequate, Platelet Morphology Normal, Hypochromasia 1+, Anisocytosis 1+, Sodium Level 138, Potassium Level 4.1, Chloride Level 101, Carbon Dioxide Level 23, Anion Gap 14, Blood Urea Nitrogen 18, Creatinine 0.7, Estimat Glomerular Filtration Rate > 60, Glucose Level 130#H, Calcium Level 8.7, Pro-B-Type Natriuretic Peptide 2619H Height (Feet): 5 Height (Inches): 2.00 Weight (Pounds): 140 General Appearance: no apparent distress, alert EENT: normal ENT inspection Neck: non-tender, supple Cardiovascular: normal rate, regular rhythm Respiratory/Chest: lungs clear, normal breath sounds Abdomen: non tender, soft Extremities: non-tender Neurologic: alert, responsive Skin: warm/dry Assessment/Plan Status: stable Assessment/Plan: 1. UTI. cont Zosyn IV and follow urine culture. 2. Leukocytosis. cont Zosyn for UTI and possible sepsis. 3. Possible sepsis - We will continue Zosyn and follow blood cultures. ID cons ult done. 4. Diabetes type 2. We will put the patient on insulin SSI and hold oral blood sugar medication at this point. 5. History of CLL. We will monitor CBC. will consult Hematology Dr Soria. Pura Guillen MD Jan 04, 2021 11:53
[2021-01-04 12:00] VITALS: BP 107/59
--- NOTE | 2021-01-04 14:18 | Infectious Diseases Prog Note ---
Assessment/Plan Problems: (1) Right lower lobe pneumonia Assessment & Plan: With consolidation on chest x-ray and leukocytosis continue Zosyn empiric coverage pending cultures, aspiration precaution. Patient was tested recently for CO VID 19 couple of days ago and the result of which was negative as per discussion with primary (2) Leukocytosis Assessment & Plan: Rule out sepsis agree on Zosyn pending blood culture result (3) Metabolic acidosis Assessment & Plan: Continue hydration and blood pressure support and repeat lactic acid (4) Sepsis Assessment & Plan: With hypotension and leukocytosis continue Zosyn empiric coverage pending blood culture result, continue blood pressure support (5) Diabetes Assessment & Plan: Recommend start glycemic control to keep blood glucose between 100-140 (6) CLL (chronic lymphocytic leukemia) Assessment & Plan: Monitor blood count transfuse blood as needed follow-up with oncology Subjective Constitutional: Reports: fatigue HEENT: Reports: no symptoms Respiratory: Reports: dry cough Breasts: Reports: no symptoms Cardiovascular: Reports: no symptoms Gastrointestinal/Abdominal: Reports: no symptoms Genitourinary: Reports: no symptoms Neurologic: Reports: no symptoms Psychiatric: Reports: no symptoms Skin: Reports: no symptoms Endocrine: Reports: no symptoms Hematologic: Reports: no symptoms Musculoskeletal: Reports: no symptoms Allergies: Coded Allergies: No Known Allergies (Unverified , 07/30/20) Objective Last 24 Hour Vital Signs Date Time Temp Pulse Resp B/P (MAP) Pulse Ox O2 Delivery O2 Flow Rate FiO2 01/04/21 12:00 98.8 99 20 107/59 (75) 99 01/04/21 10:26 118/63 01/04/21 10:26 115 118/63 01/04/21 09:00 Room Air 01/04/21 08:00 99.1 112 20 121/62 (81) 97 01/04/21 04:00 99.4 79 18 112/58 (76) 97 01/04/21 00:00 98.5 94 18 136/74 (94) 96 01/03/21 21:00 Room Air 01/03/21 20:00 98.2 97 17 132/74 (93) 96 01/03/21 18:35 Room Air 01/03/21 18:18 98.0 96 17 102/56 97 Room Air 01/03/21 16:58 98.0 96 14 89/50 99 Room Air 01/03/21 14:48 92 14 90/56 (67) 93 Room Air Height (Feet): 5 Height (Inches): 2.00 Weight (Pounds): 140 General Appearance: WD/WN, no acute distress HEENT: normocephalic, atraumatic, anicteric, mucous membranes moist, PERRL Respiratory/Chest: chest wall non-tender, no respiratory distress, no accessory muscle use Cardiovascular: normal peripheral pulses, normal rate, regular rhythm, no gallop/murmur, no JVD Abdomen: normal bowel sounds, soft, non tender, no organomegaly, non distended, no mass, no scars Genitourinary: normal external genitalia Extremities: no cyanosis, no clubbing Skin: no rash, no lesions Neurologic/Psychiatric: no motor/sensory deficits, alert, responsive, normal mood/affect Lymphatic: no neck adenopathy, no groin adenopathy Musculoskeletal: normal muscle bulk Microbiology Date/Time Source Procedure Growth Status 01/03/21 17:30 Rectum Received Laboratory Tests Test 01/03/21 15:22 01/03/21 16:27 01/03/21 21:13 01/04/21 05:24 White Blood Count 28.1 K/UL (4.8-10.8) *H Red Blood Count 3.69 M/UL (4.20-5.40) L Hemoglobin 9.6 G/DL (12.0-16.0) L Hematocrit 30.7 % (37.0-47.0) L Mean Corpuscular Volume 83 FL (80-99) Mean Corpuscular Hemoglobin 25.9 PG (27.0-31.0) L Mean Corpuscular Hemoglobin Concent 31.1 G/DL (32.0-36.0) L Red Cell Distribution Width 14.6 % (11.6-14.8) Platelet Count 396 K/UL (150-450) Mean Platelet Volume 6.6 FL (6.5-10.1) Neutrophils (%) (Auto) % (45.0-75.0) Lymphocytes (%) (Auto) % (20.0-45.0) Monocytes (%) (Auto) % (1.0-10.0) Eosinophils (%) (Auto) % (0.0-3.0) Basophils (%) (Auto) % (0.0-2.0) Differential Total Cells Counted 100 Neutrophils % (Manual) 73 % (45-75) Lymphocytes % (Manual) 20 % (20-45) Monocytes % (Manual) 6 % (1-10) Eosinophils % (Manual) 1 % (0-3) Basophils % (Manual) 0 % (0-2) Band Neutrophils 0 % (0-8) Platelet Estimate Adequate Platelet Morphology Normal Hypochromasia 1+ Anisocytosis 1+ Sodium Level 134 MMOL/L (136-145) L Potassium Level 4.5 MMOL/L (3.5-5.1) Chloride Level 97 MMOL/L (98-107) L Carbon Dioxide Level 25 MMOL/L (21-32) Anion Gap 13 mmol/L (5-15) Blood Urea Nitrogen 29 mg/dL (7-18) H Creatinine 1.0 MG/DL (0.55-1.30) Estimat Glomerular Filtration Rate 53.3 mL/min (>60) Glucose Level 251 MG/DL (74-106) H Lactic Acid Level 2.30 mmol/L (0.4-2.0) H Calcium Level 9.4 MG/DL (8.5-10.1) Total Bilirubin 0.4 MG/DL (0.2-1.0) Aspartate Amino Transf (AST/SGOT) 28 U/L (15-37) Alanine Aminotransferase (ALT/SGPT) 16 U/L (12-78) Alkaline Phosphatase 70 U/L (46-116) Total Creatine Kinase 26 U/L (26-308) Troponin I 0.000 ng/mL (0.000-0.056) Pro-B-Type Natriuretic Peptide 3109 pg/mL (0-125) H Total Protein 7.4 G/DL (6.4-8.2) Albumin 2.6 G/DL (3.4-5.0) L Globulin 4.8 g/dL Albumin/Globulin Ratio 0.5 (1.0-2.7) L Lipase 176 U/L (73-393) Urine Color Yellow Urine Appearance Slightly cloudy Urine pH 5 (4.5-8.0) Urine Specific [place] 1.010 (1.005-1.035) Urine Protein 1+ (NEGATIVE) H Urine Glucose (UA) 4+ (NEGATIVE) H Urine Ketones 1+ (NEGATIVE) H Urine Blood Negative (NEGATIVE) Urine Nitrite Negative (NEGATIVE) Urine Bilirubin Negative (NEGATIVE) Urine Urobilinogen Normal MG/DL (0.0-1.0) Urine Leukocyte Esterase Negative (NEGATIVE) Urine RBC /HPF (0 - 2) Urine WBC /HPF (0 - 2) Urine Squamous Epithelial Cells /LPF (NONE/OCC) Urine Bacteria /HPF (NONE) POC Whole Blood Glucose 143 MG/DL (74-106) H 132 MG/DL (74-106) H Test 01/04/21 07:30 01/04/21 11:47 White Blood Count 24.7 K/UL (4.8-10.8) *H Red Blood Count 3.86 M/UL (4.20-5.40) L Hemoglobin 9.7 G/DL (12.0-16.0) L Hematocrit 32.3 % (37.0-47.0) L Mean Corpuscular Volume 84 FL (80-99) Mean Corpuscular Hemoglobin 25.1 PG (27.0-31.0) L Mean Corpuscular Hemoglobin Concent 30.0 G/DL (32.0-36.0) L Red Cell Distribution Width 14.2 % (11.6-14.8) Platelet Count 403 K/UL (150-450) Mean Platelet Volume 6.8 FL (6.5-10.1) Neutrophils (%) (Auto) % (45.0-75.0) Lymphocytes (%) (Auto) % (20.0-45.0) Monocytes (%) (Auto) % (1.0-10.0) Eosinophils (%) (Auto) % (0.0-3.0) Basophils (%) (Auto) % (0.0-2.0) Differential Total Cells Counted 100 Neutrophils % (Manual) 59 % (45-75) Lymphocytes % (Manual) 37 % (20-45) Monocytes % (Manual) 4 % (1-10) Eosinophils % (Manual) 0 % (0-3) Basophils % (Manual) 0 % (0-2) Band Neutrophils 0 % (0-8) Platelet Estimate Adequate Platelet Morphology Normal Hypochromasia 1+ Anisocytosis 1+ Sodium Level 138 MMOL/L (136-145) Potassium Level 4.1 MMOL/L (3.5-5.1) Chloride Level 101 MMOL/L (98-107) Carbon Dioxide Level 23 MMOL/L (21-32) Anion Gap 14 mmol/L (5-15) Blood Urea Nitrogen 18 mg/dL (7-18) Creatinine 0.7 MG/DL (0.55-1.30) Estimat Glomerular Filtration Rate > 60 mL/min (>60) Glucose Level 130 MG/DL (74-106) #H Calcium Level 8.7 MG/DL (8.5-10.1) Pro-B-Type Natriuretic Peptide 2619 pg/mL (0-125) H POC Whole Blood Glucose 228 MG/DL (74-106) H Current Medications Medications (Trade) Dose Ordered Sig/Russ Route PRN Reason Start Time Stop Time Status Last Admin Dose Admin Acetaminophen (Tylenol) 650 mg Q6H PRN ORAL Mild Pain (Pain Scale 1-3) 01/03/21 18:45 02/02/21 18:44 Amlodipine Besylate (Norvasc) 5 mg DAILY ORAL 01/04/21 09:00 02/03/21 08:59 01/04/21 10:26 Atorvastatin Calcium (Lipitor) 20 mg BEDTIME ORAL 01/03/21 21:00 04/03/21 20:59 01/03/21 21:43 Cyanocobalamin (Vitamin B-12) 1,000 mcg DAILY ORAL 01/04/21 09:00 02/03/21 08:59 01/04/21 10:21 Dextrose (Dextrose 50%) 25 ml Q30M PRN IV Hypoglycemia 01/03/21 18:45 04/03/21 18:44 Dextrose (Dextrose 50%) 50 ml Q30M PRN IV Hypoglycemia 01/03/21 18:45 04/03/21 18:44 Folic Acid (Folate) 1 mg DAILY ORAL 01/04/21 09:00 02/03/21 08:59 01/04/21 10:08 Heparin Sodium (Porcine) (Heparin 5000 units/ml) 5,000 units EVERY 12 HOURS SUBQ 01/03/21 21:00 02/17/21 20:59 01/04/21 10:07 Insulin Aspart (NovoLOG) BEFORE MEALS AND HS SUBQ 01/03/21 21:00 04/03/21 20:59 01/04/21 11:51 Lactulose (Cephulac) 30 gm BIDPRN PRN ORAL Constipation 01/03/21 18:45 02/02/21 18:44 Lisinopril (ZestriL) 10 mg DAILY ORAL 01/04/21 09:00 02/03/21 08:59 01/04/21 10:26 Magnesium Hydroxide (Mom) 30 ml DAILYPRN PRN ORAL Constipation 01/03/21 18:45 02/02/21 18:44 Multivitamins (Multivitamins) 1 tab DAILY ORAL 01/04/21 09:00 02/03/21 08:59 01/04/21 10:10 Ondansetron HCl (Zofran) 4 mg Q6H PRN ORAL Nausea & Vomiting 01/03/21 18:45 02/02/21 18:44 Pantoprazole (Protonix) 40 mg DAILY ORAL 01/04/21 09:00 02/03/21 08:59 01/04/21 10:10 Paroxetine HCl (Paxil) 20 mg DAILY ORAL 01/04/21 09:00 02/03/21 08:59 01/04/21 10:10 Piperacillin Sod/ Tazobactam Sod 3.375 gm/Sodium Chloride 110 ml @ 27.5 mls/hr Q8HR IVPB 01/03/21 22:00 01/10/21 21:59 01/04/21 14:10 Psyllium Hydrophilic Mucilloid (Metamucil) 1 pkt TIDPRN PRN ORAL CONSTIPATION 01/03/21 18:56 02/02/21 18:55 Johanna Torres M.D. Jan 04, 2021 14:18
[2021-01-04 16:00] VITALS: BP 109/64
--- NOTE | 2021-01-04 19:30 | NUR ---
NURSE NOTES: Per microbiology,Covid not detected,endorse to Skinny RN will notify DR Guillen .Patient resting,no complaint of pain..
--- NOTE | 2021-01-04 19:35 | NUR ---
NURSE HAND-OFF: Skinny NEGRON Important Events on Shift:[] Patient Status: [] Diet: Kosher[] Pending Orders: []labs in AM12/31/20 Pending Results/Labs:[] Pending MD notification:[patient Covid negative.] Latest Vital Signs: Temperature 98.4 , Pulse 109 , B/P 109 /64 , Respiratory Rate 20 , O2 SAT 99 , Room Air, O2 Flow Rate . Vital Sign Comment: [] Latest Green Fall Score: 70 Fall Risk: High Risk Safety Measures: Call light Within Reach, Bed Alarm , Side Rails Side Rails x2, Bed position Low and Locked. Fall Precautions: Patient Fall Education Report given to [].
--- NOTE | 2021-01-04 19:45 | NUR ---
NURSE NOTES: Received report from Amalia NEGRON. Patient is awake, alert and oriented x4. On room air, breathing is even and unlabored. No complains of pain or distress noted. IV right FA intact and patent with no bleeding noted. Bed low and locked. Call light within reach.
[2021-01-04 20:00] VITALS: BP 103/48
--- NOTE | 2021-01-04 20:00 | NUR ---
NURSE NOTES: Received covid negative result. Contacted to inform. put her off isolation. Order read back and carried out.
[2021-01-04] MEDS: Atorvastatin 20mg tab ORAL SCH (20:46)
--- NOTE | 2021-01-04 22:35 | NUR ---
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 Explained the need to swab but patient refused at the moment. Patient stated "tomorrow". Will endorse to morning nurse.
[2021-01-05] VITALS: BP 132/55
[2021-01-05 04:00] VITALS: BP 143/72
[2021-01-05] MEDS: Piperacillin/Tazobactam 3.375 GM in NS 110 ML IVPB SCH ×3 (05:02→21:51)
[2021-01-05] MEDS: NovoLOG Insulin Flexpen SUBQ SCH ×4 (06:01→20:13)
--- NOTE | 2021-01-05 06:09 | NUR ---
NURSE NOTES: MRSA, VRE, CRE swabs done. Specimen sent down to lab.
--- NOTE | 2021-01-05 07:49 | NUR ---
NURSE HAND-OFF: Important Events on Shift: BS management, VRE CRE MRSA swabs sent to lab Patient Status: Stable Diet:Kosher(soft) Pending Orders: [] Pending Results/Labs:[] Pending MD notification:[] Latest Vital Signs: Temperature 98.2 , Pulse 96 , B/P 143 /72 , Respiratory Rate 18 , O2 SAT 93 , Room Air, O2 Flow Rate . Vital Sign Comment: VS stable Latest Green Fall Score: 70 Fall Risk: High Risk Safety Measures: Call light Within Reach, Bed Alarm , Side Rails Side Rails x2, Bed position Low and Locked. Fall Precautions: Patient Fall Education Report given to Demarco NEGRON.
[2021-01-05 08:00] VITALS: BP 120/57
--- NOTE | 2021-01-05 08:00 | NUR ---
NURSE NOTES: Received patient in bed, in NAD. Patient is AAO x4, in room air, breathing is even and unlabored. No complains of pain or distress noted. PIV access RFA, pervious and intact. Bed low and locked at the lowest position possible. Call light within easy reach. Side rails up x3. Will continue to monitor pt and follow up with the plan of care.
[2021-01-05 09:17] LABS: HEMATOCRIT 30.2 % (37.0-47.0); MEAN CORPUSCULAR VOLUME 84 FL (80-99); PLATELET COUNT 380 K/UL (150-450); RED BLOOD COUNT 3.59 M/UL (4.20-5.40); RED CELL DISTRIBUTION WIDTH 14.3 % (11.6-14.8); WHITE BLOOD COUNT 21.1 K/UL (4.8-10.8)
[2021-01-05 09:34] LABS: ANION GAP 11 mmol/L (5-15); BLOOD UREA NITROGEN 17 mg/dL (7-18); CALCIUM 8.7 MG/DL (8.5-10.1); CARBON DIOXIDE 25 MMOL/L (21-32); CHLORIDE 102 MMOL/L (98-107); CREATININE 0.8 MG/DL (0.55-1.30); POTASSIUM 3.8 MMOL/L (3.5-5.1); SODIUM 138 MMOL/L (136-145)
[2021-01-05] MEDS: PARoxetine HCL 20mg tab ORAL SCH (09:56)
[2021-01-05] MEDS: Vitamin B-12 500mcg tab ORAL SCH (09:56)
[2021-01-05] MEDS: Lisinopril 10mg tab ORAL SCH (09:57)
[2021-01-05] MEDS: Heparin 5000 units/ml inj SUBQ SCH ×2 (09:59→20:12)
[2021-01-05 12:00] VITALS: BP 132/64
--- NOTE | 2021-01-05 14:39 | General Progress Note ---
Subjective Date patient seen: Jan 05, 2021 Time patient seen: 14:35 Constitutional: Reports: weakness HEENT: Reports: no symptoms Cardiovascular: Reports: no symptoms Respiratory: Reports: no symptoms Gastrointestinal/Abdominal: Reports: other - suprapubic pain Genitourinary: Reports: frequency Neurologic/Psychiatric: Reports: weakness Endocrine: Reports: no symptoms Hematologic/Lymphatic: Reports: no symptoms Allergies: Coded Allergies: No Known Allergies (Unverified , 07/30/20) Subjective This afternoon she is doing well. No sob or chest pain. no coughing. she ate breakfast and lunch. no fever or chills. no nausea or vomiting. Objective Last 24 Hour Vital Signs Date Time Temp Pulse Resp B/P (MAP) Pulse Ox O2 Delivery O2 Flow Rate FiO2 01/05/21 12:00 99.0 91 18 132/64 (86) 94 01/05/21 09:57 120/57 01/05/21 09:56 94 120/57 01/05/21 09:00 Room Air 01/05/21 08:00 98.0 94 18 120/57 (78) 93 01/05/21 04:00 98.2 96 18 143/72 (95) 93 01/05/21 00:00 97.1 76 16 132/55 (80) 94 01/04/21 21:00 Room Air 01/04/21 20:00 98.1 105 19 103/48 (66) 95 01/04/21 16:00 98.4 109 20 109/64 (79) 99 Intake and Output 01/04/21 01/05/21 19:00 07:00 Intake Total 1010 ml Output Total 3 ml Balance 1007 ml Intake Oral 900 ml IV Total 110 ml Output Urine Total 3 ml Laboratory Tests 01/04/21 16:23: POC Whole Blood Glucose [Pending] 01/04/21 20:43: POC Whole Blood Glucose 303H 01/05/21 05:57: POC Whole Blood Glucose 152H 01/05/21 08:30: White Blood Count 21.1H, Red Blood Count 3.59L, Hemoglobin 9.0L, Hematocrit 30.2L, Mean Corpuscular Volume 84, Mean Corpuscular Hemoglobin 25.1L, Mean Corpuscular Hemoglobin Concent 29.8L, Red Cell Distribution Width 14.3, Platelet Count 380, Mean Platelet Volume 7.0, Neutrophils (%) (Auto) , Lymphocytes (%) (Auto) , Monocytes (%) (Auto) , Eosinophils (%) (Auto) , Basophils (%) (Auto) , Differential Total Cells Counted 100, Neutrophils % (Manual) 62, Lymphocytes % (Manual) 32, Monocytes % (Manual) 6, Eosinophils % (Manual) 0, Basophils % (Manual) 0, Band Neutrophils 0, Platelet Estimate Adequate, Platelet Morphology Normal, Hypochromasia 1+, Anisocytosis 1+, Sodium Level 138, Potassium Level 3.8, Chloride Level 102, Carbon Dioxide Level 25, Anion Gap 11, Blood Urea Nitrogen 17, Creatinine 0.8, Estimat Glomerular Filtration Rate > 60, Glucose Level 263#H, Calcium Level 8.7 01/05/21 11:58: POC Whole Blood Glucose [Pending] Height (Feet): 5 Height (Inches): 2.00 Weight (Pounds): 140 General Appearance: no apparent distress, alert EENT: normal ENT inspection Neck: non-tender, supple Cardiovascular: normal rate, regular rhythm Respiratory/Chest: lungs clear, normal breath sounds, no respiratory distress Abdomen: non tender, soft Extremities: non-tender Edema: no edema noted Leg (L), no edema noted Leg (R) Neurologic: alert, responsive Skin: warm/dry Assessment/Plan Status: stable Assessment/Plan: 1. UTI. cont Zosyn IV and follow urine culture. 2. Leukocytosis. cont Zosyn for UTI and possible sepsis. 3. Possible sepsis - We will continue Zosyn and follow blood cultures. ID consult done. 4. Diabetes type 2. We will put the patient on insulin SSI and hold oral blood sugar medication at this point. 5. History of CLL. We will monitor CBC. will consult Hematology Dr Soria. Pura Guillen MD Jan 05, 2021 14:39
[2021-01-05 16:00] VITALS: BP 105/61
--- NOTE | 2021-01-05 18:24 | Infectious Diseases Prog Note ---
Assessment/Plan Problems: (1) Right lower lobe pneumonia Assessment & Plan: With consolidation on chest x-ray and leukocytosis continue Zosyn empiric coverage pending cultures, aspiration precaution. Patient tested negative for COVID 19 again in hospital (2) Leukocytosis Assessment & Plan: Rule out sepsis continue Zosyn pending blood culture result (3) Metabolic acidosis Assessment & Plan: Continue hydration and blood pressure support and repeat lactic acid (4) Sepsis Assessment & Plan: With hypotension and leukocytosis continue Zosyn empiric coverage pending blood culture result, continue blood pressure support (5) Diabetes Assessment & Plan: Recommend start glycemic control to keep blood glucose between 100-140 (6) CLL (chronic lymphocytic leukemia) Assessment & Plan: Monitor blood count transfuse blood as needed follow-up with oncology Subjective Constitutional: Reports: no symptoms HEENT: Reports: no symptoms Respiratory: Reports: no symptoms Breasts: Reports: no symptoms Cardiovascular: Reports: no symptoms Gastrointestinal/Abdominal: Reports: no symptoms Genitourinary: Reports: no symptoms Neurologic: Reports: no symptoms Psychiatric: Reports: no symptoms Skin: Reports: no symptoms Endocrine: Reports: no symptoms Hematologic: Reports: no symptoms Musculoskeletal: Reports: no symptoms Allergies: Coded Allergies: No Known Allergies (Unverified , 07/30/20) Objective Last 24 Hour Vital Signs Date Time Temp Pulse Resp B/P (MAP) Pulse Ox O2 Delivery O2 Flow Rate FiO2 01/05/21 16:00 97.9 81 18 105/61 (76) 95 01/05/21 12:00 99.0 91 18 132/64 (86) 94 01/05/21 09:57 120/57 01/05/21 09:56 94 120/57 01/05/21 09:00 Room Air 01/05/21 08:00 98.0 94 18 120/57 (78) 93 01/05/21 04:00 98.2 96 18 143/72 (95) 93 01/05/21 00:00 97.1 76 16 132/55 (80) 94 01/04/21 21:00 Room Air 01/04/21 20:00 98.1 105 19 103/48 (66) 95 Height (Feet): 5 Height (Inches): 2.00 Weight (Pounds): 140 General Appearance: WD/WN, no acute distress HEENT: normocephalic, atraumatic, anicteric, mucous membranes moist, PERRL Respiratory/Chest: chest wall non-tender, lungs clear, normal breath sounds, no respiratory distress, no accessory muscle use Cardiovascular: normal peripheral pulses, normal rate, regular rhythm, no gallop/murmur, no JVD Abdomen: normal bowel sounds, soft, non tender, no organomegaly, non distended, no mass, no scars Genitourinary: normal external genitalia Extremities: no cyanosis, no clubbing Skin: no rash, no lesions, no ulcers Neurologic/Psychiatric: pattern assembler II-XII grossly normal, no motor/sensory deficits, alert, responsive Lymphatic: no neck adenopathy, no groin adenopathy Musculoskeletal: normal muscle bulk, no effusion Microbiology Date/Time Source Procedure Growth Status 01/03/21 16:27 Nasopharynx Coronavirus COVID-19 PCR (ANY) - Final Complete 01/03/21 15:35 Blood Blood Culture - Preliminary NO GROWTH AFTER 24 HOURS Resulted 01/03/21 15:22 Blood Blood Culture - Preliminary NO GROWTH AFTER 24 HOURS Resulted Laboratory Tests Test 01/04/21 20:43 01/05/21 05:57 01/05/21 08:30 01/05/21 11:58 POC Whole Blood Glucose 303 MG/DL (74-106) H 152 MG/DL (74-106) H Pending White Blood Count 21.1 K/UL (4.8-10.8) H Red Blood Count 3.59 M/UL (4.20-5.40) L Hemoglobin 9.0 G/DL (12.0-16.0) L Hematocrit 30.2 % (37.0-47.0) L Mean Corpuscular Volume 84 FL (80-99) Mean Corpuscular Hemoglobin 25.1 PG (27.0-31.0) L Mean Corpuscular Hemoglobin Concent 29.8 G/DL (32.0-36.0) L Red Cell Distribution Width 14.3 % (11.6-14.8) Platelet Count 380 K/UL (150-450) Mean Platelet Volume 7.0 FL (6.5-10.1) Neutrophils (%) (Auto) % (45.0-75.0) Lymphocytes (%) (Auto) % (20.0-45.0) Monocytes (%) (Auto) % (1.0-10.0) Eosinophils (%) (Auto) % (0.0-3.0) Basophils (%) (Auto) % (0.0-2.0) Differential Total Cells Counted 100 Neutrophils % (Manual) 62 % (45-75) Lymphocytes % (Manual) 32 % (20-45) Monocytes % (Manual) 6 % (1-10) Eosinophils % (Manual) 0 % (0-3) Basophils % (Manual) 0 % (0-2) Band Neutrophils 0 % (0-8) Platelet Estimate Adequate Platelet Morphology Normal Hypochromasia 1+ Anisocytosis 1+ Sodium Level 138 MMOL/L (136-145) Potassium Level 3.8 MMOL/L (3.5-5.1) Chloride Level 102 MMOL/L (98-107) Carbon Dioxide Level 25 MMOL/L (21-32) Anion Gap 11 mmol/L (5-15) Blood Urea Nitrogen 17 mg/dL (7-18) Creatinine 0.8 MG/DL (0.55-1.30) Estimat Glomerular Filtration Rate > 60 mL/min (>60) Glucose Level 263 MG/DL (74-106) #H Calcium Level 8.7 MG/DL (8.5-10.1) Test 01/05/21 16:19 POC Whole Blood Glucose Pending Current Medications Medications (Trade) Dose Ordered Sig/Russ Route PRN Reason Start Time Stop Time Status Last Admin Dose Admin Acetaminophen (Tylenol) 650 mg Q6H PRN ORAL Mild Pain (Pain Scale 1-3) 01/03/21 18:45 02/02/21 18:44 01/04/21 18:53 Amlodipine Besylate (Norvasc) 5 mg DAILY ORAL 01/04/21 09:00 02/03/21 08:59 01/05/21 09:56 Atorvastatin Calcium (Lipitor) 20 mg BEDTIME ORAL 01/03/21 21:00 04/03/21 20:59 01/04/21 20:46 Cyanocobalamin (Vitamin B-12) 1,000 mcg DAILY ORAL 01/04/21 09:00 02/03/21 08:59 01/05/21 09:56 Dextrose (Dextrose 50%) 25 ml Q30M PRN IV Hypoglycemia 01/03/21 18:45 04/03/21 18:44 Dextrose (Dextrose 50%) 50 ml Q30M PRN IV Hypoglycemia 01/03/21 18:45 04/03/21 18:44 Folic Acid (Folate) 1 mg DAILY ORAL 01/04/21 09:00 02/03/21 08:59 01/05/21 09:56 Heparin Sodium (Porcine) (Heparin 5000 units/ml) 5,000 units EVERY 12 HOURS SUBQ 01/03/21 21:00 02/17/21 20:59 01/05/21 09:59 Insulin Aspart (NovoLOG) BEFORE MEALS AND HS SUBQ 01/03/21 21:00 04/03/21 20:59 01/05/21 17:36 Lactulose (Cephulac) 30 gm BIDPRN PRN ORAL Constipation 01/03/21 18:45 02/02/21 18:44 Lisinopril (ZestriL) 10 mg DAILY ORAL 01/04/21 09:00 02/03/21 08:59 01/05/21 09:57 Magnesium Hydroxide (Mom) 30 ml DAILYPRN PRN ORAL Constipation 01/03/21 18:45 02/02/21 18:44 Multivitamins (Multivitamins) 1 tab DAILY ORAL 01/04/21 09:00 02/03/21 08:59 01/05/21 09:57 Ondansetron HCl (Zofran) 4 mg Q6H PRN ORAL Nausea & Vomiting 01/03/21 18:45 02/02/21 18:44 Pantoprazole (Protonix) 40 mg DAILY ORAL 01/04/21 09:00 02/03/21 08:59 01/05/21 09:56 Paroxetine HCl (Paxil) 20 mg DAILY ORAL 01/04/21 09:00 02/03/21 08:59 01/05/21 09:56 Piperacillin Sod/ Tazobactam Sod 3.375 gm/Sodium Chloride 110 ml @ 27.5 mls/hr Q8HR IVPB 01/03/21 22:00 01/10/21 21:59 01/05/21 13:38 Psyllium Hydrophilic Mucilloid (Metamucil) 1 pkt TIDPRN PRN ORAL CONSTIPATION 01/03/21 18:56 02/02/21 18:55 Johanna Torres M.D. Jan 05, 2021 18:24
--- NOTE | 2021-01-05 19:00 | NUR ---
NURSE NOTES: received pt and report from JAMIL Benoit. pt alert and oriented x 4 with no acute s/s of distress and no co pain at the moment. IV site clean dry and intact. Plan of care discussed.
--- NOTE | 2021-01-05 19:49 | NUR ---
NURSE HAND-OFF: Important Events on Shift:[] Patient Status: [] Diet: [Kosher soft] Pending Orders: [cbc, bmp] Pending Results/Labs:[] Pending MD notification:[] Latest Vital Signs: Temperature 97.9 , Pulse 81 , B/P 105 /61 , Respiratory Rate 18 , O2 SAT 95 , Room Air, O2 Flow Rate . Vital Sign Comment: [] Latest Green Fall Score: 70 Fall Risk: High Risk Safety Measures: Call light Within Reach, Bed Alarm , Side Rails Side Rails x2, Bed position Low and Locked. Fall Precautions: Patient Fall Education Report given to [RN Shun].
[2021-01-05 20:00] VITALS: BP 112/67
[2021-01-05] MEDS: Atorvastatin 20mg tab ORAL SCH (20:11)
--- NOTE | 2021-01-06 00:21 | NUR ---
NURSE NOTES: pt refused vital signs at this time, made a sign with her hands that she wanted to continue sleeping while bp cuff was being placed over arm. pt looked to be in no acute distress, no co pain. pt is talkative but speaks Farsi. communication done mainly by gestures and pointing. will follow up with vitals at 0400.
[2021-01-06 04:00] VITALS: BP 127/66
--- NOTE | 2021-01-06 04:13 | NUR ---
NURSE NOTES: vital signs are stable. pt in no acute distress, no co pain. pt ambulated to bedside commode with assistance, unsteady gait, needs assistance. pt back in bed and asleep.
[2021-01-06] MEDS: Piperacillin/Tazobactam 3.375 GM in NS 110 ML IVPB SCH ×2 (05:01→14:57)
[2021-01-06] MEDS: NovoLOG Insulin Flexpen SUBQ SCH ×4 (05:37→20:28)
--- NOTE | 2021-01-06 06:11 | NUR ---
NURSE HAND-OFF: Important Events on Shift: NA Patient Status: stable Diet: regular Pending Orders: NA Pending Results/Labs:NA Pending MD notification:NA Latest Vital Signs: Temperature 98.0 , Pulse 97 , B/P 127 /66 , Respiratory Rate 18 , O2 SAT 98 , Room Air, O2 Flow Rate . Vital Sign Comment: stable through the shift Latest Green Fall Score: 70 Fall Risk: High Risk Safety Measures: Call light Within Reach, Bed Alarm , Side Rails Side Rails x2, Bed position Low and Locked. Fall Precautions: Patient Fall Education Report will be given to JAMIL Hartley .
--- NOTE | 2021-01-06 06:12 | NUR ---
NURSE NOTES: Received hand-off report from Shun Stewart RN. Patient in stable condition, requested to use the restroom, assisted to restroom safely, urinating well. Alert and oriented x4, breathing even and unlabored, IV intact. Call light within reach, bed alarm on, bed in lowest and locked position, side rails upx2.
[2021-01-06 08:00] VITALS: BP 124/69
[2021-01-06 09:12] LABS: BASOPHILS % (AUTO) 0.7 % (0.0-2.0); EOSINOPHILS % (AUTO) 0.4 % (0.0-3.0); HEMATOCRIT 29.1 % (37.0-47.0); HEMOGLOBIN 8.8 G/DL (12.0-16.0); LYMPHOCYTES % (AUTO) 26.1 % (20.0-45.0); MEAN CORPUSCULAR VOLUME 83 FL (80-99); MONOCYTES % (AUTO) 5.3 % (1.0-10.0); NEUTROPHILS % (AUTO) 67.6 % (45.0-75.0); PLATELET COUNT 368 K/UL (150-450); RED BLOOD COUNT 3.51 M/UL (4.20-5.40); RED CELL DISTRIBUTION WIDTH 14.4 % (11.6-14.8); WHITE BLOOD COUNT 16.9 K/UL (4.8-10.8)
--- NOTE | 2021-01-06 09:20 | NUR ---
PT EVALUATION NOTE Patient seen for initial evaluation and treatment initiated. Patient presents with generalized weakness, decreased balance and pain R knee and groin with mobility which impairs patient's ability to perform mobility tasks safely. Patient requires min assist for bed mobility and for transfers with use of FWW. Patient able to ambulate 25 ft with CGA/min assist and FWW, unsteady gait however no loss of balance. Patient will benefit from skilled inpatient PT intervention to increase strength and postural stability for improved level of functional mobility, safety and activity tolerance. Recommend discharge to SNF for continued rehab vs return to previous living situation at [facility] once medically cleared by MD depending on patient's progress. Patient may need FWW for ambulation depending on patient's progress. Addendum: 01/06/21 at 1117 by NOREEN MYERS PT Amended: Links added.
[2021-01-06] MEDS: PARoxetine HCL 20mg tab ORAL SCH (09:24)
[2021-01-06] MEDS: Lisinopril 10mg tab ORAL SCH (09:25)
[2021-01-06] MEDS: Vitamin B-12 500mcg tab ORAL SCH (09:25)
[2021-01-06] MEDS: Heparin 5000 units/ml inj SUBQ SCH ×2 (09:26→20:14)
[2021-01-06 09:53] LABS: ANION GAP 11 mmol/L (5-15); BLOOD UREA NITROGEN 16 mg/dL (7-18); CALCIUM 8.5 MG/DL (8.5-10.1); CARBON DIOXIDE 25 MMOL/L (21-32); CHLORIDE 104 MMOL/L (98-107); CREATININE 0.8 MG/DL (0.55-1.30); POTASSIUM 3.7 MMOL/L (3.5-5.1); SODIUM 140 MMOL/L (136-145)
[2021-01-06 12:00] VITALS: BP 113/83
--- NOTE | 2021-01-06 15:35 | Infectious Diseases Prog Note ---
Assessment/Plan Problems: (1) Right lower lobe pneumonia Assessment & Plan: With consolidation on chest x-ray and leukocytosis switch Zosyn empiric coverage to oral Augmentinfor 5 more days, aspiration precaution. Patient tested negative for COVID 19 again in hospital (2) Leukocytosis Assessment & Plan: with no evidence of sepsis and negative blood cultures 2, we will switch Zosyn to Augmentin to treat for pneumonia (3) Metabolic acidosis Assessment & Plan: Continue hydration and blood pressure support and repeat lactic acid (4) Sepsis Assessment & Plan: With hypotension and leukocytosis, resolved with negative blood culture 2, will switch Zosyn empiric coverage to oral Augmentinto treat for pneumonia (5) Diabetes Assessment & Plan: Recommend tight glycemic control to keep blood glucose between 100-140 (6) CLL (chronic lymphocytic leukemia) Assessment & Plan: Monitor blood count transfuse blood as needed follow-up with oncology Subjective Constitutional: Reports: no symptoms HEENT: Reports: no symptoms Respiratory: Reports: no symptoms Breasts: Reports: no symptoms Cardiovascular: Reports: no symptoms Gastrointestinal/Abdominal: Reports: no symptoms Genitourinary: Reports: no symptoms Neurologic: Reports: no symptoms Psychiatric: Reports: no symptoms Skin: Reports: no symptoms Endocrine: Reports: no symptoms Hematologic: Reports: no symptoms Musculoskeletal: Reports: no symptoms Allergies: Coded Allergies: No Known Allergies (Unverified , 07/30/20) Objective Last 24 Hour Vital Signs Date Time Temp Pulse Resp B/P (MAP) Pulse Ox O2 Delivery O2 Flow Rate FiO2 01/06/21 12:00 98.5 76 18 113/83 (93) 96 01/06/21 09:25 124/69 01/06/21 09:25 98 124/69 01/06/21 08:00 98.9 98 18 124/69 (87) 98 01/06/21 04:00 98.0 97 18 127/66 (86) 98 01/05/21 21:00 Room Air 01/05/21 20:00 97.7 94 16 112/67 (82) 99 01/05/21 16:00 97.9 81 18 105/61 (76) 95 Height (Feet): 5 Height (Inches): 2.00 Weight (Pounds): 140 General Appearance: WD/WN, no acute distress HEENT: normocephalic, atraumatic, anicteric, mucous membranes moist, PERRL Respiratory/Chest: chest wall non-tender, lungs clear, normal breath sounds, no respiratory distress, no accessory muscle use Cardiovascular: normal peripheral pulses, normal rate, regular rhythm, no gallop/murmur, no JVD Abdomen: normal bowel sounds, soft, non tender, no organomegaly, non distended, no mass, no scars Genitourinary: normal external genitalia Extremities: no cyanosis, no clubbing Skin: no rash, no lesions, no ulcers 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, alert, oriented x 3, responsive Lymphatic: no neck adenopathy, no groin adenopathy Musculoskeletal: normal muscle bulk Microbiology Date/Time Source Procedure Growth Status 01/03/21 16:27 Nasopharynx Coronavirus COVID-19 PCR (ANY) - Final Complete 01/03/21 15:35 Blood Blood Culture - Preliminary NO GROWTH AFTER 24 HOURS Resulted Laboratory Tests Test 01/05/21 16:19 01/05/21 20:08 01/06/21 05:34 01/06/21 08:45 POC Whole Blood Glucose Pending 275 MG/DL (74-106) H 193 MG/DL (74-106) H White Blood Count 16.9 K/UL (4.8-10.8) H Red Blood Count 3.51 M/UL (4.20-5.40) L Hemoglobin 8.8 G/DL (12.0-16.0) L Hematocrit 29.1 % (37.0-47.0) L Mean Corpuscular Volume 83 FL (80-99) Mean Corpuscular Hemoglobin 25.2 PG (27.0-31.0) L Mean Corpuscular Hemoglobin Concent 30.4 G/DL (32.0-36.0) L Red Cell Distribution Width 14.4 % (11.6-14.8) Platelet Count 368 K/UL (150-450) Mean Platelet Volume 6.8 FL (6.5-10.1) Neutrophils (%) (Auto) 67.6 % (45.0-75.0) Lymphocytes (%) (Auto) 26.1 % (20.0-45.0) Monocytes (%) (Auto) 5.3 % (1.0-10.0) Eosinophils (%) (Auto) 0.4 % (0.0-3.0) Basophils (%) (Auto) 0.7 % (0.0-2.0) Sodium Level 140 MMOL/L (136-145) Potassium Level 3.7 MMOL/L (3.5-5.1) Chloride Level 104 MMOL/L (98-107) Carbon Dioxide Level 25 MMOL/L (21-32) Anion Gap 11 mmol/L (5-15) Blood Urea Nitrogen 16 mg/dL (7-18) Creatinine 0.8 MG/DL (0.55-1.30) Estimat Glomerular Filtration Rate > 60 mL/min (>60) Glucose Level 160 MG/DL (74-106) #H Calcium Level 8.5 MG/DL (8.5-10.1) Test 01/06/21 12:13 POC Whole Blood Glucose 216 MG/DL (74-106) H Current Medications Medications (Trade) Dose Ordered Sig/Russ Route PRN Reason Start Time Stop Time Status Last Admin Dose Admin Acetaminophen (Tylenol) 650 mg Q6H PRN ORAL Mild Pain (Pain Scale 1-3) 01/03/21 18:45 02/02/21 18:44 01/04/21 18:53 Amlodipine Besylate (Norvasc) 5 mg DAILY ORAL 01/04/21 09:00 02/03/21 08:59 01/06/21 09:25 Atorvastatin Calcium (Lipitor) 20 mg BEDTIME ORAL 01/03/21 21:00 04/03/21 20:59 01/05/21 20:11 Cyanocobalamin (Vitamin B-12) 1,000 mcg DAILY ORAL 01/04/21 09:00 02/03/21 08:59 01/06/21 09:25 Dextrose (Dextrose 50%) 25 ml Q30M PRN IV Hypoglycemia 01/03/21 18:45 04/03/21 18:44 Dextrose (Dextrose 50%) 50 ml Q30M PRN IV Hypoglycemia 01/03/21 18:45 04/03/21 18:44 Folic Acid (Folate) 1 mg DAILY ORAL 01/04/21 09:00 02/03/21 08:59 01/06/21 09:25 Heparin Sodium (Porcine) (Heparin 5000 units/ml) 5,000 units EVERY 12 HOURS SUBQ 01/03/21 21:00 02/17/21 20:59 01/06/21 09:26 Insulin Aspart (NovoLOG) BEFORE MEALS AND HS SUBQ 01/03/21 21:00 04/03/21 20:59 01/06/21 12:21 Lactulose (Cephulac) 30 gm BIDPRN PRN ORAL Constipation 01/03/21 18:45 02/02/21 18:44 Lisinopril (ZestriL) 10 mg DAILY ORAL 01/04/21 09:00 02/03/21 08:59 01/06/21 09:25 Magnesium Hydroxide (Mom) 30 ml DAILYPRN PRN ORAL Constipation 01/03/21 18:45 02/02/21 18:44 Multivitamins (Multivitamins) 1 tab DAILY ORAL 01/04/21 09:00 02/03/21 08:59 01/06/21 09:25 Ondansetron HCl (Zofran) 4 mg Q6H PRN ORAL Nausea & Vomiting 01/03/21 18:45 02/02/21 18:44 Pantoprazole (Protonix) 40 mg DAILY ORAL 01/04/21 09:00 02/03/21 08:59 01/06/21 09:25 Paroxetine HCl (Paxil) 20 mg DAILY ORAL 01/04/21 09:00 02/03/21 08:59 01/06/21 09:24 Piperacillin Sod/ Tazobactam Sod 3.375 gm/Sodium Chloride 110 ml @ 27.5 mls/hr Q8HR IVPB 01/03/21 22:00 01/10/21 21:59 01/06/21 14:57 Psyllium Hydrophilic Mucilloid (Metamucil) 1 pkt TIDPRN PRN ORAL CONSTIPATION 01/03/21 18:56 02/02/21 18:55 Johanna Torres M.D. Jan 06, 2021 15:35
[2021-01-06 16:00] VITALS: BP 107/68
--- NOTE | 2021-01-06 16:20 | General Progress Note ---
Subjective Date patient seen: Jan 06, 2021 Time patient seen: 16:17 Constitutional: Reports: weakness HEENT: Reports: no symptoms Cardiovascular: Reports: no symptoms Respiratory: Reports: no symptoms Gastrointestinal/Abdominal: Reports: no symptoms Genitourinary: Reports: no symptoms Neurologic/Psychiatric: Reports: no symptoms Allergies: Coded Allergies: No Known Allergies (Unverified , 07/30/20) Subjective This afternoon she is doing well. No sob or chest pain. no coughing. she ate breakfast and lunch. no fever or chills. no nausea or vomiting. Objective Last 24 Hour Vital Signs Date Time Temp Pulse Resp B/P (MAP) Pulse Ox O2 Delivery O2 Flow Rate FiO2 01/06/21 12:00 98.5 76 18 113/83 (93) 96 01/06/21 09:25 124/69 01/06/21 09:25 98 124/69 01/06/21 08:00 98.9 98 18 124/69 (87) 98 01/06/21 04:00 98.0 97 18 127/66 (86) 98 01/05/21 21:00 Room Air 01/05/21 20:00 97.7 94 16 112/67 (82) 99 Intake and Output 0 01/05/21 01/06/21 19:00 07:00 Intake Total 720 ml 100 ml Balance 720 ml 100 ml Intake Oral 720 ml 100 ml # Voids 3 3 # Bowel Movements 1 Laboratory Tests 01/05/21 16:19: POC Whole Blood Glucose [Pending] 01/05/21 20:08: POC Whole Blood Glucose 275H 01/06/21 05:34: POC Whole Blood Glucose 193H 01/06/21 08:45: White Blood Count 16.9H, Red Blood Count 3.51L, Hemoglobin 8.8L, Hematocrit 29.1L, Mean Corpuscular Volume 83, Mean Corpuscular Hemoglobin 25.2L, Mean Corpuscular Hemoglobin Concent 30.4L, Red Cell Distribution Width 14.4, Platelet Count 368, Mean Platelet Volume 6.8, Neutrophils (%) (Auto) 67.6, Lymphocytes (%) (Auto) 26.1, Monocytes (%) (Auto) 5.3, Eosinophils (%) (Auto) 0.4, Basophils (%) (Auto) 0.7, Sodium Level 140, Potassium Level 3.7, Chloride Level 104, Carbon Dioxide Level 25, Anion Gap 11, Blood Urea Nitrogen 16, Creatinine 0.8, Estimat Glomerular Filtration Rate > 60, Glucose Level 160#H, Calcium Level 8.5 01/06/21 12:13: POC Whole Blood Glucose 216H Height (Feet): 5 Height (Inches): 2.00 Weight (Pounds): 140 General Appearance: no apparent distress, alert EENT: normal ENT inspection Neck: non-tender, supple Cardiovascular: normal rate, regular rhythm Respiratory/Chest: lungs clear, normal breath sounds Abdomen: non tender, soft Extremities: non-tender Edema: no edema noted Leg (L), no edema noted Leg (R) Neurologic: alert, responsive Skin: warm/dry Assessment/Plan Status: stable Assessment/Plan: 1. UTI. cont Augmentin and D/C to SNF tomorrow. 2. Leukocytosis. improved. cont and possible sepsis. 3. Possible sepsis - resolved. cont abx. 4. Diabetes type 2. We will put the patient on insulin SSI and hold oral blood sugar medication at this point. 5. History of CLL. We will monitor CBC. will consult Hematology Dr Soria as outpatient. Pura Guillen MD Jan 06, 2021 16:20
[2021-01-06] MEDS ORDERED: ASCORBIC ACID500 MG ORAL (18:54)
[2021-01-06] MEDS ORDERED: FOSAMAX70 MG ORAL (18:54)
[2021-01-06] MEDS ORDERED: ACETAMINOPHEN500 M3 ORAL (18:54)
--- NOTE | 2021-01-06 19:10 | NUR ---
NURSE NOTES: Received report from JAMIL Toribio. AAO x 4,on RA. IV site intact and patent. Pt is high fall risk and fall education given, verbally understood. Denies pain or discomfort. No labored breathing. IV site intact and patent. Bed locked, lowest position, alarm on, side rails up, call light within reach. Will continue to monitor.
[2021-01-06 20:00] VITALS: BP 129/60
[2021-01-06] MEDS: Atorvastatin 20mg tab ORAL SCH (20:12)
[2021-01-06] MEDS: Augmentin 875mg Tab ORAL SCH (20:13)
[2021-01-07] VITALS: BP 145/82
[2021-01-07 04:00] VITALS: BP 129/59
[2021-01-07] MEDS: NovoLOG Insulin Flexpen SUBQ SCH ×4 (05:42→22:02)
--- NOTE | 2021-01-07 06:06 | NUR ---
NURSE HAND-OFF: Important Events on Shift:none Patient Status: stable Diet: reg Pending Orders: hip xray Pending Results/Labs: Pending MD notification: Latest Vital Signs: Temperature 97.6 , Pulse 72 , B/P 129 /59 , Respiratory Rate 20 , O2 SAT 93 , Room Air, O2 Flow Rate . Vital Sign Comment: [] Latest Green Fall Score: 70 Fall Risk: High Risk Safety Measures: Call light Within Reach, Bed Alarm , Side Rails Side Rails x2, Bed position Low and Locked. Fall Precautions: Yellow Socks Yellow Gown Patient Fall Education Addendum: 01/07/21 at 0713 by BENSON KRUEGER RN RN NURSE NOTES: Report given to Roberto
[2021-01-07 06:41] LABS: EOSINOPHILS % (AUTO) 1.6 % (0.0-3.0); HEMATOCRIT 26.8 % (37.0-47.0); HEMOGLOBIN 8.4 G/DL (12.0-16.0); LYMPHOCYTES % (AUTO) 29.1 % (20.0-45.0); MEAN CORPUSCULAR VOLUME 83 FL (80-99); NEUTROPHILS % (AUTO) 62.3 % (45.0-75.0); PLATELET COUNT 353 K/UL (150-450); RED BLOOD COUNT 3.24 M/UL (4.20-5.40); RED CELL DISTRIBUTION WIDTH 15.5 % (11.6-14.8); WHITE BLOOD COUNT 14.4 K/UL (4.8-10.8)
[2021-01-07 07:09] LABS: ANION GAP 9 mmol/L (5-15); BLOOD UREA NITROGEN 22 mg/dL (7-18); CALCIUM 8.8 MG/DL (8.5-10.1); CARBON DIOXIDE 26 MMOL/L (21-32); CHLORIDE 104 MMOL/L (98-107); CREATININE 0.9 MG/DL (0.55-1.30); POTASSIUM 3.9 MMOL/L (3.5-5.1); SODIUM 139 MMOL/L (136-145)
--- NOTE | 2021-01-07 07:40 | NUR ---
NURSE NOTES: received report from JAMIL Chen. patient in bed. a&Ox4, verbally responsive. no respiratory distress noted on room air. pain on right inner thigh area and right hip area due to fall. IV on LAC 20 hep and RFA 20 hep intact. flushed. Xray right hip pending r/o fx. bed in the lowest position and locked. call light within reach. alarm on. educated patient to call for help.
[2021-01-07 08:00] VITALS: BP 102/64
[2021-01-07] MEDS: Lisinopril 10mg tab ORAL SCH (08:43)
[2021-01-07] MEDS: Augmentin 875mg Tab ORAL SCH ×2 (08:47→21:58)
[2021-01-07] MEDS: Vitamin B-12 500mcg tab ORAL SCH (08:47)
[2021-01-07] MEDS: PARoxetine HCL 20mg tab ORAL SCH (08:48)
[2021-01-07] MEDS: Heparin 5000 units/ml inj SUBQ SCH ×2 (08:48→21:59)
--- NOTE | 2021-01-07 08:57 | NUR ---
RADIOLOGY DEPT., RIGHT HIP AND PELVIS IS COMPLETED.-P.DYE
--- NOTE | 2021-01-07 09:01 | General Progress Note ---
Subjective Date patient seen: Jan 07, 2021 Time patient seen: 09:00 Constitutional: Reports: weakness HEENT: Reports: no symptoms Cardiovascular: Reports: no symptoms Respiratory: Reports: no symptoms Gastrointestinal/Abdominal: Reports: no symptoms Genitourinary: Reports: no symptoms Neurologic/Psychiatric: Reports: weakness Endocrine: Reports: no symptoms Allergies: Coded Allergies: No Known Allergies (Unverified , 07/30/20) Subjective This morning, she is doing well. No sob or chest pain. no coughing. no fever or chills. no nausea or vomiting. Objective Last 24 Hour Vital Signs Date Time Temp Pulse Resp B/P (MAP) Pulse Ox O2 Delivery O2 Flow Rate FiO2 01/07/21 08:43 102/64 01/07/21 08:42 77 102/64 01/07/21 08:00 97.3 77 19 102/64 (77) 94 01/07/21 04:00 97.6 72 20 129/59 (82) 93 01/07/21 00:00 97.3 95 20 145/82 (103) 96 01/06/21 21:00 Room Air 01/06/21 20:00 98.6 82 18 129/60 (83) 97 01/06/21 16:00 98.0 93 18 107/68 (81) 96 01/06/21 12:00 98.5 76 18 113/83 (93) 96 01/06/21 09:25 124/69 01/06/21 09:25 98 124/69 01/06/21 09:00 Room Air Intake and Output 01/06/21 01/07/21 19:00 07:00 Intake Total 1000 ml Balance 1000 ml Intake Oral 1000 ml # Voids 3 Laboratory Tests 01/06/21 12:13: POC Whole Blood Glucose 216H 01/06/21 16:49: POC Whole Blood Glucose 277H 01/06/21 20:25: POC Whole Blood Glucose 318H 01/07/21 05:30: White Blood Count 14.4H, Red Blood Count 3.24L, Hemoglobin 8.4L, Hematocrit 26.8L, Mean Corpuscular Volume 83, Mean Corpuscular Hemoglobin 25.8L, Mean Corpuscular Hemoglobin Concent 31.3L, Red Cell Distribution Width 15.5H, Platelet Count 353, Mean Platelet Volume 6.6, Neutrophils (%) (Auto) 62.3, Lymphocytes (%) (Auto) 29.1, Monocytes (%) (Auto) 6.0, Eosinophils (%) (Auto) 1.6, Basophils (%) (Auto) 1.0, Sodium Level 139, Potassium Level 3.9, Chloride Level 104, Carbon Dioxide Level 26, Anion Gap 9, Blood Urea Nitrogen 22H, Creatinine 0.9, Estimat Glomerular Filtration Rate > 60, Glucose Level 199H, Calcium Level 8.8 Height (Feet): 5 Height (Inches): 2.00 Weight (Pounds): 140 General Appearance: no apparent distress, alert EENT: normal ENT inspection Neck: non-tender, supple Cardiovascular: normal rate, regular rhythm Respiratory/Chest: lungs clear, normal breath sounds Abdomen: normal bowel sounds, non tender, soft Extremities: non-tender Edema: no edema noted Leg (L), no edema noted Leg (R) Neurologic: alert, responsive Skin: warm/dry Assessment/Plan Status: stable Assessment/Plan: 1. UTI. cont Augmentin and D/C to SNF today. 2. Leukocytosis. improved. cont and possible sepsis. 3. Possible sepsis - resolved. cont abx. 4. Diabetes type 2. We will put the patient on insulin SSI and hold oral blood sugar medication at this point. 5. History of CLL. will consult Hematology Dr Soria as outpatient. Pura Guillen MD Jan 07, 2021 09:01
--- NOTE | 2021-01-07 09:20 | NUR ---
NURSE NOTES: patient was seen by . might d/c patient to [facility] for rehab after reviewing right hip x ray result.
--- NOTE | 2021-01-07 11:32 | NUR ---
PT NOTE Patient had x-ray R hip to R/O fx, results not available, will wait for results of x-ray prior to PT treatment. Roberto NEGRON aware.
[2021-01-07 12:00] VITALS: BP_SYST 111; BP_SYST 139; BP_DIAS 65; BP_DIAS 67
--- NOTE | 2021-01-07 15:14 | Diagnostic Imaging Report ---
Indication: Pain Technique: One view of the pelvis, 2 views of the right hip. Comparison: 07/30/2020 Findings: No acute fracture. No dislocation. Joint spaces are preserved. There are mild degenerative changes of the lumbosacral junction and of the bilateral sacroiliac joints. Findings are unchanged Impression: No acute process
[2021-01-07] MEDS ORDERED: AMOX TR-K CLV1 EAC2 ORAL (15:21)
--- NOTE | 2021-01-07 15:21 | NUR ---
NURSE NOTES: Received call from Dr. Guillen who asks for right hip x-ray result. RN followed up with radiology and relayed x-ray result to Dr. Guillen. Primary nurse is aware.
--- NOTE | 2021-01-07 15:28 | NUR ---
NURSE NOTES: Received discharge order form Dr. Guillen and MANPREET chris is aware.
--- NOTE | 2021-01-07 15:39 | NUR ---
CASE MANAGEMENT:REVIEW LATE ENTRY 01/03/21 80 YR OLD FEMALE BIBA FROM [facility] CC; ABNORMAL LABS SI: SEPSIS. UTI 98.0 92 14 90/56 93% ON RA WBC+28.1 IS: 1.9L NS BOLUS IV ZOSYN X1 CHEST XRAY BLOOD CX NOVEL COVID : TO MED/SURG UNIT
[2021-01-07 16:00] VITALS: BP 129/66
--- NOTE | 2021-01-07 16:14 | Infectious Diseases Prog Note ---
Assessment/Plan Problems: (1) Right lower lobe pneumonia Assessment & Plan: With consolidation on chest x-ray and leukocytosis , continue oral Augmentin for 4 more days, aspiration precaution. Patient tested negative for COVID 19 again in hospital (2) Leukocytosis Assessment & Plan: with no evidence of sepsis and negative blood cultures 2, continue Augmentin to treat for pneumonia (3) Sepsis Assessment & Plan: With hypotension and leukocytosis, resolved with negative blood culture 2, continue oral Augmentin to treat for pneumonia (4) Diabetes Assessment & Plan: Recommend tight glycemic control to keep blood glucose between 100-140 (5) CLL (chronic lymphocytic leukemia) Assessment & Plan: Monitor blood count transfuse blood as needed follow-up with oncology Subjective Constitutional: Reports: no symptoms HEENT: Reports: no symptoms Respiratory: Reports: no symptoms Breasts: Reports: no symptoms Cardiovascular: Reports: no symptoms Gastrointestinal/Abdominal: Reports: no symptoms Genitourinary: Reports: no symptoms Neurologic: Reports: no symptoms Psychiatric: Reports: no symptoms Skin: Reports: no symptoms Endocrine: Reports: no symptoms Hematologic: Reports: no symptoms Musculoskeletal: Reports: no symptoms Allergies: Coded Allergies: No Known Allergies (Unverified , 07/30/20) Objective Last 24 Hour Vital Signs Date Time Temp Pulse Resp B/P (MAP) Pulse Ox O2 Delivery O2 Flow Rate FiO2 01/07/21 12:00 97.4 73 19 139/67 (91) 95 01/07/21 12:00 97.6 76 22 111/65 (80) 96 01/07/21 09:00 Room Air 01/07/21 08:43 102/64 01/07/21 08:42 77 102/64 01/07/21 08:00 97.3 77 19 102/64 (77) 94 01/07/21 04:00 97.6 72 20 129/59 (82) 93 01/07/21 00:00 97.3 95 20 145/82 (103) 96 01/06/21 21:00 Room Air 01/06/21 20:00 98.6 82 18 129/60 (83) 97 Height (Feet): 5 Height (Inches): 2.00 Weight (Pounds): 140 General Appearance: WD/WN, no acute distress HEENT: normocephalic, atraumatic, anicteric, mucous membranes moist, PERRL Respiratory/Chest: chest wall non-tender, lungs clear, normal breath sounds, no respiratory distress, no accessory muscle use Cardiovascular: normal peripheral pulses, normal rate, regular rhythm, no gallop/murmur, no JVD Abdomen: normal bowel sounds, soft, non tender, no organomegaly, non distended, no mass, no scars Genitourinary: normal external genitalia Extremities: no cyanosis, no clubbing Skin: no rash, no lesions Neurologic/Psychiatric: no motor/sensory deficits, alert, oriented x 3, responsive Lymphatic: no neck adenopathy, no groin adenopathy Musculoskeletal: normal muscle bulk, no effusion Microbiology Date/Time Source Procedure Growth Status 01/05/21 06:00 Rectum VRE Culture - Final NO VANCOMYCIN RESISTANT ENTEROCOCCUS ... Complete 01/05/21 06:00 Nasal Nares MRSA Culture - Final NO METHICILLIN RESISTANT STAPH AUREUS... Complete Laboratory Tests Test 01/06/21 16:49 01/06/21 20:25 01/07/21 05:30 POC Whole Blood Glucose 277 MG/DL (74-106) H 318 MG/DL (74-106) H White Blood Count 14.4 K/UL (4.8-10.8) H Red Blood Count 3.24 M/UL (4.20-5.40) L Hemoglobin 8.4 G/DL (12.0-16.0) L Hematocrit 26.8 % (37.0-47.0) L Mean Corpuscular Volume 83 FL (80-99) Mean Corpuscular Hemoglobin 25.8 PG (27.0-31.0) L Mean Corpuscular Hemoglobin Concent 31.3 G/DL (32.0-36.0) L Red Cell Distribution Width 15.5 % (11.6-14.8) H Platelet Count 353 K/UL (150-450) Mean Platelet Volume 6.6 FL (6.5-10.1) Neutrophils (%) (Auto) 62.3 % (45.0-75.0) Lymphocytes (%) (Auto) 29.1 % (20.0-45.0) Monocytes (%) (Auto) 6.0 % (1.0-10.0) Eosinophils (%) (Auto) 1.6 % (0.0-3.0) Basophils (%) (Auto) 1.0 % (0.0-2.0) Sodium Level 139 MMOL/L (136-145) Potassium Level 3.9 MMOL/L (3.5-5.1) Chloride Level 104 MMOL/L (98-107) Carbon Dioxide Level 26 MMOL/L (21-32) Anion Gap 9 mmol/L (5-15) Blood Urea Nitrogen 22 mg/dL (7-18) H Creatinine 0.9 MG/DL (0.55-1.30) Estimat Glomerular Filtration Rate > 60 mL/min (>60) Glucose Level 199 MG/DL (74-106) H Calcium Level 8.8 MG/DL (8.5-10.1) Current Medications Medications (Trade) Dose Ordered Sig/Russ Route PRN Reason Start Time Stop Time Status Last Admin Dose Admin Acetaminophen (Tylenol) 650 mg Q6H PRN ORAL Mild Pain (Pain Scale 1-3) 01/03/21 18:45 02/02/21 18:44 01/07/21 11:16 Amlodipine Besylate (Norvasc) 5 mg DAILY ORAL 01/04/21 09:00 02/03/21 08:59 01/06/21 09:25 Amoxicillin/ Clavulanate Potassium (Augmentin) 875 mg EVERY 12 HOURS ORAL 01/06/21 21:00 01/13/21 20:59 01/07/21 08:47 Atorvastatin Calcium (Lipitor) 20 mg BEDTIME ORAL 01/03/21 21:00 04/03/21 20:59 01/06/21 20:12 Cyanocobalamin (Vitamin B-12) 1,000 mcg DAILY ORAL 01/04/21 09:00 02/03/21 08:59 01/07/21 08:47 Dextrose (Dextrose 50%) 25 ml Q30M PRN IV Hypoglycemia 01/03/21 18:45 04/03/21 18:44 Dextrose (Dextrose 50%) 50 ml Q30M PRN IV Hypoglycemia 01/03/21 18:45 04/03/21 18:44 Folic Acid (Folate) 1 mg DAILY ORAL 01/04/21 09:00 02/03/21 08:59 01/07/21 08:47 Heparin Sodium (Porcine) (Heparin 5000 units/ml) 5,000 units EVERY 12 HOURS SUBQ 01/03/21 21:00 02/17/21 20:59 01/07/21 08:48 Insulin Aspart (NovoLOG) BEFORE MEALS AND HS SUBQ 01/03/21 21:00 04/03/21 20:59 01/07/21 11:34 Lactulose (Cephulac) 30 gm BIDPRN PRN ORAL Constipation 01/03/21 18:45 02/02/21 18:44 Lisinopril (ZestriL) 10 mg DAILY ORAL 01/04/21 09:00 02/03/21 08:59 01/06/21 09:25 Magnesium Hydroxide (Mom) 30 ml DAILYPRN PRN ORAL Constipation 01/03/21 18:45 02/02/21 18:44 Multivitamins (Multivitamins) 1 tab DAILY ORAL 01/04/21 09:00 02/03/21 08:59 01/07/21 08:48 Ondansetron HCl (Zofran) 4 mg Q6H PRN ORAL Nausea & Vomiting 01/03/21 18:45 02/02/21 18:44 Pantoprazole (Protonix) 40 mg DAILY ORAL 01/04/21 09:00 02/03/21 08:59 01/07/21 08:48 Paroxetine HCl (Paxil) 20 mg DAILY ORAL 01/04/21 09:00 02/03/21 08:59 01/07/21 08:48 Psyllium Hydrophilic Mucilloid (Metamucil) 1 pkt TIDPRN PRN ORAL CONSTIPATION 01/03/21 18:56 02/02/21 18:55 Johanna Torres M.D. Jan 07, 2021 16:14
--- NOTE | 2021-01-07 16:47 | NUR ---
*-*DISCHARGE PLANNED*-* PATIENT HAS BEEN ACCEPTED AND WILL BE DISCHARGED TO: [facility] P: [phone] FOR NURSE TO NURSE REPORT ROOM# 7.[facility] TRANSPORTATION SET FOR 5:45PM S/W [place] [id number]. S/W PATIENTS SISTER CHINYERE MEJIA, WHO IS IN AGREEMENT WITH DISCHARGE PLAN.
--- NOTE | 2021-01-07 17:34 | NUR ---
NURSE NOTES: Given report to [facility] [place]. spoke to Wyatt, Nurse on duty.
--- NOTE | 2021-01-07 18:59 | Discharge Summary ---
DATE OF ADMISSION: 01/03/2021 DATE OF DISCHARGE: 01/07/2021 HOSPITAL COURSE: This is an 80-year-old [place] female, who was brought in from assisted Living [facility] for generalized weakness, fall, and leukocytosis. The patient was found to have urinary tract infection, leukocytosis, and possible sepsis. The patient was started on broad spectrum antibiotic Zosyn, and ID was consulted. The patient responded to treatment well and white count improved. The patient also has a history of CLL and her baseline WBC was 14,000 and the patient's WBC came back to 14,000 and will be discharged to the [facility] for generalized weakness. The patient will be having physical therapy for one to two weeks and will be discharged back to her assisted living after the rehabilitation. The patient also will be followed up with the oncologist-lease out man as an outpatient. Previously, the patient refused any oncology follow-up as outpatient, but will try to have her see oncologist again. DISCHARGE MEDICATIONS: Augmentin 875 mg twice a day for six more days, acetaminophen 500 mg every 6 hours as needed, Fosamax 70 mg weekly, Norvasc 5 mg daily, ascorbic acid 500 mg twice a day, atorvastatin 20 mg nightly, Pepcid 20 mg daily, folic acid 1 milligram daily, Jardiance 10 mg daily, lactulose 30 mL twice a day, Tradjenta 5 mg daily, lisinopril 10 mg daily, magnesium oxide 30 mL daily as needed, metformin 1000 mg twice a day, multivitamin one daily, Paxil 20 mg daily, Metamucil one tablet daily as needed, and Zofran 4 mg every six hours as needed. DISCHARGE DIAGNOSES: 1. Urinary tract infection. 2. Leukocytosis. 3. Sepsis. 4. Diabetes mellitus type 2. 5. History of CLL. DISPOSITION: The patient will be going to [facility] for physical therapy. We will be following the patient within one to two weeks. Pura Guillen M.D. DR: JOSIAS JOB#: [id number] CC: ANGELA
--- NOTE | 2021-01-07 19:16 | NUR ---
NURSE NOTES: Received report from JAMIL Mejia. AAO x 4,on RA. IV site intact and patent. Pt is high fall risk and fall education given, verbally understood. Denies pain or discomfort. No labored breathing. IV site intact and patent. Bed locked, lowest position, alarm on, side rails up, call light within reach. Waiting for ambulance.
--- NOTE | 2021-01-07 19:17 | NUR ---
NURSE HAND-OFF: Important Events on Shift:DC to CV terrace. Patient Status: stable, pain on rt hip Diet: regular Pending Orders: n/A Pending Results/Labs:n/A Pending MD notification:N/A Latest Vital Signs: Temperature 97.4 , Pulse 83 , B/P 129 /66 , Respiratory Rate 20 , O2 SAT 96 , Room Air, O2 Flow Rate . Vital Sign Comment: STABLE Latest Green Fall Score: 70 Fall Risk: High Risk Safety Measures: Call light Within Reach, Bed Alarm , Side Rails Side Rails x2, Bed position Low and Locked. Fall Precautions: Yellow Socks Yellow Gown Patient Fall Education Report given to jeremiah KNOWLES
[2021-01-07 20:00] VITALS: BP 115/62
[2021-01-07] MEDS: Atorvastatin 20mg tab ORAL SCH (21:58)
--- NOTE | 2021-01-07 22:00 | NUR ---
NURSE NOTES: Ambulance is delaying to transfer pt to [facility]. JUAN [place] called us that nurse will be leaving @ 2330. If the pt can't be there by 2330, they can't accept the pt tonight. Ambulance is canceled and will make reschedule tomorrow in the morning. Charge nurse aware.
[2021-01-08] VITALS: BP 120/60
--- NOTE | 2021-01-08 02:00 | Cardiology Report ---
APPROVED REPORT EKG Measurement Heart [id number] <Conclusion> Atrial fibrillation Cannot rule out Anterior infarct, age undetermined Abnormal ECG
[2021-01-08 04:00] VITALS: BP 125/65
[2021-01-08] MEDS: NovoLOG Insulin Flexpen SUBQ SCH (05:36)
--- NOTE | 2021-01-08 06:23 | NUR ---
NURSE NOTES: Made arrangement for ambulance @ 0830 to transfer to [facility].
--- NOTE | 2021-01-08 06:25 | NUR ---
NURSE HAND-OFF: Important Events on Shift:canceled ambulance and made rearrangement @ 0830 today Patient Status: Diet: Pending Orders: Pending Results/Labs: Pending MD notification: Latest Vital Signs: Temperature 98.7 , Pulse 83 , B/P 125 /65 , Respiratory Rate 18 , O2 SAT 96 , Room Air, O2 Flow Rate . Vital Sign Comment: Latest Green Fall Score: 70 Fall Risk: High Risk Safety Measures: Call light Within Reach, Bed Alarm , Side Rails Side Rails x2, Bed position Low and Locked. Fall Precautions: Yellow Socks Yellow Gown Patient Fall Education
[2021-01-08 08:00] VITALS: BP 119/56
--- NOTE | 2021-01-08 09:00 | NUR ---
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 Ambulance will be here @ [facility] around 9:40am due to traffic.
[2021-01-08] MEDS: Augmentin 875mg Tab ORAL SCH (09:02)
[2021-01-08] MEDS: PARoxetine HCL 20mg tab ORAL SCH (09:03)
[2021-01-08] MEDS: Lisinopril 10mg tab ORAL SCH (09:03)
[2021-01-08 09:04] VITALS: BP 119/56
[2021-01-08] MEDS: Vitamin B-12 500mcg tab ORAL SCH (09:08)
[2021-01-08] MEDS: Heparin 5000 units/ml inj SUBQ SCH (09:09)
--- NOTE | 2021-01-08 10:20 | NUR ---
NURSE NOTES: Patient is transported back to [facility] on a gurney by [facility] with two transporters Julián and Marco Antonio. Vitals stable, aao X3, no s/s of respiratory distress or pain noted. Belongings verified and given to the patient. ID band and IV removed, asymptomatic.
--- NOTE | 2021-01-08 17:36 | General Progress Note ---
Subjective Date patient seen: Jan 08, 2021 Time patient seen: 08:10 Constitutional: Reports: weakness HEENT: Reports: no symptoms Cardiovascular: Reports: no symptoms Respiratory: Reports: no symptoms Gastrointestinal/Abdominal: Reports: no symptoms Genitourinary: Reports: no symptoms Neurologic/Psychiatric: Reports: weakness Endocrine: Reports: no symptoms Allergies: Coded Allergies: No Known Allergies (Unverified , 07/30/20) Subjective This morning, she is doing well. No sob or chest pain. no coughing. no fever or chills. no nausea or vomiting. Transportation didn't come in last night and she was not discharged until today. Late entry of my visit for this morning at 8:10 AM. Objective Last 24 Hour Vital Signs Date Time Temp Pulse Resp B/P (MAP) Pulse Ox O2 Delivery O2 Flow Rate FiO2 01/08/21 09:04 83 119/56 01/08/21 09:03 119/56 01/08/21 08:00 97.2 83 19 119/56 (77) 95 01/08/21 04:00 98.7 83 18 125/65 (85) 96 01/08/21 00:00 98.5 79 18 120/60 (80) 97 01/07/21 21:00 Room Air 01/07/21 20:00 99.2 85 20 115/62 (79) 97 l Intake and Output 01/07/21 01/08/21 19:00 07:00 Intake Total 600 ml Balance 600 ml Intake Oral 600 ml # Voids 2 4 # Bowel Movements 2 Height (Feet): 5 Height (Inches): 2.00 Weight (Pounds): 140 General Appearance: no apparent distress, alert EENT: normal ENT inspection Neck: non-tender, supple Cardiovascular: normal rate, regular rhythm Respiratory/Chest: lungs clear, normal breath sounds Abdomen: non tender, soft Extremities: non-tender Edema: no edema noted Leg (L), no edema noted Leg (R) Neurologic: alert, responsive Skin: warm/dry Assessment/Plan Status: stable Assessment/Plan: 1. UTI. cont Augmentin and D/c to [facility] today. 2. Leukocytosis. improved. cont and possible sepsis. 3. Possible sepsis - resolved. cont abx. 4. Diabetes type 2. We will put the patient on insulin SSI and hold oral blood sugar medication at this point. 5. History of CLL. will consult Hematology Dr Soria as outpatient. Pura Guillen MD Jan 08, 2021 17:36
== END 2021-01-08 10:20 | DRG 871 ==
LOC: EDBD 14:52 → EMR 15:29 → 4E 16:12 → EDBEDREQ 17:11
DX: A41.9 Sepsis, unspecified organism (principal); J18.9 Pneumonia, unspecified organism; N39.0 Urinary tract infection, site not specified; C91.10 Chronic lymphocytic leukemia of B-cell type not having achieved remission; E11.9 Type 2 diabetes mellitus without complications; I95.9 Hypotension, unspecified; Z91.81 History of falling; Z79.84 Long term (current) use of oral hypoglycemic drugs
CPT/HCPCS: 36415; 71045; 80048; 80053; 81003; 82550; 82962; 83605; 83690; 83880; 84484; 85007; 85025; 87040; 87081; 93005; 96361; 96365; 96375; 99291; J1815; J7030

== ENCOUNTER 2021-01-13 18:11 | Emergency (ER) | payer MEDICARE, OTHER ==
[~2021-01-13] VITALS: Ht 152.4 cm; Wt 47.6 kg
[~2021-01-13 18:11] MED LIST changes: +ACETAMINOPHEN500 M3 ORAL; +AMOX TR-K CLV1 EAC2 ORAL; +ASCORBIC ACID500 MG ORAL; +FOSAMAX70 MG ORAL
--- NOTE | 2021-01-13 19:15 | NUR ---
Reported to ER after falling and [facility].
--- NOTE | 2021-01-13 19:30 | NUR ---
ED Nurse Note: Recieved rerport from am nurse to resume care, pt in bed awake, alert and orineted to name and place, pt is here from SNF for s/p fall with head injury, no bleeding or hematoma noted, pt has ordered CT scan and waiting for results, pt has IV line in right forearm, pt placed on cardiac monitoring for v/s, will resume care as ordered and closely monitor.
--- NOTE | 2021-01-13 19:31 | Diagnostic Imaging Report ---
EXAM: CT Head Without Intravenous Contrast CLINICAL HISTORY: FALL TECHNIQUE: Axial computed tomography images of the head/brain without intravenous contrast. CTDI is 53.4 mGy and DLP is 912 mGy-cm. One or more of the following dose reduction techniques were used: automated exposure control, adjustment of the mA and/or kV according to patient size, use of iterative reconstruction technique. COMPARISON: 07/30/2020 FINDINGS: Brain: No acute intracranial hemorrhage, large hypodensity, or significant mass effect. Nonspecific areas of hypoattenuation in the periventricular white matter likely represent the sequela of chronic small vessel ischemic disease. Stable 11 mm coarse calcification along the left anterior interhemispheric falx, likely a meningioma. Ventricles: Ventricular and sulcal prominence commensurate with the patient's age. Bones/joints: No acute abnormality. Soft tissues: Left posterior scalp hematoma. Sinuses: No significant abnormality. Mastoid air cells: No significant abnormality. IMPRESSION: No acute intracranial hemorrhage or calvarial fracture.
[2021-01-13 19:40] VITALS: BP 136/77
--- NOTE | 2021-01-13 20:10 | NUR ---
ED Nurse Note: Pt assisted with bedpan use, wearing diaper, not soiled, pt tolerated well, able to move without complications, skin is intact, no changes or increased distress, pt remains on monitoring while waiting for transfer back to facility, pt also given apple juice, tolerated well.
[2021-01-13] MEDS ORDERED: Albuterol/Ipratropium 3ml neb HHN ONE (20:30)
--- NOTE | 2021-01-13 21:20 | NUR ---
ED Nurse Note: Pt has been discharged and being transferred back to SNF via [facility], [facility][id number] HAS ARRIVED, ALL D/C FORMAS AND VERBAL REPORT GIVEN TO COMMUNICATIONS DEPARTMENT CHAIRPERSON, PT IS AWAKE, ALERT AND ORIENTED AND VERY THANKFUL TO STAFF, PT IS CLEAN AND DRY, iv LINE REMOVED, CHARGE NURSE RU SPOKE WITH FACILITY ABOUT PT RETURN, V/S STABLE, PT DENIES PAIN, NAD NOTED DURING PT DISCHARGE.
[2021-01-13 21:25] VITALS: BP 145/76
[2021-01-13 21:40] VITALS: BP 145/76
--- NOTE | 2021-01-13 22:05 | Emergency Room Report ---
History of Present Illness General Chief Complaint: Multiple Trauma/Fall Present Illness Allergies: Coded Allergies: No Known Allergies (Unverified , 07/30/20) COVID-19 Screening Contact w/high risk pt: No Experienced COVID-19 symptoms?: No COVID-19 Testing performed STORE PROMOTER: No Nursing Documentation-PMH Hx Cardiac Problems: Yes Hx Hypertension: Yes Hx Diabetes: Yes Hx Cancer: No Hx Gastrointestinal Problems: No Hx Neurological Problems: Yes Hx Dementia: Yes Hx Head Trauma: Yes - head injury Hx Weakness: Yes Physical Exam Vital Signs Date Time Temp Pulse Resp B/P (MAP) Pulse Ox O2 Delivery O2 Flow Rate FiO2 01/13/21 17:55 98.8 92 20 128/65 (86) 95 Room Air Medical Decision Making Diagnostic Impression: Primary Impression: Head injury CT/MRI/US Diagnostic Results CT/MRI/US Diagnostic Results : Imaging Test Ordered: CT Head Impression Procedure: CT Head no Contrast EXAM: CT Head Without Intravenous Contrast CLINICAL HISTORY: FALL TECHNIQUE: Axial computed tomography images of the head/brain without intravenous contrast. CTDI is 53.4 mGy and DLP is 912 mGy-cm. One or more of the following dose reduction techniques were used: automated exposure control, adjustment of the mA and/or kV according to patient size, use of iterative reconstruction technique. COMPARISON: 07/30/2020 FINDINGS: Brain: No acute intracranial hemorrhage, large hypodensity, or significant mass effect. Nonspecific areas of hypoattenuation in the periventricular white matter likely represent the sequela of chronic small vessel ischemic disease. Stable 11 mm coarse calcification along the left anterior interhemispheric falx, likely a meningioma. Ventricles: Ventricular and sulcal prominence commensurate with the patient's age. Bones/joints: No acute abnormality. Soft tissues: Left posterior scalp hematoma. Sinuses: No significant abnormality. Mastoid air cells: No significant abnormality. IMPRESSION: No acute intracranial hemorrhage or calvarial fracture Last Vital Signs Date Time Temp Pulse Resp B/P (MAP) Pulse Ox O2 Delivery O2 Flow Rate FiO2 01/13/21 21:40 98.8 88 16 145/76 100 Room Air Status: improved Disposition: ASSISTED LIVING Condition: Stable Patient Instructions: Head Injury, Adult, [id number] Kulwinder Mehta MD Jan 13, 2021 22:05
== END 2021-01-13 21:40 | disposition home or self-care (01) ==
LOC: EDBD 18:11 → EMR 19:23
DX: S09.90XA Unspecified injury of head, initial encounter (principal); W19.XXXA Unspecified fall, initial encounter; Y92.9 Unspecified place or not applicable; E11.9 Type 2 diabetes mellitus without complications; I10 Essential (primary) hypertension; F03.90 Unspecified dementia, unspecified severity, without behavioral disturbance, psychotic disturbance, mood disturbance, and anxiety
CPT/HCPCS: 70450; 99284; J7620